=== PATIENT | female | born 1955 | race Caucasian/White ===

== ENCOUNTER 2020-02-04 15:36 | Outpatient (REF) | payer OTHER, SELFPAY | END 2020-02-04 15:37 | disposition home or self-care (01) | LOC: HO.LAB 15:36 | PROVIDERS: Visit Provider Internal Medicine | DX: Z20.828 Contact with and (suspected) exposure to other viral communicable diseases (principal) | CPT/HCPCS: 87635 ==

== ENCOUNTER 2020-04-02 10:24 | Inpatient (IN) | payer OTHER, SELFPAY ==
--- NOTE | 2020-04-02 | ECG_ITS ---
Test Reason : DIZZINESS Blood Pressure : / mmHG Vent. Rate : 076 BPM Atrial Rate : 076 BPM P-R Int : 150 ms QRS Dur : 098 ms QT Int : 396 ms P-R-T Axes : 064 024 -04 degrees QTc Int : 445 ms Normal sinus rhythm ST & T wave abnormality, consider inferior ischemia Abnormal ECG When compared with ECG of 30-MAR-2017 15:50, No significant change was found Referred By: Generic ED Physician Electronically Signed By:MOHAN MORRISON MD
[2020-04-02 10:37] VITALS: BP 210/82; PULSE 82; RESP 22; TEMP 36.2; O2SAT 88; BMI 30.6
--- NOTE | 2020-04-02 11:24 | XR_ITS ---
EXAMINATION: XR CHEST CLINICAL INFORMATION: Shortness of breath COMPARISON: 03/30/2017 TECHNIQUE: Frontal view of the chest was obtained. FINDINGS: No significant abnormality is noted involving the heart, lungs, mediastinum, bony thorax or soft tissues. XR/XR chest 1V IMPRESSION: Unremarkable examination.
--- NOTE | 2020-04-02 11:25 | CT_ITS ---
EXAMINATION: CT ABDOMEN AND PELVIS WITH CONTRAST CLINICAL INFORMATION: Lower abdominal tenderness and left lower quadrant pain. COMPARISON: CT abdomen 03/18/2017 TECHNIQUE: Multidetector volumetric images were obtained from the superior aspect of the liver through the pubic symphysis following administration 85 mL of Omnipaque 350 intravenous contrast. Sagittal and coronal reformatted images were obtained on the technologist's workstation. Oral contrast: No This CT examination was performed using dose optimization techniques as appropriate, variously including the following: *Automated exposure control *Adjustment of mA and/or kV according to patient size (this includes techniques or standardized protocols for targeted exams where dose is matched to indication/reason for exam; i.e. extremities or head) *Use of iterative reconstruction technique DLP: 889 mGy-cm FINDINGS: LUNG BASES: Patchy consolidation is present at the left lung base. LIVER, GALLBLADDER, AND BILIARY TREE: Hepatic steatosis is present. No focal mass or bile duct dilatation is seen. Surgical clips are present in the gallbladder fossa. PANCREAS: Unremarkable. SPLEEN: Unremarkable. ADRENAL GLANDS: Both adrenal glands appear slightly nodular but unchanged. KIDNEYS AND URETERS: The kidneys are normal in size, shape, and attenuation. Bilateral renal cysts are present. No solid renal masses are seen. No hydronephrosis, hydroureter, or calculi are seen. No perinephric stranding. BLADDER: Unremarkable. GASTROINTESTINAL TRACT: Again seen is thickening of the gastric mucosa at the level of the fundus. This appears slightly more marked than previously noted. At the time of the prior study, endoscopy or upper GI was recommended. The same recommendations remain. Scattered colonic diverticula are present without diverticulitis. The small and large bowel is unremarkable. The appendix is not identified with certainty but there is no evidence of appendicitis. ABDOMINAL WALL: No significant hernia is appreciated. LYMPH NODES: No retroperitoneal lymphadenopathy. VASCULAR: Ectatic but unremarkable. PELVIC VISCERA: An anteverted uterus is present. No free intraperitoneal fluid or abnormal adnexal mass is seen. OSSEOUS STRUCTURES: Degenerative change is present, most marked at L4-L5. No bony destructive lesions are seen. CT/CT abdomen pelvis w con IMPRESSION: A cause for the patient's left lower quadrant pain is not found. Incidental findings include: Hepatic steatosis, slightly nodular adrenal glands, bilateral renal cysts, thickened gastric mucosa (see recommendations above) and degenerative changes in the spine.
[2020-04-02] MEDS: diphenhydrAMINE HCL 50 MG/ML VIAL 12.5 MG IVPUSH (11:39)
[2020-04-02 11:40] LABS: Basophils Percent Auto 0.2 % (0-2); Eosinophils Percent Auto 0.1 % (0-4); Hematocrit 45.7 % (37-47); Hemoglobin 15.7 g/dl (12.0-16.0); Imm Gran Abs Auto 0.07 X10*3/uL (0.00-0.03); Imm Gran Pct Auto 0.5 % (0.0-0.4); Lymphocytes Absolute Auto 0.8 X10*3/uL (1.2-4.9); Lymphocytes Percent Auto 5.7 % (20-40); MANUAL DIFF FLAG NO; Mean Corpuscular HGB Conc 34.4 g/dl (31.0-35.0); Mean Corpuscular Hemoglobin 31.2 pg (27.0-33.0); Mean Corpuscular Volume 90.9 fL (80-98); Mean Platelet Volume 11.4 fL (9.4-12.3); Monocytes Absolute Auto 0.7 X10*3/uL (0.1-1.2); Monocytes Percent Auto 5.1 % (2-11); Neutrophils Absolute Auto 12.9 X10*3/uL (2.0-8.3); Neutrophils Percent Auto 88.4 % (45-73); Platelet Count 259 X10*3/uL (160-400); Red Blood Count 5.03 X10*6/uL (4.20-5.50); Red Cell Distribution Width 11.3 % (11.0-16.0); White Blood Count 14.6 X10*3/uL (4.8-10.8)
[2020-04-02] MEDS: ondansetron HCL 4 MG/2 ML VIAL IVPUSH (11:40)
[2020-04-02] MEDS: 0.9 % Sodium Chloride 1,000 ML 999 ML IVCONT ×3 (11:40→17:30)
[2020-04-02] MEDS: Meclizine HCl 25 MG TABLET PO (11:40)
[2020-04-02 11:41] VITALS: BP 195/83; PULSE 76; RESP 20; O2SAT 99
[2020-04-02 12:10] VITALS: BP 174/84; PULSE 80; RESP 16; O2SAT 98
[2020-04-02 12:12] LABS: Troponin-I High Sensitivity 10.2 ng/L (<3.5-17.0)
--- NOTE | 2020-04-02 12:28 | PC.NURSE ---
Pt reports improvement in nausea, no longer vomiting.
[2020-04-02 12:39] LABS: Lactic Acid 2.4 mmol/L (0.5-2.0)
[2020-04-02 12:40] LABS: Alanine Aminotransferase 26 U/L (0-31); Albumin Level 4.4 g/dL (3.5-5.0); Alkaline Phosphatase 59 U/L (39-117); Anion Gap 23 (12-20); Aspartate Amino Transferase 22 U/L (5-31); Bilirubin Direct 0.3 mg/dL (0.0-0.5); Bilirubin Total 0.8 mg/dL (0.0-1.0); Blood Urea Nitrogen 10 mg/dL (9-16); Calcium 8.4 mg/dL (8.4-10.2); Carbon Dioxide 22 mmol/L (22-29); Chloride 99 mmol/L (96-108); Creatinine Clr Calc Pharmacy 77.5; Estimated Glomerular Filt Rate > 60; Glucose Random 270 mg/dL (60-115); Lipase 37 U/L (8-78); Magnesium < 0.6 mg/dL (1.6-2.6); Potassium 2.8 mmol/l (3.3-5.1); Sodium 141 mmol/L (135-145); Total Protein 7.8 g/dL (6.5-8.0)
[2020-04-02 12:48] LABS: Glucose Urine UA 500 MG/DL (NEG); Leukocyte Esterase Urine NEG (NEG); Nitrite Urine NEG (NEG); PH 6.5 (5.0-8.0); Urine Blood TRACE (NEG); Urine Ketones >=80 MG/DL (NEG); Urine Protein 2+ MG/DL (NEG-TRACE)
[2020-04-02 12:49] LABS: Appearance Urine CLEAR; Color Urine YELLOW
[2020-04-02] MEDS: Potassium Chloride Packet 20 MEQ PACKET 40 MEQ PO (12:59)
[2020-04-02] MEDS: Potassium Chloride/H20 10 MEQ/100 ML PIGGYBACK 100 MEQ IV (13:01)
[2020-04-02] MEDS: Magnesium Sulfate/H2O 2 GM/50 ML PIGGYBACK IV ×2 (13:01→17:30)
[2020-04-02 13:10] LABS: RBC Urine 0-2 /HPF (0); Renal Epithelial Cells Urine TRACE /LPF; Squamous Epithelial Cell Urine 1+ /LPF
[2020-04-02] MEDS: Metoclopramide HCl 10 MG/2 ML VIAL IVPUSH (13:37)
[2020-04-02] MEDS: Piperacillin Sodium/Tazobactam 3.375 GM in 0.9 % Sodium Chloride 50 ML IV (13:37)
[2020-04-02 13:39] VITALS: BP 169/72; PULSE 90; RESP 16; TEMP 37.2; O2SAT 97
[2020-04-02 13:42] LABS: Reflex Lactate? Lactic Acid Added
--- NOTE | 2020-04-02 14:04 | ED_ITS ---
HPI - Nausea/Vomiting/Diarrhea General Chief complaint: Nausea/Vomiting/Diarrhea Stated complaint: n/v/d x2 days Time Seen by Provider: 04/02/20 11:16 Source: patient and EMS Mode of arrival: EMS History of Present Illness HPI Narrative: 65-year-old female with no significant past medical history presenting to the ED complaining of nausea, vomiting, and room spinning dizziness worse with position changes x2 days. Admits to similar symptoms in the past. Also reports mild abdominal pain and SOB secondary to emesis. Denies headache, CP, cough, dysuria/hematuria, weakness, exposure to COVID-19 Related Data Allergies Allergy/AdvReac Type Severity Reaction Status Date / Time acetaminophen [From PERCOCET] Allergy Intermediate UNKNOWN Verified 04/02/20 11:53 oxycodone [From PERCOCET] Allergy Intermediate UNKNOWN Verified 04/02/20 11:53 Review of Systems Review of Systems: Constitutional: No Weight loss, No Fever, No Chills Cardiovascular: No Chest Pain, + SOB, No Orthopnea, No Edema, No Palpitations Respiratory: No Cough, No Sputum Gastrointestinal: + Nausea, + Vomiting, No Diarrhea, No Constipation, + Abdominal pain Genitourinary: No irregular bleeding, No Dysuria, No Urinary Frequency, No Hematuria, No Flank Pain Skin: No Skin Lesions, No rash Neuro: No Weakness, No Numbness, No Loss of Consciousness, + Dizziness, No Headache PMFSH Past Medical History Attestation statement: The following information was validated with the patient. Social History Social History Alcohol intake: current Smoked in Last 30 Days: No Use of substances other than those prescribed or required for medical reasons: No Advance Directives: No Advance Directives Information Provided: Yes Physical Exam Vital Signs: Vital Signs: Last Vital Signs Temp 98.9 F 04/02/20 13:39 Pulse 90 04/02/20 13:39 Resp 16 04/02/20 13:39 BP 169/72 H 04/02/20 13:39 Pulse Ox 97 04/02/20 13:39 Body Mass Index 30.6 Const: Other: Actively vomiting General: cooperative Orientation/consciousness: patient oriented x3 Limitations: no limitations HENMT: Head: Yes normal to inspection Ears: hearing grossly normal bilaterally General nose exam: Normal external nose present Face and sinus: Yes normal facial exam Mouth: Normal oral and palatal mucosa present Eyes: Other: Dizziness elicited with EOMs. No nystagmus General: appearance normal, both eyes and all related structures Pupils: Equal, round and reactive pupils present EOM: EOMs intact bilaterally Neck: Neck: Yes normal visual inspection and Yes no meningeal signs Resp: Effort & Inspection: normal respiratory effort Auscultation: clear to auscultation bilaterally, no crackles, no rales, no rhonchi and no wheezes Cardio: Rate: regular rate Heart sounds: S1 normal heart sound present and S2 normal heart sound present GI: Inspection: Yes normal to inspection Palpation (GI): Soft to palpation, Tenderness to palpation present (GI) (Lower abdomen) in the LLQ, no guarding and not rigid Skin: Rashes: no rashes Wounds: no wounds Neuro: General: patient oriented x3, tone normal, moves all extremities, no meningeal signs and no focal motor deficits Cranial nerves: Yes Equal, round and reactive pupils present Extrem: General: Yes normal to inspection Course Course Course Narrative: * Mild leukocytosis of 14.6 > likely from retching/reactive * Potassium low 2.8, magnesium less than 0.6, anion gap of 23, and lactic 2.4 > all suspected from dehydration. Lower concern for severe sepsis > 40 mEq p.o. and 10 mEq IV potassium as well as 2G Mg given >> empiric IV Zosyn ordered CT/CT abdomen pelvis w con IMPRESSION: A cause for the patient's left lower quadrant pain is not found. Incidental findings include: Hepatic steatosis, slightly nodular adrenal glands, bilateral renal cysts, thickened gastric mucosa (see recommendations above) and degenerative changes in the spine. > patient is still with positional dizziness, will admit for further management MDM - Nausea/Vomiting/Diarrhea MDM Narrative Medical decision making narrative: 65-year-old female with no significant past medical history presenting to the ED complaining of nausea, vomiting, and room spinning dizziness worse with position changes x2 days. Also reports mild a bdominal pain and SOB secondary to emesis. On exam initially tachypneic and mildly hypoxic but actively vomiting on exam. Abdomen is soft with left lower and lower tenderness. No rebound or guarding. Concern for BPPV vs diverticulitis/appendicitis. Rule out other infectious/metabolic etiology Plan: EKG, labs, UA, CXR, CTAP, IVF, symptomatic therapy/reassess Lab Data Result diagrams: 04/02/20 11:29 04/02/20 11:29 Labs: Lab Results 04/02/20 04/02/20 04/02/20 Range/Units 11:29 11:29 11:29 WBC 14.6 H (4.8-10.8) X10*3/uL RBC 5.03 (4.20-5.50) X10*6/uL Hgb 15.7 (12.0-16.0) g/dl Hct 45.7 (37-47) % MCV 90.9 (80-98) fL MCH 31.2 (27.0-33.0) pg MCHC 34.4 (31.0-35.0) g/dl RDW 11.3 (11.0-16.0) % Plt Count 259 (160-400) X10*3/uL MPV 11.4 (9.4-12.3) fL Immature Gran % (Auto) 0.5 H (0.0-0.4) % Neut % (Auto) 88.4 H (45-73) % Lymph % (Auto) 5.7 L (20-40) % [place] % (Auto) 5.1 (2-11) % Eos % (Auto) 0.1 (0-4) % Baso % (Auto) 0.2 (0-2) % Lymph # (Auto) 0.8 L (1.2-4.9) X10*3/uL [place] # (Auto) 0.7 (0.1-1.2) X10*3/uL Eos # (Auto) 0.0 (0.0-0.4) X10*3/uL Baso # (Auto) 0.0 (0.0-0.2) X10*3/uL Abs Immat Gran (auto) 0.07 H (0.00-0.03) X10*3/uL Absolute Neuts (auto) 12.9 H (2.0-8.3) X10*3/uL Absolute Nucleated RBC 0.000 (0.0-0.012) X10*3/uL Nucleated RBC % (auto) 0.0 (0.0-0.2) /100WBC Hold Purple Top SEE NOTE Hold Blue Top Sodium 141 (135-145) mmol/L Potassium 2.8 L (3.3-5.1) mmol/l Chloride 99 (96-108) mmol/L Carbon Dioxide 22 (22-29) mmol/L Anion Gap 23 H (12-20) BUN 10 (9-16) mg/dL Creatinine 0.82 (0.5-1.4) mg/dL Estim Creat Clear Calc 77.5 Estimated GFR > 60 Random Glucose 270 H (60-115) mg/dL Lactic Acid (0.5-2.0) mmol/L Lactic Acid Fup @ 2Hr (0.5-2.0) mmol/L Calcium 8.4 (8.4-10.2) mg/dL Magnesium < 0.6 L* (1.6-2.6) mg/dL Total Bilirubin 0.8 (0.0-1.0) mg/dL Direct Bilirubin 0.3 (0.0-0.5) mg/dL AST 22 (5-31) U/L ALT 26 (0-31) U/L Alkaline Phosphatase 59 (39-117) U/L Troponin I High Sens (<3.5-17.0) ng/L Total Protein 7.8 (6.5-8.0) g/dL Albumin 4.4 (3.5-5.0) g/dL Lipase 37 (8-78) U/L Urine Color Urine Appearance Urine pH (5.0-8.0) Ur Specific [place] (1.005-1.025) Urine Protein (NEG-TRACE) MG/DL Urine Glucose (UA) (NEG) MG/DL Urine Ketones (NEG) MG/DL Urine Blood (NEG) Urine Nitrite (NEG) Ur Leukocyte Esterase (NEG) Urine RBC (0) /HPF Urine WBC (0-4) /HPF Ur Squamous Epith Cells /LPF Ur Renal Epithelial Cell /LPF Urine Bacteria /LPF 04/02/20 04/02/20 04/02/20 Range/Units 11:29 11:29 11:36 WBC (4.8-10.8) X10*3/uL RBC (4.20-5.50) X10*6/uL Hgb (12.0-16.0) g/dl Hct (37-47) % MCV (80-98) fL MCH (27.0-33.0) pg MCHC (31.0-35.0) g/dl RDW (11.0-16.0) % Plt Count (160-400) X10*3/uL MPV (9.4-12.3) fL Immature Gran % (Auto) (0.0-0.4) % Neut % (Auto) (45-73) % Lymph % (Auto) (20-40) % [place] % (Auto) (2-11) % Eos % (Auto) (0-4) % Baso % (Auto) (0-2) % Lymph # (Auto) (1.2-4.9) X10*3/uL [place] # (Auto) (0.1-1.2) X10*3/uL Eos # (Auto) (0.0-0.4) X10*3/uL Baso # (Auto) (0.0-0.2) X10*3/uL Abs Immat Gran (auto) (0.00-0.03) X10*3/uL Absolute Neuts (auto) (2.0-8.3) X10*3/uL Absolute Nucleated RBC (0.0-0.012) X10*3/uL Nucleated RBC % (auto) (0.0-0.2) /100WBC Hold Purple Top Hold Blue Top SEE NOTE Sodium (135-145) mmol/L Potassium (3.3-5.1) mmol/l Chloride (96-108) mmol/L Carbon Dioxide (22-29) mmol/L Anion Gap (12-20) BUN (9-16) mg/dL Creatinine (0.5-1.4) mg/dL Estim Creat Clear Calc Estimated GFR Random Glucose (60-115) mg/dL Lactic Acid 2.4 H* (0.5-2.0) mmol/L Lactic Acid Fup @ 2Hr (0.5-2.0) mmol/L Calcium (8.4-10.2) mg/dL Magnesium (1.6-2.6) mg/dL Total Bilirubin (0.0-1.0) mg/dL Direct Bilirubin (0.0-0.5) mg/dL AST (5-31) U/L ALT (0-31) U/L Alkaline Phosphatase (39-117) U/L Troponin I High Sens 10.2 (<3.5-17.0) ng/L Total Protein (6.5-8.0) g/dL Albumin (3.5-5.0) g/dL Lipase (8-78) U/L Urine Color Urine Appearance Urine pH (5.0-8.0) Ur Specific [place] (1.005-1.025) Urine Protein (NEG-TRACE) MG/DL Urine Glucose (UA) (NEG) MG/DL Urine Ketones (NEG) MG/DL Urine Blood (NEG) Urine Nitrite (NEG) Ur Leukocyte Esterase (NEG) Urine RBC (0) /HPF Urine WBC (0-4) /HPF Ur Squamous Epith Cells /LPF Ur Renal Epithelial Cell /LPF Urine Bacteria /LPF 04/02/20 04/02/20 Range/Units 12:42 14:16 WBC (4.8-10.8) X10*3/uL RBC (4.20-5.50) X10*6/uL Hgb (12.0-16.0) g/dl Hct (37-47) % MCV (80-98) fL MCH (27.0-33.0) pg MCHC (31.0-35.0) g/dl RDW (11.0-16.0) % Plt Count (160-400) X10*3/uL MPV (9.4-12.3) fL Immature Gran % (Auto) (0.0-0.4) % Neut % (Auto) (45-73) % Lymph % (Auto) (20-40) % [place] % (Auto) (2-11) % Eos % (Auto) (0-4) % Baso % (Auto) (0-2) % Lymph # (Auto) (1.2-4.9) X10*3/uL [place] # (Auto) (0.1-1.2) X10*3/uL Eos # (Auto) (0.0-0.4) X10*3/uL Baso # (Auto) (0.0-0.2) X10*3/uL Abs Immat Gran (auto) (0.00-0.03) X10*3/uL Absolute Neuts (auto) (2.0-8.3) X10*3/uL Absolute Nucleated RBC (0.0-0.012) X10*3/uL Nucleated RBC % (auto) (0.0-0.2) /100WBC Hold Purple Top Hold Blue Top Sodium (135-145) mmol/L Potassium (3.3-5.1) mmol/l Chloride (96-108) mmol/L Carbon Dioxide (22-29) mmol/L Anion Gap (12-20) BUN (9-16) mg/dL Creatinine (0.5-1.4) mg/dL Estim Creat Clear Calc Estimated GFR Random Glucose (60-115) mg/dL Lactic Acid (0.5-2.0) mmol/L Lactic Acid Fup @ 2Hr 2.2 H* (0.5-2.0) mmol/L Calcium (8.4-10.2) mg/dL Magnesium (1.6-2.6) mg/dL Total Bilirubin (0.0-1.0) mg/dL Direct Bilirubin (0.0-0.5) mg/dL AST (5-31) U/L ALT (0-31) U/L Alkaline Phosphatase (39-117) U/L Troponin I High Sens (<3.5-17.0) ng/L Total Protein (6.5-8.0) g/dL Albumin (3.5-5.0) g/dL Lipase (8-78) U/L Urine Color YELLOW Urine Appearance CLEAR Urine pH 6.5 (5.0-8.0) Ur Specific [place] 1.020 (1.005-1.025) Urine Protein 2+ H (NEG-TRACE) MG/DL Urine Glucose (UA) 500 H (NEG) MG/DL Urine Ketones >=80 (NEG) MG/DL Urine Blood TRACE (NEG) Urine Nitrite NEG (NEG) Ur Leukocyte Esterase NEG (NEG) Urine RBC 0-2 (0) /HPF Urine WBC 1-4 (0-4) /HPF Ur Squamous Epith Cells 1+ /LPF Ur Renal Epithelial Cell TRACE /LPF Urine Bacteria NONE /LPF
[2020-04-02] MEDS: iohexoL 350 MG/ML 100 ML INFUS..BTL 85 ML IV (14:18)
[2020-04-02 14:46] LABS: ~Lactic Acid-LAB USE ONLY 2.2 mmol/L (0.5-2.0)
[2020-04-02] MEDS: LORazepam 2 MG/ML VIAL 1 MG IVPUSH (15:30)
[2020-04-02 16:19] LABS: Reflex Lactate? 2 Y
--- NOTE | 2020-04-02 16:32 | PM.EVENT ---
Event Note Date of Service: 04/02/20 Event Note: Patient seen and examined independently and was present during andrew portion of E/M service. Agree with midlevel's history, physical, assessment, and plan. 65F presented with dizzyness hypomagnesemia replace hold ppi
--- NOTE | 2020-04-02 17:33 | PM.IMHP ---
History of Present Illness Date of Service: 04/02/20 Chief Complaint: Dizziness This is a 65-year-old female who presents emergency department with complaints of dizziness which began 4 days ago. Her dizziness is worse with movement. It has been getting progressively worse over the past several days and today she was feeling off balance with ambulation. She also has associated nausea and vomiting. She has had 1 episode of diarrhea. She has had decreased p.o. intake over the past several days. She denies any localized weakness, speech abnormalities or difficulty swallowing. She denies any visual disturbances. She has noticed tinnitus. Her lab work was significant for leukocytosis of 14.6 2.4. However no source of infection was identified, chest x-ray and urinalysis were both unremarkable. Her potassium and magnesium were both noted to be low at 2.8 and less than 0.6 respectively. EKG showed no acute abnormalities. She continued to have significant dizziness and the decision was made to admit her for further management. Review of Systems Review of Systems: Yes all other systems are reviewed and are negative Constitutional: Constitutional: Denies chills and Denies fever(s) Cardiovascular: Cardiovascular: Denies chest pain Respiratory: Respiratory: Denies cough [facility] Medical History (Updated 04/02/20 @ 17:39 by MARCELA Hopper) Diabetes Hyperlipidemia Hypertension Functional capacity: independent ambulation Family history: reviewed and not pertinent Social History (Updated 04/02/20 @ 17:40 by MARCELA Hopper) Household Members: Family Housing: Apartment Do you presently have visiting nurse or other home services: No Alcohol intake: current Alcohol intake frequency: holidays/special occasions only Smoking Status: Never smoker Smoked in Last 30 Days: No Patient Interested in Nicotine Replacement: No Patient Given Instructions on How to Stop Smoking: No Second Hand Smoke Exposure: No Use of substances other than those prescribed or required for medical reasons: No Currently Displaying Signs/Symptoms of Drug Intoxication Withdrawal: No Any prior treatment program specific to substance use: No Have you been hit, kicked, punched, or otherwise hurt by someone within the past year? If so, by whom?: No Do you feel safe in your current relationship?: No Is there a partner from a previous relationship who is making you feel unsafe now?: No Are you made to feel afraid or neglected: No Advance Directives: No Advance Directives Information Provided: Yes Do you have thoughts of harming others: None Do you have a plan to hurt others: No Plan Recently lost weight without trying: Yes Meds Allergies Allergy/AdvReac Type Severity Reaction Status Date / Time acetaminophen [From PERCOCET] Allergy Intermediate UNKNOWN Verified 04/02/20 11:53 oxycodone [From PERCOCET] Allergy Intermediate UNKNOWN Verified 04/02/20 11:53 Home Medications Medication Instructions Recorded Confirmed Type glimepiride 4 mg PO BID 04/02/20 04/02/20 History lisinopril 10 mg PO BID 04/02/20 04/02/20 History metformin 500 mg PO BID 04/02/20 04/02/20 History pantoprazole 40 mg PO BID 04/02/20 04/02/20 History simvastatin 20 mg PO BEDTIME 04/02/20 04/02/20 History Physical Exam Vital Signs and Narrative: Vital Signs: Last Vital Signs Temp 98.9 F 04/02/20 13:39 Pulse 90 04/02/20 13:39 Resp 16 04/02/20 13:39 BP 169/72 H 04/02/20 13:39 Pulse Ox 97 04/02/20 13:39 Body Mass Index 30.6 Const: Nutritional Appearance: well nourished Orientation/consciousness: patient oriented x3 HENMT: Head: Yes normocephalic and Yes atraumatic Eyes: Sclerae: sclerae normal Chest: Chest palpation & inspection: normal inspection of the chest Resp: Effort & Inspection: normal respiratory effort and no respiratory distress Auscultation: clear to auscultation bilaterally Cardio: Rate: regular rate Rhythm: regular rhythm GI: Palpation (GI): Soft to palpation Skin: General skin exam: no rashes or lesions noted Neuro: General: patient oriented x3 Cranial nerves: Yes CN's II-XII intact bilaterally and Yes Bilaterally intact EOM present Extrem: General: Yes normal to inspection Results Labs CBC and Chem 7: 04/02/20 11:29 04/03/20 05:39 Labs: Laboratory Results - last 24 hr 04/02/20 04/02/20 04/02/20 11:29 11:29 11:29 MCV 90.9 MCH 31.2 MCHC 34.4 RDW 11.3 Plt Count 259 MPV 11.4 Immature Gran % (Auto) 0.5 H Neut % (Auto) 88.4 H Lymph % (Auto) 5.7 L [place] % (Auto) 5.1 Eos % (Auto) 0.1 Baso % (Auto) 0.2 Lymph # (Auto) 0.8 L [place] # (Auto) 0.7 Eos # (Auto) 0.0 Baso # (Auto) 0.0 Abs Immat Gran (auto) 0.07 H Absolute Neuts (auto) 12.9 H Absolute Nucleated RBC 0.000 Nucleated RBC % (auto) 0.0 Hold Purple Top SEE NOTE Hold Blue Top Anion Gap 23 H Estim Creat Clear Calc 77.5 Estimated GFR > 60 Random Glucose 270 H Lactic Acid Lactic Acid Fup @ 2Hr Calcium 8.4 Magnesium < 0.6 L* Total Bilirubin 0.8 Direct Bilirubin 0.3 AST 22 ALT 26 Alkaline Phosphatase 59 Troponin I High Sens Total Protein 7.8 Albumin 4.4 Lipase 37 Urine Color Urine Appearance Urine pH Ur Specific [place] Urine Protein Urine Glucose (UA) Urine Ketones Urine Blood Urine Nitrite Ur Leukocyte Esterase Urine RBC Urine WBC Ur Squamous Epith Cells Ur Renal Epithelial Cell Urine Bacteria 04/02/20 04/02/20 04/02/20 11:29 11:29 11:36 MCV MCH MCHC RDW Plt Count MPV Immature Gran % (Auto) Neut % (Auto) Lymph % (Auto) [place] % (Auto) Eos % (Auto) Baso % (Auto) Lymph # (Auto) [place] # (Auto) Eos # (Auto) Baso # (Auto) Abs Immat Gran (auto) Absolute Neuts (auto) Absolute Nucleated RBC Nucleated RBC % (auto) Hold Purple Top Hold Blue Top SEE NOTE Anion Gap Estim Creat Clear Calc Estimated GFR Random Glucose Lactic Acid 2.4 H* Lactic Acid Fup @ 2Hr Calcium Magnesium Total Bilirubin Direct Bilirubin AST ALT Alkaline Phosphatase Troponin I High Sens 10.2 Total Protein Albumin Lipase Urine Color Urine Appearance Urine pH Ur Specific [place] Urine Protein Urine Glucose (UA) Urine Ketones Urine Blood Urine Nitrite Ur Leukocyte Esterase Urine RBC Urine WBC Ur Squamous Epith Cells Ur Renal Epithelial Cell Urine Bacteria 04/02/20 04/02/20 12:42 14:16 MCV MCH MCHC RDW Plt Count MPV Immature Gran % (Auto) Neut % (Auto) Lymph % (Auto) [place] % (Auto) Eos % (Auto) Baso % (Auto) Lymph # (Auto) [place] # (Auto) Eos # (Auto) Baso # (Auto) Abs Immat Gran (auto) Absolute Neuts (auto) Absolute Nucleated RBC Nucleated RBC % (auto) Hold Purple Top Hold Blue Top Anion Gap Estim Creat Clear Calc Estimated GFR Random Glucose Lactic Acid Lactic Acid Fup @ 2Hr 2.2 H* Calcium Magnesium Total Bilirubin Direct Bilirubin AST ALT Alkaline Phosphatase Troponin I High Sens Total Protein Albumin Lipase Urine Color YELLOW Urine Appearance CLEAR Urine pH 6.5 Ur Specific [place] 1.020 Urine Protein 2+ H Urine Glucose (UA) 500 H Urine Ketones >=80 Urine Blood TRACE Urine Nitrite NEG Ur Leukocyte Esterase NEG Urine RBC 0-2 Urine WBC 1-4 Ur Squamous Epith Cells 1+ Ur Renal Epithelial Cell TRACE Urine Bacteria NONE Imaging Radiologist's Impressions: Impressions Chest X-Ray 04/02/20 11:24 IMPRESSION: Unremarkable examination. Abdomen/Pelvis CT 04/02/20 11:25 IMPRESSION: A cause for the patient's left lower quadrant pain is not found. Incidental findings include: Hepatic steatosis, slightly nodular adrenal glands, bilateral renal cysts, thickened gastric mucosa (see recommendations above) and degenerative changes in the spine. Assessment and Plan (1) Dizziness: Status: Acute This is a 65-year-old female with a history of diabetes, hypertension, dyslipidemia who presents to the emergency department with 4 day history of dizziness Dizziness May be secondary to hypomagnesemia vs positional vertigo no focal neuro deficits Replace mag and follow Electrolyte abnormalities Magnesium<0.6, k 2.8 will replace and follow Tele monitoring Hold PPI Lactic acidosis Likely related to dehydration/metformin No evidence of sepsis Leukocytosis No evidence of infection Chest x-ray, urinalysis unremarkable Diabetes SSI, POCs Med reconciliation pending at this time DVT prophylaxis-Lovenox Code status-full code This case was discussed with
[2020-04-02 18:38] LABS: IDNOW Serial# 9DD0AD1C
[2020-04-02 18:39] LABS: COVID-19 Test Negative (Negative)
[2020-04-02 19:04] VITALS: BP 137/64; PULSE 84; RESP 26; TEMP 36.9; O2SAT 97
--- NOTE | 2020-04-02 19:06 | PC.NURSE ---
PT WAS MEDICATED CHARTED FOR MAG REPLACEMENT AND REHYDRATION AWAITING ADMISSION ASSIGNMENT NO VOMITING NAUSEA RESOLVING PO ICE CHIPS
[2020-04-02 20:28] LABS: ~Lactic Acid-LAB USE ONLY 1.3 mmol/L (0.5-2.0)
[2020-04-02 20:37] LABS: Magnesium 1.5 mg/dL (1.6-2.6); Potassium 2.8 mmol/l (3.3-5.1); Troponin-I High Sensitivity 16.6 ng/L (<3.5-17.0)
[2020-04-02 22:49] VITALS: BP 183/84; PULSE 87; RESP 20; TEMP 37; O2SAT 95
[2020-04-02 23:10] LABS: Glucose, Whole Blood 167 mg/dL (60-115)
[2020-04-02] MEDS: Insulin Lispro 100 UNIT/ML 3 ML VIAL SUBCUT (23:42)
[2020-04-02] MEDS: 0.9 % Sodium Chloride Flush 3 ML SYRINGE IVFLUSH (23:42)
[2020-04-02] MEDS: Enoxaparin Sodium 40 MG/0.4 ML SYRINGE SUBCUT (23:43)
[2020-04-03 04:00] VITALS: BP 174/73; PULSE 83; RESP 18; TEMP 36.9; O2SAT 96
[2020-04-03] MEDS: Acetaminophen 325 MG TABLET 650 MG PO ×2 (05:46→17:57)
[2020-04-03 07:38] LABS: Anion Gap 14 (12-20); Blood Urea Nitrogen 7 mg/dL (9-16); Calcium 7.3 mg/dL (8.4-10.2); Carbon Dioxide 25 mmol/L (22-29); Chloride 104 mmol/L (96-108); Creatinine Clr Calc Pharmacy 94.9; Estimated Glomerular Filt Rate > 60; Glucose Random 167 mg/dL (60-115); Potassium 2.8 mmol/l (3.3-5.1); Sodium 140 mmol/L (135-145)
[2020-04-03 07:51] LABS: Magnesium 1.2 mg/dL (1.6-2.6)
[2020-04-03 08:00] VITALS: BP 150/82; PULSE 108; RESP 18; TEMP 36.4; O2SAT 98
[2020-04-03 08:20] LABS: Glucose, Whole Blood 185 mg/dL (60-115)
[2020-04-03] MEDS: Magnesium Sulfate/H2O 2 GM/50 ML PIGGYBACK IV (08:47)
[2020-04-03] MEDS: lisinopriL 10 MG TABLET PO ×2 (08:48→21:13)
[2020-04-03] MEDS: Insulin Lispro 100 UNIT/ML 3 ML VIAL SUBCUT ×4 (08:48→21:13)
[2020-04-03] MEDS: 0.9 % Sodium Chloride Flush 3 ML SYRINGE IVFLUSH ×3 (08:48→21:20)
[2020-04-03] MEDS: Magnesium Oxide 400 MG TABLET PO ×2 (08:48→17:57)
--- NOTE | 2020-04-03 09:14 | P.PNIM_ITS ---
Subjective Subjective Date of Service: 04/03/20 Interval History: Was initially feeling better, now more dizzy Cardiovascular Cardiovascular: Reports no additional cardiovascular complaints Gastrointestinal Gastrointestinal: Reports no additional gastrointestinal complaints Physical Exam Vital Signs: Vital Signs: Last Vital Signs Temp 97.6 F 04/03/20 08:00 Pulse 108 H 04/03/20 08:00 Resp 18 04/03/20 08:00 BP 150/82 H 04/03/20 08:00 Pulse Ox 98 04/03/20 08:00 Body Mass Index 30.6 General: AO X 3, no acute distress Resp: CTA bilateral CVS: S1,S2,RRR GI: soft, non tender, non distended Neuro: motor grossly intact Psych: appropriate affect Objective Data Current Medications Generic Name Dose Route Start Last Admin Trade Name Freq PRN Reason Stop Dose Admin Acetaminophen 650 mg 04/02/20 22:34 04/03/20 05:46 Acetaminophen 325 Mg Tablet PO 650 mg Q6H PRN Administration Pain, Mild (Pain Scale 1-3) Atorvastatin Calcium 10 mg 04/03/20 21:00 Atorvastatin Calcium 10 Mg Tablet PO BEDTIME [facility] Docusate Sodium 100 mg 04/02/20 22:34 Docusate Sodium 100 Mg Capsule PO DAILY PRN Constipation Enoxaparin Sodium 40 mg 04/02/20 22:34 04/02/20 23:43 Enoxaparin Sodium 40 Mg/0.4 Ml Syringe SUBCUT 40 mg Q24H [facility] Administration Magnesium Sulfate 2 gm in 50 mls @ 25 mls/hr 04/03/20 07:52 04/03/20 08:47 IV 04/03/20 09:51 25 mls/hr ONCE ONE Administration Insulin Human Lispro 0 unit 04/02/20 22:34 04/03/20 08:48 Insulin Lispro 100 Unit/Ml 3 Ml Vial SUBCUT 2 unit QIDACHS [facility] Administration Protocol Lisinopril 10 mg 04/03/20 09:00 04/03/20 08:48 Lisinopril 10 Mg Tablet PO 10 mg BID [facility] Administration Protocol Magnesium Oxide 400 mg 04/03/20 08:30 04/03/20 08:48 Magnesium Oxide 400 Mg Tablet PO 400 mg BIDPC [facility] Administration Pharmacy Consult 1 each 04/02/20 15:47 Consult Rx Perform Med Rec MISCELLANE ONCE PRN Consult order Potassium Chloride 40 meq 04/03/20 09:00 Potassium Chloride Er 20 Meq Tab.Er.Prt PO 04/03/20 21:01 BID LOLITA Sodium Chloride 3 ml 04/03/20 00:00 04/03/20 08:48 0.9 % Sodium Chloride Flush 3 Ml Syringe IVFLUSH 3 ml QSHIFT [facility] Administration Labs CBC & Chem 7: 04/02/20 11:29 04/03/20 05:39 Assessment and Plan (1) Dizziness: Status: Acute Assessment and Plan: This is a 65-year-old female with a history of diabetes, hypertension, dyslipidemia who presented to the emergency department with 4 day history of dizziness Dizziness May be secondary to hypomagnesemia vs peripheral vertigo no focal neuro deficits continue magnesium supplementation and potassium supplementation, monitor elec trolytes PPI discontinued meclizine as needed follow-up B12 diabetes insulin hypertension lisinopril hyperlipidemia statin
[2020-04-03] MEDS: Meclizine HCl 12.5 MG TABLET PO ×2 (09:39→17:57)
[2020-04-03] MEDS: Potassium Chloride ER 20 MEQ TAB.ER.PRT 40 MEQ PO ×2 (09:39→21:12)
[2020-04-03 12:00] LABS: Glucose, Whole Blood 238 mg/dL (60-115)
[2020-04-03 16:00] VITALS: BP 178/82; PULSE 86; RESP 18; TEMP 36.6; O2SAT 96
[2020-04-03 18:22] LABS: Glucose, Whole Blood 236 mg/dL (60-115)
[2020-04-03 20:00] VITALS: BP 158/68; PULSE 88; RESP 20; TEMP 37; O2SAT 98
[2020-04-03 20:58] LABS: Glucose, Whole Blood 260 mg/dL (60-115)
[2020-04-03] MEDS: Atorvastatin Calcium 10 MG TABLET PO (21:12)
[2020-04-03] MEDS: Enoxaparin Sodium 40 MG/0.4 ML SYRINGE SUBCUT (21:13)
[2020-04-03 23:36] VITALS: BP 167/86; PULSE 75; RESP 18; TEMP 36.3; O2SAT 92
[2020-04-04] VITALS (7 sets, daily range): BP systolic 140–169; BP diastolic 74–88; PULSE 72–95; RESP 18–20; TEMP 36.6–36.8; O2SAT 93–96; BMI 30.6
[2020-04-04 04:06] LABS: Vitamin B12 301 pg/mL (200-900)
[2020-04-04 06:49] LABS: MANUAL DIFF FLAG NO
[2020-04-04 07:07] LABS: Basophils Absolute Auto 0.1 X10*3/uL (0.0-0.2); Basophils Percent Auto 0.7 % (0-2); Eosinophils Absolute Auto 0.2 X10*3/uL (0.0-0.4); Eosinophils Percent Auto 2.1 % (0-4); Hematocrit 41.9 % (37-47); Imm Gran Abs Auto 0.03 X10*3/uL (0.00-0.03); Imm Gran Pct Auto 0.4 % (0.0-0.4); Lymphocytes Absolute Auto 1.6 X10*3/uL (1.2-4.9); Lymphocytes Percent Auto 19.1 % (20-40); Mean Corpuscular HGB Conc 33.4 g/dl (31.0-35.0); Mean Corpuscular Hemoglobin 30.5 pg (27.0-33.0); Mean Corpuscular Volume 91.3 fL (80-98); Mean Platelet Volume 11.9 fL (9.4-12.3); Monocytes Absolute Auto 0.6 X10*3/uL (0.1-1.2); Monocytes Percent Auto 7.3 % (2-11); Neutrophils Percent Auto 70.4 % (45-73); Platelet Count 197 X10*3/uL (160-400); Red Blood Count 4.59 X10*6/uL (4.20-5.50); Red Cell Distribution Width 11.2 % (11.0-16.0); White Blood Count 8.5 X10*3/uL (4.8-10.8)
[2020-04-04 07:24] LABS: Anion Gap 14 (12-20); Blood Urea Nitrogen 8 mg/dL (9-16); Calcium 7.7 mg/dL (8.4-10.2); Carbon Dioxide 24 mmol/L (22-29); Chloride 107 mmol/L (96-108); Creatinine Clr Calc Pharmacy 100.9; Estimated Glomerular Filt Rate > 60; Glucose Fasting 212 mg/dL (60-99); Magnesium 1.7 mg/dL (1.6-2.6); Potassium 3.6 mmol/l (3.3-5.1); Sodium 141 mmol/L (135-145)
[2020-04-04 07:48] LABS: Glucose, Whole Blood 220 mg/dL (60-115)
--- NOTE | 2020-04-04 08:48 | MHC.CM.PN ---
PT COMPLETED A NEW HCP TODAY NAMING HER DAUGHTER, CHUY LANG ([phone]) HER PRIMARY AND HER SON, YOBANI LANG ([phone]), HER ALTERNATE AGENTS.
[2020-04-04] MEDS: Insulin Lispro 100 UNIT/ML 3 ML VIAL SUBCUT ×4 (08:55→21:08)
[2020-04-04] MEDS: lisinopriL 10 MG TABLET PO ×2 (08:56→21:04)
[2020-04-04] MEDS: Magnesium Oxide 400 MG TABLET PO ×2 (08:56→17:11)
[2020-04-04] MEDS: Meclizine HCl 12.5 MG TABLET PO ×2 (09:01→17:11)
[2020-04-04] MEDS: 0.9 % Sodium Chloride Flush 3 ML SYRINGE IVFLUSH ×3 (09:04→23:59)
--- NOTE | 2020-04-04 11:08 | MHC.CM.PN ---
Goal for dc is to return home, no services. Per MD in ROUNDS, MD will check in on Patient on status of her feeling dizzy. CM will continue to follow for dc planning and possible need to adjust the dc plan.
[2020-04-04 11:27] LABS: Glucose, Whole Blood 293 mg/dL (60-115)
--- NOTE | 2020-04-04 13:05 | P.PNIM_ITS ---
Subjective Subjective Date of Service: 04/04/20 Interval History: Being followed for dizziness, today she is feeling better still dizzy with ambulation but does not feel like passing out denies tremors, is afraid to go home with persistent symptoms. Review of Systems General no headache,no fever, chills. CVS no chest pain, no palpitation. Respiratory no cough, no sputum production, no respiratory distress. Gastrointestinal no nausea, no vomiting, no abdominal pain Physical Exam 2 Vital Signs: Vital Signs: Last Vital Signs Temp 98.2 F 04/04/20 11:43 Pulse 93 04/04/20 11:43 Resp 18 04/04/20 11:43 BP 160/78 H 04/04/20 11:43 Pulse Ox 96 04/04/20 11:43 Body Mass Index 30.6 General patient resting comfortably,no acute distress. Neck is supple no JVD. CVS regular rate rhythm, Respiratory lungs clear to auscultation, no respiratory distress Gastrointestinal abdomen soft, nontender, bowel sounds audible, Extremities no clubbing cyanosis or edema. Neuro nonfocal, no nystagmus, speech clear. Skin no rash Objective Data Current Medications Generic Name Dose Route Start Last Admin Trade Name Freq PRN Reason Stop Dose Admin Acetaminophen 650 mg 04/02/20 22:34 04/03/20 17:57 Acetaminophen 325 Mg Tablet PO 650 mg Q6H PRN Administration Pain, Mild (Pain Scale 1-3) Atorvastatin Calcium 10 mg 04/03/20 21:00 04/03/20 21:12 Atorvastatin Calcium 10 Mg Tablet PO 10 mg BEDTIME [facility] Administration Docusate Sodium 100 mg 04/02/20 22:34 Docusate Sodium 100 Mg Capsule PO DAILY PRN Constipation Enoxaparin Sodium 40 mg 04/02/20 22:34 04/03/20 21:13 Enoxaparin Sodium 40 Mg/0.4 Ml Syringe SUBCUT 40 mg Q24H [facility] Administration Insulin Human Lispro 0 unit 04/02/20 22:34 04/04/20 08:55 Insulin Lispro 100 Unit/Ml 3 Ml Vial SUBCUT 4 unit QIDACHS [facility] Administration Protocol Lisinopril 10 mg 04/03/20 09:00 04/04/20 08:56 Lisinopril 10 Mg Tablet PO 10 mg BID LOL[facility] Administration Protocol Magnesium Oxide 400 mg 04/03/20 08:30 04/04/20 08:56 Magnesium Oxide 400 Mg Tablet PO 400 mg BIDPC [facility] Administration Meclizine HCl 12.5 mg 04/03/20 09:13 04/04/20 09:01 Meclizine Hcl 12.5 Mg Tablet PO 12.5 mg Q8H PRN Administration dizzyness Pharmacy Consult 1 each 04/02/20 15:47 Consult Rx Perform Med Rec MISCELLANE ONCE PRN Consult order Sodium Chloride 3 ml 04/03/20 00:00 04/04/20 09:04 0.9 % Sodium Chloride Flush 3 Ml Syringe IVFLUSH 3 ml QSHIFT LOLITA Administration Labs CBC & Chem 7: 04/04/20 06:09 04/04/20 06:09 Microbiology Microbiology Results: Microbiology 04/02/20 13:31 Blood - Venous Blood Culture - Preliminary No growth after 24 hours. 04/02/20 11:36 Blood - Venous Blood Culture - Preliminary No growth after 24 hours. Assessment and Plan (1) Dizziness: Status: Acute (2) Nausea & vomiting: Status: Acute Assessment and Plan: 65-year-old female with a history of diabetes, hypertension, dyslipidemia who presented to the emergency department with 4 day history of dizziness Dizziness Improving, but persistent feeling of vertigo with ambulation and change in pos ition, likely peripheral vertigo exacerbated by electrolyte abnormality no focal neuro deficits Magnesium and potassium normalized, PPI discontinued, recommend by mouth fluids, meclizine as needed, try to normalize blood pressure B12 within normal range diabetes Blood sugar elevated will resume Glucophage and glipizide continue insulin sliding scale hypertension BP elevated on lisinopril 10 mg b.i.d. follow BP and adjust medication hyperlipidemia statin Disposition to home in next 24 hours of continue to improve
[2020-04-04 16:32] LABS: Glucose, Whole Blood 254 mg/dL (60-115)
[2020-04-04] MEDS: metFORMIN HCl 500 MG TABLET PO (17:11)
[2020-04-04 20:12] LABS: Glucose, Whole Blood 230 mg/dL (60-115)
[2020-04-04] MEDS: Atorvastatin Calcium 10 MG TABLET PO (21:07)
[2020-04-04] MEDS: Enoxaparin Sodium 40 MG/0.4 ML SYRINGE SUBCUT (21:08)
[2020-04-05] VITALS: BP 152/94; PULSE 75; RESP 20; TEMP 36.7; O2SAT 97
[2020-04-05 03:43] VITALS: BP 148/72; PULSE 68; RESP 20; TEMP 36.7; O2SAT 94
[2020-04-05 08:00] VITALS: BP 168/95; PULSE 102; RESP 16; TEMP 36.9; O2SAT 98
[2020-04-05 08:57] LABS: Glucose, Whole Blood 247 mg/dL (60-115)
[2020-04-05] MEDS: glipiZIDE 5 MG TABLET 2.5 MG PO (09:30)
[2020-04-05] MEDS: Insulin Lispro 100 UNIT/ML 3 ML VIAL SUBCUT (09:30)
[2020-04-05] MEDS: lisinopriL 10 MG TABLET PO (09:31)
[2020-04-05] MEDS: 0.9 % Sodium Chloride Flush 3 ML SYRINGE IVFLUSH (09:31)
[2020-04-05] MEDS: metFORMIN HCl 500 MG TABLET PO (09:31)
[2020-04-05] MEDS: Magnesium Oxide 400 MG TABLET PO (09:31)
--- NOTE | 2020-04-05 11:11 | MHC.CM.PN ---
Per ROUNDS discussion, Patient will be medically cleared for dc to home today, no services.
--- NOTE | 2020-04-05 11:12 | P.DS_ITS ---
DS: Providers Provider Date of admission: 04/02/20 16:36 Primary care physician: Kike Rutledge MD DS: Diagnosis Discharge Diagnosis (1) Dizziness: Status: Acute (2) Nausea & vomiting: Status: Acute DS: Medications Discharge Medications Home Medications: Home Medications Medication Instructions Recorded Confirmed glimepiride 4 mg PO BID 04/02/20 04/02/20 lisinopril 10 mg PO BID 04/02/20 04/02/20 metformin 500 mg PO BID 04/02/20 04/02/20 pantoprazole 40 mg PO BID 04/02/20 04/02/20 simvastatin 20 mg PO BEDTIME 04/02/20 04/02/20 DS: Summary Hospital Course Hospital Course: History of presenting illness 65-year-old female who presents emergency department with complaints of dizziness which began 4 days ago. Her dizziness is worse with movement. It has been getting progressively worse over the past several days and today she was feeling off balance with ambulation. She also has associated nausea and vomiting. She has had 1 episode of diarrhea. She has had decreased p.o. intake over the past several days. She denies any localized weakness, speech abnormalities or difficulty swallowing. She denies any visual disturbances. She has noticed tinnitus. Her lab work was significant for leukocytosis of 14.6 2.4. However no source of infection was identified, chest x-ray and urinalysis were both unremarkable. Her potassium and magnesium were both noted to be low at 2.8 and less than 0.6 respectively. EKG showed no acute abnormalities. She continued to have significant dizziness and the decision was made to admit her for further management. Hospital course Dizziness All symptoms of dizziness nausea vomiting resolved, it was likely peripheral vertigo exacerbated by electrolyte abnormality no focal neuro deficits noted, no underlying infection found,Magnesium and potassium normalized, patient noted to have elevated blood pressure, recommended to have close outpatient blood pressure monitoring. B12 within normal range diabetes Continue home medication hypertension BP elevated on lisinopril 10 mg b.i.d. follow BP closely hyperlipidemia Continue statin Time Spent with Patient Time attestation: Total time spent providing and/or coordinating discharge services: Physical Exam Vital Signs: Vital Signs: Last Vital Signs Temp 98.5 F 04/05/20 08:00 Pulse 102 H 04/05/20 08:00 Resp 16 04/05/20 08:00 BP 168/95 H 04/05/20 08:00 Pulse Ox 98 04/05/20 08:00 Body Mass Index 30.6 General patient resting comfortably in no acute distress. Neck is supple no JVD. CVS regular rate rhythm, Respiratory lungs clear to auscultation, no respiratory distress, Gastrointestinal abdomen soft, nontender, bowel sounds audible. Extremities no clubbing cyanosis or edema. Neuro nonfocal ,no nystagmus Skin no rash DS: Data Data Completed and Pending Labs on day of discharge: 04/02/20 ECG 12 lead EKG Stat 04/02/20 11:13 ondansetron HCL [Zofran] 4 mg IVPUSH ONCE ONE 04/02/20 11:14 EKG Documentation DIRECTED 04/02/20 11:24 XR chest 1V Stat Meclizine HCl [Antivert] 25 mg PO ONCE ONE diphenhydrAMINE HCL [Benadryl] 12.5 mg IVPUSH ONCE ONE 04/02/20 11:25 CT abdomen pelvis w con Stat 04/02/20 11:29 Add Laboratory Test Stat Basic Metabolic Panel Stat Complete Blood Count Auto Diff Stat Hold Lav - Possible Hematology Stat Hold Lt Blue - Possible Coag Stat Lipase Stat Liver Panel Stat Magnesium Stat Troponin-I High Sensitivity Stat 04/02/20 11:30 0.9 % Sodium Chloride [Ns] 1,000 ml IVCONT 999 mls/hr 04/02/20 11:36 Lactic Acid Stat 04/02/20 12:39 Magnesium Sulfate/H2O 2 gm in 50 ml IV ONCE 04/02/20 12:42 Potassium Chloride Packet [Klor-Con Packet] 40 meq PO ONCE ONE 04/02/20 12:43 Piperacillin Sodium/Tazobactam [Zosyn] 3.375 gm 0.9 % Sodium Chloride [Ns] 50 ml IV ONCE Potassium Chloride/H20 10 meq in 100 ml IV ONCE 04/02/20 12:45 0.9 % Sodium Chloride [Ns] 1,000 ml IVCONT 999 mls/hr 04/02/20 12:53 Piperacillin Sodium/Tazobactam [Zosyn] 3.375 gm IV .STK-MED ONE 04/02/20 13:17 Metoclopramide HCl [Reglan] 10 mg IVPUSH ONCE ONE 04/02/20 14:16 ~Lactic Acid-LAB USE ONLY Stat 04/02/20 14:18 iohexoL 350 MG/ML [Omnipaque 350 MG/ML] 85 ml IV ONCE ONE 04/02/20 14:35 LORazepam [Ativan] 1 mg IVPUSH ONCE ONE 04/02/20 15:30 0.9 % Sodium Chloride [Ns] 1,000 ml IVCONT 999 mls/hr 04/02/20 16:32 Transfer Order Routine 04/02/20 16:37 Magnesium Sulfate/H2O 2 gm in 50 ml IV ONCE 04/02/20 17:47 COVID-19 ID NOW (Garcia) Stat 04/02/20 Dinner Diabetic Diet 04/02/20 19:47 Magnesium Stat Potassium Stat Troponin-I High Sensitivity Stat Vitamin B12 Stat ~Lactic Acid-LAB USE ONLY Stat 04/02/20 22:34 Enoxaparin Sodium [Lovenox] 40 mg SUBCUT Q24H 04/02/20 22:34 Add Laboratory Test Stat 04/02/20 23:06 Glucose, Whole Blood Routine 04/03/20 05:39 Basic Metabolic Panel DAILY@0600 Magnesium Routine 04/03/20 07:52 Magnesium Sulfate/H2O 2 gm in 50 ml IV ONCE 04/03/20 08:14 Glucose, Whole Blood Routine 04/03/20 09:00 Potassium Chloride ER [Klor-con] 40 meq PO BID 04/03/20 11:56 Glucose, Whole Blood Routine 04/03/20 16:56 Glucose, Whole Blood Routine 04/03/20 20:55 Glucose, Whole Blood Routine 04/04/20 06:09 BMP [Basic Metabolic Panel Fasting] Routine Complete Blood Count Auto Diff Routine Magnesium Routine 04/04/20 07:44 Glucose, Whole Blood Routine 04/04/20 11:24 Glucose, Whole Blood Routine 04/04/20 16:27 Glucose, Whole Blood Routine 04/04/20 20:09 Glucose, Whole Blood Routine 04/05/20 08:47 Glucose, Whole Blood Routine Laboratory Last Values WBC 8.5 X10*3/uL (4.8-10.8) 04/04/20 06:09 RBC 4.59 X10*6/uL (4.20-5.50) 04/04/20 06:09 Hgb 14.0 g/dl (12.0-16.0) 04/04/20 06:09 Hct 41.9 % (37-47) 04/04/20 06:09 MCV 91.3 fL (80-98) 04/04/20 06:09 MCH 30.5 pg (27.0-33.0) 04/04/20 06:09 MCHC 33.4 g/dl (31.0-35.0) 04/04/20 06:09 RDW 11.2 % (11.0-16.0) 04/04/20 06:09 Plt Count 197 X10*3/uL (160-400) 04/04/20 06:09 MPV 11.9 fL (9.4-12.3) 04/04/20 06:09 Immature Gran % (Auto) 0.4 % (0.0-0.4) 04/04/20 06:09 Neut % (Auto) 70.4 % (45-73) 04/04/20 06:09 Lymph % (Auto) 19.1 % (20-40) L 04/04/20 06:09 [place] % (Auto) 7.3 % (2-11) 04/04/20 06:09 Eos % (Auto) 2.1 % (0-4) 04/04/20 06:09 Baso % (Auto) 0.7 % (0-2) 04/04/20 06:09 Lymph # (Auto) 1.6 X10*3/uL (1.2-4.9) 04/04/20 06:09 [place] # (Auto) 0.6 X10*3/uL (0.1-1.2) 04/04/20 06:09 Eos # (Auto) 0.2 X10*3/uL (0.0-0.4) 04/04/20 06:09 Baso # (Auto) 0.1 X10*3/uL (0.0-0.2) 04/04/20 06:09 Abs Immat Gran (auto) 0.03 X10*3/uL (0.00-0.03) 04/04/20 06:09 Absolute Neuts (auto) 6.0 X10*3/uL (2.0-8.3) 04/04/20 06:09 Absolute Nucleated RBC 0.000 X10*3/uL (0.0-0.012) 04/04/20 06:09 Nucleated RBC % (auto) 0.0 /100WBC (0.0-0.2) 04/04/20 06:09 Hold Purple Top SEE NOTE 04/02/20 11:29 Hold Blue Top SEE NOTE 04/02/20 11:29 Sodium 141 mmol/L (135-145) 04/04/20 06:09 Potassium 3.6 mmol/l (3.3-5.1) D 04/04/20 06:09 Chloride 107 mmol/L (96-108) 04/04/20 06:09 Carbon Dioxide 24 mmol/L (22-29) 04/04/20 06:09 Anion Gap 14 (12-20) 04/04/20 06:09 BUN 8 mg/dL (9-16) L 04/04/20 06:09 Creatinine 0.63 mg/dL (0.5-1.4) 04/04/20 06:09 Estim Creat Clear Calc 100.9 04/04/20 06:09 Estimated GFR > 60 04/04/20 06:09 POC Glucose 247 mg/dL (60-115) H 04/05/20 08:47 Random Glucose 167 mg/dL (60-115) H D 04/03/20 05:39 Fasting Glucose 212 mg/dL (60-99) H 04/04/20 06:09 Lactic Acid 2.4 mmol/L (0.5-2.0) H* 04/02/20 11:36 Lactic Acid Fup @ 2Hr 2.2 mmol/L (0.5-2.0) H* 04/02/20 14:16 Lactic Acid Fup @ 4Hr 1.3 mmol/L (0.5-2.0) 04/02/20 19:47 Calcium 7.7 mg/dL (8.4-10.2) L 04/04/20 06:09 Magnesium 1.7 mg/dL (1.6-2.6) 04/04/20 06:09 Total Bilirubin 0.8 mg/dL (0.0-1.0) 04/02/20 11:29 Direct Bilirubin 0.3 mg/dL (0.0-0.5) 04/02/20 11:29 AST 22 U/L (5-31) 04/02/20 11:29 ALT 26 U/L (0-31) 04/02/20 11:29 Alkaline Phosphatase 59 U/L (39-117) 04/02/20 11:29 Troponin I High Sens 16.6 ng/L (<3.5-17.0) D 04/02/20 19:47 Total Protein 7.8 g/dL (6.5-8.0) 04/02/20 11:29 Albumin 4.4 g/dL (3.5-5.0) 04/02/20 11:29 Lipase 37 U/L (8-78) 04/02/20 11:29 Vitamin B12 301 pg/mL (200-900) 04/02/20 19:47 Urine Color YELLOW 04/02/20 12:42 Urine Appearance CLEAR 04/02/20 12:42 Urine pH 6.5 (5.0-8.0) 04/02/20 12:42 Ur Specific [place] 1.020 (1.005-1.025) 04/02/20 12:42 Urine Protein 2+ MG/DL (NEG-TRACE) H 04/02/20 12:42 Urine Glucose (UA) 500 MG/DL (NEG) H 04/02/20 12:42 Urine Ketones >=80 MG/DL (NEG) 04/02/20 12:42 Urine Blood TRACE (NEG) 04/02/20 12:42 Urine Nitrite NEG (NEG) 04/02/20 12:42 Ur Leukocyte Esterase NEG (NEG) 04/02/20 12:42 Urine RBC 0-2 /HPF (0) 04/02/20 12:42 Urine WBC 1-4 /HPF (0-4) 04/02/20 12:42 Ur Squamous Epith Cells 1+ /LPF 04/02/20 12:42 Ur Renal Epithelial Cell TRACE /LPF 04/02/20 12:42 Urine Bacteria NONE /LPF 04/02/20 12:42 COVID-19 ([facility]) Negative (Negative) 04/02/20 17:47 COVID-19 Clin Com See Note 04/02/20 17:47 Preliminary micro results at discharge 04/02/20 13:31 Blood Culture - Preliminary Blood - Venous No growth after 48 hours. 04/02/20 11:36 Blood Culture - Preliminary Blood - Venous No growth after 48 hours. Discharge Plan Discharge Patient Disposition: Home, Self-Care Referrals: Kike Rutledge MD [Primary Care Provider] - Discharge Medications: Continued metformin 500 mg Tablet 500 mg PO BID RF: 0 lisinopril 10 mg Tablet 10 mg PO BID RF: 0 pantoprazole 40 mg PO BID RF: 0 simvastatin 20 mg PO BEDTIME RF: 0 glimepiride 4 mg tablet 4 mg PO BID RF: 0 Discharge Orders: Discharge Order (Routine); Ordered 04/05/20 Ordered By: Jose Alfredo Méndez Activity on Discharge: As tolerated Stand Alone Forms: Work/School Release Visit Report Forms: Patient Portal Discharge page Care Plan Goals: Get up slowly from sitting position return to check with any recurrence of symptoms Health Concerns: Follow-up with primary care physician to obtain a Gastroenterology consultation due to thickened gastric mucosa for further workup Plan of Treatment: Outpatient follow-up with PCP
== END 2020-04-05 13:32 | disposition home or self-care (01) | DRG 111 ==
LOC: HO.ED 16:43 → HO.IMC 19:06
PROVIDERS: Physician Assistant; Physician Assistant Medical; Admitting Provider Internal Medicine; Emergency Provider Emergency Medicine; Visit Provider Hospitalist
DX: H81.399 Other peripheral vertigo, unspecified ear (principal); E87.2 Acidosis; E78.5 Hyperlipidemia, unspecified; E11.9 Type 2 diabetes mellitus without complications; D72.829 Elevated white blood cell count, unspecified; E83.42 Hypomagnesemia; I10 Essential (primary) hypertension; Z20.828 Contact with and (suspected) exposure to other viral communicable diseases; Z79.84 Long term (current) use of oral hypoglycemic drugs; Z88.5 Allergy status to narcotic agent; Z88.6 Allergy status to analgesic agent; Z79.899 Other long term (current) drug therapy
CPT/HCPCS: 36415; 71045; 74177; 80048; 80076; 81001; 82607; 82947; 83605; 83690; 83735; 84132; 84484; 85025; 87040; 87635; 93005; 96361; 96365; 96366; 96375; 99285; J1200; J1650; J2060; J2405; J2543; J2765; J3475; Q9967

== ENCOUNTER 2020-04-07 10:11 | Emergency (ER) | payer OTHER, SELFPAY ==
[2020-04-07 10:23] VITALS: BP 157/85; PULSE 110; RESP 18; TEMP 37.1; O2SAT 95; BMI 35.9
[2020-04-07 10:36] VITALS: RESP 18
--- NOTE | 2020-04-07 10:51 | ECG_ITS ---
Test Reason : NAUSEA Blood Pressure : / mmHG Vent. Rate : 105 BPM Atrial Rate : 105 BPM P-R Int : 136 ms QRS Dur : 080 ms QT Int : 330 ms P-R-T Axes : 056 -20 031 degrees QTc Int : 436 ms Sinus tachycardia Possible Left atrial enlargement Inferior infarct , age undetermined Abnormal ECG When compared with ECG of 02-APR-2020 11:39, QRS duration has decreased Inferior infarct is now Present Nonspecific T wave abnormality has replaced inverted T waves in Inferior leads Referred By: Purvi Gordon Electronically Signed By:NIK VALERIO
--- NOTE | 2020-04-07 10:51 | XR_ITS ---
EXAMINATION: XR CHEST CLINICAL INFORMATION: Weakness. Nausea, vomiting and dizziness. COMPARISON: 04/02/2020 TECHNIQUE: 2 views of the chest were obtained. FINDINGS: No significant abnormality is noted involving the heart, lungs, mediastinum, bony thorax or soft tissues. XR/XR chest 2V IMPRESSION: Unremarkable chest examination. No change from 04/02/2020
--- NOTE | 2020-04-07 11:51 | ED_ITS ---
HPI - Nausea/Vomiting/Diarrhea General Chief complaint: Nausea/Vomiting/Diarrhea Stated complaint: weakness Time Seen by Provider: 04/07/20 10:45 Source: patient Mode of arrival: ambulatory Limitations: no limitations History of Present Illness HPI Narrative: 65yoF c PMHx of DM, HTN and HLD presenting to the ED c c/o N/V/D and generalized weakness that started today. Patient was recently admitted on 04/02/2020 and discharged on 04/05/2020 for similar symptoms and was given a diagnosis of vertigo with electrolyte abnormality and lactic acidosis likely related to dehydration/metformin and leukocytosis. Patient reports she was feeling much better and went home. Patient denies any fevers, chills, headaches, dizziness, changes in vision, back pain, chest pain, shortness of breath, cough, paresthesias, abdominal pain, dysuria, hematuria, constipation, melena or any other symptoms complaints or concerns at this time. Related Data Home Medications Medication Instructions Recorded Confirmed glimepiride 4 mg PO BID 04/02/20 04/02/20 lisinopril 10 mg PO BID 04/02/20 04/02/20 metformin 500 mg PO BID 04/02/20 04/02/20 pantoprazole 40 mg PO BID 04/02/20 04/02/20 simvastatin 20 mg PO BEDTIME 04/02/20 04/02/20 Previous Rx's Medication Instructions Recorded magnesium oxide 400 mg PO BID #60 cap 04/05/20 meclizine 12.5 mg PO Q8H PRN #20 tab 04/05/20 ondansetron HCl [Zofran] 4 mg PO Q8H PRN #14 tab 04/07/20 Allergies Allergy/AdvReac Type Severity Reaction Status Date / Time acetaminophen [From PERCOCET] Allergy Intermediate UNKNOWN Verified 04/02/20 11: 53 oxycodone [From PERCOCET] Allergy Intermediate UNKNOWN Verified 04/02/20 11:53 Review of Systems Review of Systems: Constitutional : No Fever, No Chills, No Night Sweats, No Fatigue, No Malaise Cardiovascular : No Chest Pain, No SOB Respiratory : No Cough, No Sputum, No Wheezing, No Dyspnea Gastrointestinal : + Nausea, + Vomiting, No Diarrhea, No abdominal Pain, No Hematochezia, No Melena Genitourinary : No irregular bleeding, No Dysuria, No Urinary Frequency, No Hematuria,No Urinary Incontinence, No Urgency, No Flank Pain Musculoskeletal : No joint pain, No Myalgias, No Joint Swelling Skin : No Skin Lesions, No rash Neuro : No Weakness, No Numbness, No Paresthesias, No Loss of Consciousness, No Dizziness, No Headache Heme/Lymph: No Lymphadenopathy Endocrine : No Temperature Intolerance Yes all other systems are reviewed and are negative [facility] Past Medical History Attestation statement: The following information was validated with the patient. Medical History Diabetes Hyperlipidemia Hypertension Social History Social History Household Members: Family Housing: Apartment Alcohol intake: never Smoking Status: Never smoker Second Hand Smoke Exposure: No Use of substances other than those prescribed or required for medical reasons: No Advance Directives: No Advance Directives Information Provided: No Physical Exam Vital Signs: Vital Signs: Last Vital Signs Temp 98.7 F 04/07/20 10:23 Pulse 110 H 04/07/20 10:23 Resp 18 04/07/20 10:36 BP 157/85 H 04/07/20 10:23 Pulse Ox 95 04/07/20 10:23 Body Mass Index 35.9 vital signs have been reviewed as normal and appeared to be correct. Blood pressure normal. Heart rate normal. Respiration rate normal. Temperature normal. Oxygen saturation normal. Appearance: Alert. Oriented X3. No acute distress. Head: Normal external exam. Normocephalic. Eyes: PERRLA. EOMI. Conjunctiva and sclera normal. Eyelids normal. ENT: Pharynx normal. Uvula midline. Moist mucous membranes. No trismus noted. No drooling noted. No muffled voice noted. Neck: Normal inspection. Neck supple. FROM. No adenopathy. No meningeal signs. CVS: Normal heart rate and rhythm. Heart sound normal. No murmurs noted. Pulses normal throughout. Respiratory: No respiratory distress. Painless inspiration. Breath sounds normal. No wheezes/rales/rhonchi noted. Chest nontender. No accessory muscle usage noted or decreased air movement noted. Abdomen: Soft and nontender. No guarding. No rigidity. Negative Hahn sign. Bowel sounds normal in all 4 quadrants. No distention noted. No organomegaly noted. No visible injury noted. No rebound tenderness. Negative Rovsing sign. Negative obturator's sign. Negative psoas sign. Back: No CVA tenderness. Full range of motion noted. Skin: Skin warm and dry. Normal skin color. Normal skin turgor. No rashes/lesions/lacerations noted. Extremities: Extremities exhibit normal range of motion. Extremities nontender. Neuro: Oriented X 3. No motor deficit. No sensory deficit. Reflexes normal. Course Course Course Narrative: 10:51am - 65yoF c PMHx of DM, HTN and HLD presenting to the ED c c/o N/V/D and generalized weakness that started today. - Concern for SD vs Viral syndrome vs electrolyte abnormality - Plan: Labs, EKG, CXR, UA, COVID/RSV/FLU swab. Provide IV fluids and re- evaluate. Reevaluation(s) Reevaluation #1: - Mild leukocytosis reactive from retching - mild elevation in the patient's potassium therefore will give 30gm of Kayexalate. - magnesium at 1.2 therefore will give 2 g of IV magnesium - BUN 18. - troponin 14.8. Although patient denies any active chest pain. Will re- evaluate the patient's troponin at 02:48. - glucose 407 although patient received a L of IV fluids therefore will Re- evaluate before giving insulin - lactic acid 2.4 although I do not believe this is sepsis this is all from dehydration and from the patient being on metformin. No signs of infection to indicate IV ABX's. - All other labs WNL. UA with 5 ketones otherwise no signs of UTI. - CXR WNL no acute processes noted. - EKG sinus tachycardia no acute ischemic changes noted. - at this time we will re-evaluate the patient. Time: 12:45 Reevaluation #2: - Patient was able to tolerate the p.o. Kayexalate without any nausea/vomiting. - COVID swab back at this time and it was positive negative for RSV/flu. Therefore patient with viral COVID. Time: 13:59 Reevaluation #3: - patient now tolerating p.o. fluids has not had any episodes of nausea/vomiting. Her troponin trended down to 9.8 negative delta and patient continues to be chest pain-free. I explained to the patient that she could possibly have a false positive COVID as she was positive on February 05 also instructed her to self quarantine and to return if any new or worsening symptoms. Also instructed patient that she needs to follow up her primary care provider within the next 2-3 days or less than a week for repeat magnesium/potassium levels. Patient understands agrees the plan. Time: 15:34 MDM - Nausea/Vomiting/Diarrhea Medical Records Attestation: I reviewed the patient's medical records. Lab Data Attestation: I reviewed the patient's lab results. Result diagrams: 04/07/20 11:48 04/07/20 11:48 Labs: Lab Results 04/07/20 04/07/20 04/07/20 Range/Units 11:48 11:48 11:48 WBC 13.7 H (4.8-10.8) X10*3/uL RBC 5.37 (4.20-5.50) X10*6/uL Hgb 16.4 H (12.0-16.0) g/dl Hct 49.5 H (37-47) % MCV 92.2 (80-98) fL MCH 30.5 (27.0-33.0) pg MCHC 33.1 (31.0-35.0) g/dl RDW 11.4 (11.0-16.0) % Plt Count 313 D (160-400) X10*3/uL MPV 10.8 (9.4-12.3) fL Immature Gran % (Auto) 0.4 (0.0-0.4) % Neut % (Auto) 90.0 H (45-73) % Lymph % (Auto) 5.1 L (20-40) % [place] % (Auto) 4.0 (2-11) % Eos % (Auto) 0.3 (0-4) % Baso % (Auto) 0.2 (0-2) % Lymph # (Auto) 0.7 L (1.2-4.9) X10*3/uL [place] # (Auto) 0.5 (0.1-1.2) X10*3/uL Eos # (Auto) 0.0 (0.0-0.4) X10*3/uL Baso # (Auto) 0.0 (0.0-0.2) X10*3/uL Abs Immat Gran (auto) 0.06 H (0.00-0.03) X10*3/uL Absolute Neuts (auto) 12.3 H (2.0-8.3) X10*3/uL Absolute Nucleated RBC 0.000 (0.0-0.012) X10*3/uL Nucleated RBC % (auto) 0.0 (0.0-0.2) /100WBC Smear Tech's Comments VERIFIED PT 12.7 (10.8-13.0) SEC INR 1.1 (0.9-1.1) Sodium 136 (135-145) mmol/L Potassium 5.4 H D (3.3-5.1) mmol/l Chloride 101 (96-108) mmol/L Carbon Dioxide 23 (22-29) mmol/L Anion Gap 17 (12-20) BUN 18 H D (9-16) mg/dL Creatinine 1.02 (0.5-1.4) mg/dL Estim Creat Clear Calc 63.0 Estimated GFR 55 Random Glucose 407 H* (60-115) mg/dL Lactic Acid (0.5-2.0) mmol/L Lactic Acid Fup @ 2Hr (0.5-2.0) mmol/L Calcium 10.0 D (8.4-10.2) mg/dL Magnesium 1.2 L* (1.6-2.6) mg/dL Total Bilirubin 0.4 (0.0-1.0) mg/dL Direct Bilirubin 0.3 (0.0-0.5) mg/dL AST 15 (5-31) U/L ALT 26 (0-31) U/L Alkaline Phosphatase 63 (39-117) U/L Troponin I High Sens (<3.5-17.0) ng/L Total Protein 7.5 (6.5-8.0) g/dL Albumin 4.3 (3.5-5.0) g/dL Urine Color Urine Appearance Urine pH (5.0-8.0) Ur Specific [place] (1.005-1.025) Urine Protein (NEG-TRACE) MG/DL Urine Glucose (UA) (NEG) MG/DL Urine Ketones (NEG) MG/DL Urine Blood (NEG) Urine Nitrite (NEG) Ur Leukocyte Esterase (NEG) Urine RBC (0) /HPF Urine WBC (0-4) /HPF Ur Squamous Epith Cells /LPF Urine Bacteria /LPF Urine Mucus /LPF Urine Opiates Screen (Not Detect) Ur Barbiturates Screen (Not Detect) Ur Phencyclidine Scrn (Not Detect) Ur Amphetamines Screen (Not Detect) U Benzodiazepines Scrn (Not Detect) Urine Cocaine Screen (Not Detect) U Marijuana (THC) Screen (Not Detect) Ethyl Alcohol mg/dL Coronavirus (PCR) (Negative) Influenza Type A (PCR) (Negative) Influenza Type B (PCR) (Negative) RSV RNA Qual (PCR) (Negative) 04/07/20 04/07/20 04/07/20 Range/Units 11:48 11:48 11:48 WBC (4.8-10.8) X10*3/uL RBC (4.20-5.50) X10*6/uL Hgb (12.0-16.0) g/dl Hct (37-47) % MCV (80-98) fL MCH (27.0-33.0) pg MCHC (31.0-35.0) g/dl RDW (11.0-16.0) % Plt Count (160-400) X10*3/uL MPV (9.4-12.3) fL Immature Gran % (Auto) (0.0-0.4) % Neut % (Auto) (45-73) % Lymph % (Auto) (20-40) % [place] % (Auto) (2-11) % Eos % (Auto) (0-4) % Baso % (Auto) (0-2) % Lymph # (Auto) (1.2-4.9) X10*3/uL [place] # (Auto) (0.1-1.2) X10*3/uL Eos # (Auto) (0.0-0.4) X10*3/uL Baso # (Auto) (0.0-0.2) X10*3/uL Abs Immat Gran (auto) (0.00-0.03) X10*3/uL Absolute Neuts (auto) (2.0-8.3) X10*3/uL Absolute Nucleated RBC (0.0-0.012) X10*3/uL Nucleated RBC % (auto) (0.0-0.2) /100WBC Smear Tech's Comments PT (10.8-13.0) SEC INR (0.9-1.1) Sodium (135-145) mmol/L Potassium (3.3-5.1) mmol/l Chloride (96-108) mmol/L Carbon Dioxide (22-29) mmol/L Anion Gap (12-20) BUN (9-16) mg/dL Creatinine (0.5-1.4) mg/dL Estim Creat Clear Calc Estimated GFR Random Glucose (60-115) mg/dL Lactic Acid 2.4 H* (0.5-2.0) mmol/L Lactic Acid Fup @ 2Hr (0.5-2.0) mmol/L Calcium (8.4-10.2) mg/dL Magnesium (1.6-2.6) mg/dL Total Bilirubin (0.0-1.0) mg/dL Direct Bilirubin (0.0-0.5) mg/dL AST (5-31) U/L ALT (0-31) U/L Alkaline Phosphatase (39-117) U/L Troponin I High Sens 14.8 (<3.5-17.0) ng/L Total Protein (6.5-8.0) g/dL Albumin (3.5-5.0) g/dL Urine Color Urine Appearance Urine pH (5.0-8.0) Ur Specific [place] (1.005-1.025) Urine Protein (NEG-TRACE) MG/DL Urine Glucose (UA) (NEG) MG/DL Urine Ketones (NEG) MG/DL Urine Blood (NEG) Urine Nitrite (NEG) Ur Leukocyte Esterase (NEG) Urine RBC (0) /HPF Urine WBC (0-4) /HPF Ur Squamous Epith Cells /LPF Urine Bacteria /LPF Urine Mucus /LPF Urine Opiates Screen (Not Detect) Ur Barbiturates Screen (Not Detect) Ur Phencyclidine Scrn (Not Detect) Ur Amphetamines Screen (Not Detect) U Benzodiazepines Scrn (Not Detect) Urine Cocaine Screen (Not Detect) U Marijuana (THC) Screen (Not Detect) Ethyl Alcohol mg/dL Coronavirus (PCR) POSITIVE A (Negative) Influenza Type A (PCR) NEGATIVE (Negative) Influenza Type B (PCR) NEGATIVE (Negative) RSV RNA Qual (PCR) NEGATIVE (Negative) 04/07/20 04/07/20 04/07/20 Range/Units 11:48 11:56 11:56 WBC (4.8-10.8) X10*3/uL RBC (4.20-5.50) X10*6/uL Hgb (12.0-16.0) g/dl Hct (37-47) % MCV (80-98) fL MCH (27.0-33.0) pg MCHC (31.0-35.0) g/dl RDW (11.0-16.0) % Plt Count (160-400) X10*3/uL MPV (9.4-12.3) fL Immature Gran % (Auto) (0.0-0.4) % Neut % (Auto) (45-73) % Lymph % (Auto) (20-40) % [place] % (Auto) (2-11) % Eos % (Auto) (0-4) % Baso % (Auto) (0-2) % Lymph # (Auto) (1.2-4.9) X10*3/uL [place] # (Auto) (0.1-1.2) X10*3/uL Eos # (Auto) (0.0-0.4) X10*3/uL Baso # (Auto) (0.0-0.2) X10*3/uL Abs Immat Gran (auto) (0.00-0.03) X10*3/uL Absolute Neuts (auto) (2.0-8.3) X10*3/uL Absolute Nucleated RBC (0.0-0.012) X10*3/uL Nucleated RBC % (auto) (0.0-0.2) /100WBC Smear Tech's Comments PT (10.8-13.0) SEC INR (0.9-1.1) Sodium (135-145) mmol/L Potassium (3.3-5.1) mmol/l Chloride (96-108) mmol/L Carbon Dioxide (22-29) mmol/L Anion Gap (12-20) BUN (9-16) mg/dL Creatinine (0.5-1.4) mg/dL Estim Creat Clear Calc Estimated GFR Random Glucose (60-115) mg/dL Lactic Acid (0.5-2.0) mmol/L Lactic Acid Fup @ 2Hr (0.5-2.0) mmol/L Calcium (8.4-10.2) mg/dL Magnesium (1.6-2.6) mg/dL Total Bilirubin (0.0-1.0) mg/dL Direct Bilirubin (0.0-0.5) mg/dL AST (5-31) U/L ALT (0-31) U/L Alkaline Phosphatase (39-117) U/L Troponin I High Sens (<3.5-17.0) ng/L Total Protein (6.5-8.0) g/dL Albumin (3.5-5.0) g/dL Urine Color YELLOW Urine Appearance HAZY Urine pH 6.0 (5.0-8.0) Ur Specific [place] 1.020 (1.005-1.025) Urine Protein 2+ H (NEG-TRACE) MG/DL Urine Glucose (UA) 500 H (NEG) MG/DL Urine Ketones 5 (NEG) MG/DL Urine Blood 1+ H (NEG) Urine Nitrite NEG (NEG) Ur Leukocyte Esterase NEG (NEG) Urine RBC 0-2 (0) /HPF Urine WBC 1-4 (0-4) /HPF Ur Squamous Epith Cells 1+ /LPF Urine Bacteria NONE /LPF Urine Mucus TRACE /LPF Urine Opiates Screen Not Detected (Not Detect) Ur Barbiturates Screen Not Detected (Not Detect) Ur Phencyclidine Scrn Not Detected (Not Detect) Ur Amphetamines Screen Not Detected (Not Detect) U Benzodiazepines Scrn Not Detected (Not Detect) Urine Cocaine Screen Not Detected (Not Detect) U Marijuana (THC) Screen Not Detected (Not Detect) Ethyl Alcohol < 10 mg/dL Coronavirus (PCR) (Negative) Influenza Type A (PCR) (Negative) Influenza Type B (PCR) (Negative) RSV RNA Qual (PCR) (Negative) 04/07/20 04/07/20 Range/Units 14:30 14:30 WBC (4.8-10.8) X10*3/uL RBC (4.20-5.50) X10*6/uL Hgb (12.0-16.0) g/dl Hct (37-47) % MCV (80-98) fL MCH (27.0-33.0) pg MCHC (31.0-35.0) g/dl RDW (11.0-16.0) % Plt Count (160-400) X10*3/uL MPV (9.4-12.3) fL Immature Gran % (Auto) (0.0-0.4) % Neut % (Auto) (45-73) % Lymph % (Auto) (20-40) % [place] % (Auto) (2-11) % Eos % (Auto) (0-4) % Baso % (Auto) (0-2) % Lymph # (Auto) (1.2-4.9) X10*3/uL [place] # (Auto) (0.1-1.2) X10*3/uL Eos # (Auto) (0.0-0.4) X10*3/uL Baso # (Auto) (0.0-0.2) X10*3/uL Abs Immat Gran (auto) (0.00-0.03) X10*3/uL Absolute Neuts (auto) (2.0-8.3) X10*3/uL Absolute Nucleated RBC (0.0-0.012) X10*3/uL Nucleated RBC % (auto) (0.0-0.2) /100WBC Smear Tech's Comments PT (10.8-13.0) SEC INR (0.9-1.1) Sodium (135-145) mmol/L Potassium (3.3-5.1) mmol/l Chloride (96-108) mmol/L Carbon Dioxide (22-29) mmol/L Anion Gap (12-20) BUN (9-16) mg/dL Creatinine (0.5-1.4) mg/dL Estim Creat Clear Calc Estimated GFR Random Glucose (60-115) mg/dL Lactic Acid (0.5-2.0) mmol/L Lactic Acid Fup @ 2Hr 2.5 H* (0.5-2.0) mmol/L Calcium (8.4-10.2) mg/dL Magnesium (1.6-2.6) mg/dL Total Bilirubin (0.0-1.0) mg/dL Direct Bilirubin (0.0-0.5) mg/dL AST (5-31) U/L ALT (0-31) U/L Alkaline Phosphatase (39-117) U/L Troponin I High Sens 9.8 (<3.5-17.0) ng/L Total Protein (6.5-8.0) g/dL Albumin (3.5-5.0) g/dL Urine Color Urine Appearance Urine pH (5.0-8.0) Ur Specific [place] (1.005-1.025) Urine Protein (NEG-TRACE) MG/DL Urine Glucose (UA) (NEG) MG/DL Urine Ketones (NEG) MG/DL Urine Blood (NEG) Urine Nitrite (NEG) Ur Leukocyte Esterase (NEG) Urine RBC (0) /HPF Urine WBC (0-4) /HPF Ur Squamous Epith Cells /LPF Urine Bacteria /LPF Urine Mucus /LPF Urine Opiates Screen (Not Detect) Ur Barbiturates Screen (Not Detect) Ur Phencyclidine Scrn (Not Detect) Ur Amphetamines Screen (Not Detect) U Benzodiazepines Scrn (Not Detect) Urine Cocaine Screen (Not Detect) U Marijuana (THC) Screen (Not Detect) Ethyl Alcohol mg/dL Coronavirus (PCR) (Negative) Influenza Type A (PCR) (Negative) Influenza Type B (PCR) (Negative) RSV RNA Qual (PCR) (Negative) Imaging Data Chest x-ray: Attestation: I personally reviewed and interpreted this imaging study as follows: Radiologist's impression: IMPRESSION: Unremarkable chest examination. No change from 04/02/2020 ECG Data Attestation: I personally reviewed and interpreted this ECG as follows: ECG interpretation date: 04/07/20 ECG interpretation time: 11:07 Interpretation: Sinus tachycardia with left atrial enlargement with normal QRS/normal QT/QTC interval. No acute ischemic changes and similar when compared to prior EKG on 04/02/2020. Critical Care Time Critical Care Time Critical Care Time: Yes Total Critical Care Time: 60 Attestation: I personally attest to this time spent taking care of the patient Discharge Plan Discharge Clinical Impression: Acute hyperkalemia, Nausea & vomiting, Low blood magnesium, Acute dehydration, COVID-19, Diarrhea, Elevated troponin, Acute hyperglycemia Patient Disposition: Home, Self-Care Instructions: Dehydration (ED), Hyperkalemia (ED), Acute Nausea and Vomiting (ED), Hypomagnesemia (ED), High Troponin Levels (ED) Additional Instructions: We discussed today that you had a positive COVID test although we are unsure if this was a false positive either way you should self quarantine and return if any new or worsening symptoms. Follow up with her primary care provider within the next 2-3 days for repeat potassium/magnesium levels. Prescriptions: New ondansetron HCl [Zofran] 4 mg tablet 4 mg PO Q8H PRN (Reason: nausea and vomiting) Qty: 14 RF: 0 No Action metformin 500 mg Tablet 500 mg PO BID RF: 0 lisinopril 10 mg Tablet 10 mg PO BID RF: 0 pantoprazole 40 mg PO BID RF: 0 simvastatin 20 mg PO BEDTIME RF: 0 glimepiride 4 mg tablet 4 mg PO BID RF: 0 magnesium oxide 400 mg magnesium capsule 400 mg PO BID Qty: 60 RF: 0 meclizine 12.5 mg Tablet 12.5 mg PO Q8H PRN (Reason: dizzyness) Qty: 20 RF: 0 Referrals: Kike Rutledge MD [Primary Care Provider] - 2 days Print Language: Setswana
[2020-04-07] MEDS: 0.9 % Sodium Chloride 1,000 ML 999 ML IVCONT (11:57)
[2020-04-07] MEDS: ondansetron HCL 4 MG/2 ML VIAL IVPUSH (11:57)
[2020-04-07 12:01] LABS: Basophils Percent Auto 0.2 % (0-2); Eosinophils Percent Auto 0.3 % (0-4); Hematocrit 49.5 % (37-47); Hemoglobin 16.4 g/dl (12.0-16.0); Imm Gran Abs Auto 0.06 X10*3/uL (0.00-0.03); Imm Gran Pct Auto 0.4 % (0.0-0.4); Lymphocytes Absolute Auto 0.7 X10*3/uL (1.2-4.9); Lymphocytes Percent Auto 5.1 % (20-40); MANUAL DIFF FLAG SCAN; Mean Corpuscular HGB Conc 33.1 g/dl (31.0-35.0); Mean Corpuscular Hemoglobin 30.5 pg (27.0-33.0); Mean Corpuscular Volume 92.2 fL (80-98); Mean Platelet Volume 10.8 fL (9.4-12.3); Monocytes Absolute Auto 0.5 X10*3/uL (0.1-1.2); Neutrophils Absolute Auto 12.3 X10*3/uL (2.0-8.3); Platelet Count 313 X10*3/uL (160-400); Red Blood Count 5.37 X10*6/uL (4.20-5.50); Red Cell Distribution Width 11.4 % (11.0-16.0); SCAN SMEAR FLAG 1; White Blood Count 13.7 X10*3/uL (4.8-10.8)
[2020-04-07 12:09] LABS: Glucose Urine UA 500 MG/DL (NEG); Leukocyte Esterase Urine NEG (NEG); Nitrite Urine NEG (NEG); Urine Blood 1+ (NEG); Urine Ketones 5 MG/DL (NEG); Urine Protein 2+ MG/DL (NEG-TRACE)
[2020-04-07 12:10] LABS: Appearance Urine HAZY; Color Urine YELLOW
[2020-04-07 12:12] LABS: INTERNATIONAL NORM RATIO 1.1 (0.9-1.1); Prothrombin Time 12.7 SEC (10.8-13.0)
[2020-04-07 12:20] LABS: SLIDE REVIEW VERIFIED
[2020-04-07 12:21] LABS: Mucus Urine TRACE /LPF; RBC Urine 0-2 /HPF (0); Squamous Epithelial Cell Urine 1+ /LPF
[2020-04-07 12:23] LABS: Ethanol < 10 mg/dL; Lactic Acid 2.4 mmol/L (0.5-2.0)
[2020-04-07 12:29] LABS: Alanine Aminotransferase 26 U/L (0-31); Albumin Level 4.3 g/dL (3.5-5.0); Alkaline Phosphatase 63 U/L (39-117); Anion Gap 17 (12-20); Aspartate Amino Transferase 15 U/L (5-31); Bilirubin Direct 0.3 mg/dL (0.0-0.5); Bilirubin Total 0.4 mg/dL (0.0-1.0); Blood Urea Nitrogen 18 mg/dL (9-16); Carbon Dioxide 23 mmol/L (22-29); Chloride 101 mmol/L (96-108); Estimated Glomerular Filt Rate 55; Glucose Random 407 mg/dL (60-115); Magnesium 1.2 mg/dL (1.6-2.6); Potassium 5.4 mmol/l (3.3-5.1); Sodium 136 mmol/L (135-145); Total Protein 7.5 g/dL (6.5-8.0)
[2020-04-07 12:33] LABS: Troponin-I High Sensitivity 14.8 ng/L (<3.5-17.0)
[2020-04-07 12:38] LABS: Amphetamine Screen Urine Not Detected (Not Detect); Barbiturates, Urine Not Detected (Not Detect); Benzodiazepines Screen Urine Not Detected (Not Detect); Cannabinoid Screen Urine Not Detected (Not Detect); Cocaine Screen Urine Not Detected (Not Detect); Opiate Screen Urine Not Detected (Not Detect); Phencyclidine Screen Urine Not Detected (Not Detect)
[2020-04-07 12:44] LABS: Influenza A PCR NEGATIVE (Negative); Influenza B PCR NEGATIVE (Negative); Resp Syncy Virus RNA Qual PCR NEGATIVE (Negative); SARS COV2 PCR INHOUSE POSITIVE (Negative)
[2020-04-07] MEDS: Sodium Polystyrene Sulfon/Sorb 15 GM/60 ML ORAL.SUSP 30 GM PO (13:34)
[2020-04-07 13:55] LABS: Reflex Lactate? Lactic Acid Added
[2020-04-07] MEDS: Magnesium Sulfate/H2O 2 GM/50 ML PIGGYBACK IV (14:34)
[2020-04-07 15:01] LABS: ~Lactic Acid-LAB USE ONLY 2.5 mmol/L (0.5-2.0)
[2020-04-07 15:09] LABS: Troponin-I High Sensitivity 9.8 ng/L (<3.5-17.0)
[2020-04-07 15:34] LABS: Glucose, Whole Blood 296 mg/dL (60-115)
[2020-04-07 16:37] LABS: Reflex Lactate? 2 Y
== END 2020-04-07 16:05 | disposition home or self-care (01) ==
PROVIDERS: Physician Assistant Medical; Emergency Provider Emergency Medicine Emergency Medical Services
DX: U07.1 COVID-19 (principal); E23.2 Diabetes insipidus; R11.2 Nausea with vomiting, unspecified; E86.0 Dehydration; E11.65 Type 2 diabetes mellitus with hyperglycemia; Z79.899 Other long term (current) drug therapy
CPT/HCPCS: 0241U; 36415; 71046; 80048; 80076; 80307; 80320; 81001; 82947; 83605; 83735; 84484; 85025; 85610; 87040; 93005; 96361; 96365; 96366; 96375; 99284; 99291; J2405; J3475

== ENCOUNTER 2020-04-12 12:05 | Outpatient (REF) | payer OTHER, SELFPAY | END 2020-04-12 12:06 | disposition home or self-care (01) | LOC: HO.LAB 12:05 | PROVIDERS: Visit Provider Internal Medicine | DX: Z20.828 Contact with and (suspected) exposure to other viral communicable diseases (principal) | CPT/HCPCS: 36415; C9803; U0003 ==

== ENCOUNTER 2020-08-20 09:47 | Outpatient (REF) | payer OTHER, SELFPAY ==
[2020-08-20 10:26] LABS: MANUAL DIFF FLAG NO
[2020-08-20 10:32] LABS: Basophils Absolute Auto 0.1 X10*3/uL (0.0-0.2); Basophils Percent Auto 0.8 % (0-2); Eosinophils Absolute Auto 0.2 X10*3/uL (0.0-0.4); Eosinophils Percent Auto 3.4 % (0-4); Hemoglobin 14.1 g/dl (12.0-16.0); Imm Gran Abs Auto 0.02 X10*3/uL (0.00-0.03); Imm Gran Pct Auto 0.3 % (0.0-0.4); Mean Corpuscular HGB Conc 33.6 g/dl (31.0-35.0); Mean Corpuscular Hemoglobin 30.3 pg (27.0-33.0); Mean Corpuscular Volume 90.3 fL (80-98); Mean Platelet Volume 11.4 fL (9.4-12.3); Monocytes Absolute Auto 0.5 X10*3/uL (0.1-1.2); Neutrophils Absolute Auto 3.8 X10*3/uL (2.0-8.3); Neutrophils Percent Auto 57.5 % (45-73); Platelet Count 249 X10*3/uL (160-400); Red Blood Count 4.65 X10*6/uL (4.20-5.50); Red Cell Distribution Width 11.5 % (11.0-16.0); White Blood Count 6.5 X10*3/uL (4.8-10.8)
[2020-08-20 10:40] LABS: Estimated Average Glucose 318 mg/dL; Hemoglobin A1c % 12.7 %
[2020-08-20 10:51] LABS: Creatinine Urine 65.02 mg/dL; Microalbum/Creatinine Ratio Ur 78.4 ug/mg cr
[2020-08-20 11:16] LABS: Thyroid Stimulating Hormone 0.65 uIU/mL (0.32-4.0)
[2020-08-20 11:53] LABS: Alanine Aminotransferase 26 U/L (0-31); Albumin Level 4.1 g/dL (3.5-5.0); Alkaline Phosphatase 98 U/L (39-117); Anion Gap 12 (12-20); Aspartate Amino Transferase 15 U/L (5-31); Bilirubin Total 0.4 mg/dL (0.0-1.0); Blood Urea Nitrogen 14 mg/dL (9-16); Calcium 10.3 mg/dL (8.4-10.2); Carbon Dioxide 25 mmol/L (22-29); Chloride 102 mmol/L (96-108); Cholesterol 158 mg/dL; Estimated Glomerular Filt Rate > 60; Glucose Fasting 268 mg/dL (60-99); HDL Cholesterol 42 mg/dL; LDL Cholesterol Calculated 85 mg/dl; Potassium 4.7 mmol/L (3.3-5.1); Sodium 134 mmol/L (135-145); Triglycerides 158 mg/dL
[2020-08-20 13:19] LABS: Magnesium 1.4 mg/dL (1.6-2.6)
== END 2020-08-20 09:48 | disposition home or self-care (01) ==
LOC: HO.LAB 09:47
PROVIDERS: PCP Internal Medicine; Visit Provider Internal Medicine
DX: Z00.00 Encounter for general adult medical examination without abnormal findings (principal); E11.9 Type 2 diabetes mellitus without complications; E03.9 Hypothyroidism, unspecified
CPT/HCPCS: 36415; 80053; 80061; 82043; 83036; 83735; 84443; 85025

== ENCOUNTER 2021-03-21 16:01 | Outpatient (REF) | payer OTHER, SELFPAY ==
--- NOTE | ~2021-03-21 | MM_ITS ---
EXAMINATION: MM SCREENING DIGITAL BREAST TOMOSYNTHESIS, BILATERAL CLINICAL INFORMATION: Screening. Asymptomatic. The lifetime risk of breast cancer based on the Tyrer-Cuzick Model is 18%. COMPARISON: Mammography: 10/19/2008 TECHNIQUE: Digital breast tomosynthesis is performed in both the craniocaudal and mediolateral oblique views along with computer-aided detection (CAD). Synthesized 2D images are generated from the tomosynthesis. FINDINGS: There are scattered areas of fibroglandular density (ACR BI-RADS breast composition Category b). Breast tissue composition borders on predominantly fatty. Background stromal markings are stable. There is no significant mass or architectural abnormality or abnormal calcifications. Low right axillary tail node is stable. The skin contours are smooth. MM/MM tomosynthesis screening BI IMPRESSION: No mammographic evidence of malignancy. ASSESSMENT: BI-RADS 2: Benign RECOMMENDATION: Routine annual mammography screening. This patient's information was entered into a reminder system with a target due date for their next mammogram.
== END 2021-03-21 16:02 | disposition home or self-care (01) ==
LOC: HO.MAMMO 16:01
PROVIDERS: Visit Provider Internal Medicine
DX: Z12.31 Encounter for screening mammogram for malignant neoplasm of breast (principal)
CPT/HCPCS: 77063; 77067

== ENCOUNTER 2021-04-15 09:33 | Outpatient (REF) | payer OTHER, SELFPAY ==
[2021-04-15 09:46] LABS: MANUAL DIFF FLAG NO
[2021-04-15 09:52] LABS: Basophils Absolute Auto 0.1 X10*3/uL (0.0-0.2); Basophils Percent Auto 0.7 % (0-2); Eosinophils Absolute Auto 0.2 X10*3/uL (0.0-0.4); Eosinophils Percent Auto 2.8 % (0-4); Hematocrit 46.4 % (37.0-47.0); Hemoglobin 15.4 g/dl (12.0-16.0); Imm Gran Abs Auto 0.03 X10*3/uL (0.00-0.03); Imm Gran Pct Auto 0.4 % (0.0-0.4); Lymphocytes Absolute Auto 2.2 X10*3/uL (1.2-4.9); Lymphocytes Percent Auto 26.7 % (20-40); Mean Corpuscular HGB Conc 33.2 g/dl (31.0-35.0); Mean Corpuscular Hemoglobin 29.8 pg (27.0-33.0); Mean Corpuscular Volume 89.9 fL (80.0-98.0); Mean Platelet Volume 11.1 fL (9.4-12.3); Monocytes Absolute Auto 0.5 X10*3/uL (0.1-1.2); Monocytes Percent Auto 6.5 % (2-11); Neutrophils Absolute Auto 5.2 x10*3/uL (2.0-8.3); Neutrophils Percent Auto 62.9 % (45-73); Platelet Count 243 X10*3/uL (160-400); Red Blood Count 5.16 X10*6/uL (4.20-5.50); Red Cell Distribution Width 11.6 % (11.0-16.0); White Blood Count 8.2 X10*3/uL (4.8-10.8)
[2021-04-15 10:27] LABS: Alanine Aminotransferase 24 U/L (0-31); Alkaline Phosphatase 71 U/L (39-117); Anion Gap 13 (12-20); Aspartate Amino Transferase 22 U/L (5-31); Bilirubin Total 0.3 mg/dL (0.0-1.0); Blood Urea Nitrogen 16 mg/dL (9-16); Calcium 10.3 mg/dL (8.4-10.2); Carbon Dioxide 22 mmol/L (22-29); Chloride 106 mmol/L (96-108); Cholesterol 164 mg/dL; Estimated Glomerular Filt Rate > 60; Glucose Fasting 294 mg/dL (60-99); HDL Cholesterol 39 mg/dL; LDL Cholesterol Calculated 85 mg/dl; Magnesium 1.6 mg/dL (1.6-2.6); Potassium 5.3 mmol/L (3.3-5.1); Sodium 136 mmol/L (135-145); Total Protein 7.7 g/dL (6.5-8.0); Triglycerides 201 mg/dL
[2021-04-15 10:45] LABS: Thyroid Stimulating Hormone 0.89 uIU/mL (0.32-4.0)
[2021-04-15 11:41] LABS: Creatinine Urine 130.64 mg/dL; Microalbum/Creatinine Ratio Ur 256.4 ug/mg cr
== END 2021-04-15 09:34 | disposition home or self-care (01) ==
LOC: HO.LAB 09:33
PROVIDERS: Visit Provider Internal Medicine
DX: Z00.00 Encounter for general adult medical examination without abnormal findings (principal); E03.9 Hypothyroidism, unspecified; E11.9 Type 2 diabetes mellitus without complications; E83.42 Hypomagnesemia
CPT/HCPCS: 36415; 80053; 80061; 82043; 83735; 84443; 85025

== ENCOUNTER 2022-01-06 09:11 | Outpatient (REF) | payer OTHER, SELFPAY ==
[2022-01-06 09:36] LABS: MANUAL DIFF FLAG NO
[2022-01-06 10:13] LABS: Basophils Percent Auto 0.7 % (0-2); Eosinophils Absolute Auto 0.2 X10*3/uL (0.0-0.4); Eosinophils Percent Auto 3.5 % (0-4); Hematocrit 42.8 % (37.0-47.0); Hemoglobin 14.5 g/dl (12.0-16.0); Imm Gran Abs Auto 0.02 X10*3/uL (0.00-0.03); Imm Gran Pct Auto 0.3 % (0.0-0.4); Lymphocytes Absolute Auto 1.7 X10*3/uL (1.2-4.9); Lymphocytes Percent Auto 29.6 % (20-40); Mean Corpuscular HGB Conc 33.9 g/dl (31.0-35.0); Mean Corpuscular Hemoglobin 30.3 pg (27.0-33.0); Mean Corpuscular Volume 89.5 fL (80.0-98.0); Mean Platelet Volume 11.3 fL (9.4-12.3); Monocytes Absolute Auto 0.5 X10*3/uL (0.1-1.2); Monocytes Percent Auto 7.8 % (2-11); Neutrophils Absolute Auto 3.3 x10*3/uL (2.0-8.3); Neutrophils Percent Auto 58.1 % (45-73); Platelet Count 203 X10*3/uL (160-400); Red Blood Count 4.78 X10*6/uL (4.20-5.50); Red Cell Distribution Width 11.5 % (11.0-16.0); White Blood Count 5.7 X10*3/uL (4.8-10.8)
[2022-01-06 10:23] LABS: Estimated Average Glucose 349 mg/dL; Hemoglobin A1c % 13.8 %
[2022-01-06 10:36] LABS: Alanine Aminotransferase 26 U/L (0-31); Albumin Level 3.9 g/dL (3.5-5.0); Alkaline Phosphatase 72 U/L (39-117); Anion Gap 19 (12-20); Aspartate Amino Transferase 16 U/L (5-31); Bilirubin Total 0.5 mg/dL (0.0-1.0); Blood Urea Nitrogen 18 mg/dL (9-16); Calcium 9.9 mg/dL (8.4-10.2); Carbon Dioxide 20 mmol/L (22-29); Chloride 103 mmol/L (96-108); Cholesterol 161 mg/dL; Estimated Glomerular Filt Rate > 60; Glucose Fasting 282 mg/dL (60-99); HDL Cholesterol 39 mg/dL; LDL Cholesterol Calculated 92 mg/dl; Potassium 4.5 mmol/L (3.3-5.1); Sodium 137 mmol/L (135-145); Total Protein 6.8 g/dL (6.5-8.0); Triglycerides 152 mg/dL
[2022-01-06 11:01] LABS: Thyroid Stimulating Hormone 0.65 uIU/mL (0.32-4.0)
== END 2022-01-06 09:12 | disposition home or self-care (01) ==
LOC: HO.LAB 09:11
PROVIDERS: PCP Internal Medicine; Visit Provider Internal Medicine
DX: Z00.00 Encounter for general adult medical examination without abnormal findings (principal); E11.9 Type 2 diabetes mellitus without complications; Z13.0 Encounter for screening for diseases of the blood and blood-forming organs and certain disorders involving the immune mechanism
CPT/HCPCS: 36415; 80053; 80061; 83036; 84443; 85025

== ENCOUNTER 2022-03-23 15:22 | Outpatient (REF) | payer OTHER, SELFPAY ==
--- NOTE | ~2022-03-23 | MM_ITS ---
EXAMINATION: MM SCREENING DIGITAL BREAST TOMOSYNTHESIS, BILATERAL CLINICAL INFORMATION: Screening. Asymptomatic. The lifetime risk of breast cancer based on the Tyrer-Cuzick Model is 11%. COMPARISON: Mammography: 03/21/2021, 10/19/2008 TECHNIQUE: Digital breast tomosynthesis is performed in both the craniocaudal and mediolateral oblique views along with computer-aided detection (CAD). Synthesized 2D images are generated from the tomosynthesis. FINDINGS: There are scattered areas of fibroglandular density (ACR BI-RADS breast composition Category b). There are no significant masses, abnormal calcifications, or other abnormalities. Breast tissue composition borders on predominantly fatty. There is no developing density or architectural abnormality. Mild asymmetry of the breast is again seen, right slightly larger. The axilla are unremarkable. There are no significant changes. MM/MM tomosynthesis screening BI IMPRESSION: No mammographic evidence of malignancy. ASSESSMENT: BI-RADS 2: Benign RECOMMENDATION: Routine annual mammography screening. This patient's information was entered into a reminder system with a target due date for their next mammogram.
== END 2022-03-23 15:23 | disposition home or self-care (01) ==
LOC: HO.MAMMO 15:22
PROVIDERS: PCP Internal Medicine; Visit Provider Internal Medicine
DX: Z12.31 Encounter for screening mammogram for malignant neoplasm of breast (principal)
CPT/HCPCS: 77063; 77067

== ENCOUNTER → 2022-07-25 08:36 | Outpatient (BNVA) | payer OTHER, SELFPAY | PROVIDERS: PCP Internal Medicine; Visit Provider Internal Medicine Endocrinology, Diabetes & Metabolism | DX: E11.69 Type 2 diabetes mellitus with other specified complication (principal); E66.9 Obesity, unspecified; Z79.4 Long term (current) use of insulin | CPT/HCPCS: 82947; 83036 ==

== ENCOUNTER 2022-07-28 09:43 | Outpatient (REF) | payer OTHER, SELFPAY ==
[2022-07-28 10:02] LABS: MANUAL DIFF FLAG NO
[2022-07-28 10:44] LABS: Basophils Absolute Auto 0.1 X10*3/uL (0.0-0.2); Basophils Percent Auto 0.7 % (0-2); Eosinophils Absolute Auto 0.2 X10*3/uL (0.0-0.4); Eosinophils Percent Auto 3.4 % (0-4); Hemoglobin 14.3 g/dl (12.0-16.0); Imm Gran Abs Auto 0.01 X10*3/uL (0.00-0.03); Imm Gran Pct Auto 0.1 % (0.0-0.4); Lymphocytes Absolute Auto 1.7 X10*3/uL (1.2-4.9); Lymphocytes Percent Auto 26.1 % (20-40); Mean Corpuscular Hemoglobin 30.6 pg (27.0-33.0); Mean Corpuscular Volume 89.7 fL (80.0-98.0); Mean Platelet Volume 11.5 fL (9.4-12.3); Monocytes Absolute Auto 0.6 X10*3/uL (0.1-1.2); Monocytes Percent Auto 8.2 % (2-11); Neutrophils Absolute Auto 4.1 x10*3/uL (2.0-8.3); Neutrophils Percent Auto 61.5 % (45-73); Platelet Count 232 X10*3/uL (160-400); Red Blood Count 4.68 X10*6/uL (4.20-5.50); Red Cell Distribution Width 11.9 % (11.0-16.0); White Blood Count 6.7 X10*3/uL (4.8-10.8)
[2022-07-28 10:51] LABS: Estimated Average Glucose 292 mg/dL; Hemoglobin A1c % 11.8 %
[2022-07-28 11:12] LABS: Creatinine Urine 39.55 mg/dL
[2022-07-28 11:20] LABS: Alanine Aminotransferase 20 U/L (0-31); Alkaline Phosphatase 59 U/L (39-117); Anion Gap 16 (12-20); Aspartate Amino Transferase 18 U/L (5-31); Bilirubin Total 0.6 mg/dL (0.0-1.0); Blood Urea Nitrogen 14 mg/dL (9-16); Calcium 9.6 mg/dL (8.4-10.2); Carbon Dioxide 22 mmol/L (22-29); Chloride 105 mmol/L (96-108); Estimated Glomerular Filt Rate > 60; Glucose Fasting 243 mg/dL (60-99); Potassium 4.5 mmol/L (3.3-5.1); Sodium 138 mmol/L (135-145); Total Protein 6.7 g/dL (6.5-8.0)
[2022-07-28 11:26] LABS: Microalbum/Creatinine Ratio Ur 1587.8 ug/mg cr
[2022-07-28 11:38] LABS: Thyroid Stimulating Hormone 1.17 uIU/mL (0.32-4.0)
== END 2022-07-28 09:44 | disposition home or self-care (01) ==
LOC: HO.LAB 09:43
PROVIDERS: PCP Internal Medicine; Visit Provider Internal Medicine
DX: E66.01 Morbid (severe) obesity due to excess calories (principal); E11.69 Type 2 diabetes mellitus with other specified complication; E11.65 Type 2 diabetes mellitus with hyperglycemia; D64.9 Anemia, unspecified; N28.9 Disorder of kidney and ureter, unspecified; E03.9 Hypothyroidism, unspecified
CPT/HCPCS: 36415; 80053; 82043; 83036; 84443; 85025

== ENCOUNTER → 2022-07-31 14:50 | Outpatient (BNVA) | payer OTHER, SELFPAY | PROVIDERS: PCP Internal Medicine; Visit Provider Internal Medicine Endocrinology, Diabetes & Metabolism | DX: Z71.89 Other specified counseling (principal); Z79.85 Long-term (current) use of injectable non-insulin antidiabetic drugs | CPT/HCPCS: 99202 ==

== ENCOUNTER → 2022-08-22 13:51 | Outpatient (BNVA) | payer OTHER, SELFPAY | PROVIDERS: PCP Internal Medicine; Visit Provider Internal Medicine Endocrinology, Diabetes & Metabolism | DX: E11.69 Type 2 diabetes mellitus with other specified complication (principal); E11.319 Type 2 diabetes mellitus with unspecified diabetic retinopathy without macular edema; E66.9 Obesity, unspecified; E78.5 Hyperlipidemia, unspecified; Z68.35 Body mass index [BMI] 35.0-35.9, adult; Z79.4 Long term (current) use of insulin; Z79.899 Other long term (current) drug therapy | CPT/HCPCS: 82947 ==

== ENCOUNTER 2022-08-22 14:34 | Emergency (ER) | payer OTHER, MEDICARE, SELFPAY ==
--- NOTE | ~2022-08-22 | XR_ITS ---
EXAMINATION: XR CHEST CLINICAL INFORMATION: Chest tightness COMPARISON: 04/07/2020 TECHNIQUE: Frontal view of the chest was obtained. FINDINGS: No significant abnormality is noted involving the heart, lungs, mediastinum, bony thorax or soft tissues. XR/XR chest 1V IMPRESSION: Unremarkable examination.
--- NOTE | 2022-08-22 14:48 | ECG_ITS ---
Test Reason : CHEST PAIN Blood Pressure : / mmHG Vent. Rate : 089 BPM Atrial Rate : 089 BPM P-R Int : 148 ms QRS Dur : 088 ms QT Int : 356 ms P-R-T Axes : 048 -17 019 degrees QTc Int : 433 ms Normal sinus rhythm Possible Left atrial enlargement Cannot rule out Anterior infarct , age undetermined Abnormal ECG When compared with ECG of 07-APR-2020 11:07, No significant change was found Referred By: Irene Christian Electronically Signed By:Otilio Mariano
[2022-08-22 14:59] VITALS: BP 181/96; PULSE 92; RESP 18; TEMP 36.6; O2SAT 98; BMI 35.4
--- NOTE | 2022-08-22 14:59 | ED_ITS ---
HPI - Chest Pain General Chief Complaint: Chest Pain Stated Complaint: chest pain/ nausea Time Seen by Provider: 08/22/22 16:12 Related Data Home Medications Medication Instructions Recorded Confirmed blood sugar diagnostic (FreeStyle 07/25/22 08/08/22 Lite Strips) pen needle, diabetic 32 gauge x #50 ea 08/22/22 (BD Tessie 2nd Gen Pen Needle) Previous Rx's Medication Instructions Recorded magnesium oxide 400 mg PO BID #60 caps 04/05/20 ondansetron HCl 4 mg tablet 4 mg PO Q8H PRN nausea and 04/07/20 (Zofran) vomiting #14 tabs pantoprazole 40 mg PO BID #180 caps 06/17/20 betamethasone dipropionate 0.05 % 1 appl topical BID PRN skin 04/18/21 topical cream irritation #45 grams lisinopril 10 mg tablet 10 mg PO BID #180 tabs 07/07/21 metformin 1,000 mg tablet 1,000 mg PO BID #180 tabs 01/08/22 simvastatin 20 mg tablet 20 mg PO BEDTIME #90 tabs 03/05/22 blood-glucose meter (FreeStyle #1 ea 05/11/22 Lite Meter kit) meclizine 12.5 mg tablet 12.5 mg PO Q8H PRN dizzyness #20 05/11/22 tabs dulaglutide 0.75 mg/0.5 mL 0.75 mg (0.5 mL) subcut QWEEK #2 mL 07/25/22 subcutaneous pen injector (Trulicity) insulin glargine 100 unit/mL (3 20 unit (0.2 mL) subcut DAILY #15 07/25/22 mL) subcutaneous pen (Lantus mL Solostar U-100 Insulin) pen needle, diabetic 32 gauge x #50 ea 07/25/2208/21 (Comfort EZ Pen [place]) flash glucose scanning reader #1 ea 08/01/22 (FreeStyle Emmanuel 2 Hed[place]) flash glucose sensor (FreeStyle #2 ea 08/01/22 Emmanuel 2 Sensor kit) albuterol sulfate 90 mcg/actuation 1 inh inhalation QID PRN wheezing 08/22/22 aerosol inhaler #8.5 grams cephalexin 500 mg capsule 1,000 mg PO BID #28 caps 08/22/22 glimepiride 4 mg tablet 2 mg PO BID #180 tabs 08/22/22 Allergies Allergy/AdvReac Type Severity Reaction Status Date / Time acetaminophen [From PERCOCET] Allergy Intermediate UNKNOWN Verified 08/22/22 15:03 oxycodone [From PERCOCET] Allergy Intermediate UNKNOWN Verified 08/22/22 15:03 [facility] Past Medical History Medical History (Updated 08/23/22 @ 00:45 by Gerard Allen) Diabetes Diabetes mellitus Hyperlipidemia Hypertension Hypertension Obesity Type 2 diabetes mellitus with obesity Surgical History History of cholecystectomy History of tonsillectomy Family History Family History Mother No problems noted. Father No problems noted. Social History Social History Household Members: Family Housing: Apartment Do you presently have visiting nurse or other home services: No Alcohol intake: current Alcohol intake frequency: holidays/special occasions only Patient Tobacco Use Status: Former Tobacco user Quit Date: 12/2016 Smoked in Last 30 Days: No e-Cigarette/Vaping Use: Never Used Second Hand Smoke Exposure: No Use of substances other than those prescribed or required for medical reasons: No Advance Directives: Yes Advance Directives on File: Yes Advance Directives Date on File: 04/06/20 service: No Current occupational status: employed 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 She reports feeling clammy, shakey when tightness comes on and feels better after she vomits. She was recently started Trulicity and Lantus. Plan: EKG, lab workup Reevaluation(s) Reevaluation #1: see Dr. Dockery's note for full assessment and treatment plan Medications Administered Discontinued Medications Generic Name Dose Route Start Last Admin Trade Name Freq PRN Reason Stop Dose Admin Albuterol/Ipratropium 3 ml 08/22/22 16:31 08/22/22 16:41 Albuterol/Iprat 2.5/0.5mg 3 Ml Ampul.Neb INHALE 08/22/22 16:32 3 ml ONCE ONE Administration Magnesium Sulfate 2 gm in 50 mls @ 25 mls/hr 08/22/22 16:31 08/22/22 19:51 Magnesium Sulfate/H2o IV 08/22/22 18:30 Infused ONCE ONE Infusion Ceftriaxone Sodium 1 gm/ 50 mls @ 100 mls/hr 08/22/22 16:44 08/22/22 18:04 Sodium Chloride IV 08/22/22 17:13 Infused ONCE ONE Infusion Lisinopril 10 mg 08/22/22 16:35 08/22/22 16:41 Lisinopril 10 Mg Tablet PO 08/22/22 16:36 10 mg ONCE ONE Administration Protocol Medical Decision Making Lab Data 08/22/22 15:25 08/22/22 15:25 Labs: Lab Results 08/22/22 08/22/22 08/22/22 Range/Units 15:25 15:25 15:25 WBC 8.8 (4.8-10.8) X10*3/uL RBC 4.74 (4.20-5.50) X10*6/uL Hgb 14.4 (12.0-16.0) g/dl Hct 42.1 (37.0-47.0) % MCV 88.8 (80.0-98.0) fL MCH 30.4 (27.0-33.0) pg MCHC 34.2 (31.0-35.0) g/dl RDW 11.3 (11.0-16.0) % Plt Count 263 (160-400) X10*3/uL MPV 10.8 (9.4-12.3) fL Immature Gran % (Auto) 0.2 (0.0-0.4) % Neut % (Auto) 60.7 (45-73) % Lymph % (Auto) 28.9 (20-40) % [place] % (Auto) 7.3 (2-11) % Eos % (Auto) 2.2 (0-4) % Baso % (Auto) 0.7 (0-2) % Lymph # (Auto) 2.6 (1.2-4.9) X10*3/uL [place] # (Auto) 0.6 (0.1-1.2) X10*3/uL Eos # (Auto) 0.2 (0.0-0.4) X10*3/uL Baso # (Auto) 0.1 (0.0-0.2) X10*3/uL Abs Immat Gran (auto) 0.02 (0.00-0.03) X10*3/uL Absolute Neuts (auto) 5.4 (2.0-8.3) x10*3/uL Absolute Nucleated RBC 0.000 (0.0-0.012) X10*3/uL Nucleated RBC % (auto) 0.0 (0.0-0.2) /100WBC D-Dimer High Sensitivty NG/ML Sodium 142 (135-145) mmol/L Potassium 3.5 D (3.3-5.1) mmol/L Chloride 110 H (96-108) mmol/L Carbon Dioxide 21 L (22-29) mmol/L Anion Gap 15 (12-20) BUN 9 (9-16) mg/dL Creatinine 0.70 (0.5-1.4) mg/dL Estim Creat Clear Calc 88.7 Estimated GFR > 60 Random Glucose 90 (60-115) mg/dL Calcium 8.9 D (8.4-10.2) mg/dL Magnesium 0.6 L* (1.6-2.6) mg/dL Total Bilirubin 0.3 (0.0-1.0) mg/dL Direct Bilirubin 0.1 (0.0-0.5) mg/dL AST 16 (5-31) U/L ALT 18 (0-31) U/L Alkaline Phosphatase 59 (39-117) U/L Troponin I High Sens < 2.7 (<3.5-17.0) ng/L B-Natriuretic Peptide (<100) pg/mL Total Protein 7.0 (6.5-8.0) g/dL Albumin 4.1 (3.5-5.0) g/dL Urine Color Urine Appearance Urine pH (5.0-9.0) Ur Specific [place] (1.005-1.025) Urine Protein (Neg-Trace) mg/dL Urine Glucose (UA) (Negative) mg/dL Urine Ketones (Negative) mg/dL Urine Blood (Negative) Urine Nitrite (Negative) Ur Leukocyte Esterase (Negative) Urine RBC (0-2) /HPF Urine WBC (0-5) /HPF Ur Squamous Epith Cells (0-2) /HPF Urine Bacteria (None Seen) Hyaline Casts (0-2) /LPF 08/22/22 08/22/22 08/22/22 Range/Units 15:25 16:09 17:01 WBC (4.8-10.8) X10*3/uL RBC (4.20-5.50) X10*6/uL Hgb (12.0-16.0) g/dl Hct (37.0-47.0) % MCV (80.0-98.0) fL MCH (27.0-33.0) pg MCHC (31.0-35.0) g/dl RDW (11.0-16.0) % Plt Count (160-400) X10*3/uL MPV (9.4-12.3) fL Immature Gran % (Auto) (0.0-0.4) % Neut % (Auto) (45-73) % Lymph % (Auto) (20-40) % [place] % (Auto) (2-11) % Eos % (Auto) (0-4) % Baso % (Auto) (0-2) % Lymph # (Auto) (1.2-4.9) X10*3/uL [place] # (Auto) (0.1-1.2) X10*3/uL Eos # (Auto) (0.0-0.4) X10*3/uL Baso # (Auto) (0.0-0.2) X10*3/uL Abs Immat Gran (auto) (0.00-0.03) X10*3/uL Absolute Neuts (auto) (2.0-8.3) x10*3/uL Absolute Nucleated RBC (0.0-0.012) X10*3/uL Nucleated RBC % (auto) (0.0-0.2) /100WBC D-Dimer High Sensitivty < 150 NG/ML Sodium (135-145) mmol/L Potassium (3.3-5.1) mmol/L Chloride (96-108) mmol/L Carbon Dioxide (22-29) mmol/L Anion Gap (12-20) BUN (9-16) mg/dL Creatinine (0.5-1.4) mg/dL Estim Creat Clear Calc Estimated GFR Random Glucose (60-115) mg/dL Calcium (8.4-10.2) mg/dL Magnesium (1.6-2.6) mg/dL Total Bilirubin (0.0-1.0) mg/dL Direct Bilirubin (0.0-0.5) mg/dL AST (5-31) U/L ALT (0-31) U/L Alkaline Phosphatase (39-117) U/L Troponin I High Sens (<3.5-17.0) ng/L B-Natriuretic Peptide 24 (<100) pg/mL Total Protein (6.5-8.0) g/dL Albumin (3.5-5.0) g/dL Urine Color Yellow Urine Appearance Clear Urine pH 6.5 (5.0-9.0) Ur Specific [place] 1.010 (1.005-1.025) Urine Protein 100 (2+) H (Neg-Trace) mg/dL Urine Glucose (UA) Negative (Negative) mg/dL Urine Ketones Negative (Negative) mg/dL Urine Blood Negative (Negative) Urine Nitrite Negative (Negative) Ur Leukocyte Esterase Moderate (2+) H (Negative) Urine RBC 0-2 (0-2) /HPF Urine WBC 21-50 H (0-5) /HPF Ur Squamous Epith Cells 3-5 (0-2) /HPF Urine Bacteria None Seen (None Seen) Hyaline Casts 0-2 (0-2) /LPF 08/22/22 Range/Units 17:01 WBC (4.8-10.8) X10*3/uL RBC (4.20-5.50) X10*6/uL Hgb (12.0-16.0) g/dl Hct (37.0-47.0) % MCV (80.0-98.0) fL MCH (27.0-33.0) pg MCHC (31.0-35.0) g/dl RDW (11.0-16.0) % Plt Count (160-400) X10*3/uL MPV (9.4-12.3) fL Immature Gran % (Auto) (0.0-0.4) % Neut % (Auto) (45-73) % Lymph % (Auto) (20-40) % [place] % (Auto) (2-11) % Eos % (Auto) (0-4) % Baso % (Auto) (0-2) % Lymph # (Auto) (1.2-4.9) X10*3/uL [place] # (Auto) (0.1-1.2) X10*3/uL Eos # (Auto) (0.0-0.4) X10*3/uL Baso # (Auto) (0.0-0.2) X10*3/uL Abs Immat Gran (auto) (0.00-0.03) X10*3/uL Absolute Neuts (auto) (2.0-8.3) x10*3/uL Absolute Nucleated RBC (0.0-0.012) X10*3/uL Nucleated RBC % (auto) (0.0-0.2) /100WBC D-Dimer High Sensitivty NG/ML Sodium (135-145) mmol/L Potassium (3.3-5.1) mmol/L Chloride (96-108) mmol/L Carbon Dioxide (22-29) mmol/L Anion Gap (12-20) BUN (9-16) mg/dL Creatinine (0.5-1.4) mg/dL Estim Creat Clear Calc Estimated GFR Random Glucose (60-115) mg/dL Calcium (8.4-10.2) mg/dL Magnesium (1.6-2.6) mg/dL Total Bilirubin (0.0-1.0) mg/dL Direct Bilirubin (0.0-0.5) mg/dL AST (5-31) U/L ALT (0-31) U/L Alkaline Phosphatase (39-117) U/L Troponin I High Sens < 2.7 (<3.5-17.0) ng/L B-Natriuretic Peptide (<100) pg/mL Total Protein (6.5-8.0) g/dL Albumin (3.5-5.0) g/dL Urine Color Urine Appearance Urine pH (5.0-9.0) Ur Specific [place] (1.005-1.025) Urine Protein (Neg-Trace) mg/dL Urine Glucose (UA) (Negative) mg/dL Urine Ketones (Negative) mg/dL Urine Blood (Negative) Urine Nitrite (Negative) Ur Leukocyte Esterase (Negative) Urine RBC (0-2) /HPF Urine WBC (0-5) /HPF Ur Squamous Epith Cells (0-2) /HPF Urine Bacteria (None Seen) Hyaline Casts (0-2) /LPF Discharge Plan Discharge Clinical Impression: Chest pain, Magnesium deficiency, Urinary tract infection Patient Disposition: Home, Self-Care Instructions: Urinary Tract Infection in Women (ED), Hypomagnesemia (ED), Noncardiac Chest Pain (ED) Additional Instructions: Double your daily magnesium dose Prescriptions: New cephalexin 500 mg capsule 1,000 mg PO BID Qty: 28 0RF albuterol sulfate 90 mcg/actuation HFA aerosol inhaler 1 inh inhalation QID PRN (Reason: wheezing) Qty: 8.5 0RF No Action pantoprazole 40 mg PO BID Qty: 180 8RF lisinopril 10 mg tablet 10 mg PO BID Qty: 180 8RF simvastatin 20 mg tablet 20 mg PO BEDTIME Qty: 90 1RF (DME) FreeStyle Emmanuel 2 Sensor Kit See Rx Instructions .Route Qty: 2 4RF Rx Instructions: As directed change every 14 days (DME) FreeStyle Emmanuel 2 [place] Misc See Rx Instructions .Route Qty: 1 0RF Rx Instructions: As directed ondansetron HCl [Zofran] 4 mg tablet 4 mg PO Q8H PRN (Reason: nausea and vomiting) Qty: 14 0RF magnesium oxide 400 mg magnesium capsule 400 mg PO BID Qty: 60 0RF betamethasone dipropionate 0.05 % cream 1 appl topical BID PRN (Reason: skin irritation) Qty: 45 4RF meclizine 12.5 mg tablet 12.5 mg PO Q8H PRN (Reason: dizzyness) Qty: 20 0RF (DME) blood-glucose meter [FreeStyle Lite Meter] Kit See Rx Instructions .Route Qty: 1 0RF Rx Instructions: As directed metformin 1,000 mg tablet 1,000 mg PO BID Qty: 180 8RF (DME) FreeStyle Lite Strips Strip See Rx Instructions .Route Rx Instructions: As directed insulin glargine [Lantus Solostar U-100 Insulin] 100 unit/mL (3 mL) insulin pen 20 unit subcut DAILY Qty: 15 5RF (DME) pen needle, diabetic [Comfort EZ Pen [place]] 32 gauge x 5/16 needle See Rx Instructions .Route Qty: 50 5RF Rx Instructions: As directed injects once a day Trulicity 0.75 mg/0.5 mL pen injector 0.75 mg subcut QWEEK Qty: 2 5RF (DME) pen needle, diabetic [BD Tessie 2nd Gen Pen Needle] 32 gauge x 5/32 needle See Rx Instructions .ROUTE DAILY Qty: 50 Rx Instructions: As directed glimepiride 4 mg tablet 2 mg PO BID Qty: 180 8RF Stand Alone Forms: Work/School Release Interventions: ED Discharge Assessment Last Done: 08/22/22 19:53 Discharge Date/Time: 08/22/22 19:53
[2022-08-22 15:30] LABS: MANUAL DIFF FLAG NO
[2022-08-22 15:33] LABS: Basophils Absolute Auto 0.1 X10*3/uL (0.0-0.2); Basophils Percent Auto 0.7 % (0-2); Eosinophils Absolute Auto 0.2 X10*3/uL (0.0-0.4); Eosinophils Percent Auto 2.2 % (0-4); Hematocrit 42.1 % (37.0-47.0); Hemoglobin 14.4 g/dl (12.0-16.0); Imm Gran Abs Auto 0.02 X10*3/uL (0.00-0.03); Imm Gran Pct Auto 0.2 % (0.0-0.4); Lymphocytes Absolute Auto 2.6 X10*3/uL (1.2-4.9); Lymphocytes Percent Auto 28.9 % (20-40); Mean Corpuscular HGB Conc 34.2 g/dl (31.0-35.0); Mean Corpuscular Hemoglobin 30.4 pg (27.0-33.0); Mean Corpuscular Volume 88.8 fL (80.0-98.0); Mean Platelet Volume 10.8 fL (9.4-12.3); Monocytes Absolute Auto 0.6 X10*3/uL (0.1-1.2); Monocytes Percent Auto 7.3 % (2-11); Neutrophils Absolute Auto 5.4 x10*3/uL (2.0-8.3); Neutrophils Percent Auto 60.7 % (45-73); Platelet Count 263 X10*3/uL (160-400); Red Blood Count 4.74 X10*6/uL (4.20-5.50); Red Cell Distribution Width 11.3 % (11.0-16.0); White Blood Count 8.8 X10*3/uL (4.8-10.8)
[2022-08-22 15:44] VITALS: BP 179/81; PULSE 92; RESP 20; TEMP 36.5; O2SAT 98
--- NOTE | 2022-08-22 15:45 | MHC.EDTECH ---
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
--- NOTE | 2022-08-22 15:47 | PC.NURSE ---
AOX3 reporting chest tightness that is not radiating. Per pt began lantus and trulicity recently. Reports mild SOB, lung sounds clear. Reports intermittent nausea and vomiting, pt vomited yesterday while at work. BP elevated, vitals otherwise stable, NSR on monitor. EKG and labs done in triage, awaiting urine sample. Will CTM
[2022-08-22 16:27] LABS: Alanine Aminotransferase 18 U/L (0-31); Albumin Level 4.1 g/dL (3.5-5.0); Alkaline Phosphatase 59 U/L (39-117); Anion Gap 15 (12-20); Aspartate Amino Transferase 16 U/L (5-31); Bilirubin Direct 0.1 mg/dL (0.0-0.5); Bilirubin Total 0.3 mg/dL (0.0-1.0); Blood Urea Nitrogen 9 mg/dL (9-16); Calcium 8.9 mg/dL (8.4-10.2); Carbon Dioxide 21 mmol/L (22-29); Chloride 110 mmol/L (96-108); Creatinine Clr Calc Pharmacy 88.7; Estimated Glomerular Filt Rate > 60; Glucose Random 90 mg/dL (60-115); Magnesium 0.6 mg/dL (1.6-2.6); Potassium 3.5 mmol/L (3.3-5.1); Sodium 142 mmol/L (135-145)
[2022-08-22 16:31] LABS: Troponin-I High Sensitivity < 2.7 ng/L (<3.5-17.0)
--- NOTE | 2022-08-22 16:33 | ED_ITS ---
HPI - Chest Pain General Chief Complaint: Chest Pain Stated Complaint: chest pain/ nausea Time Seen by Provider: 08/22/22 16:12 Source: patient and old records reviewed History of Present Illness HPI narrative: Patient presents with 2 days of chest discomfort and dyspnea. No cough or fevers or chills. She home tested for COVID and was negative. She states she has been constantly dyspneic with minimal exertion Yesterday for approximately 2 hours she felt like she had a brick on her chest. One episode of vomiting yesterday. One episode of diarrhea yesterday. No prior history of similar issues. She has a history of diabetes but no history of cardiac disease. No history of COPD or asthma. No sick contacts. Recent medication changes include starting on Januvia. She states saw her assistance specialist who does not believe the symptoms are secondary to that medication. Related Data Home Medications Medication Instructions Recorded Confirmed blood sugar diagnostic (FreeStyle 07/25/22 08/08/22 Lite Strips) pen needle, diabetic 32 gauge x #50 ea 08/22/22 (BD Tessie 2nd Gen Pen Needle) Previous Rx's Medication Instructions Recorded magnesium oxide 400 mg PO BID #60 caps 04/05/20 ondansetron HCl 4 mg tablet 4 mg PO Q8H PRN nausea and 04/07/20 (Zofran) vomiting #14 tabs pantoprazole 40 mg PO BID #180 caps 06/17/20 betamethasone dipropionate 0.05 % 1 appl topical BID PRN skin 04/18/21 topical cream irritation #45 grams lisinopril 10 mg tablet 10 mg PO BID #180 tabs 07/07/21 metformin 1,000 mg tablet 1,000 mg PO BID #180 tabs 01/08/22 simvastatin 20 mg tablet 20 mg PO BEDTIME #90 tabs 03/05/22 blood-glucose meter (FreeStyle #1 ea 05/11/22 Lite Meter kit) meclizine 12.5 mg tablet 12.5 mg PO Q8H PRN dizzyness #20 05/11/22 tabs dulaglutide 0.75 mg/0.5 mL 0.75 mg (0.5 mL) subcut QWEEK #2 mL 07/25/22 subcutaneous pen injector ([facility]) insulin glargine 100 unit/mL (3 20 unit (0.2 mL) subcut DAILY #15 07/25/22 mL) subcutaneous pen (Lantus mL Solostar U-100 Insulin) pen needle, diabetic 32 gauge x #50 ea 07/25/22 5/ (Comfort EZ Pen [place]) flash glucose scanning reader #1 ea 08/01/22 (FreeStyle Emmanuel 2 [place]) flash glucose sensor (FreeStyle #2 ea 08/01/22 Emmanuel 2 Sensor kit) albuterol sulfate 90 mcg/actuation 1 inh inhalation QID PRN wheezing 08/22/22 aerosol inhaler #8.5 grams cephalexin 500 mg capsule 1,000 mg PO BID #28 caps 08/22/22 glimepiride 4 mg tablet 2 mg PO BID #180 tabs 08/22/22 Allergies Allergy/AdvReac Type Severity Reaction Status Date / Time acetaminophen [From PERCOCET] Allergy Intermediate UNKNOWN Verified 08/22/22 15:03 oxycodone [From PERCOCET] Allergy Intermediate UNKNOWN Verified 08/22/22 15:03 Review of Systems Constitutional: Comments: No fevers or chills Cardiovascular: Cardiovascular: Reports as per HPI Respiratory: Respiratory: Reports as per HPI Gastrointestinal: Gastrointestinal: Reports as per HPI Musculoskeletal: Comments: No pedal edema or calf pain Integumentary/Breasts: Comments: No rash Neurologic: Comments: No focal weakness PMFSH Past Medical History Medical History (Updated 08/22/22 @ 17:46 by Evelio Dockery MD) Diabetes Diabetes mellitus Hyperlipidemia Hypertension Hypertension Obesity Type 2 diabetes mellitus with obesity Surgical History History of cholecystectomy History of tonsillectomy Family History Family History Mother No problems noted. Father No problems noted. Social History Social History Household Members: Family Housing: Apartment Do you presently have visiting nurse or other home services: No Alcohol intake: current Alcohol intake frequency: holidays/special occasions only Patient Tobacco Use Status: Former Tobacco user Quit Date: 12/2016 Smoked in Last 30 Days: No e-Cigarette/Vaping Use: Never Used Second Hand Smoke Exposure: No Use of substances other than those prescribed or required for medical reasons: No Advance Directives: Yes Advance Directives on File: Yes Advance Directives Date on File: 04/06/20 service: No Current occupational status: employed 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 No acute distress. Vital signs stable but hypertensive. Oxygen saturation 98% on room air with a heart rate of 92. Afebrile Chest: Other: Anterior chest wall with mild tenderness to palpation which reproduces her symptoms Resp: Other: Diminished bilaterally with fair air entry. No obvious wheezes rales or rhonchi Cardio: Other: Regular rate and rhythm without murmurs rubs or gallops GI: Other: Soft nontender nondistended. Skin: Other: Warm pink and dry without rash Neuro: Other: No obvious focal neuro deficits Extrem: Other: No pedal edema or calf tenderness to palpation Medications Administered Discontinued Medications Generic Name Dose Route Start Last Admin Trade Name Freq PRN Reason Stop Dose Admin Albuterol/Ipratropium 3 ml 08/22/22 16:31 08/22/22 16:41 Albuterol/Iprat 2.5/0.5mg 3 Ml Ampul.Neb INHALE 08/22/22 16:32 3 ml ONCE ONE Administration Ceftriaxone Sodium 1 gm/ 50 mls @ 100 mls/hr 08/22/22 16:44 08/22/22 17:14 Sodium Chloride IV 08/22/22 17:13 100 mls/hr ONCE ONE Administration Lisinopril 10 mg 08/22/22 16:35 08/22/22 16:41 Lisinopril 10 Mg Tablet PO 08/22/22 16:36 10 mg ONCE ONE Administration Protocol Medical Decision Making Medical Decision Making MDM Narrative: Patient with 2 days of chest pressure. Concomitant symptoms of vomiting and diarrhea yesterday. Differential diagnosis includes cardiac ischemia, pulmonary embolism, viral syndrome, asthma, pneumonia, symptomatic hypertension Given pulmonary exam, will treat with albuterol. Will treat hypertension with an extra dose of lisinopril which she takes at home. 16:41. Chest x-ray by my interpretation shows no obvious infiltrates or evidence of fluid overload. CBC is normal. Chemistry significant for a magnesium of 0.6. Review of old records shows patient has been Hypomagnesium ache in the past. Will treat with IV magnesium s ulfate. Other chemistries are unremarkable. Creatinine is normal. Troponin is less than 2.7. LFTs are normal. EKG is normal sinus rhythm without ischemia. Will add on D-dimer. Repeat troponin. 17:41. BNP is normal. Second troponin is normal. D-dimer is normal. Urinalysis shows urinary tract infection. Treated with ceftriaxone. Repeat evaluation shows patient is feeling better after nebulizer treatment. Stable for discharge home post magnesium. Lab Data 08/22/22 15:25 08/22/22 15:25 Labs: Lab Results 08/22/22 08/22/22 08/22/22 Range/Units 15:25 15:25 15:25 WBC 8.8 (4.8-10.8) X10*3/uL RBC 4.74 (4.20-5.50) X10*6/uL Hgb 14.4 (12.0-16.0) g/dl Hct 42.1 (37.0-47.0) % MCV 88.8 (80.0-98.0) fL MCH 30.4 (27.0-33.0) pg MCHC 34.2 (31.0-35.0) g/dl RDW 11.3 (11.0-16.0) % Plt Count 263 (160-400) X10*3/uL MPV 10.8 (9.4-12.3) fL Immature Gran % (Auto) 0.2 (0.0-0.4) % Neut % (Auto) 60.7 (45-73) % Lymph % (Auto) 28.9 (20-40) % [place] % (Auto) 7.3 (2-11) % Eos % (Auto) 2.2 (0-4) % Baso % (Auto) 0.7 (0-2) % Lymph # (Auto) 2.6 (1.2-4.9) X10*3/uL [place] # (Auto) 0.6 (0.1-1.2) X10*3/uL Eos # (Auto) 0.2 (0.0-0.4) X10*3/uL Baso # (Auto) 0.1 (0.0-0.2) X10*3/uL Abs Immat Gran (auto) 0.02 (0.00-0.03) X10*3/uL Absolute Neuts (auto) 5.4 (2.0-8.3) x10*3/uL Absolute Nucleated RBC 0.000 (0.0-0.012) X10*3/uL Nucleated RBC % (auto) 0.0 (0.0-0.2) /100WBC D-Dimer High Sensitivty NG/ML Sodium 142 (135-145) mmol/L Potassium 3.5 D (3.3-5.1) mmol/L Chloride 110 H (96-108) mmol/L Carbon Dioxide 21 L (22-29) mmol/L Anion Gap 15 (12-20) BUN 9 (9-16) mg/dL Creatinine 0.70 (0.5-1.4) mg/dL Estim Creat Clear Calc 88.7 Estimated GFR > 60 Random Glucose 90 (60-115) mg/dL Calcium 8.9 D (8.4-10.2) mg/dL Magnesium 0.6 L* (1.6-2.6) mg/dL Total Bilirubin 0.3 (0.0-1.0) mg/dL Direct Bilirubin 0.1 (0.0-0.5) mg/dL AST 16 (5-31) U/L ALT 18 (0-31) U/L Alkaline Phosphatase 59 (39-117) U/L Troponin I High Sens < 2.7 (<3.5-17.0) ng/L B-Natriuretic Peptide (<100) pg/mL Total Protein 7.0 (6.5-8.0) g/dL Albumin 4.1 (3.5-5.0) g/dL Urine Color Urine Appearance Urine pH (5.0-9.0) Ur Specific [place] (1.005-1.025) Urine Protein (Neg-Trace) mg/dL Urine Glucose (UA) (Negative) mg/dL Urine Ketones (Negative) mg/dL Urine Blood (Negative) Urine Nitrite (Negative) Ur Leukocyte Esterase (Negative) Urine RBC (0-2) /HPF Urine WBC (0-5) /HPF Ur Squamous Epith Cells (0-2) /HPF Urine Bacteria (None Seen) Hyaline Casts (0-2) /LPF 08/22/22 08/22/22 08/22/22 Range/Units 15:25 16:09 17:01 WBC (4.8-10.8) X10*3/uL RBC (4.20-5.50) X10*6/uL Hgb (12.0-16.0) g/dl Hct (37.0-47.0) % MCV (80.0-98.0) fL MCH (27.0-33.0) pg MCHC (31.0-35.0) g/dl RDW (11.0-16.0) % Plt Count (160-400) X10*3/uL MPV (9.4-12.3) fL Immature Gran % (Auto) (0.0-0.4) % Neut % (Auto) (45-73) % Lymph % (Auto) (20-40) % [place] % (Auto) (2-11) % Eos % (Auto) (0-4) % Baso % (Auto) (0-2) % Lymph # (Auto) (1.2-4.9) X10*3/uL [place] # (Auto) (0.1-1.2) X10*3/uL Eos # (Auto) (0.0-0.4) X10*3/uL Baso # (Auto) (0.0-0.2) X10*3/uL Abs Immat Gran (auto) (0.00-0.03) X10*3/uL Absolute Neuts (auto) (2.0-8.3) x10*3/uL Absolute Nucleated RBC (0.0-0.012) X10*3/uL Nucleated RBC % (auto) (0.0-0.2) /100WBC D-Dimer High Sensitivty < 150 NG/ML Sodium (135-145) mmol/L Potassium (3.3-5.1) mmol/L Chloride (96-108) mmol/L Carbon Dioxide (22-29) mmol/L Anion Gap (12-20) BUN (9-16) mg/dL Creatinine (0.5-1.4) mg/dL Estim Creat Clear Calc Estimated GFR Random Glucose (60-115) mg/dL Calcium (8.4-10.2) mg/dL Magnesium (1.6-2.6) mg/dL Total Bilirubin (0.0-1.0) mg/dL Direct Bilirubin (0.0-0.5) mg/dL AST (5-31) U/L ALT (0-31) U/L Alkaline Phosphatase (39-117) U/L Troponin I High Sens (<3.5-17.0) ng/L B-Natriuretic Peptide 24 (<100) pg/mL Total Protein (6.5-8.0) g/dL Albumin (3.5-5.0) g/dL Urine Color Yellow Urine Appearance Clear Urine pH 6.5 (5.0-9.0) Ur Specific [place] 1.010 (1.005-1.025) Urine Protein 100 (2+) H (Neg-Trace) mg/dL Urine Glucose (UA) Negative (Negative) mg/dL Urine Ketones Negative (Negative) mg/dL Urine Blood Negative (Negative) Urine Nitrite Negative (Negative) Ur Leukocyte Esterase Moderate (2+) H (Negative) Urine RBC 0-2 (0-2) /HPF Urine WBC 21-50 H (0-5) /HPF Ur Squamous Epith Cells 3-5 (0-2) /HPF Urine Bacteria None Seen (None Seen) Hyaline Casts 0-2 (0-2) /LPF 08/22/22 Range/Units 17:01 WBC (4.8-10.8) X10*3/uL RBC (4.20-5.50) X10*6/uL Hgb (12.0-16.0) g/dl Hct (37.0-47.0) % MCV (80.0-98.0) fL MCH (27.0-33.0) pg MCHC (31.0-35.0) g/dl RDW (11.0-16.0) % Plt Count (160-400) X10*3/uL MPV (9.4-12.3) fL Immature Gran % (Auto) (0.0-0.4) % Neut % (Auto) (45-73) % Lymph % (Auto) (20-40) % [place] % (Auto) (2-11) % Eos % (Auto) (0-4) % Baso % (Auto) (0-2) % Lymph # (Auto) (1.2-4.9) X10*3/uL [place] # (Auto) (0.1-1.2) X10*3/uL Eos # (Auto) (0.0-0.4) X10*3/uL Baso # (Auto) (0.0-0.2) X10*3/uL Abs Immat Gran (auto) (0.00-0.03) X10*3/uL Absolute Neuts (auto) (2.0-8.3) x10*3/uL Absolute Nucleated RBC (0.0-0.012) X10*3/uL Nucleated RBC % (auto) (0.0-0.2) /100WBC D-Dimer High Sensitivty NG/ML Sodium (135-145) mmol/L Potassium (3.3-5.1) mmol/L Chloride (96-108) mmol/L Carbon Dioxide (22-29) mmol/L Anion Gap (12-20) BUN (9-16) mg/dL Creatinine (0.5-1.4) mg/dL Estim Creat Clear Calc Estimated GFR Random Glucose (60-115) mg/dL Calcium (8.4-10.2) mg/dL Magnesium (1.6-2.6) mg/dL Total Bilirubin (0.0-1.0) mg/dL Direct Bilirubin (0.0-0.5) mg/dL AST (5-31) U/L ALT (0-31) U/L Alkaline Phosphatase (39-117) U/L Troponin I High Sens < 2.7 (<3.5-17.0) ng/L B-Natriuretic Peptide (<100) pg/mL Total Protein (6.5-8.0) g/dL Albumin (3.5-5.0) g/dL Urine Color Urine Appearance Urine pH (5.0-9.0) Ur Specific [place] (1.005-1.025) Urine Protein (Neg-Trace) mg/dL Urine Glucose (UA) (Negative) mg/dL Urine Ketones (Negative) mg/dL Urine Blood (Negative) Urine Nitrite (Negative) Ur Leukocyte Esterase (Negative) Urine RBC (0-2) /HPF Urine WBC (0-5) /HPF Ur Squamous Epith Cells (0-2) /HPF Urine Bacteria (None Seen) Hyaline Casts (0-2) /LPF Discharge Plan Discharge Clinical Impression: Chest pain, Magnesium deficiency, Urinary tract infection Patient Disposition: Home, Self-Care Instructions: Urinary Tract Infection in Women (ED), Hypomagnesemia (ED), Noncardiac Chest Pain (ED) Additional Instructions: Double your daily magnesium dose Prescriptions: New cephalexin 500 mg capsule 1,000 mg PO BID Qty: 28 0RF albuterol sulfate 90 mcg/actuation HFA aerosol inhaler 1 inh inhalation QID PRN (Reason: wheezing) Qty: 8.5 0RF No Action pantoprazole 40 mg PO BID Qty: 180 8RF lisinopril 10 mg tablet 10 mg PO BID Qty: 180 8RF simvastatin 20 mg tablet 20 mg PO BEDTIME Qty: 90 1RF (DME) FreeStyle Emmanuel 2 Sensor Kit See Rx Instructions .Route Qty: 2 4RF Rx Instructions: As directed change every 14 days (DME) FreeStyle Emmanuel 2 [place] Misc See Rx Instructions .Route Qty: 1 0RF Rx Instructions: As directed ondansetron HCl [Zofran] 4 mg tablet 4 mg PO Q8H PRN (Reason: nausea and vomiting) Qty: 14 0RF magnesium oxide 400 mg magnesium capsule 400 mg PO BID Qty: 60 0RF betamethasone dipropionate 0.05 % cream 1 appl topical BID PRN (Reason: skin irritation) Qty: 45 4RF meclizine 12.5 mg tablet 12.5 mg PO Q8H PRN (Reason: dizzyness) Qty: 20 0RF (DME) blood-glucose meter [FreeStyle Lite Meter] Kit See Rx Instructions .Route Qty: 1 0RF Rx Instructions: As directed metformin 1,000 mg tablet 1,000 mg PO BID Qty: 180 8RF (DME) FreeStyle Lite Strips Strip See Rx Instructions .Route Rx Instructions: As directed insulin glargine [Lantus Solostar U-100 Insulin] 100 unit/mL (3 mL) insulin pen 20 unit subcut DAILY Qty: 15 5RF (DME) pen needle, diabetic [Comfort EZ Pen [place]] 32 gauge x 5/16 needle See Rx Instructions .Route Qty: 50 5RF Rx Instructions: As directed injects once a day Trulicity 0.75 mg/0.5 mL pen injector 0.75 mg subcut QWEEK Qty: 2 5RF (DME) pen needle, diabetic [BD Tessie 2nd Gen Pen Needle] 32 gauge x 5/32 needle See Rx Instructions .ROUTE DAILY Qty: 50 Rx Instructions: As directed glimepiride 4 mg tablet 2 mg PO BID Qty: 180 8RF
[2022-08-22 16:34] LABS: Appearance Urine Clear; Color Urine Yellow; Glucose Urine UA Negative (Negative); Leukocyte Esterase Urine Moderate (2+) (Negative); Nitrite Urine Negative (Negative); PH 6.5 (5.0-9.0); UMIC TRIGGER UACC YES; Urine Blood Negative (Negative); Urine Ketones Negative (Negative); Urine Protein 100 (2+) mg/dL (Neg-Trace)
[2022-08-22 16:39] LABS: Bacteria Urine None Seen (None Seen); Hyaline Casts Urine 0-2 /LPF (0-2); RBC Urine 0-2 /HPF (0-2); UACC Culture Trigger YES; WBC Urine 21-50 /HPF (0-5)
[2022-08-22] MEDS: Albuterol/Iprat 2.5/0.5MG 3 ML AMPUL.NEB INHALE (16:41)
[2022-08-22] MEDS: lisinopriL 10 MG TABLET PO (16:41)
[2022-08-22 16:43] VITALS: PULSE 92; RESP 16; O2SAT 98
[2022-08-22] MEDS: cefTRIAXone sodium 1 GM in 0.9 % Sodium Chloride 50 ML IV (17:14)
--- NOTE | 2022-08-22 17:16 | PC.NURSE ---
per MD no blood cultures needed. ABX hung per order. will follow with Mag
[2022-08-22 17:19] LABS: D Dimer High Sensitivity < 150 NG/ML
[2022-08-22 17:35] LABS: Troponin-I High Sensitivity < 2.7 ng/L (<3.5-17.0)
[2022-08-22 17:38] LABS: B Type Natriuretic Peptide 24 pg/mL (<100)
[2022-08-22] MEDS: Magnesium Sulfate/H2O 2 GM/50 ML PIGGYBACK IV (17:42)
--- NOTE | 2022-08-22 17:43 | PC.NURSE ---
magnesium started per mar
[2022-08-22 18:00] VITALS: BP 165/88; PULSE 90; RESP 16; TEMP 36.6; O2SAT 98
--- NOTE | 2022-08-22 18:46 | PC.NURSE ---
discharge plan up by MD, waiting for Mag to finish infusing
[2022-08-22 19:17] VITALS: BP 128/68; PULSE 94; RESP 16; TEMP 36.6; O2SAT 97
--- NOTE | 2022-08-22 19:52 | PC.NURSE ---
iv magnesium completed. pt son at bedside. iv removed at time of discharge. vss. skin pwd. pt ambulatory at discharge. pt provided with discharge packet and work note. pt verbalized understanding of discharge plan. pt son to drive pt home.
== END 2022-08-22 19:53 | disposition home or self-care (01) ==
PROVIDERS: Physician Assistant; Emergency Provider Emergency Medicine; PCP Internal Medicine
DX: R07.89 Other chest pain (principal); R11.2 Nausea with vomiting, unspecified; E61.2 Magnesium deficiency; N39.0 Urinary tract infection, site not specified; R06.02 Shortness of breath; Z79.899 Other long term (current) drug therapy
CPT/HCPCS: 36415; 71045; 80048; 80076; 81001; 83735; 83880; 84484; 85025; 85379; 87086; 93005; 94640; 96365; 96367; 99284; 99285; J0696; J3475

== ENCOUNTER 2022-08-28 10:10 | Outpatient (REF) | payer OTHER, MEDICARE, SELFPAY | END 2022-08-28 10:11 | disposition home or self-care (01) | LOC: HO.LAB 10:10 | PROVIDERS: PCP Internal Medicine; Visit Provider Nurse Practitioner Family | DX: E83.42 Hypomagnesemia (principal) | CPT/HCPCS: 36415; 83735 ==

== ENCOUNTER 2022-09-07 14:23 | Outpatient (REF) | payer OTHER, MEDICARE, SELFPAY ==
[2022-09-07 16:03] LABS: Magnesium 1.4 mg/dL (1.6-2.6)
== END 2022-09-07 14:24 | disposition home or self-care (01) ==
LOC: HO.LAB 14:23
PROVIDERS: PCP Internal Medicine; Visit Provider Nurse Practitioner Family
DX: E83.42 Hypomagnesemia (principal)
CPT/HCPCS: 36415; 83735

== ENCOUNTER 2022-09-13 14:37 | Outpatient (REF) | payer OTHER, MEDICARE, SELFPAY ==
[2022-09-13 16:46] LABS: Magnesium 1.3 mg/dL (1.6-2.6)
== END 2022-09-13 14:38 | disposition home or self-care (01) ==
LOC: HO.LAB 14:37
PROVIDERS: PCP Internal Medicine; Visit Provider Nurse Practitioner Family
DX: E83.42 Hypomagnesemia (principal)
CPT/HCPCS: 36415; 83735

== ENCOUNTER → 2022-09-19 12:54 | Outpatient (BNVA) | payer OTHER, MEDICARE, SELFPAY | PROVIDERS: PCP Internal Medicine; Visit Provider Dietitian, Registered | DX: E11.69 Type 2 diabetes mellitus with other specified complication (principal); E66.9 Obesity, unspecified; Z71.3 Dietary counseling and surveillance | CPT/HCPCS: 97802 ==

== ENCOUNTER 2022-10-01 15:28 | Outpatient (REF) | payer OTHER, MEDICARE, SELFPAY ==
[2022-10-01 16:36] LABS: Magnesium 1.7 mg/dL (1.6-2.6)
== END 2022-10-01 15:29 | disposition home or self-care (01) ==
LOC: HO.LAB 15:28
PROVIDERS: PCP Internal Medicine; Visit Provider Nurse Practitioner Family
DX: E83.42 Hypomagnesemia (principal)
CPT/HCPCS: 36415; 83735

== ENCOUNTER 2022-10-26 15:27 | Outpatient (REF) | payer OTHER, MEDICARE, SELFPAY ==
[2022-10-26 17:02] LABS: Magnesium 1.4 mg/dL (1.6-2.6)
== END 2022-10-26 15:28 | disposition home or self-care (01) ==
LOC: HO.LAB 15:27
PROVIDERS: PCP Internal Medicine; Visit Provider Nurse Practitioner Family
DX: E83.42 Hypomagnesemia (principal)
CPT/HCPCS: 36415; 83735

== ENCOUNTER 2022-11-02 14:02 | Outpatient (REF) | payer OTHER, MEDICARE, SELFPAY ==
[2022-11-02 15:27] LABS: Magnesium 1.7 mg/dL (1.6-2.6)
== END 2022-11-02 14:03 | disposition home or self-care (01) ==
LOC: HO.LAB 14:02
PROVIDERS: Visit Provider Nurse Practitioner Family
DX: E83.42 Hypomagnesemia (principal)
CPT/HCPCS: 36415; 83735

== ENCOUNTER 2022-11-14 08:28 | Outpatient (AMB) | payer OTHER, SELFPAY ==
--- NOTE | 2022-11-14 09:18 | A.OFFVIS_ITS ---
Intake Intake Visit Reasons: DM Manufacturing Technician Required: No Accompanied by: Self / Same As Patient Allergies acetaminophen [From PERCOCET] Allergy (Intermediate, Verified 08/28/22 09:44) UNKNOWN oxycodone [From PERCOCET] Allergy (Intermediate, Verified 08/28/22 09:44) UNKNOWN HPI Comprehensive Diabetes Asmnt Most Recent Diabetes Results: Creatinine 0.70 mg/dL (0.5-1.4) 08/22/22 Blood Urea Nitrogen 9 mg/dL (9-16) 08/22/22 Sodium 142 mmol/L (135-145) 08/22/22 Potassium 3.5 mmol/L (3.3-5.1) 08/22/22 Chloride 110 mmol/L (96-108) H 08/22/22 Carbon Dioxide 21 mmol/L (22-29) L 08/22/22 Calcium 8.9 mg/dL (8.4-10.2) 08/22/22 AST 16 U/L (5-31) 08/22/22 ALT 18 U/L (0-31) 08/22/22 Total Protein 7.0 g/dL (6.5-8.0) 08/22/22 Albumin 4.1 g/dL (3.5-5.0) 08/22/22 [facility] Medical History Diabetes Diabetes mellitus Hyperlipidemia Hypertension Hypertension Obesity Type 2 diabetes mellitus with obesity Surgical History History of cholecystectomy History of tonsillectomy Family History Mother No problems noted. Father No problems noted. 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 2= needs review? 3= comprehend keep point? 4= demonstrates understanding/ competent? NC= Not Covered Topics Learning Objective: Initial visit Initial or post srvc Initial or post srvc Initial or post srvc Initial or post srvc Initial or post srvc Post srvc Comments Pre Edu-assessment/plan Outcome or reassess Outcome or reassess Outcome or reassess Outcome or reassess Outcome or reassess Outcome or reassess Diabetes pathophysiology 1 Healthy eating 2 Being active 2 Taking medication 1 Monitoring glucose 2 Acute complication Chronic complicated Lifestyle and healthy coping 2 Diabetes distress in support ?Diabetes pathophysiology: ?Defined diabetes med identify own type of diabetes; list 3 options for treating diabetes Healthy eating: ?Described effect of type, amount and ?timing of food on blood glucose; list 3 methods for planning meal Being active: ?State effect of exercise on blood glucose level Taking medication: ?State effect of diabetes medications on diabetes; name diabetes medications taking, action and side effects Monitoring glucose: ?Identify recommended blood glucose targets and personal target Acute complication: ?List symptoms and treatment of hyper and hypoglycemia, DKA, sick day guidelines and guidelines for severe weather or situations of crisis and diabetes supply manage Chronic complication: ?To find the relationship of blood glucose levels to long- term complications of diabetes in screening and preventative measures Lifestyle and healthy coping: ?Described lifestyle and healthy coping strategies to rule out diabetes self-management Diabetes to stress and support: ?Recognize Diabetes to stress and be able to identified support options Learning objectives: The patient was provided with verbal and written education on the following topics as outlined below. The patient met all learning objectives and was able to verbalize understanding and provide teach back of education topics discussed . The patient was provided with the opportunity to ask questions and all questions were answered. Patient Assessment Assess patient education level/literacy/barriers Patient questions/concerns, patient's last A1c 07/28/2022 11.8%. Patient reports she worked target to change carbohydrate portions and make healthy your choices at mealtimes. 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 She is planning on retiring at the end of December 2022. Patient is currently taking glimepiride 2 mg b.i.d. Trulicity 0.75 mg weekly, denies nausea Metformin 1000 mg b.i.d. Lantus 20 units daily Reviewed with patient action of diabetes medication. Will send a message to Dr. Snell regarding patient's question about stopping glimepiride. What is Diabetes? Pathophysiology How the body produces and uses insulin Identify type of DM Risk factors Signs of Diabetes Brief overview of Diabetes Management Monitoring blood sugar Following a meal plan Regular exercise Maintaining a healthy weight Taking medication as needed Members of the care team (PCP, RN, MA, RD, CDE, store operations associate) Blood glucose monitoring When/how often to test Target blood sugar ranges Patient using [place] 3 for Glucose testing Patient's average glucose for the past 2 weeks 152 mg/dL Patient above target 23% Patient at target 77% Patient below target 0% Introduction to Nutrition Importance of healthy diet in managing DM Diet is personalized to individual preference Review patient?s regular diet/food preferences Who prepares meals/does food shopping/ Dining out?/ Barriers? How diet effects glucose Eating 3 balanced meals a day with small, healthy snacks between meals Review food groups Carbohydrates: What is a carbohydrate/Which food/food groups are considered carbohydrates Effect of carbohydrates on blood glucose Portion sizes Reading food labels Basic carb counting (if applicable per nursing assessment) Plate method Meal planning Recommendations: Follow plate method, consistent carbs and read nutritional labels. Smart Goal: Patient will identify alternative physical activity to participate in after long-term in December 2022 Educational Materials: The patient was provided with the following written educational materials: Planning Healthy Meals, target goals Handout Patient Response to instructions: Comprehension of Instructions: Fair Readiness to make changes: Contemplation How confident they feel about making changes: Positive Patient Instructions: Include regular daily activity. ADA recommends 30 minutes of exercise 5 days a week. Weight loss talk to PCP or Retail Coverage Merchandiser before starting new plan. Test blood sugar as directed; Fasting and 2hpp largest meal. Watch trends in results. Utilize results and to assess how food, physical activity and medications affect blood sugar results. Bring glucometer or CGM to next visit. Be knowledgeable about diabetes medication, its action, side effects, efficacy, toxicity, prescribed dosage, appropriate timing and frequency of administration, effect of missed and delayed doses and instructions for storage, travel and safety. Follow-up with Diabetes Education nurse in 3 months Coding Level of Care Code Est Pt Level 1 (90706) Diagnoses Type 2 diabetes mellitus with obesity E11.69; E66.9
== END 2022-11-14 09:28 | disposition home or self-care (01) ==
LOC: HO.ENCR 08:28
PROVIDERS: PCP Internal Medicine; Visit Provider Registered Nurse Diabetes Educator
DX: E11.69 Type 2 diabetes mellitus with other specified complication (principal); E66.9 Obesity, unspecified
CPT/HCPCS: 99211

== ENCOUNTER → 2022-11-14 08:28 | Outpatient (BNVA) | payer OTHER, SELFPAY | PROVIDERS: PCP Internal Medicine; Visit Provider Registered Nurse Diabetes Educator ==

== ENCOUNTER 2022-11-15 14:29 | Outpatient (AMB) | payer OTHER, MEDICARE, SELFPAY ==
[2022-11-15 14:38] VITALS: BMI 35.0
--- NOTE | 2022-11-15 14:38 | MHC.AMNUTRGE ---
Intake VS Expanded 11/15/22 14:38 Height 5 ft 4 in Weight 203 lb 11.314 oz BMI 35.0 Intake Visit Reasons: T2DM Allergies acetaminophen [From PERCOCET] Allergy (Intermediate, Verified 08/28/22 09:44) UNKNOWN oxycodone [From PERCOCET] Allergy (Intermediate, Verified 08/28/22 09:44) UNKNOWN HPI Nutrition Presentation Details Pt presents for MNT for T2DM Pt reports doing well, no questions or concerns at this time Most Recent Diabetes Results: No Data to Display [facility] Medical History Diabetes Diabetes mellitus Hyperlipidemia Hypertension Hypertension Obesity Type 2 diabetes mellitus with obesity Surgical History History of cholecystectomy History of tonsillectomy Family History Mother No problems noted. Father No problems noted. 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 Cognitive needs: No Hearing needs: No Vision needs: Yes (glasses) Assessment & Plan Assessment & Plan (1) Type 2 diabetes mellitus with obesity: Code(s): E11.69 - Type 2 diabetes mellitus with other specified complication; E66.9 - Obesity, unspecified Plan: Used wt : 95 kg, (93 kg) Est kcal needs as per MSJ: 1778 (40% carb, 30% protein/fat) Est fluid needs as per 25-30 ml/d: 2375 - 2850 Est prot per day as per 1 g/kg bw: 95 Recommend fiber intake : 8-10 g per day and gradually increase as tolerated Recommend sodium intake per day : less than 2000 mg Educated patient on: ( R = reviewed V = verbalizes understanding N/R = needs review N/A = not applicable Food sources of carbohydrate, adequate serving sizes and its role in various health conditions: R Differences between complex carbohydrates a simple carbohydrates, role of fiber in diet: R Differences between types of fats and role in diet (mono on saturated fat fatty acids, saturated fatty acids, trans fats): R Food sources of sodium in salt and healthy modifications for heart health in kidney health: R,V Vitamins and minerals: R ,V Healthy plate method concept: R , V Physical activity: Benefits a precaution: R,V Hypoglycemia protocol (rule of 15): R, V Dietary prevention of Hyperglycemia: R Patient Instructions: Continue working on following healthy plate method follow rule of 15 if developing low blood sugar, inform your doctor of low blood sugar reactions for further assessment Coding Level of Care Code Nutr Indiv Subseq (06401) Diagnoses Type 2 diabetes mellitus with obesity E11.69; E66.9 Time Spent (min) 30
== END 2022-11-15 15:12 | disposition home or self-care (01) ==
PROVIDERS: PCP Internal Medicine; Visit Provider Dietitian, Registered
DX: E11.69 Type 2 diabetes mellitus with other specified complication (principal); E66.9 Obesity, unspecified

== ENCOUNTER → 2022-11-15 14:29 | Outpatient (BNVA) | payer OTHER, MEDICARE, SELFPAY | PROVIDERS: PCP Internal Medicine; Visit Provider Dietitian, Registered | DX: E11.69 Type 2 diabetes mellitus with other specified complication (principal); E66.9 Obesity, unspecified; Z68.35 Body mass index [BMI] 35.0-35.9, adult; Z71.3 Dietary counseling and surveillance | CPT/HCPCS: 97803 ==

== ENCOUNTER 2022-12-01 09:51 | Outpatient (REF) | payer OTHER, MEDICARE, SELFPAY ==
[2022-12-01 10:40] LABS: Estimated Average Glucose 160 mg/dL; Hemoglobin A1c % 7.2 % (<6.0)
[2022-12-01 10:41] LABS: Cholesterol 124 mg/dL (<200); Glucose Fasting 144 mg/dL (60-99); HDL Cholesterol 40 mg/dL (>40); LDL Cholesterol Calculated 68 mg/dL (<100); Magnesium 1.6 mg/dL (1.6-2.6); Triglycerides 84 mg/dL (<150)
== END 2022-12-01 09:52 | disposition home or self-care (01) ==
LOC: HO.LAB 09:51
PROVIDERS: Absent Provider Nurse Practitioner Family; PCP Internal Medicine; Visit Provider Internal Medicine
DX: E83.42 Hypomagnesemia (principal); R73.9 Hyperglycemia, unspecified; E78.5 Hyperlipidemia, unspecified
CPT/HCPCS: 36415; 80061; 82947; 83036; 83735

== ENCOUNTER 2022-12-11 14:02 | Outpatient (AMB) | payer OTHER, SELFPAY ==
[2022-12-11 14:03] VITALS: BP 128/64; PULSE 100; O2SAT 98; BMI 34.1
--- NOTE | 2022-12-11 14:03 | MHC.PC.OV ---
Vital Signs 12/11/22 14:03 Height 5 ft 4 in Weight 198 lb 8 oz BMI 34.1 BP 128/64 Blood Pressure Location Lt brachial Position Sitting Pulse 100 Pulse Source Pulse Oximeter Pulse Oximetry (%) 98 Oxygen Delivery Method Room Air Intake Visit Reasons: 4mth f/u Diagnostic Cardiac Sonographer: Not Required per policy Accompanied by: Self / Same As Patient Allergies acetaminophen [From PERCOCET] Allergy (Intermediate, Verified 12/11/22 14:03) UNKNOWN oxycodone [From PERCOCET] Allergy (Intermediate, Verified 12/11/22 14:03) UNKNOWN Medication List - Last Reconciled 12/11/22 by Navid Tejeda MD albuterol sulfate 90 mcg/actuation 1 inh inhalation QID PRN betamethasone dipropionate 0.05% 1 appl topical BID PRN blood sugar diagnostic (FreeStyle Lite Strips) As directed blood-glucose meter (FreeStyle Lite Meter kit) As directed cephalexin 1,000 mg (2 x 500 mg) PO BID dulaglutide (Trulicity) 1.5 mg (0.5 mL) subcut QWEEK flash glucose scanning reader (ElderscanStyle Emmanuel 2 [place]) As directed flash glucose sensor (FreeStyle Emmanuel 2 Sensor kit) As directed change every 14 days insulin glargine (Lantus Solostar U-100 Insulin) 20 units (0.2 mL) subcut DAILY lisinopril 10 mg PO BID magnesium oxide 500 mg (2 x 250 mg magnesium) PO TID 30 days meclizine 12.5 mg PO Q8H PRN metformin 1,000 mg PO BID ondansetron HCl (Zofran) 4 mg PO Q8H PRN [pantoprazole 40 mg PO BID] pen needle, diabetic (Comfort EZ Pen Leslie) As directed injects once a day pen needle, diabetic (BD Tessie 2nd Gen Pen Needle) As directed simvastatin 20 mg PO BEDTIME Tobacco use date assessed: 08/28/22 Fall risk assessment: No Falls in past year Last assessed Fall Risk: 12/11/22 Dental Screening Dental Screen Date: 12/11/22 Did you have a dental visit in the last 12 months?: No Did you have a dental problem in the last 6 months where you did not have access to dental care?: No Was dental information given to patient?: Patient has dentist HPI 4mth f/u HPI Details DM asthma and hyperlipidemia; A1C improving PFSH Medical History Diabetes Diabetes mellitus Hyperlipidemia Hypertension Hypertension Obesity Type 2 diabetes mellitus with obesity Surgical History History of cholecystectomy History of tonsillectomy Family History Mother No problems noted. Father No problems noted. 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 1. Little interest or pleasure in doing things: not at all 2. Feeling down, depressed, or hopeless: not at all 3. Trouble falling or staying asleep, or sleeping too much: not at all 4. Feeling tired or having little energy: not at all 5. Poor appetite or overeating: not at all 6. Feeling bad about yourself - or that you are a failure or have let yourself or your family down: not at all 7. Trouble concentrating on things, such as reading the newspaper or watching television: not at all 8. Moving or speaking so slowly that other people could have noticed. Or the opposite - being so fidgety or restless that you have been moving around a lot more than usual: not at all 9. Thoughts that you would be better off or of hurting yourself in some way: not at all Total score: 0 Depression Screening Interpretation: Negative 33493 - PHQ-9 Billing: Yes Source: Developed by Drs. Bry Fagan, Salina BИван Bowens and colleagues, with an educational renea from [employer]. Thrive Questionnaire Date Thrive assessed: 05/11/22 AUDIT C Alcohol Use Questionnaire (AUDIT-C) 1. How often do you have a drink containing alcohol?: Never Total Score: 0 Score Reviewed/Action Taken: No LEIGH-7 AMB Questionnaire LEIGH-7 Date LEIGH - 7 assessed: 05/11/22 Source: Developed by Drs. Bry Fagan, Иван Pineda and colleagues, with an educational renea from [employer]. Review of Systems Const Denies chills, Denies headache(s) and Denies weight loss ENT Denies headache(s) Card Denies chest pain, Denies syncope, Denies irregular heart rhythm and Denies dyspnea Resp Denies chest congestion, Denies cough and Denies dyspnea GI Denies abdominal pain, Denies change in stool character, Denies nausea and Denies vomiting Musc Denies deformity and Denies joint swelling Neuro Denies syncope and Denies headache(s) Physical exam (Primary Care) Vital Signs: Last Vital Signs Pulse 100 12/11/22 14:03 BP 128/64 12/11/22 14:03 Pulse Ox 98 12/11/22 14:03 Oxygen Delivery Method Room Air 12/11/22 14:03 BMI result Body Mass Index 34.1 Tobacco/Smoking Status: Tobacco use Status Tobacco use date assessed 08/28/22 12/11/22 14:09 Patient Tobacco Use Status Former Tobacco user 12/11/22 14:09 e-Cigarette/Vaping Use Never Used 12/11/22 14:09 PHQ-9: PHQ-9 Score PHQ-9: Total score 0 12/11/22 14:09 Depression Screening Interpretation: Negative Thrive Assessment: Date of Thrive Assessment Date Thrive assessed 05/11/22 12/11/22 14:09 Const General: cooperative and no acute distress Orientation/consciousness: patient oriented x3 HENMT Head: Yes normocephalic and Yes atraumatic Face and sinus: Yes sinuses nontender Mouth: oropharynx normal and moist mucous membranes Throat: Yes posterior oropharynx normal Eyes General: appearance normal, both eyes and all related structures Neck Neck: Yes normal visual inspection, Yes full ROM and Yes no lymphadenopathy Resp Effort & Inspection: normal respiratory effort and able to speak in complete sentences Auscultation: clear to auscultation bilaterally, no crackles, no rales, no rhonchi and no wheezes Cardio Rate: regular rate Rhythm: regular rhythm Heart sounds: S1 normal heart sound present and S2 normal heart sound present GI Palpation (GI): Soft to palpation, not firm, nontender, no guarding and not rigid Auscultation: normal bowel sounds Skin General skin exam: no rashes or lesions noted Neuro General: patient oriented x3 Gait exam (Neuro): Normal gait present Extrem General: Yes full ROM and No edema Assessment and Plan Assessment & Plan (1) Hyperlipidemia: Code(s): E78.5 - Hyperlipidemia, unspecified Plan: stable; same rx (2) Type 2 diabetes mellitus with obesity: Code(s): E11.69 - Type 2 diabetes mellitus with other specified complication; E66.9 - Obesity, unspecified Plan: stable; same rx (3) Asthma: Code(s): J45.909 - Unspecified asthma, uncomplicated Plan: stable Orders: Orders Glucose Fasting Today R73.9 - Hyperglycemia, unspecified Hemoglobin A1c Today R73.9 - Hyperglycemia, unspecified Lipid Panel Today E78.5 - Hyperlipidemia, unspecified Thyroid Stimulating Hormone Today E03.9 - Hypothyroidism, unspecified Coding Level of Care Code Est Pt Level 4 (92770) Diagnoses Hyperlipidemia E78.5 Type 2 diabetes mellitus with obesity E11.69; E66.9 Asthma J45.909
== END 2022-12-11 14:16 | disposition home or self-care (01) ==
PROVIDERS: PCP Internal Medicine; Visit Provider Internal Medicine
DX: E11.69 Type 2 diabetes mellitus with other specified complication (principal); E66.9 Obesity, unspecified; J45.909 Unspecified asthma, uncomplicated; Z68.34 Body mass index [BMI] 34.0-34.9, adult; E78.5 Hyperlipidemia, unspecified
CPT/HCPCS: 99214

== ENCOUNTER 2022-12-31 15:45 | Outpatient (REF) | payer OTHER, SELFPAY ==
[2022-12-31 17:10] LABS: Alanine Aminotransferase 14 U/L (0-31); Albumin Level 4.2 g/dL (3.5-5.0); Alkaline Phosphatase 67 U/L (39-117); Anion Gap 16 (12-20); Aspartate Amino Transferase 12 U/L (5-31); Bilirubin Total 0.2 mg/dL (0.0-1.0); Blood Urea Nitrogen 20 mg/dL (9-16); Calcium 11.1 mg/dL (8.4-10.2); Carbon Dioxide 23 mmol/L (22-29); Chloride 103 mmol/L (96-108); Estimated Glomerular Filt Rate > 60; Glucose Random 202 mg/dL (60-115); Potassium 4.4 mmol/L (3.3-5.1); Sodium 138 mmol/L (135-145); Total Protein 7.3 g/dL (6.5-8.0)
[2023-01-01 15:18] LABS: PTHI 36 pg/mL (16-77)
== END 2022-12-31 15:46 | disposition home or self-care (01) ==
LOC: HO.LAB 15:45
PROVIDERS: PCP Internal Medicine; Visit Provider Internal Medicine Hypertension Specialist
DX: E83.42 Hypomagnesemia (principal)
CPT/HCPCS: 36415; 80053; 83970

== ENCOUNTER 2023-01-03 08:15 | Outpatient (REF) | payer OTHER, SELFPAY ==
[2023-01-03 09:52] LABS: Total Volume 24 Hour Urine 2750 mL
[2023-01-03 11:12] LABS: Creatinine, mg/dL 36.59; Sodium 24 Hr Urine 236.5 mmol/Day (40-220)
[2023-01-05 17:49] LABS: Calcium, 24 Hr Urine 432 mg/24 h; Calcium/Creatinine Ratio 403 mg/g creat (30-275); Creatinine 24Hr Urine 1.07 g/24 h (0.50-2.15)
== END 2023-01-03 08:16 | disposition home or self-care (01) ==
LOC: HO.LNP 08:15
PROVIDERS: Visit Provider Internal Medicine Hypertension Specialist
DX: E83.42 Hypomagnesemia (principal)
CPT/HCPCS: 82340; 84300

== ENCOUNTER 2023-05-06 14:39 | Inpatient (IN) | payer MEDICARE, OTHER, SELFPAY ==
[2023-05-06] VITALS (8 sets, daily range): BP systolic 114–162; BP diastolic 61–76; PULSE 95–150; RESP 17–24; TEMP 37.1–38.9; O2SAT 92–98; BMI 35.9
--- NOTE | ~2023-05-06 | XR_ITS ---
EXAMINATION: XR CHEST CLINICAL INFORMATION: Fever. COMPARISON: Chest radiograph 08/22/2022. TECHNIQUE: AP view of the chest was obtained. FINDINGS: Normal heart size. Mildly increased central peribronchial thickening. No focal consolidation, pleural effusion or pneumothorax. No acute osseous findings. Visualized upper abdomen is within normal limits. XR/XR chest 1V IMPRESSION: Mildly increased central peribronchial thickening which could be seen with asthma, bronchitis, reactive airways disease or atypical viral infections.
--- NOTE | 2023-05-06 15:17 | ECG_ITS ---
Test Reason : TACHYCARDIC Blood Pressure : / mmHG Vent. Rate : 104 BPM Atrial Rate : 104 BPM P-R Int : 184 ms QRS Dur : 086 ms QT Int : 344 ms P-R-T Axes : 045 -10 028 degrees QTc Int : 452 ms Sinus tachycardia Possible Left atrial enlargement Low voltage QRS Cannot rule out Anterior infarct (cited on or before 07-APR-2020) Abnormal ECG When compared with ECG of 22-AUG-2022 14:48, No significant change was found Referred By: Michelle Laughlin Electronically Signed By:MOHAN MORRISON MD
--- NOTE | 2023-05-06 15:20 | ED.GENADULT ---
HPI - General Adult General Chief complaint: General Medical Stated complaint: unwit fall,dizzy,weak,high bs 400 per ems Time Seen by Provider: 05/06/23 14:42 Source: patient Mode of arrival: EMS Limitations: no limitations History of Present Illness HPI narrative: Patient comes to the emergency room complaining of generalized weakness, unwell for couple of days. Patient states that today she went to sit down on the toilet to urinate, patient missed the toilet and landed on the floor. Patient states it was more like a slip, did not hurt herself, denies any buttocks pain, no back pain, did not hit her head or lose consciousness, patient not on blood thinners. Patient states that she has not sure if she was feeling dizzy/lightheaded before. Patient states that overall for the last 2 days she has malaise. Patient states that she is known to be diabetic, patient only takes Related Data Home Medications Medication Instructions Recorded Confirmed blood sugar diagnostic (FreeStyle 07/25/22 12/11/22 Lite Strips) pen needle, diabetic 32 gauge x #50 ea 08/22/22 12/11/22 (BD Tessie 2nd Gen Pen Needle) Previous Rx's Medication Instructions Recorded ondansetron HCl 4 mg tablet 4 mg PO Q8H PRN nausea and 04/07/20 (Zofran) vomiting #14 tabs pantoprazole 40 mg PO BID #180 caps 06/17/20 betamethasone dipropionate 0.05 % 1 appl topical BID PRN skin 04/18/21 topical cream irritation #45 grams blood-glucose meter (FreeStyle #1 ea 05/11/22 Lite Meter kit) meclizine 12.5 mg tablet 12.5 mg PO Q8H PRN dizzyness #20 05/11/22 tabs insulin glargine 100 unit/mL (3 20 unit (0.2 mL) subcut DAILY #15 07/25/22 mL) subcutaneous pen (Lantus mL Solostar U-100 Insulin) pen needle, diabetic 32 gauge x #50 ea 07/25/2208/21 (Comfort EZ Pen [place]) flash glucose scanning reader #1 ea 08/01/22 (FreeStyle Emmanuel 2 [place]) albuterol sulfate 90 mcg/actuation 1 inh inhalation QID PRN wheezing 08/22/22 aerosol inhaler #8.5 grams cephalexin 500 mg capsule 1,000 mg (2 x 500 mg) PO BID #28 08/22/22 caps lisinopril 10 mg tablet 10 mg PO BID #180 tabs 08/28/22 dulaglutide 1.5 mg/0.5 mL 1.5 mg (0.5 mL) subcut QWEEK #2 mL 11/14/22 subcutaneous pen injector (Trulicity) simvastatin 20 mg tablet 20 mg PO BEDTIME #90 tabs 11/29/22 flash glucose sensor (FreeStyle #2 kits 12/25/22 Emmanuel 2 Sensor kit) magnesium oxide 500 mg (2 x 250 mg magnesium) PO 01/04/23 TID 30 days #180 tabs metformin 1,000 mg tablet 1,000 mg PO BID #180 tabs 01/12/23 Allergies Allergy/AdvReac Type Severity Reaction Status Date / Time acetaminophen [From PERCOCET] Allergy Intermediate UNKNOWN Verified 05/06/23 15:01 oxycodone [From PERCOCET] Allergy Intermediate UNKNOWN Verified 05/06/23 15:01 Review of Systems Review of Systems: Constitutional : No Weight loss, No Fever, No Chills, No Night Sweats, complaining of fatigue and generalized malaise ENT/Mouth : No Hearing loss, No Ear Pain, No Nasal Congestion, No Sinus Pain, No Hoarseness, No sore throat, No Rhinorrhea, No Swallowing Difficulty Eyes: No Eye Pain, No Swelling, No Redness, No Foreign Body, No Discharge, No Vision Changes Cardiovascular : No Chest Pain, No SOB, No Dyspnea on Exertion, No Orthopnea, No Edema, No Palpitations Respiratory : No Cough, No Sputum, No Wheezing, No Smoke Exposure, No Dyspnea Gastrointestinal : No Nausea, No Vomiting, No Diarrhea, No Constipation, No abdominal Pain, No Hematochezia, No Melena Genitourinary : no irregular bleeding, No Dysuria, No Urinary Frequency, No Hematuria, No Urinary Incontinence, No Urgency, No Flank Pain, No Urinary Flow Changes, No Hesitancy Musculoskeletal : No joint pain, No Myalgias, No Joint Swelling Skin : No Skin Lesions, No rash Neuro : No Weakness, No Numbness, No Paresthesias, No Loss of Consciousness, unsure if she was feeling dizzy, No Headache Psych : No Anxiety/Panic, No Depression, No SI/HI/AH/VH, No Social Issues, Heme/Lymph: No Bruising, No Bleeding,No Lymphadenopathy Endocrine : No Polyuria, No Polydipsia, No Temperature Intolerance [facility] Past Medical History Medical History Diabetes Diabetes mellitus Hyperlipidemia Hypertension Hypertension Obesity Type 2 diabetes mellitus with obesity Surgical History History of cholecystectomy History of tonsillectomy Family History Family History Mother No problems noted. Father No problems noted. 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 Cognitive needs: No Hearing needs: No Vision needs: Yes (glasses) Physical Exam ED Vital Signs: Vital Signs - 24 hr 05/06/23 14:55 05/06/23 15:38 05/06/23 17:39 Temperature 98.9 F 102.0 F H Pulse Rate 121 H 103 H Respiratory Rate 18 Blood Pressure 162/71 H 114/61 Pulse Oximetry 92 Oxygen Delivery Method Room Air Oxygen Flow Rate 05/06/23 17:40 05/06/23 17:52 05/06/23 18:08 Temperature 98.7 F 100.1 F Pulse Rate 105 H 104 H Respiratory Rate 24 H Blood Pressure 126/62 132/65 Pulse Oximetry 93 Oxygen Delivery Method Nasal Cannula Oxygen Flow Rate 2 05/06/23 19:48 Temperature 98.9 F Pulse Rate 95 Respiratory Rate 17 Blood Pressure 144/73 H Pulse Oximetry 98 Oxygen Delivery Method Nasal Cannula Oxygen Flow Rate 2 BMI result Body Mass Index 35.9 Medications Administered Discontinued Medications Generic Name Dose Route Start Last Admin Trade Name Freq PRN Reason Stop Dose Admin Sodium Chloride 2,000 mls @ 999 mls/hr 05/06/23 15:17 05/06/23 16:08 Ns IVCONT 05/06/23 17:17 999 mls/hr .Q2H1M ONE Administration Ibuprofen 600 mg 05/06/23 15:37 05/06/23 16:08 Ibuprofen 600 Mg Tablet PO 05/06/23 15:38 600 mg ONCE ONE Administration Insulin Human Regular 5 unit 05/06/23 16:43 05/06/23 17:01 Insulin Regular, Human 100 Unit/Ml 3 Ml Vial IVPUSH 05/06/23 16:44 5 unit ONCE ONE Administration Medical Decision Making Medical Decision Making MDM Narrative: My interpretation of labs: Hematology has a white blood cell count of 15.8, chemistry glucose of 358. Anion gap closed. LFTs normal. Patient's serology test negative for COVID and influenza. Troponin negative. -at this time, 16:58, patient has a fever of 102.0 F. at this time, there is no obvious source of infection. Patient denies URI or UTI symptoms. Chest x-ray and urinalysis pending. Sepsis is not suspected -patient was able to give us a urine sample until 20:00, results available at 20:45 -patient given IV ceftriaxone. Patient feeling weak, no longer tachycardic no fever, normal blood pressure, sepsis not suspected. -patient states that she feels very weak, unable to climb up stairs, patient is supposed to walk 4 flights of stairs and is barely able to stand due to weakness -although patient is not septic, patient is significantly symptomatic with weakness, -I discussed the patient with Dr. Jorge, patient being admitted Differential Diagnosis Differential Diagnoses: The differential diagnosis associated with the presentation includes (COVID, pneumonia, influenza, UTI) Admission/Observation Consideration of admission/observation: Escalation of care including admission/observation considered Lab Data 05/06/23 16:04 05/06/23 16:04 Labs: Lab Results 05/06/23 05/06/23 05/06/23 Range/Units 16:03 16:04 16:15 WBC 15.8 H (4.8-10.8) X10*3/uL RBC 4.17 L (4.20-5.50) X10*6/uL Hgb 12.8 (12.0-16.0) g/dl Hct 37.6 (37.0-47.0) % MCV 90.2 (80.0-98.0) fL MCH 30.7 (27.0-33.0) pg MCHC 34.0 (31.0-35.0) g/dl RDW 11.9 (11.0-16.0) % Plt Count 240 (160-400) X10*3/uL MPV 11.1 (9.4-12.3) fL Immature Gran % (Auto) 0.9 H (0.0-0.4) % Neut % (Auto) 87.0 H (45-73) % Lymph % (Auto) 4.9 L (20-40) % Daniels % (Auto) 6.9 (2-11) % Eos % (Auto) 0.0 (0-4) % Baso % (Auto) 0.3 (0-2) % Lymph # (Auto) 0.8 L (1.2-4.9) X10*3/uL Daniels # (Auto) 1.1 (0.1-1.2) X10*3/uL Eos # (Auto) 0.0 (0.0-0.4) X10*3/uL Baso # (Auto) 0.0 (0.0-0.2) X10*3/uL Abs Immat Gran (auto) 0.14 H (0.00-0.03) X10*3/uL Absolute Neuts (auto) 13.7 H (2.0-8.3) x10*3/uL Absolute Nucleated RBC 0.000 (0.0-0.012) X10*3/uL Nucleated RBC % (auto) 0.0 (0.0-0.2) /100WBC PT 14.4 H (11.1-13.3) SEC INR 1.2 H (0.9-1.1) Sodium 131 L (135-145) mmol/L Potassium 4.6 (3.3-5.1) mmol/L Chloride 101 (96-108) mmol/L Carbon Dioxide 18 L (22-29) mmol/L Anion Gap 17 (12-20) BUN 21 H (9-16) mg/dL Creatinine 1.01 (0.5-1.4) mg/dL Estim Creat Clear Calc 61.2 Estimated GFR 55 POC Glucose 334 H (60-115) mg/dL Random Glucose 358 H* (60-115) mg/dL Lactic Acid 1.5 (0.5-2.0) mmol/L Calcium 10.9 H (8.4-10.2) mg/dL Magnesium 1.5 L (1.6-2.6) mg/dL Total Bilirubin 0.4 (0.0-1.0) mg/dL Direct Bilirubin 0.2 (0.0-0.5) mg/dL AST 15 (5-31) U/L ALT 16 (0-31) U/L Alkaline Phosphatase 79 (39-117) U/L Troponin I High Sens 4.5 D (<3.5-17.0) ng/L Total Protein 7.1 (6.5-8.0) g/dL Albumin 3.6 (3.5-5.0) g/dL Urine Color Urine Appearance Urine pH (5.0-9.0) Ur Specific [place] (1.005-1.025) Urine Protein (Neg-Trace) mg/dL Urine Glucose (UA) (Negative) mg/dL Urine Ketones (Negative) mg/dL Urine Blood (Negative) Urine Nitrite (Negative) Ur Leukocyte Esterase (Negative) Urine RBC (0-2) /HPF Urine WBC (0-5) /HPF Ur Squamous Epith Cells (0-2) /HPF Urine Bacteria (None Seen) Hyaline Casts (0-2) /LPF Urine Opiates Screen (Not Detect) Urine Fentanyl Screen (Not Detect) Ur Barbiturates Screen (Not Detect) Ur Phencyclidine Scrn (Not Detect) Ur Amphetamines Screen (Not Detect) U Benzodiazepines Scrn (Not Detect) Urine Cocaine Screen (Not Detect) U Marijuana (THC) Screen (Not Detect) Ethyl Alcohol < 10 mg/dL COVID-19 ([facility]) Negative (Negative) COVID-19 Clin Com See Note Influenza Type A (BUCKY) Negative (Negative) Influenza Type B (BUCKY) Negative (Negative) Influenza A & B Note See Note 05/06/23 05/06/23 05/06/23 Range/Units 17:51 20:18 20:23 WBC (4.8-10.8) X10*3/uL RBC (4.20-5.50) X10*6/uL Hgb (12.0-16.0) g/dl Hct (37.0-47.0) % MCV (80.0-98.0) fL MCH (27.0-33.0) pg MCHC (31.0-35.0) g/dl RDW (11.0-16.0) % Plt Count (160-400) X10*3/uL MPV (9.4-12.3) fL Immature Gran % (Auto) (0.0-0.4) % Neut % (Auto) (45-73) % Lymph % (Auto) (20-40) % Daniels % (Auto) (2-11) % Eos % (Auto) (0-4) % Baso % (Auto) (0-2) % Lymph # (Auto) (1.2-4.9) X10*3/uL Daniels # (Auto) (0.1-1.2) X10*3/uL Eos # (Auto) (0.0-0.4) X10*3/uL Baso # (Auto) (0.0-0.2) X10*3/uL Abs Immat Gran (auto) (0.00-0.03) X10*3/uL Absolute Neuts (auto) (2.0-8.3) x10*3/uL Absolute Nucleated RBC (0.0-0.012) X10*3/uL Nucleated RBC % (auto) (0.0-0.2) /100WBC PT (11.1-13.3) SEC INR (0.9-1.1) Sodium (135-145) mmol/L Potassium (3.3-5.1) mmol/L Chloride (96-108) mmol/L Carbon Dioxide (22-29) mmol/L Anion Gap (12-20) BUN (9-16) mg/dL Creatinine (0.5-1.4) mg/dL Estim Creat Clear Calc Estimated GFR POC Glucose 296 H 309 H (60-115) mg/dL Random Glucose (60-115) mg/dL Lactic Acid (0.5-2.0) mmol/L Calcium (8.4-10.2) mg/dL Magnesium (1.6-2.6) mg/dL Total Bilirubin (0.0-1.0) mg/dL Direct Bilirubin (0.0-0.5) mg/dL AST (5-31) U/L ALT (0-31) U/L Alkaline Phosphatase (39-117) U/L Troponin I High Sens (<3.5-17.0) ng/L Total Protein (6.5-8.0) g/dL Albumin (3.5-5.0) g/dL Urine Color Yellow Urine Appearance Clear Urine pH 6.0 (5.0-9.0) Ur Specific [place] >= 1.030 H (1.005-1.025) Urine Protein 30 (1+) H (Neg-Trace) mg/dL Urine Glucose (UA) >=1000 H (Negative) mg/dL Urine Ketones 40 (Negative) mg/dL Urine Blood Trace (Negative) Urine Nitrite Positive H (Negative) Ur Leukocyte Esterase Negative (Negative) Urine RBC 0-2 (0-2) /HPF Urine WBC >50 H (0-5) /HPF Ur Squamous Epith Cells 0-2 (0-2) /HPF Urine Bacteria 2+ (None Seen) Hyaline Casts 0-2 (0-2) /LPF Urine Opiates Screen Not Detected (Not Detect) Urine Fentanyl Screen Not Detected (Not Detect) Ur Barbiturates Screen Not Detected (Not Detect) Ur Phencyclidine Scrn Not Detected (Not Detect) Ur Amphetamines Screen Not Detected (Not Detect) U Benzodiazepines Scrn Not Detected (Not Detect) Urine Cocaine Screen Not Detected (Not Detect) U Marijuana (THC) Screen Not Detected (Not Detect) Ethyl Alcohol mg/dL COVID-19 ([facility]) (Negative) COVID-19 Clin Com Influenza Type A ([facility]CKY) (Negative) Influenza Type B ([facility]Y) (Negative) Influenza A & B Note Critical Care Time Critical Care Time Critical Care Time: Yes Total Critical Care Time: 75 Attestation: I have personally provided critical care time. Time includes review of lab data, radiology results, discussion with consultants, and monitoring for potential decompensation. Intervention performed as documented. Discharge Plan Discharge Clinical Impression: Acute UTI, Weakness Patient Disposition: Admitted As Inpatient Prescriptions: No Action pantoprazole 40 mg PO BID Qty: 180 8RF (DME) FreeStyle Emmanuel 2 [place] Misc See Rx Instructions .Route Qty: 1 0RF Rx Instructions: As directed Trulicity 1.5 mg/0.5 mL pen injector 1.5 mg subcut QWEEK Qty: 2 5RF simvastatin 20 mg tablet 20 mg PO BEDTIME Qty: 90 1RF (DME) FreeStyle Emmanuel 2 Sensor Kit See Rx Instructions .ROUTE .COMPLEX Qty: 2 4RF Dose Instruction: DIRECTED CHANGE EVERY 14 DAYS Rx Instructions: DIRECTED CHANGE EVERY 14 DAYS magnesium oxide 250 mg magnesium tablet 500 mg PO TID 30 Days Qty: 180 0RF metformin 1,000 mg tablet 1,000 mg PO BID Qty: 180 4RF ondansetron HCl [Zofran] 4 mg tablet 4 mg PO Q8H PRN (Reason: nausea and vomiting) Qty: 14 0RF cephalexin 500 mg capsule 1,000 mg PO BID Qty: 28 0RF albuterol sulfate 90 mcg/actuation HFA aerosol inhaler 1 inh inhalation QID PRN (Reason: wheezing) Qty: 8.5 0RF betamethasone dipropionate 0.05 % cream 1 appl topical BID PRN (Reason: skin irritation) Qty: 45 4RF meclizine 12.5 mg tablet 12.5 mg PO Q8H PRN (Reason: dizzyness) Qty: 20 0RF (DME) blood-glucose meter [FreeStyle Lite Meter] Kit See Rx Instructions .Route Qty: 1 0RF Rx Instructions: As directed lisinopril 10 mg tablet 10 mg PO BID Qty: 180 8RF Rx Instructions: take 20 mg in AM and 10 mg in PM (DME) FreeStyle Lite Strips Strip See Rx Instructions .Route Rx Instructions: As directed insulin glargine [Lantus Solostar U-100 Insulin] 100 unit/mL (3 mL) insulin pen 20 unit subcut DAILY Qty: 15 5RF (DME) pen needle, diabetic [Comfort EZ Pen [place]] 32 gauge x 5/16 needle See Rx Instructions .Route Qty: 50 5RF Rx Instructions: As directed injects once a day (DME) pen needle, diabetic [BD Tessie 2nd Gen Pen Needle] 32 gauge x 5/32 needle See Rx Instructions .ROUTE DAILY Qty: 50 Rx Instructions: As directed
[2023-05-06 16:08] LABS: MANUAL DIFF FLAG NO
[2023-05-06] MEDS: Ibuprofen 600 MG TABLET PO (16:08)
[2023-05-06] MEDS: 0.9 % Sodium Chloride 2,000 ML 999 ML IVCONT (16:08)
[2023-05-06 16:19] LABS: INTERNATIONAL NORM RATIO 1.2 (0.9-1.1); Prothrombin Time 14.4 SEC (11.1-13.3)
[2023-05-06 16:21] LABS: Lactic Acid 1.5 mmol/L (0.5-2.0)
[2023-05-06 16:21] LABS: Glucose, Whole Blood 334 mg/dL (60-115)
[2023-05-06 16:24] LABS: Basophils Percent Auto 0.3 % (0-2); Hematocrit 37.6 % (37.0-47.0); Hemoglobin 12.8 g/dl (12.0-16.0); Imm Gran Abs Auto 0.14 X10*3/uL (0.00-0.03); Imm Gran Pct Auto 0.9 % (0.0-0.4); Lymphocytes Absolute Auto 0.8 X10*3/uL (1.2-4.9); Lymphocytes Percent Auto 4.9 % (20-40); Mean Corpuscular Hemoglobin 30.7 pg (27.0-33.0); Mean Corpuscular Volume 90.2 fL (80.0-98.0); Mean Platelet Volume 11.1 fL (9.4-12.3); Monocytes Absolute Auto 1.1 X10*3/uL (0.1-1.2); Monocytes Percent Auto 6.9 % (2-11); Neutrophils Absolute Auto 13.7 x10*3/uL (2.0-8.3); Platelet Count 240 X10*3/uL (160-400); Red Blood Count 4.17 X10*6/uL (4.20-5.50); Red Cell Distribution Width 11.9 % (11.0-16.0); White Blood Count 15.8 X10*3/uL (4.8-10.8)
[2023-05-06 16:24] LABS: Ethanol < 10 mg/dL
[2023-05-06 16:30] LABS: Alanine Aminotransferase 16 U/L (0-31); Albumin Level 3.6 g/dL (3.5-5.0); Alkaline Phosphatase 79 U/L (39-117); Anion Gap 17 (12-20); Aspartate Amino Transferase 15 U/L (5-31); Bilirubin Direct 0.2 mg/dL (0.0-0.5); Bilirubin Total 0.4 mg/dL (0.0-1.0); Blood Urea Nitrogen 21 mg/dL (9-16); Calcium 10.9 mg/dL (8.4-10.2); Carbon Dioxide 18 mmol/L (22-29); Chloride 101 mmol/L (96-108); Creatinine Clr Calc Pharmacy 61.2; Estimated Glomerular Filt Rate 55; Glucose Random 358 mg/dL (60-115); Magnesium 1.5 mg/dL (1.6-2.6); Potassium 4.6 mmol/L (3.3-5.1); Sodium 131 mmol/L (135-145); Total Protein 7.1 g/dL (6.5-8.0)
[2023-05-06 16:32] LABS: Troponin-I High Sensitivity 4.5 ng/L (<3.5-17.0)
[2023-05-06 16:38] LABS: COVID-19 Test Negative (Negative); IDNOW Serial# 08D9AD1C; IDNOW Serial# 152EDE1D; Influenza A Negative (Negative); Influenza B2 Negative (Negative)
[2023-05-06] MEDS: Insulin Regular, Human 100 UNIT/ML 3 ML VIAL IVPUSH (17:01)
--- NOTE | 2023-05-06 17:04 | PC.NURSE ---
18IV left ac established by ems, 20IV established to right forearm in ed, labs obtained and sent. repeat poc 334, provider changing insulin ivpush order to 5 units at this time. resting quietly in room, call headley within reach.
--- NOTE | 2023-05-06 17:41 | MHC.EDTECH ---
This pct attempted orthostatic vitals on patient was able to perform supine and sitting orthos was unable to perform standing due to increrasede
--- NOTE | 2023-05-06 17:43 | MHC.EDTECH ---
This pct attempted orthostatic vitals on patient was able to do supine and sitting orthos unable to perform standing ortho due to patient being very sleepy and patient states she is very weak. VICENTE Panchal
--- NOTE | 2023-05-06 17:52 | PC.NURSE ---
patient resting quietly in room at this time, no signs/symptoms of distress noted. repeat poc 296.
[2023-05-06 17:56] LABS: Glucose, Whole Blood 296 mg/dL (60-115)
--- NOTE | 2023-05-06 19:20 | PC.NURSE ---
This medical technical writer assumed care of this Pt at 1900. Pt A&Ox3, reports 6/10 lower ABD pain. Pt reports weakness, one assist to bedside commode. Pt had large BM.
--- NOTE | 2023-05-06 20:02 | MHC.EDTECH ---
This Tech assumed care of this PT. PT placed on [place] and red fall precaution socks and red wristband put on PT.
[2023-05-06 20:29] LABS: Appearance Urine Clear; Color Urine Yellow; Glucose Urine UA >=1000 mg/dL (Negative); Leukocyte Esterase Urine Negative (Negative); Nitrite Urine Positive (Negative); Specific Gravity - Urine >= 1.030 (1.005-1.025); UMIC TRIGGER UACC YES; Urine Blood Trace (Negative); Urine Ketones 40 mg/dL (Negative); Urine Protein 30 (1+) mg/dL (Neg-Trace)
[2023-05-06 20:29] LABS: Glucose, Whole Blood 309 mg/dL (60-115)
[2023-05-06 20:35] LABS: Bacteria Urine 2+ (None Seen); Hyaline Casts Urine 0-2 /LPF (0-2); RBC Urine 0-2 /HPF (0-2); Squamous Epithelial Cell Urine 0-2 /HPF (0-2); UACC Culture Trigger YES; WBC Urine >50 /HPF (0-5)
[2023-05-06 20:38] LABS: Amphetamine Screen Urine Not Detected (Not Detect); Barbiturates, Urine Not Detected (Not Detect); Benzodiazepines Screen Urine Not Detected (Not Detect); Cannabinoid Screen Urine Not Detected (Not Detect); Cocaine Screen Urine Not Detected (Not Detect); Fentanyl, urine Not Detected (Not Detect); Opiate Screen Urine Not Detected (Not Detect); Phencyclidine Screen Urine Not Detected (Not Detect)
--- NOTE | 2023-05-06 21:20 | PHA.MEDREC ---
Pharmacy Consult ? Medication Reconciliation Pharmacy has completed the medication reconciliation. Patient reported medications. Patient reported no longer taking trulicity because it is not cover by insurance. Lisy Ingram, BarbD
[2023-05-06] MEDS: cefTRIAXone sodium 1 GM in 0.9 % Sodium Chloride 50 ML IV (21:47)
--- NOTE | 2023-05-06 21:59 | P.HPHOSP_ITS ---
Albumin 3.6 Urine Color Urine Appearance Urine pH Ur Specific [place] Urine Protein Urine Glucose (UA) Urine Ketones Urine Blood Urine Nitrite Ur Leukocyte Esterase Urine RBC Urine WBC Ur Squamous Epith Cells Urine Bacteria Hyaline Casts Urine Opiates Screen Urine Fentanyl Screen Ur Barbiturates Screen Ur Phencyclidine Scrn Ur Amphetamines Screen U Benzodiazepines Scrn Urine Cocaine Screen U Marijuana (THC) Screen Ethyl Alcohol < 10 COVID-19 (SAVANNA) Negative COVID-19 Clin Com See Note Influenza Type A (BUCKY) Negative Influenza Type B (BUCKY) Negative Influenza A & B Note See Note 05/06/23 05/06/23 05/06/23 17:51 20:18 20:23 MCV MCH MCHC RDW Plt Count MPV Immature Gran % (Auto) Neut % (Auto) Lymph % (Auto) [place] % (Auto) Eos % (Auto) Baso % (Auto) Lymph # (Auto) [place] # (Auto) Eos # (Auto) Baso # (Auto) Abs Immat Gran (auto) Absolute Neuts (auto) Absolute Nucleated RBC Nucleated RBC % (auto) PT INR Anion Gap Estim Creat Clear Calc Estimated GFR POC Glucose 296 H 309 H Random Glucose Lactic Acid Calcium Magnesium Total Bilirubin Direct Bilirubin AST ALT Alkaline Phosphatase Total Protein Albumin Urine Color Yellow Urine Appearance Clear Urine pH 6.0 Ur Specific [place] >= 1.030 H Urine Protein 30 (1+) H Urine Glucose (UA) >=1000 H Urine Ketones 40 Urine Blood Trace Urine Nitrite Positive H Ur Leukocyte Esterase Negative Urine RBC 0-2 Urine WBC >50 H Ur Squamous Epith Cells 0-2 Urine Bacteria 2+ Hyaline Casts 0-2 Urine Opiates Screen Not Detected Urine Fentanyl Screen Not Detected Ur Barbiturates Screen Not Detected Ur Phencyclidine Scrn Not Detected Ur Amphetamines Screen Not Detected U Benzodiazepines Scrn Not Detected Urine Cocaine Screen Not Detected U Marijuana (THC) Screen Not Detected Ethyl Alcohol COVID-19 (SAVANNA) COVID-19 Clin Com Influenza Type A (BUCKY) Influenza Type B (BUCKY) Influenza A & B Note Imaging Radiologist's Impressions: Impressions Chest X-Ray 05/06/23 16:55 IMPRESSION: Mildly increased central peribronchial thickening which could be seen with asthma, bronchitis, reactive airways disease or atypical viral infections. Assessment and Plan (1) Weakness: Status: Acute (2) Acute UTI: Status: Acute Plan 68-year-old female with history of insulin-dependent type 2 diabetes, hypertension, hyperlipidemia, and severe obesity with BMI greater than 35 admitted for further management of UTI with sepsis #Acute UTI with sepsis -UA with +nitrites, +urinary sediment, 2+ bacteria -leukocytosis 15.8, tachycardic, febrile on arrival. No lactic acidosis or evidence of other end-organ damage. No severe sepsis/shock -IV ceftriaxone (initiated 05/06) -follow CBC, cultures # pseudo hyponatremia -due to hyperglycemia -given IV fluids and IV insulin -follow BMP #Weakness -due to UTI -PT eval # insulin-dependent type 2 diabetes with hyperglycemia -hemoglobin A1c pending -dose adjusted basal insulin -Humalog on sliding scale -POC glucose, diabetic diet -hold metformin # hypertension -continue lisinopril -monitor blood pressures # hyperlipidemia -statin # severe obesity with BMI greater than 35 -weight loss efforts encouraged # mild intermittent asthma -no acute exacerbation -albuterol p.r.n. DVT prophylaxis-Lovenox Full code Given urinary tract infection with sepsis, patient will require inpatient stay of at least 2 midnights for treatment with IV antibiotics as well as PT evaluation Quality Stroke Does the patient have a stroke diagnosis?: No VTE Prior VTE?: No VTE Risk Level:: Medical - moderate - high VTE Device Contraindication: Treatment Not Indicated VTE Drug Contraindication: N/A - Med Ordered History of Present Illness Date of Service: 05/06/23 Attending physician on admission: Stephanie Jorge Chief Complaint: abd pain, ble weakness 68-year-old female with history of insulin-dependent type 2 diabetes, hypertension, hyperlipidemia, and severe obesity with BMI greater than 35 presents to the ED earlier today for evaluation of bilateral lower abdominal pain and bilateral lower extremity weakness ongoing for several days. She states the weakness has progressed and she was attempting to use the bathroom earlier today and missed the toilet falling to the ground. Denies any head injury or loss of consciousness but was unable to lift herself off of the ground and called for assistance. She also endorses some increased urinary frequency but denies any fevers, chills, nausea, vomiting, dysuria, hematuria, urgency, shortness of breath, palpitations, lightheadedness, or chest pains. On arrival, pr febrile to 102, and tachycardia ranging 90s-121.No hypotension. There is a leukocytosis of 15.8. Renal function baseline. Sodium 131, CO2 18, magnesium 1.5, calcium 10.9. Initial glucose 358. Urinalysis significant for nitrites, positive urinary sediment, 2+ bacteria. There was also elevated specific gravity, positive glucose. Urine tox screen negative. Ethyl alcohol level undetectable. Negative for COVID-19, influenza. Chest x-ray shows mildly increased central peribronchial thickening consistent with asthma, bronchitis, reactive airway disease or atypical viral infection. In the ED, given 600 mg ibuprofen, 5 units regular insulin, 2 L IV NS, and 1 g IV ceftriaxone. Review of Systems 2 Review of Systems: General: No fevers, malaise, unintentional weight loss HEENT: No blurred vision, diplopia. No sore throat, nasal congestion, rhinorrhea, sinus pain, ear pain Cardiovascular: No chest pain, palpitations, or leg edema Respiratory: No shortness of breath, wheezing, cough GI: +b/l abd pain. No nausea, vomiting, diarrhea, constipation, melena, hematochezia : +increased frequency. No dysuria, hematuria, decreased urinary output MSK: No myalgia, back pain Neuro: No headaches, paresthesias. +BLE weakness Skin: No rashes or lesions [facility] Medical History Hypertension Obesity Type 2 diabetes mellitus with obesity Diabetes mellitus Diabetes Hyperlipidemia Hypertension Family History Mother No problems noted. Father No problems noted. 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 Enoxaparin Sodium (Enoxaparin Sodium 40 Mg/0.4 Ml Syringe) 40 mg SUBCUT Q24H [facility] Glucose (Glucose Gel 15 Gm Gel..Gram.) 15 gm PO Q15M PRN; Protocol PRN Reason: per Hypoglycemia Standing Ord. Ceftriaxone Sodium 1 gm/ (Sodium Chloride) 50 mls @ 100 mls/hr IV Q24H [facility] Insulin Human Lispro (Insulin Lispro 100 Unit/Ml 3 Ml Vial) 0 unit SUBCUT QIDACHS [facility]; Protocol Ondansetron HCl (Ondansetron Hcl 4 Mg/2 Ml Vial) 4 mg IVPUSH Q8H PRN PRN Reason: Nausea and Vomiting Senna (Sennosides 8.6 Mg Tablet) 17.2 mg PO BEDTIME PRN PRN Reason: Constipation Sodium Chloride (0.9 % Sodium Chloride Flush 3 Ml Syringe) 3 ml IVFLUSH QSHIFT [facility] Home Medications Medication Instructions Recorded Confirmed Last Taken Type blood sugar diagnostic (FreeStyle 07/25/22 12/11/22 Unknown History Lite Strips) pen needle, diabetic 32 gauge x #50 ea 08/22/22 12/11/22 Unknown History (BD Tessie 2nd Gen Pen Needle) insulin glargine 100 unit/mL (3 20 unit subcut BEDTIME 05/06/23 05/06/23 05/05/23 History mL) subcutaneous pen (Lantus Solostar U-100 Insulin) lisinopril 10 mg tablet 10 mg PO BEDTIME 05/06/23 05/06/23 05/06/23 History lisinopril 10 mg tablet 20 mg PO DAILY 05/06/23 05/06/23 05/06/23 History magnesium oxide 500 mg PO BID 05/06/23 05/06/23 05/06/23 History Physical Exam 2 Vital Signs and Narrative: Vital Signs: Last Vital Signs Temp 98.9 F 05/06/23 19:48 Pulse 95 05/06/23 19:48 Resp 17 05/06/23 19:48 BP 144/73 H 05/06/23 19:48 Pulse Ox 98 05/06/23 19:48 O2 Del Method Nasal Cannula 05/06/23 19:48 O2 Flow Rate 2 05/06/23 19:48 BMI result Body Mass Index 35.9 Constitutional - Awake and Alert, No apparent distress Eyes - PERRLA, EOMI Cardiovascular - S1S2, RRR, No edema Respiratory - Normal lung expansion, Normal respiratory effort, No respiratory distress, CTA bilaterally Gastrointestinal - mild diffuse ttp, ND; +BS; No rebound or guarding - No CVA tenderness Extremities - no calf tenderness bilaterally, no swelling Skin - Warm/Dry Neurological - Alert & oriented x3, 5/5 strength BUE and BLE Psychological - Appropriate affect Results Labs 05/06/23 16:04 05/06/23 16:04 Labs: Laboratory Results - last 24 hr 05/06/23 05/06/23 05/06/23 16:03 16:04 16:15 MCV 90.2 MCH 30.7 MCHC 34.0 RDW 11.9 Plt Count 240 MPV 11.1 Immature Gran % (Auto) 0.9 H Neut % (Auto) 87.0 H Lymph % (Auto) 4.9 L [place] % (Auto) 6.9 Eos % (Auto) 0.0 Baso % (Auto) 0.3 Lymph # (Auto) 0.8 L [place] # (Auto) 1.1 Eos # (Auto) 0.0 Baso # (Auto) 0.0 Abs Immat Gran (auto) 0.14 H Absolute Neuts (auto) 13.7 H Absolute Nucleated RBC 0.000 Nucleated RBC % (auto) 0.0 PT 14.4 H INR 1.2 H Anion Gap 17 Estim Creat Clear Calc 61.2 Estimated GFR 55 POC Glucose 334 H Random Glucose 358 H* Lactic Acid 1.5 Calcium 10.9 H Magnesium 1.5 L Total Bilirubin 0.4 Direct Bilirubin 0.2 AST 15 ALT 16 Alkaline Phosphatase 79 Total Protein 7.1
[2023-05-06] MEDS: Insulin Glargine,Hum.rec.anlog 100 UNIT/ML 10 ML VIAL 15 UNIT SUBCUT (22:36)
[2023-05-06] MEDS: Enoxaparin Sodium 40 MG/0.4 ML SYRINGE SUBCUT (22:37)
[2023-05-06 22:41] LABS: Glucose, Whole Blood 284 mg/dL (60-115)
[2023-05-07] VITALS (9 sets, daily range): BP systolic 119–162; BP diastolic 67–74; PULSE 98–108; RESP 20–28; TEMP 36.6–38.1; O2SAT 91–95
[2023-05-07] MEDS: 0.9 % Sodium Chloride Flush 3 ML SYRINGE IVFLUSH ×4 (01:01→23:45)
[2023-05-07 05:15] LABS: Estimated Average Glucose 278 mg/dL; Hemoglobin A1c % 11.3 % (<6.0)
[2023-05-07 06:30] LABS: MANUAL DIFF FLAG NO
[2023-05-07 06:31] LABS: Basophils Percent Auto 0.3 % (0-2); Eosinophils Percent Auto 0.2 % (0-4); Hematocrit 36.7 % (37.0-47.0); Hemoglobin 12.2 g/dl (12.0-16.0); Imm Gran Abs Auto 0.04 X10*3/uL (0.00-0.03); Imm Gran Pct Auto 0.4 % (0.0-0.4); Lymphocytes Absolute Auto 0.8 X10*3/uL (1.2-4.9); Lymphocytes Percent Auto 7.2 % (20-40); Mean Corpuscular HGB Conc 33.2 g/dl (31.0-35.0); Mean Corpuscular Hemoglobin 30.4 pg (27.0-33.0); Mean Corpuscular Volume 91.5 fL (80.0-98.0); Mean Platelet Volume 10.6 fL (9.4-12.3); Monocytes Absolute Auto 0.9 X10*3/uL (0.1-1.2); Monocytes Percent Auto 8.3 % (2-11); Neutrophils Absolute Auto 8.9 x10*3/uL (2.0-8.3); Neutrophils Percent Auto 83.6 % (45-73); Platelet Count 200 X10*3/uL (160-400); Red Blood Count 4.01 X10*6/uL (4.20-5.50); Red Cell Distribution Width 11.9 % (11.0-16.0); White Blood Count 10.6 X10*3/uL (4.8-10.8)
[2023-05-07 06:49] LABS: Anion Gap 14 (12-20); Blood Urea Nitrogen 22 mg/dL (9-16); Calcium 10.2 mg/dL (8.4-10.2); Carbon Dioxide 17 mmol/L (22-29); Chloride 107 mmol/L (96-108); Creatinine Clr Calc Pharmacy 74.5; Estimated Glomerular Filt Rate > 60; Glucose Random 254 mg/dL (60-115); Potassium 4.5 mmol/L (3.3-5.1); Sodium 133 mmol/L (135-145)
[2023-05-07 07:23] LABS: Glucose, Whole Blood 232 mg/dL (60-115)
[2023-05-07] MEDS: Insulin Lispro 100 UNIT/ML 3 ML VIAL SUBCUT ×3 (08:36→19:09)
[2023-05-07] MEDS: Acetaminophen 325 MG TABLET 650 MG PO (08:58)
[2023-05-07] MEDS: lisinopriL 20 MG TABLET PO (08:59)
[2023-05-07] MEDS: Magnesium Oxide 400 MG TABLET PO ×2 (08:59→21:54)
--- NOTE | 2023-05-07 09:17 | PC.NURSE ---
oral temp 98.5 pt incontinent of urine and felt warm to touch, rectal temp read 100.5. pt tachy in the one-teens, tachypnic. pt c/o 8 abdominal pain. linens changed, skin cleaned and pt repositioned in bed
--- NOTE | 2023-05-07 11:34 | HO.PM.IMPN ---
Subjective Subjective Date of Service: 05/07/23 Review of Systems Follow up encephalopathy, UTI no pain or discomfort Physical Exam Vital Signs: Vital Signs: Last Vital Signs Temp 97.9 F 05/07/23 10:19 Pulse 100 05/07/23 10:19 Resp 28 H 05/07/23 10:19 BP 119/72 05/07/23 10:19 Pulse Ox 94 05/07/23 10:19 O2 Del Method Room Air 05/07/23 10:19 O2 Flow Rate 2 05/06/23 19:48 BMI result Body Mass Index 35.9 Appearing in no acute distress lung sounds are clear to auscultation heart regular rate rhythm, clear S1, S2 positive bowel sounds, abdomen is soft, nontender neuro patient is alert x3, no focal deficits Objective Data Active Medications Acetaminophen (Acetaminophen 325 Mg Tablet) 650 mg PO Q6H PRN PRN Reason: Pain, Mild (Pain Scale 1-3) Last Admin: 05/07/23 08:58 Dose: 650 mg Documented By: DWIGHT Albuterol Sulfate (Albuterol Sulfate 90 Mcg 8 Gm Inhaler) 1 puff INHALE QID PRN PRN Reason: wheezing Atorvastatin Calcium (Atorvastatin Calcium 10 Mg Tablet) 10 mg PO BEDTIME LOLITA Dextrose (Dextrose 50 % 25 Gm/50 Ml Syringe) 25 gm IVPUSH Q15M PRN; Protocol PRN Reason: per Hypoglycemia Standing Ord. Enoxaparin Sodium (Enoxaparin Sodium 40 Mg/0.4 Ml Syringe) 40 mg SUBCUT Q24H [facility] Last Admin: 05/06/23 22:37 Dose: 40 mg Documented By: GABRIEL Glucose (Glucose Gel 15 Gm Gel..Gram.) 15 gm PO Q15M PRN; Protocol PRN Reason: per Hypoglycemia Standing Ord. Ceftriaxone Sodium 1 gm/ (Sodium Chloride) 50 mls @ 100 mls/hr IV Q24H [facility] Insulin Glargine (Insulin Glargine,Hum.Rec.Anlog 100 Unit/Ml 10 Ml Vial) 15 unit SUBCUT BEDTIME [facility] Last Admin: 05/06/23 22:36 Dose: 15 unit Documented By: GABRIEL Insulin Human Lispro (Insulin Lispro 100 Unit/Ml 3 Ml Vial) 0 unit SUBCUT QIDACHS [facility]; Protocol Last Admin: 05/07/23 08:36 Dose: 4 unit Documented By: DWIGHT Lisinopril (Lisinopril 10 Mg Tablet) 10 mg PO BEDTIME [facility]; Protocol Lisinopril (Lisinopril 20 Mg Tablet) 20 mg PO DAILY [facility]; Protocol Last Admin: 05/07/23 08:59 Dose: 20 mg Documented By: DWIGHT Magnesium Oxide (Magnesium Oxide 400 Mg Tablet) 400 mg PO BID [facility] Last Admin: 05/07/23 08:59 Dose: 400 mg Documented By: DWIGHT Meclizine HCl (Meclizine Hcl 12.5 Mg Tablet) 12.5 mg PO Q8H PRN PRN Reason: dizzyness Ondansetron HCl (Ondansetron Hcl 4 Mg/2 Ml Vial) 4 mg IVPUSH Q8H PRN PRN Reason: Nausea and Vomiting Senna (Sennosides 8.6 Mg Tablet) 17.2 mg PO BEDTIME PRN PRN Reason: Constipation Sodium Chloride (0.9 % Sodium Chloride Flush 3 Ml Syringe) 3 ml IVFLUSH QSHIFT [facility] Last Admin: 05/07/23 08:59 Dose: 3 ml Documented By: DWIGHT Labs 05/07/23 06:23 05/07/23 06:23 Labs: Laboratory Results - last 24 hr 05/06/23 05/06/23 05/06/23 16:03 16:04 16:15 MCV 90.2 MCH 30.7 MCHC 34.0 RDW 11.9 Plt Count 240 MPV 11.1 Immature Gran % (Auto) 0.9 H Neut % (Auto) 87.0 H Lymph % (Auto) 4.9 L [place] % (Auto) 6.9 Eos % (Auto) 0.0 Baso % (Auto) 0.3 Lymph # (Auto) 0.8 L [place] # (Auto) 1.1 Eos # (Auto) 0.0 Baso # (Auto) 0.0 Abs Immat Gran (auto) 0.14 H Absolute Neuts (auto) 13.7 H Absolute Nucleated RBC 0.000 Nucleated RBC % (auto) 0.0 PT 14.4 H INR 1.2 H Anion Gap 17 Estim Creat Clear Calc 61.2 Estimated GFR 55 POC Glucose 334 H Random Glucose 358 H* Estimat Average Glucose 278 Hemoglobin A1c % 11.3 H Lactic Acid 1.5 Calcium 10.9 H Magnesium 1.5 L Total Bilirubin 0.4 Direct Bilirubin 0.2 AST 15 ALT 16 Alkaline Phosphatase 79 Total Protein 7.1 Albumin 3.6 Urine Color Urine Appearance Urine pH Ur Specific [place] Urine Protein Urine Glucose (UA) Urine Ketones Urine Blood Urine Nitrite Ur Leukocyte Esterase Urine RBC Urine WBC Ur Squamous Epith Cells Urine Bacteria Hyaline Casts Urine Opiates Screen Urine Fentanyl Screen Ur Barbiturates Screen Ur Phencyclidine Scrn Ur Amphetamines Screen U Benzodiazepines Scrn Urine Cocaine Screen U Marijuana (THC) Screen Ethyl Alcohol < 10 COVID-19 ([facility]NA) Negative COVID-19 Clin Com See Note Influenza Type A (BUCKY) Negative Influenza Type B (BUCKY) Negative Influenza A & B Note See Note 05/06/23 05/06/23 05/06/23 17:51 20:18 20:23 MCV MCH MCHC RDW Plt Count MPV Immature Gran % (Auto) Neut % (Auto) Lymph % (Auto) [place] % (Auto) Eos % (Auto) Baso % (Auto) Lymph # (Auto) [place] # (Auto) Eos # (Auto) Baso # (Auto) Abs Immat Gran (auto) Absolute Neuts (auto) Absolute Nucleated RBC Nucleated RBC % (auto) PT INR Anion Gap Estim Creat Clear Calc Estimated GFR POC Glucose 296 H 309 H Random Glucose Estimat Average Glucose Hemoglobin A1c % Lactic Acid Calcium Magnesium Total Bilirubin Direct Bilirubin AST ALT Alkaline Phosphatase Total Protein Albumin Urine Color Yellow Urine Appearance Clear Urine pH 6.0 Ur Specific [place] >= 1.030 H Urine Protein 30 (1+) H Urine Glucose (UA) >=1000 H Urine Ketones 40 Urine Blood Trace Urine Nitrite Positive H Ur Leukocyte Esterase Negative Urine RBC 0-2 Urine WBC >50 H Ur Squamous Epith Cells 0-2 Urine Bacteria 2+ Hyaline Casts 0-2 Urine Opiates Screen Not Detected Urine Fentanyl Screen Not Detected Ur Barbiturates Screen Not Detected Ur Phencyclidine Scrn Not Detected Ur Amphetamines Screen Not Detected U Benzodiazepines Scrn Not Detected Urine Cocaine Screen Not Detected U Marijuana (THC) Screen Not Detected Ethyl Alcohol COVID-19 ([facility]ANNA) COVID-19 Clin Com Influenza Type A (BUCKY) Influenza Type B (BUCKY) Influenza A & B Note 05/06/23 05/07/23 05/07/23 22:35 06:23 07:15 MCV 91.5 MCH 30.4 MCHC 33.2 RDW 11.9 Plt Count 200 MPV 10.6 Immature Gran % (Auto) 0.4 Neut % (Auto) 83.6 H Lymph % (Auto) 7.2 L [place] % (Auto) 8.3 Eos % (Auto) 0.2 Baso % (Auto) 0.3 Lymph # (Auto) 0.8 L [place] # (Auto) 0.9 Eos # (Auto) 0.0 Baso # (Auto) 0.0 Abs Immat Gran (auto) 0.04 H Absolute Neuts (auto) 8.9 H Absolute Nucleated RBC 0.000 Nucleated RBC % (auto) 0.0 PT INR Anion Gap 14 Estim Creat Clear Calc 74.5 Estimated GFR > 60 POC Glucose 284 H 232 H Random Glucose 254 H Estimat Average Glucose Hemoglobin A1c % Lactic Acid Calcium 10.2 D Magnesium Total Bilirubin Direct Bilirubin AST ALT Alkaline Phosphatase Total Protein Albumin Urine Color Urine Appearance Urine pH Ur Specific [place] Urine Protein Urine Glucose (UA) Urine Ketones Urine Blood Urine Nitrite Ur Leukocyte Esterase Urine RBC Urine WBC Ur Squamous Epith Cells Urine Bacteria Hyaline Casts Urine Opiates Screen Urine Fentanyl Screen Ur Barbiturates Screen Ur Phencyclidine Scrn Ur Amphetamines Screen U Benzodiazepines Scrn Urine Cocaine Screen U Marijuana (THC) Screen Ethyl Alcohol COVID-19 ([facility]ANNA) COVID-19 Clin Com Influenza Type A (BUCKY) Influenza Type B (BUCKY) Influenza A & B Note Assessment and Plan (1) Dizziness: Status: Resolved (2) Nausea & vomiting: Status: Resolved Plan 68-year-old female with history of insulin-dependent type 2 diabetes, hypertension, hyperlipidemia, and severe obesity with BMI greater than 35 admitted for further management of UTI with sepsis Acute UTI with sepsis UA with +nitrites, +urinary sediment, 2+ bacteria leukocytosis 15.8, tachycardic, febrile on arrival. No lactic acidosis or evidence of other end-organ damage. No severe sepsis/shock IV ceftriaxone (initiated 05/06) follow blood cultures Weakness likely due to UTI PT eval Insulin-dependent type 2 diabetes with hyperglycemia hemoglobin A1c 11.2 ss, ada diet, lantus on metformin 1000mg BID at home hypertension continue lisinopril hyperlipidemia statin obesity with BMI greater than 35 Discussed importance of weight management as this may be contributing to worsening of other comorbidities mild intermittent asthma no acute exacerbation albuterol p.r.n. DVT prophylaxis-Lovenox Attending Dr. Watt Full code Given urinary tract infection with sepsis, patient will require inpatient stay of at least 2 midnights for treatment with IV antibiotics as well as PT evaluation Quality Stroke Does the patient have a stroke diagnosis?: No VTE Prior VTE?: No VTE Risk Level:: Medical - moderate - high VTE Device Contraindication: Treatment Not Indicated VTE Drug Contraindication: N/A - Med Ordered
--- NOTE | 2023-05-07 12:23 | MHC.CM.PN ---
pt l;tasia with dgter ,[facility] and has own ride home
--- NOTE | 2023-05-07 12:44 | MHC.CM.PN ---
pt lives with dgter is independent will not need servies whendcd
[2023-05-07 13:15] LABS: Glucose, Whole Blood 208 mg/dL (60-115)
[2023-05-07 18:42] LABS: Glucose, Whole Blood 226 mg/dL (60-115)
[2023-05-07 21:18] LABS: Glucose, Whole Blood 262 mg/dL (60-115)
[2023-05-07] MEDS: cefTRIAXone sodium 1 GM in 0.9 % Sodium Chloride 50 ML IV (21:53)
[2023-05-07] MEDS: Insulin Glargine,Hum.rec.anlog 100 UNIT/ML 10 ML VIAL 20 UNIT SUBCUT (21:54)
[2023-05-07] MEDS: lisinopriL 10 MG TABLET PO (21:54)
[2023-05-07] MEDS: Atorvastatin Calcium 10 MG TABLET PO (21:54)
[2023-05-07] MEDS: Enoxaparin Sodium 40 MG/0.4 ML SYRINGE SUBCUT (21:55)
[2023-05-08 00:02] VITALS: BP 133/60; PULSE 87; RESP 15; TEMP 36.8; O2SAT 94
[2023-05-08 03:22] VITALS: BP 124/62; PULSE 95; RESP 16; TEMP 36.7; O2SAT 93
[2023-05-08 07:14] LABS: Glucose, Whole Blood 231 mg/dL (60-115)
[2023-05-08 07:27] VITALS: BP 163/77; PULSE 92; RESP 20; TEMP 36.8; O2SAT 96
[2023-05-08] MEDS: Insulin Lispro 100 UNIT/ML 3 ML VIAL SUBCUT ×2 (07:51→12:03)
[2023-05-08] MEDS: 0.9 % Sodium Chloride Flush 3 ML SYRINGE IVFLUSH (07:51)
[2023-05-08] MEDS: lisinopriL 20 MG TABLET PO (07:51)
[2023-05-08] MEDS: Magnesium Oxide 400 MG TABLET PO (07:51)
[2023-05-08] MEDS: Acetaminophen 325 MG TABLET 650 MG PO (09:36)
--- NOTE | 2023-05-08 09:46 | PM.DS ---
DS: Providers Provider Date of Service: 05/08/23 Date of admission: 05/06/23 21:56 Primary care physician: Navid Tejeda MD DS: Diagnosis Discharge Diagnosis (1) Dizziness: Status: Resolved (2) Nausea & vomiting: Status: Resolved DS: Summary Hospital Course Hospital Course: Chief Complaint: abd pain, ble weakness 68-year-old female with history of insulin-dependent type 2 diabetes, hypertension, hyperlipidemia, and severe obesity with BMI greater than 35 presents to the ED earlier today for evaluation of bilateral lower abdominal pain and bilateral lower extremity weakness ongoing for several days. She states the weakness has progressed and she was attempting to use the bathroom earlier today and missed the toilet falling to the ground. Denies any head injury or loss of consciousness but was unable to lift herself off of the ground and called for assistance. She also endorses some increased urinary frequency but denies any fevers, chills, nausea, vomiting, dysuria, hematuria, urgency, shortness of breath, palpitations, lightheadedness, or chest pains. On arrival, pr febrile to 102, and tachycardia ranging 90s-121.No hypotension. There is a leukocytosis of 15.8. Renal function baseline. Sodium 131, CO2 18, magnesium 1.5, calcium 10.9. Initial glucose 358. Urinalysis significant for nitrites, positive urinary sediment, 2+ bacteria. There was also elevated specific gravity, positive glucose. Urine tox screen negative. Ethyl alcohol level undetectable. Negative for COVID-19, influenza. Chest x-ray shows mildly increased central peribronchial thickening consistent with asthma, bronchitis, reactive airway disease or atypical viral infection. In the ED, given 600 mg ibuprofen, 5 units regular insulin, 2 L IV NS, and 1 g IV ceftriaxone. Hospital course: Patient presented with weakness, and abdominal pain and work up revealed sepsis, uti and was initiated on Ceftriaxone, urine culture grew e coli that is sensitive to ceftriaxone, she is overall feeling better, no abdominal pain. She will be discharged whome with Ceftin 250 mg bid for an additional 5 days fo total of 7 days., there is no bacteremaPT evaluated her for the weakness with recommendation for home with services. Final diagnoses: Sepsis UTI Weakness Time Attestation Discharge coordination time: Greater than 30 minutes Quality: Safe Use of Opioids Does Pt have an Active Cancer Diagnosis on the Problem List?: No Quality: Stroke Does the patient have a stroke diagnosis?: No Physical Exam Vital Signs: Vital Signs: Last Vital Signs Temp 98.2 F 05/08/23 07:27 Pulse 92 05/08/23 07:27 Resp 20 05/08/23 07:27 BP 163/77 H 05/08/23 07:27 Pulse Ox 96 05/08/23 07:27 O2 Del Method Room Air 05/08/23 07:27 O2 Flow Rate 2 05/06/23 19:48 BMI result Body Mass Index 35.9 No distress lung sounds are clear to auscultation heart regular rate rhythm, clear S1, S2 positive bowel sounds, abdomen is soft, nontender neuro patient is alert x3, no focal deficits DS: Data Data Completed and Pending Labs on day of discharge: Laboratory Results - last 24 hr 05/07/23 05/07/23 05/07/23 13:09 18:34 21:15 POC Glucose 208 H 226 H 262 H 05/08/23 07:09 POC Glucose 231 H Preliminary micro results at discharge 05/06/23 16:25 Blood Culture - Preliminary Blood - Venous No growth after 24 hours. 05/06/23 16:03 Blood Culture - Preliminary Blood - Venous No growth after 24 hours. Discharge Plan Discharge Anticipated Discharge Date/Time: 05/08/23 09:51 Patient Disposition: Home Health Service Discharge Diagnosis: uti, metabolic encephalopathy Referrals: Rika Boudreaux [Outside] - 1 Week Navid Tejeda MD [Primary Care Provider] - 1 Week Discharge Medications: New cefuroxime axetil 250 mg tablet 250 mg PO BID 5 Days Qty: 10 0RF Continued (DME) FreeStyle Emmanuel 2 [place] Misc See Rx Instructions .Route Qty: 1 0RF Rx Instructions: As directed simvastatin 20 mg tablet 20 mg PO BEDTIME Qty: 90 1RF (DME) FreeStyle Emmanuel 2 Sensor Kit See Rx Instructions .ROUTE .COMPLEX Qty: 2 4RF Dose Instruction: DIRECTED CHANGE EVERY 14 DAYS Rx Instructions: DIRECTED CHANGE EVERY 14 DAYS metformin 1,000 mg tablet 1,000 mg PO BID Qty: 180 4RF albuterol sulfate 90 mcg/actuation HFA aerosol inhaler 1 inh inhalation QID PRN (Reason: wheezing) Qty: 8.5 0RF lisinopril 10 mg tablet 20 mg PO DAILY lisinopril 10 mg tablet 10 mg PO BEDTIME Rx Instructions: take 20 mg in AM and 10 mg in PM magnesium oxide 250 mg magnesium tablet 500 mg PO BID insulin glargine [Lantus Solostar U-100 Insulin] 100 unit/mL (3 mL) insulin pen 20 unit subcut BEDTIME meclizine 12.5 mg tablet 12.5 mg PO Q8H PRN (Reason: dizzyness) Qty: 20 0RF (DME) blood-glucose meter [FreeStyle Lite Meter] Kit See Rx Instructions .Route Qty: 1 0RF Rx Instructions: As directed (DME) FreeStyle Lite Strips Strip See Rx Instructions .Route Rx Instructions: As directed (DME) pen needle, diabetic [Comfort EZ Pen [place]] 32 gauge x 5/16 needle See Rx Instructions .Route Qty: 50 5RF Rx Instructions: As directed injects once a day (DME) pen needle, diabetic [BD Tessie 2nd Gen Pen Needle] 32 gauge x 5/32 needle See Rx Instructions .ROUTE DAILY Qty: 50 Rx Instructions: As directed Discharge Orders: Discharge Order (Routine); Ordered 05/08/23 Ordered By: Zane Watt Diet: Diabetic diet Activity on Discharge: As tolerated Stand Alone Forms: Patient Portal Discharge page Care Plan Goals: recovery from uti Health Concerns: uti weakness Plan of Treatment: take Cefuroxime as directed and follow up with yor Doctor in a week and you have home visiting nurses Assessment: see above Discharge Date/Time: 05/08/23 14:56
--- NOTE | 2023-05-08 09:55 | W.MHC.F2F ---
Service Date Service Date: 05/08/23 Encounter Date of encounter: 05/08/23 Reasons for Services Signs and symptoms assessed: weakness due to uti, sepsis Reason for nursing home: medication management and medication treatment Reason for physical therapy: home safety and mobility and therapeutic exercises Homebound: Leaving the home is medically contraindicated at this time without the asist of a device and/or another person due th the listed conditions above and below. Reason homebound: unsteady gait / fall risk and weakness related to hospital stay Homebound supporting statement: homebound due to chronic weakness with acute weakness from uti, sepsis and post hospitalizationo weakness Certification: Based on the above findings, I certify that this patient is confined to the home and needs intermittent nursing home care, physical therapy and/or speech therapy, or continues to need occupational therapy. The patient is under my care, and I have initiated the establishment of the plan of care. The patient will be followed by a physician who will periodically review the plan of care. Time Spent With Patient Time: Total time managing care of this patient today ____ minutes.
[2023-05-08 10:08] VITALS: BP 163/77; PULSE 92; O2SAT 96
[2023-05-08 11:33] LABS: Glucose, Whole Blood 301 mg/dL (60-115)
--- NOTE | 2023-05-08 11:56 | MHC.CM.PN ---
Patient has been medically cleared for dc to home today with services. A referral had been made to Rika GONZALEZ, who has been made aware of today's dc. Last IMM addressed yesterday.
--- NOTE | 2023-05-08 12:10 | MHC.CM.PN ---
IMM SENT TO [facility] RECORDS TODAY
== END 2023-05-08 14:56 | disposition home health service (06) | DRG 872 ==
LOC: HO.ED 20:55 → HO.EDOVER 22:02 → HO.IMC 05-07 19:19
PROVIDERS: Nurse Practitioner Acute Care; Student in an Organized Health Care Education/Training Program; Admitting Provider Physician Assistant; Emergency Provider Emergency Medicine; PCP Internal Medicine; Visit Provider Internal Medicine
DX: A41.9 Sepsis, unspecified organism (principal); E11.65 Type 2 diabetes mellitus with hyperglycemia; I10 Essential (primary) hypertension; E78.5 Hyperlipidemia, unspecified; B96.20 Unspecified Escherichia coli [E. coli] as the cause of diseases classified elsewhere; E66.01 Morbid (severe) obesity due to excess calories; Z68.35 Body mass index [BMI] 35.0-35.9, adult; J45.20 Mild intermittent asthma, uncomplicated; Z20.822 Contact with and (suspected) exposure to COVID-19; Z87.891 Personal history of nicotine dependence; Z79.4 Long term (current) use of insulin; Z79.84 Long term (current) use of oral hypoglycemic drugs; Z79.899 Other long term (current) drug therapy
CPT/HCPCS: 36415; 71045; 80048; 80076; 80307; 81001; 82947; 83036; 83605; 83735; 84484; 85025; 85610; 87040; 87086; 87088; 87186; 87502; 87635; 93005; 97116; 97162; 99285; J0696; J1650

== ENCOUNTER → 2023-05-06 15:17 | Outpatient (BNV) | payer MEDICARE, SELFPAY | PROVIDERS: Admitting Provider Physician Assistant; Emergency Provider Emergency Medicine; PCP Internal Medicine; Visit Provider Internal Medicine Cardiovascular Disease | DX: R00.0 Tachycardia, unspecified (principal); R94.31 Abnormal electrocardiogram [ECG] [EKG] | CPT/HCPCS: 93010 ==

== ENCOUNTER → 2023-05-06 21:56 | Outpatient (BNV) | payer MEDICARE, SELFPAY | PROVIDERS: Admitting Provider Physician Assistant; Emergency Provider Emergency Medicine; PCP Internal Medicine; Visit Provider Physician Assistant | DX: R42 Dizziness and giddiness (principal); R11.2 Nausea with vomiting, unspecified | CPT/HCPCS: 99223; 99232; 99239; G0180 ==

== ENCOUNTER 2023-05-15 13:02 | Outpatient (AMB) | payer MEDICARE, MEDICAID, SELFPAY ==
[2023-05-15 13:06] VITALS: BP 130/64; PULSE 85; BMI 34.8
--- NOTE | 2023-05-15 13:06 | A.OFFVIS_ITS ---
Intake Vital Signs 05/15/23 13:06 Height 5 ft 4 in Weight 203 lb 0.732 oz BMI 34.8 BP 130/64 Blood Pressure Location Lt brachial Position Sitting Pulse 85 Pulse Source Pulse Oximeter Intake Visit Reasons: DM-lvm Intake Note: Patient presents today to follow up on D2MT. Last Diabetic Eye exam:09/2021 Last Podiatry Visit: None Random Glucose: 172 mg/dl HgA1c: 11.3% 05/06/23 Internet Systems Administrator Required: No Accompanied by: Daughter Allergies acetaminophen [From PERCOCET] Allergy (Intermediate, Verified 05/15/23 13:11) UNKNOWN oxycodone [From PERCOCET] Allergy (Intermediate, Verified 05/15/23 13:11) UNKNOWN Medication List - Last Reconciled 05/15/23 by Bry Snell MD albuterol sulfate 90 mcg/actuation 1 inh inhalation QID PRN blood sugar diagnostic (FreeStyle Lite Strips) As directed blood-glucose meter (FreeStyle Lite Meter kit) As directed flash glucose scanning reader (FreeStyle Emmanuel 2 [place]) As directed flash glucose sensor (FreeStyle Emmanuel 2 Sensor kit) DIRECTED CHANGE EVERY 14 DAYS insulin glargine (Lantus Solostar U-100 Insulin) 20 units subcut BEDTIME lisinopril 20 mg PO DAILY lisinopril 10 mg PO BEDTIME magnesium oxide 500 mg PO BID meclizine 12.5 mg PO Q8H PRN metformin 1,000 mg PO BID pen needle, diabetic (Comfort EZ Pen [place]) As directed injects once a day pen needle, diabetic (BD Tessie 2nd Gen Pen Needle) As directed simvastatin 20 mg PO BEDTIME HPI HPI Comments History of Present Illness Details 67 YO F who is seen in consultation for T2DM at the request of PCP. Initially diagnosed with T2DM in 5 yrs . Not seen endo before Was initially started on treatment with metformin . Current regimen meformin 1000 mg BID . Lantus 20 units Trulicity 0.75 mg Qwkly not taking Emmanuel download shows she is using the sensor % of the time. Average glucose is with G mi of %. A % in target range with % hyperglycemia and % hypoglycemia She has not using the Emmanuel and is only checking her point of care sporadically. There are 5 blood sugars in the meter all the 200-300 range Reports low sugars in early a.m. hours . Family history of T2DM in mother and sisters . Has eyes checked yearly, last eye exam 09/2021 . Needs to make appt Has retinopathy. Denies neuropathy, Not sees podiatry. Denies nephropathy, on MATTHEW/ARB. Has HLD, on statin. . Denies CAD. Not Had diabetes education. Complained of an episode of chest pressure starting yesterday associated with nausea PFSH Medical History Hypertension Obesity Type 2 diabetes mellitus with obesity Diabetes mellitus Diabetes Hyperlipidemia Hypertension Surgical History History of cholecystectomy History of tonsillectomy Family History Mother No problems noted. Father No problems noted. 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 Absence of acromegalic features. Neck exam reveals nl size thyroid about 15 gms. No thyroid nodules palpable. No carotid bruits present. Lungs CTA. Heart S1 S2, Reg R/R. No M/R/ G. Skin exam reveals absence of vitiligo or acanthosis nigricans. Abdominal exam reveals Soft NT/ND with NA BS. No organomegaly present. Neck Other: . Extrem Other: Visual exam of foot performed. No ulcerations or open lesions. No onchomycosis, no callouses.Pulses 2 + distally Sensation intact to monofilament exam. Vibratory sensation sensed is decreased with 128 Hz tuning fork Assessment & Plan Assessment & Plan (1) Type 2 diabetes mellitus with obesity: Code(s): E11.69 - Type 2 diabetes mellitus with other specified complication; E66.9 - Obesity, unspecified Plan: This is a 68-year-old white female with a history of type 2 diabetes being treated metformin and basal insulin with poor glycemic control and no known microvascular complications namely microalbuminuria. Plan is to send the reinitiate the sensor have the patient scan frequently. Reinitiate another G LP 1/GI P namely Mounjaro 2.5 mg Qwkly as patient has tried and failed Trulicity.. Went over the correlation of poor glycemic control to development of progression of complications with the patient. Will the patient follow-up with the simulation educator. Also prescribed Humalog for correction post-prandial Medications: New tirzepatide (Mounjaro) 2.5 mg (0.5 mL) subcut QWEEK 4 weeks 2 mL 4RF insulin lispro (Humalog KwikPen (U-100) Insulin) 5 units (0.05 mL) subcut TID 15 mL 4RF pen needle, diabetic (BD Tessie 2nd Gen Pen Needle) As directed 50 ea 0RF Refilled 2 flash glucose sensor (FreeStyle Emmanuel 2 Sensor kit) DIRECTED CHANGE EVERY 14 DAYS 2 kits 4RF simvastatin 20 mg PO BEDTIME 90 tabs 1RF E78.5 - Hyperlipidemia, unspecified pen needle, diabetic (BD Tessie 2nd Gen Pen Needle) As directed 50 ea 6RF metformin 1,000 mg PO BID 180 tabs 4RF Coding Level of Care Code Est Pt Level 4 (93616) Diagnoses Type 2 diabetes mellitus with obesity E11.69; E66.9
[2023-05-15 13:18] LABS: Glucose, Whole Blood 172 mg/dL (60-115)
== END 2023-05-15 13:34 | disposition home or self-care (01) ==
PROVIDERS: PCP Internal Medicine; Visit Provider Internal Medicine Endocrinology, Diabetes & Metabolism
DX: E11.69 Type 2 diabetes mellitus with other specified complication (principal); E66.9 Obesity, unspecified
CPT/HCPCS: 99214

== ENCOUNTER → 2023-05-15 13:02 | Outpatient (BNVA) | payer MEDICARE, MEDICAID, SELFPAY | PROVIDERS: PCP Internal Medicine; Visit Provider Internal Medicine Endocrinology, Diabetes & Metabolism | DX: E11.69 Type 2 diabetes mellitus with other specified complication (principal); E66.9 Obesity, unspecified; Z79.84 Long term (current) use of oral hypoglycemic drugs; Z79.4 Long term (current) use of insulin; Z68.34 Body mass index [BMI] 34.0-34.9, adult | CPT/HCPCS: 82947; 99212 ==

== ENCOUNTER 2023-05-22 10:52 | Outpatient (AMB) | payer MEDICARE, MEDICAID, SELFPAY ==
[2023-05-22 10:53] VITALS: BP 122/70; PULSE 88; O2SAT 98; BMI 35.4
--- NOTE | 2023-05-22 10:53 | MHC.PC.OV ---
Vital Signs 05/22/23 10:53 Height 5 ft 4 in Weight 206 lb BMI 35.4 BP 122/70 Blood Pressure Location Lt brachial Position Sitting Pulse 88 Pulse Source Pulse Oximeter Pulse Oximetry (%) 98 Oxygen Delivery Method Room Air Intake Visit Reasons: [facility] UTI & high blood sugars- 05/06-05/08 High Lift Mule Operator Required: No Willow Machine Operator: Not Required per policy Accompanied by: Self / Same As Patient Allergies acetaminophen [From PERCOCET] Allergy (Intermediate, Verified 05/22/23 10:53) UNKNOWN oxycodone [From PERCOCET] Allergy (Intermediate, Verified 05/22/23 10:53) UNKNOWN Medication List - Last Reconciled 05/22/23 by Navid Tejeda MD albuterol sulfate 90 mcg/actuation 1 inh inhalation QID PRN blood sugar diagnostic (FreeStyle Lite Strips) As directed blood-glucose meter (FreeStyle Lite Meter kit) As directed flash glucose scanning reader (FreeStyle Emmanuel 2 [place]) As directed flash glucose sensor (FreeStyle Emmanuel 2 Sensor kit) DIRECTED CHANGE EVERY 14 DAYS insulin glargine (Lantus Solostar U-100 Insulin) 20 units (0.2 mL) subcut BEDTIME insulin lispro (Humalog KwikPen (U-100) Insulin) 5 units (0.05 mL) subcut TID lisinopril 20 mg PO DAILY lisinopril 10 mg PO BEDTIME magnesium oxide 500 mg PO BID meclizine 12.5 mg PO Q8H PRN metformin 1,000 mg PO BID pen needle, diabetic (Comfort EZ Pen [place]) As directed injects once a day pen needle, diabetic (BD Tessie 2nd Gen Pen Needle) use once a day As directed simvastatin 20 mg PO BEDTIME tirzepatide (Mounjaro) 2.5 mg (0.5 mL) subcut QWEEK 4 weeks Tobacco use date assessed: 05/22/23 Fall risk assessment: 1 Fall in past year Last assessed Fall Risk: 05/22/23 Dental Screening Dental Screen Date: 05/22/23 Did you have a dental visit in the last 12 months?: Yes Did you have a dental problem in the last 6 months where you did not have access to dental care?: No Was dental information given to patient?: Patient has dentist HPI [facility] UTI & high blood sugars- 05/06-05/08 HPI Details admitted with a uti and noted BS 300; has seen endo and meds adjusted; doing better PFSH Medical History Hypertension Obesity Type 2 diabetes mellitus with obesity Diabetes mellitus Diabetes Hyperlipidemia Hypertension Surgical History History of cholecystectomy History of tonsillectomy Family History Mother No problems noted. Father No problems noted. 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 1. Little interest or pleasure in doing things: not at all 2. Feeling down, depressed, or hopeless: not at all 3. Trouble falling or staying asleep, or sleeping too much: not at all 4. Feeling tired or having little energy: not at all 5. Poor appetite or overeating: not at all 6. Feeling bad about yourself - or that you are a failure or have let yourself or your family down: not at all 7. Trouble concentrating on things, such as reading the newspaper or watching television: not at all 8. Moving or speaking so slowly that other people could have noticed. Or the opposite - being so fidgety or restless that you have been moving around a lot more than usual: not at all 9. Thoughts that you would be better off or of hurting yourself in some way: not at all Total score: 0 [id number] - PHQ-9 Billing: Yes Source: Developed by Roberto Austinet B.W. Yahir, Иван Diaz and colleagues, with an educational renea from [employer]. Thrive Questionnaire Date Thrive assessed: 05/07/23 AUDIT C Alcohol Use Questionnaire (AUDIT-C) 1. How often do you have a drink containing alcohol?: Never Total Score: 0 Score Reviewed/Action Taken: No LEIGH-7 AMB Questionnaire LEIGH-7 Date LEIGH - 7 assessed: 05/22/23 Feeling nervous, anxious, or on edge: 0 = Not at all Not being able to stop or control worryin = Not at all Worrying too much about different things: 0 = Not at all Trouble relaxin = Not at all Being so restless that it is hard to sit still: 0 = Not at all Becoming easily annoyed or irritable: 0 = Not at all Feeling afraid as if something awful might happen: 0 = Not at all Total LEIGH-7 score (0-4 normal; 5-9 mild; 10-14 moderate; 15-21 severe): 0 Source: Developed by Drs. Bry Fagan, Salina Sinclair, Иван Diaz and colleagues, with an educational renea from [employer]. Review of Systems Const Denies chills, Denies headache(s) and Denies weight loss ENT Denies headache(s) Card Denies chest pain, Denies syncope, Denies irregular heart rhythm and Denies dyspnea Resp Denies chest congestion, Denies cough and Denies dyspnea GI Denies abdominal pain, Denies change in stool character, Denies nausea and Denies vomiting Musc Denies deformity and Denies joint swelling Neuro Denies syncope and Denies headache(s) Physical exam (Primary Care) Vital Signs: Last Vital Signs Pulse 88 05/22/23 10:53 BP 122/70 05/22/23 10:53 Pulse Ox 98 05/22/23 10:53 Oxygen Delivery Method Room Air 05/22/23 10:53 BMI result Body Mass Index 35.4 Tobacco/Smoking Status: Tobacco use Status Tobacco use date assessed 05/22/23 05/22/23 10:55 Patient Tobacco Use Status Former Tobacco user 05/22/23 10:55 e-Cigarette/Vaping Use Never Used 05/22/23 10:55 PHQ-9: PHQ-9 Score PHQ-9: Total score 0 05/22/23 11:01 Thrive Assessment: Date of Thrive Assessment Date Thrive assessed 05/07/23 05/22/23 10:55 Const General: cooperative, comfortable, no acute distress and alert Neck Neck: Yes no lymphadenopathy Thyroid: Thyroid normal Resp Effort & Inspection: normal respiratory effort Auscultation: clear to auscultation bilaterally Percussion: percussion normal Cardio Jugular venous distension: no JVD Palpation: normal PMI Rate: regular rate Rhythm: regular rhythm Heart sounds: S1 normal heart sound present and S2 normal heart sound present GI Inspection: Yes normal to inspection Palpation (GI): No hepatosplenomegaly present Skin General skin exam: no rashes or lesions noted Extrem General: Yes no clubbing, cyanosis or edema Assessment and Plan Assessment & Plan (1) Acute UTI: Code(s): N39.0 - Urinary tract infection, site not specified Plan: resolved (2) Type 2 diabetes mellitus with obesity: Code(s): E11.69 - Type 2 diabetes mellitus with other specified complication; E66.9 - Obesity, unspecified Plan: as per endo Coding Level of Care Code Est Pt Level 3 (70838) Diagnoses Acute UTI N39.0 Type 2 diabetes mellitus with obesity E11.69; E66.9
== END 2023-05-22 11:16 | disposition home or self-care (01) ==
PROVIDERS: PCP Internal Medicine; Visit Provider Internal Medicine
DX: N39.0 Urinary tract infection, site not specified (principal); E11.69 Type 2 diabetes mellitus with other specified complication; E66.9 Obesity, unspecified; Z68.35 Body mass index [BMI] 35.0-35.9, adult
CPT/HCPCS: 99213

== ENCOUNTER 2023-05-27 10:41 | Outpatient (AMB) | payer MEDICARE, MEDICAID, SELFPAY ==
[2023-05-27 10:44] VITALS: BP 130/82; PULSE 85; O2SAT 98; BMI 34.5
--- NOTE | 2023-05-27 10:44 | A.OFFPC_ITS ---
Vital Signs 05/27/23 10:44 Height 5 ft 4 in Weight 201 lb BMI 34.5 BP 130/82 Blood Pressure Location Lt brachial Position Sitting Pulse 85 Pulse Source Pulse Oximeter Pulse Oximetry (%) 98 Oxygen Delivery Method Room Air Intake Visit Reasons: Urinary tract infection Intake Note: pt is here due to having burning sensation since yesterday Publication Distributor Required: No Note Keeper: Not Required per policy Accompanied by: Self / Same As Patient Allergies acetaminophen [From PERCOCET] Allergy (Intermediate, Verified 05/27/23 10:44) UNKNOWN oxycodone [From PERCOCET] Allergy (Intermediate, Verified 05/27/23 10:44) UNKNOWN Medication List - Last Reconciled 05/27/23 by Navid Tejeda MD albuterol sulfate 90 mcg/actuation 1 inh inhalation QID PRN blood sugar diagnostic (FreeStyle Lite Strips) As directed blood-glucose meter (FreeStyle Lite Meter kit) As directed flash glucose scanning reader (FreeStyle Emmanuel 2 [place]) As directed flash glucose sensor (FreeStyle Emmanuel 2 Sensor kit) DIRECTED CHANGE EVERY 14 DAYS insulin glargine (Lantus Solostar U-100 Insulin) 20 units (0.2 mL) subcut BEDTIME insulin lispro (Humalog KwikPen (U-100) Insulin) 5 units (0.05 mL) subcut TID lisinopril 20 mg PO DAILY lisinopril 10 mg PO BEDTIME magnesium oxide 500 mg PO BID meclizine 12.5 mg PO Q8H PRN metformin 1,000 mg PO BID pen needle, diabetic (Comfort EZ Pen [place]) As directed injects once a day pen needle, diabetic (BD Tessie 2nd Gen Pen Needle) use once a day As directed simvastatin 20 mg PO BEDTIME sulfamethoxazole-trimethoprim 800-160 mg (Bactrim DS) 1 tab PO BID tirzepatide (Mounjaro) 2.5 mg (0.5 mL) subcut QWEEK 4 weeks Tobacco use date assessed: 05/22/23 Fall risk assessment: 1 Fall in past year Last assessed Fall Risk: 05/27/23 HPI Urinary tract infection HPI Details UTI symptoms for a day PFSH Medical History Hypertension Obesity Type 2 diabetes mellitus with obesity Diabetes mellitus Diabetes Hyperlipidemia Hypertension Surgical History History of cholecystectomy History of tonsillectomy Family History Mother No problems noted. Father No problems noted. 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 Bry Fagan, Salina Sinclair, Иван Diaz and colleagues, with an educational renea from [employer]. Review of Systems Const Denies chills, Denies headache(s) and Denies weight loss ENT Denies headache(s) Card Denies chest pain, Denies syncope, Denies irregular heart rhythm and Denies dyspnea Resp Denies chest congestion, Denies cough and Denies dyspnea GI Denies abdominal pain, Denies change in stool character, Denies nausea and Denies vomiting Musc Denies deformity and Denies joint swelling Neuro Denies syncope and Denies headache(s) Physical exam (Primary Care) Vital Signs: Last Vital Signs Pulse 85 05/27/23 10:44 BP 130/82 05/27/23 10:44 Pulse Ox 98 05/27/23 10:44 Oxygen Delivery Method Room Air 05/27/23 10:44 BMI result Body Mass Index 34.5 Tobacco/Smoking Status: Tobacco use Status Tobacco use date assessed 05/22/23 05/27/23 10:45 Patient Tobacco Use Status Former Tobacco user 05/27/23 10:45 e-Cigarette/Vaping Use Never Used 05/27/23 10:45 Thrive Assessment: Date of Thrive Assessment Date Thrive assessed 05/07/23 05/27/23 10:45 Const General: cooperative, comfortable, no acute distress and alert Neck Neck: Yes no lymphadenopathy Thyroid: Thyroid normal Resp Effort & Inspection: normal respiratory effort Auscultation: clear to auscultation bilaterally Percussion: percussion normal Cardio Jugular venous distension: no JVD Palpation: normal PMI Rate: regular rate Rhythm: regular rhythm Heart sounds: S1 normal heart sound present and S2 normal heart sound present GI Inspection: Yes normal to inspection Palpation (GI): No hepatosplenomegaly present Skin General skin exam: no rashes or lesions noted Extrem General: Yes no clubbing, cyanosis or edema Assessment and Plan Assessment & Plan (1) Acute UTI: Code(s): N39.0 - Urinary tract infection, site not specified Plan: rx sent Medications: New sulfamethoxazole-trimethoprim 800-160 mg (Bactrim DS) 1 tab PO BID 10 tabs 0RF Coding Level of Care Code Est Pt Level 3 (99807) Diagnoses Acute UTI N39.0
== END 2023-05-27 10:56 | disposition home or self-care (01) ==
PROVIDERS: PCP Internal Medicine; Visit Provider Internal Medicine
DX: N39.0 Urinary tract infection, site not specified (principal)
CPT/HCPCS: 99213

== ENCOUNTER 2023-06-12 11:27 | Outpatient (AMB) | payer MEDICARE, MEDICAID, SELFPAY ==
--- NOTE | 2023-06-12 11:57 | A.OFFVIS_ITS ---
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 Accompanied by: Daughter Allergies acetaminophen [From PERCOCET] Allergy (Intermediate, Verified 05/27/23 10:44) UNKNOWN oxycodone [From PERCOCET] Allergy (Intermediate, Verified 05/27/23 10:44) UNKNOWN HPI Comprehensive Diabetes Asmnt Most Recent Diabetes Results: Hemoglobin A1c 10.2 % 06/06/19 Microalb/Creat Ratio 1587.8 ug/mg cr 07/28/22 Cholesterol 124 mg/dL (<200) 12/01/22 HDL Cholesterol 40 mg/dL (>40) L 12/01/22 Triglycerides 84 mg/dL (<150) 12/01/22 Creatinine 0.83 mg/dL (0.5-1.4) 05/07/23 Blood Urea Nitrogen 22 mg/dL (9-16) H 05/07/23 Sodium 133 mmol/L (135-145) L 05/07/23 Potassium 4.5 mmol/L (3.3-5.1) 05/07/23 Chloride 107 mmol/L (96-108) 05/07/23 Carbon Dioxide 17 mmol/L (22-29) L 05/07/23 Calcium 10.2 mg/dL (8.4-10.2) 05/07/23 AST 15 U/L (5-31) 05/06/23 ALT 16 U/L (0-31) 05/06/23 Total Protein 7.1 g/dL (6.5-8.0) 05/06/23 Albumin 3.6 g/dL (3.5-5.0) 05/06/23 [facility] Medical History Hypertension Obesity Type 2 diabetes mellitus with obesity Diabetes mellitus Diabetes Hyperlipidemia Hypertension Surgical History History of cholecystectomy History of tonsillectomy Family History Mother No problems noted. Father No problems noted. 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 2= needs review? 3= comprehend keep point? 4= demonstrates understanding/ competent? NC= Not Covered Topics Learning Objective: Initial visit Initial or post srvc Initial or post srvc Initial or post srvc Initial or post srvc Initial or post srvc Post srvc Comments Pre Edu-assessment/plan Outcome or reassess Outcome or reassess Outcome or reassess Outcome or reassess Outcome or reassess Outcome or reassess Diabetes pathophysiology 1 Healthy eating 2 3 Being active 2 3 Taking medication 1 3 Monitoring glucose 2 3 Acute complication 2 Chronic complicated Lifestyle and healthy coping 2 3 Diabetes distress in support 1 ?Diabetes pathophysiology: ?Defined diabetes med identify own type of diabetes; list 3 options for treating diabetes Healthy eating: ?Described effect of type, amount and ?timing of food on blood glucose; list 3 methods for planning meal Being active: ?State effect of exercise on blood glucose level Taking medication: ?State effect of diabetes medications on diabetes; name diabetes medications taking, action and side effects Monitoring glucose: ?Identify recommended blood glucose targets and personal target Acute complication: ?List symptoms and treatment of hyper and hypoglycemia, DKA, sick day guidelines and guidelines for severe weather or situations of crisis and diabetes supply manage Chronic complication: ?To find the relationship of blood glucose levels to long- term complications of diabetes in screening and preventative measures Lifestyle and healthy coping: ?Described lifestyle and healthy coping strategies to rule out diabetes self-management Diabetes to stress and support: ?Recognize Diabetes to stress and be able to identified support options Learning objectives: The patient was provided with verbal and written education on the following topics as outlined below. The patient met all learning objectives and was able to verbalize understanding and provide teach back of education topics discussed . The patient was provided with the opportunity to ask questions and all questions were answered. Patient Assessment Assess patient education level/literacy/barriers Patient questions/concerns, patient's last A1c 05/30/2023 11.3%. Patient was recently hospitalized for UTI, re-initiated freestyle Emmanuel 2 approximately 2 weeks ago Average glucose for the past 2 weeks 221 mg/dL Patient is above target 87% Patient is at target 13% Patient is below target 0% Patient recently started on Mounjaro 2.5 mg weekly, message sent to Dr. Snell to increase dose to Mounjaro 5 mg weekly if appropriate Patient is also taking Lantus 20 units daily Patient is prescribed Humalog 5 units prior to meals but has not been taking Recommended patient to reinitiate Humalog 5 units prior to meals Topics covered in today?s session included: Medications (If applicable) * Name of medication? * Dosing/administration instructions? * Mechanism of action? * Potential side effects? * Potential adverse reaction and appropriate treatment? * Review onset, peak, duration Assess for concerns re: insurance coverage, cost, barriers to compliance Insulin/Injectables (If applicable) * Storage/care of insulin?? * Injection sites? * Site rotation? * Onset, peak, duration * Drawing up insulin? * Injecting insulin/other injectables? * Sharps disposal Continuous blood glucose monitoring (if applicable) Hypoglycemia and Hyperglycemia * Signs and symptoms? * Causes?? * Treatment? * Preventing hypoglycemia? * When to seek medical attention * Blood glucose targets and how you feel when your blood glucose is in and out of your target ranges. * Monitoring and knowing your A1C. * What can make blood glucose go up and down and preventing high and low blood glucose. * Review of blood sugar targets in expected goal range and outside of expected goal range. * Problem solving and preventing hyper/hypoglycemia. * Sick day management of diabetes. * Using blood sugar results in decision making process in managing diabetes. ?Patient was receptive to information provided and participated in the discussion. Asked?appropriate questions and demonstrated good understanding of the topics discussed.? ? Educational Materials: The patient was provided with the following written educational materials: Target Goal, how to treat hypoglycemia with of 15s rule handout Smart Goal Assessment:? Patient will identify alternative physical activity to participate in after penitentiary in December 2022 Pt met goal less than 25% New Smart Goal: Patient will keep carbohydrate meals I am portions 30-45 g Patient Response to instructions: Comprehension of Instructions: fair Readiness to make changes:? Pre contemplation How confident they feel about making changes: Fair Medications: Discontinued tirzepatide (Mounjaro) Discontinued Reason: Doctor's Order 2.5 mg (0.5 mL) subcut QWEEK 4 weeks 2 mL 4RF Patient Instructions: Patient will follow-up with Diabetes Education nurse in 5 weeks Coding Level of Care Code Est Pt Level 1 (15345) Diagnoses Type 2 diabetes mellitus with obesity E11.69; E66.9
== END 2023-06-12 12:00 | disposition home or self-care (01) ==
PROVIDERS: PCP Internal Medicine; Visit Provider Registered Nurse Diabetes Educator
DX: E11.69 Type 2 diabetes mellitus with other specified complication (principal); E66.9 Obesity, unspecified

== ENCOUNTER → 2023-06-12 11:27 | Outpatient (BNVA) | payer MEDICARE, MEDICAID, SELFPAY | PROVIDERS: PCP Internal Medicine; Visit Provider Registered Nurse Diabetes Educator | DX: E11.69 Type 2 diabetes mellitus with other specified complication (principal); E66.9 Obesity, unspecified; Z79.4 Long term (current) use of insulin | CPT/HCPCS: 99211 ==

== ENCOUNTER → 2023-06-13 23:59 | Outpatient (BNV) | payer MEDICARE, MEDICAID, SELFPAY | PROVIDERS: PCP Internal Medicine; Visit Provider Internal Medicine | DX: A41.9 Sepsis, unspecified organism (principal); N39.0 Urinary tract infection, site not specified; E11.65 Type 2 diabetes mellitus with hyperglycemia; I10 Essential (primary) hypertension | CPT/HCPCS: G0180 ==

== ENCOUNTER 2023-07-17 12:28 | Outpatient (AMB) | payer MEDICARE, MEDICAID, SELFPAY ==
--- NOTE | 2023-07-17 13:08 | A.OFFVIS_ITS ---
Intake Intake Visit Reasons: DM [employer] Required: No Accompanied by: Self / Same As Patient Allergies acetaminophen [From PERCOCET] Allergy (Intermediate, Verified 05/27/23 10:44) UNKNOWN oxycodone [From PERCOCET] Allergy (Intermediate, Verified 05/27/23 10:44) UNKNOWN HPI Comprehensive Diabetes Asmnt Most Recent Diabetes Results: Creatinine 0.83 mg/dL (0.5-1.4) 05/07/23 Blood Urea Nitrogen 22 mg/dL (9-16) H 05/07/23 Sodium 133 mmol/L (135-145) L 05/07/23 Potassium 4.5 mmol/L (3.3-5.1) 05/07/23 Chloride 107 mmol/L (96-108) 05/07/23 Carbon Dioxide 17 mmol/L (22-29) L 05/07/23 Calcium 10.2 mg/dL (8.4-10.2) 05/07/23 AST 15 U/L (5-31) 05/06/23 ALT 16 U/L (0-31) 05/06/23 Total Protein 7.1 g/dL (6.5-8.0) 05/06/23 Albumin 3.6 g/dL (3.5-5.0) 05/06/23 [facility] Medical History Hypertension Obesity Type 2 diabetes mellitus with obesity Diabetes mellitus Diabetes Hyperlipidemia Hypertension Surgical History History of cholecystectomy History of tonsillectomy Family History Mother No problems noted. Father No problems noted. 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 2= needs review? 3= comprehend keep point? 4= demonstrates understanding/ competent? NC= Not Covered Topics Learning Objective: Initial visit Initial or post srvc Initial or post srvc Initial or post srvc Initial or post srvc Initial or post srvc Post srvc Comments Pre Edu-assessment/plan Outcome or reassess Outcome or reassess Outcome or reassess Outcome or reassess Outcome or reassess Outcome or reassess Diabetes pathophysiology 1 3 Healthy eating 2 3 Being active 2 3 Taking medication 1 3 Monitoring glucose 2 3 Acute complication 2 3 Chronic complicated 2 Lifestyle and healthy coping 2 3 Diabetes distress in support 1 3 ?Diabetes pathophysiology: ?Defined diabetes med identify own type of diabetes; list 3 options for treating diabetes Healthy eating: ?Described effect of type, amount and ?timing of food on blood glucose; list 3 methods for planning meal Being active: ?State effect of exercise on blood glucose level Taking medication: ?State effect of diabetes medications on diabetes; name diabetes medications taking, action and side effects Monitoring glucose: ?Identify recommended blood glucose targets and personal target Acute complication: ?List symptoms and treatment of hyper and hypoglycemia, DKA, sick day guidelines and guidelines for severe weather or situations of crisis and diabetes supply manage Chronic complication: ?To find the relationship of blood glucose levels to long- term complications of diabetes in screening and preventative measures Lifestyle and healthy coping: ?Described lifestyle and healthy coping strategies to rule out diabetes self-management Diabetes to stress and support: ?Recognize Diabetes to stress and be able to identified support options Learning objectives: The patient was provided with verbal and written education on the following topics as outlined below. The patient met all learning objectives and was able to verbalize understanding and provide teach back of education topics discussed . The patient was provided with the opportunity to ask questions and all questions were answered. Patient Assessment Assess patient education level/literacy/barriers Emmanuel 2 Data Average glucose for the past 2 weeks 171 mg/dL Patient is above target 33% Patient is at target 67% Patient is below target 0% Exercise Medical clearance Effect of exercise on blood sugar Start slowly and gradually increase pace/duration over time Goal amount of exercise Checking blood glucose/have a source of carbs with you Medications (If applicable) * Name of medication * Dosing/administration instructions * Mechanism of action * Potential side effects * Potential adverse reaction and appropriate treatment * Review onset, peak, duration Assess for concerns re: insurance coverage, cost, barriers to compliance Insulin/Injectables (If applicable) * Storage/care of insulin * Injection sites * Site rotation * Onset, peak, duration * Drawing up insulin * Injecting insulin/other injectables * Sharps disposal Continuous blood glucose monitoring (if applicable) Hypoglycemia and Hyperglycemia * Signs and symptoms * Causes * Treatment * Preventing hypoglycemia * When to seek medical attention Medical alert bracelet Lifestyle * Work * Travel * Stress management * Problem solving Know your goals * A1C * Blood sugar targets * Blood pressure * Cholesterol/LDL Urine microalbumin Smart Goal Assessment: Pt met goal:Pt patient will keep carbohydrate portion at meals to 30-45 g 50% of the time: New Goal:? Patient will continue to work on size of carbohydrate portion of meals Educational Materials: The patient was provided with the following written educational materials: AADE 7 Healthy behaviors handout Patient Response to instructions: Comprehension of Instructions: Good Readiness to make changes: contemplation How confident they feel about making changes: good Medications: Discontinued tirzepatide (Mounjaro) Discontinued Reason: Doctor's Order 5 mg (0.5 mL) subcut QWEEK 2 mL 4RF Patient Instructions: Include regular daily activity. ADA recommends 30 minutes of exercise 5 days a week. Weight loss talk to PCP or Supervisor Felling Bucking before starting new plan. Test blood sugar as directed; Fasting and 2hpp largest meal. Watch trends in results. Utilize results and to assess how food, physical activity and medications affect blood sugar results. Bring glucometer or CGM to next visit. Be knowledgeable about diabetes medication, its action, side effects, efficacy, toxicity, prescribed dosage, appropriate timing and frequency of administration, effect of missed and delayed doses and instructions for storage, travel and safety. Problem solving techniques to monitor hypo/hyperglycemia episodes and treatments. Reduce risk reduction behaviors, smoking cessation, regular eye, foot and dental examinations. Coding Level of Care Code Est Pt Level 1 (70826) Diagnoses Type 2 diabetes mellitus with obesity E11.69; E66.9
== END 2023-07-17 13:12 | disposition home or self-care (01) ==
PROVIDERS: PCP Internal Medicine; Visit Provider Registered Nurse Diabetes Educator
DX: E11.69 Type 2 diabetes mellitus with other specified complication (principal); E66.9 Obesity, unspecified

== ENCOUNTER → 2023-07-17 12:28 | Outpatient (BNVA) | payer MEDICARE, MEDICAID, SELFPAY | PROVIDERS: PCP Internal Medicine; Visit Provider Registered Nurse Diabetes Educator | DX: E11.69 Type 2 diabetes mellitus with other specified complication (principal); E66.9 Obesity, unspecified | CPT/HCPCS: 99211 ==

== ENCOUNTER 2023-08-30 14:15 | Outpatient (AMB) | payer MEDICARE, MEDICAID, SELFPAY ==
[2023-08-30 14:16] VITALS: BP 126/70; PULSE 103; O2SAT 98; BMI 35.7
--- NOTE | 2023-08-30 14:16 | MHC.PC.OV ---
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 Security Professional: Not Required per policy Accompanied by: Self / Same As Patient Allergies acetaminophen [From PERCOCET] Allergy (Intermediate, Verified 08/30/23 14:16) UNKNOWN oxycodone [From PERCOCET] Allergy (Intermediate, Verified 08/30/23 14:16) UNKNOWN Tobacco use date assessed: 05/22/23 Fall risk assessment: No Falls in past year Last assessed Fall Risk: 08/30/23 Dental Screening Dental Screen Date: 05/22/23 HPI 3 month f/u HPI Details has HTN on rx; doing well and compliant [facility] Medical History Hypertension Obesity Type 2 diabetes mellitus with obesity Diabetes mellitus Diabetes Hyperlipidemia Hypertension Surgical History History of cholecystectomy History of tonsillectomy Family History Mother No problems noted. Father No problems noted. 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 Bry Fagan, Salina Sinclair, Иван Diaz and colleagues, with an educational renea from [employer]. Review of Systems Const Denies chills, Denies headache(s) and Denies weight loss ENT Denies headache(s) Card Denies chest pain, Denies syncope, Denies irregular heart rhythm and Denies dyspnea Resp Denies chest congestion, Denies cough and Denies dyspnea GI Denies abdominal pain, Denies change in stool character, Denies nausea and Denies vomiting Musc Denies deformity and Denies joint swelling Neuro Denies syncope and Denies headache(s) Physical exam (Primary Care) Vital Signs: Last Vital Signs Pulse 103 H 08/30/23 14:16 BP 126/70 08/30/23 14:16 Pulse Ox 98 08/30/23 14:16 Oxygen Delivery Method Room Air 08/30/23 14:16 BMI result Body Mass Index 35.7 Tobacco/Smoking Status: Tobacco use Status Tobacco use date assessed 05/22/23 08/30/23 14:16 Patient Tobacco Use Status Former Tobacco user 08/30/23 14:16 e-Cigarette/Vaping Use Never Used 08/30/23 14:16 Thrive Assessment: Date of Thrive Assessment Date Thrive assessed 05/07/23 08/30/23 14:16 Const General: cooperative, comfortable, no acute distress and alert Neck Neck: Yes no lymphadenopathy Thyroid: Thyroid normal Resp Effort & Inspection: normal respiratory effort Auscultation: clear to auscultation bilaterally Percussion: percussion normal Cardio Jugular venous distension: no JVD Palpation: normal PMI Rate: regular rate Rhythm: regular rhythm Heart sounds: S1 normal heart sound present and S2 normal heart sound present GI Inspection: Yes normal to inspection Palpation (GI): No hepatosplenomegaly present Skin General skin exam: no rashes or lesions noted Extrem General: Yes no clubbing, cyanosis or edema Results AMB Hemoglobin A1c AMB Hemoglobin A1c 9.2 % Last Edit by WILMA Tobias on 08/30/23 14:28 Results Reviewed Results Reviewed: Laboratory Last Values Hgb A1c (Clinic) 9.2 % (4.0-6.0) H 08/30/23 14:16 Assessment and Plan Assessment & Plan (1) Type 2 diabetes mellitus with obesity: Code(s): E11.69 - Type 2 diabetes mellitus with other specified complication; E66.9 - Obesity, unspecified (2) Hypertension: Code(s): I10 - Essential (primary) hypertension Plan: stable; same rx Orders: Orders AMB Hemoglobin A1c Today E11.69 - Type 2 diabetes mellitus with other specified complication, E66.9 - Obesity, unspecified Lipid Panel Today Z13.220 - Encounter for screening for lipoid disorders Comprehensive [place]. Panel Fast Today Z13.9 - Encounter for screening, unspecified Hemoglobin A1c Today R73.9 - Hyperglycemia, unspecified Thyroid Stimulating Hormone Today Z13.29 - Encounter for screening for other suspected endocrine disorder Coding Level of Care Code Est Pt Level 3 (98693) Diagnoses Type 2 diabetes mellitus with obesity E11.69; E66.9 Hypertension I10
== END 2023-08-30 14:31 | disposition home or self-care (01) ==
PROVIDERS: PCP Internal Medicine; Visit Provider Internal Medicine
DX: E11.69 Type 2 diabetes mellitus with other specified complication (principal); I10 Essential (primary) hypertension; E66.9 Obesity, unspecified; Z68.35 Body mass index [BMI] 35.0-35.9, adult
CPT/HCPCS: 83036; 99214

== ENCOUNTER 2023-09-16 11:33 | Outpatient (AMB) | payer MEDICARE, MEDICAID, SELFPAY ==
[2023-09-16 11:35] VITALS: BP 140/80; PULSE 97; BMI 36.6
--- NOTE | 2023-09-16 11:35 | MHC.OFFVIS ---
Vital Signs 09/16/23 11:35 Height 5 ft 4 in Weight 212 lb 15.465 oz BMI 36.6 BP 140/80 H Blood Pressure Location Rt brachial Position Sitting Pulse 97 Pulse Source Pulse Oximeter Intake Visit Reasons: f/u Type 2 DM-lvm Intake Note: Patient present today to follow up on Type 2 Diabetes Mellitus. Patient receives DME supplies through: [employer] Last Diabetic Eye exam: 08/29 [facility] Last Podiatry Visit: Random Glucose: 189 mg/dl HgA1C: 9.2% 08/30/2023 Check Examiner Required: No Accompanied by: Daughter Allergies acetaminophen [From PERCOCET] Allergy (Intermediate, Verified 09/16/23 11:41) UNKNOWN oxycodone [From PERCOCET] Allergy (Intermediate, Verified 09/16/23 11:41) UNKNOWN Medication List - Last Reconciled 09/16/23 by Bry Snell MD albuterol sulfate 90 mcg/actuation 1 inh inhalation QID PRN blood sugar diagnostic (FreeStyle Lite Strips) As directed blood-glucose meter (FreeStyle Lite Meter kit) As directed exenatide microspheres ER (Bydureon BCise) 2 mg (0.85 mL) subcut QWEEK flash glucose scanning reader (FreeStyle Emmanuel 2 [place]) As directed flash glucose sensor (FreeStyle Emmanuel 2 Sensor kit) DIRECTED CHANGE EVERY 14 DAYS insulin glargine (Lantus Solostar U-100 Insulin) 20 units (0.2 mL) subcut BEDTIME insulin lispro (Humalog KwikPen (U-100) Insulin) 5 units (0.05 mL) subcut TID lisinopril 20 mg PO DAILY lisinopril 10 mg PO BEDTIME magnesium oxide 500 mg PO BID meclizine 12.5 mg PO Q8H PRN metformin 1,000 mg PO BID pen needle, diabetic (Comfort EZ Pen [place]) As directed injects once a day pen needle, diabetic (BD Tessie 2nd Gen Pen Needle) use once a day As directed simvastatin 20 mg PO BEDTIME sulfamethoxazole-trimethoprim 800-160 mg (Bactrim DS) 1 tab PO BID HPI Comments Details: 68 YO F who is seen in consultation for T2DM at the request of PCP. Initially diagnosed with T2DM in 5 yrs . Not seen endo before Was initially started on treatment with metformin . Current regimen meformin 1000 mg BID . Lantus 20 units Humalog 5 units TID Mounjaro 5 mg Qwkly started last wk Emmanuel download shows the sensor is active 87% of the time. Average glucose is 212 with G mi of 8.4% variability 18.5%. 19% in target range with 66% hyperglycemia and 50% very hyperglycemic and no hypoglycemia Reports low sugars Family history of T2DM in mother and sisters . Has eyes checked yearly, last eye exam . Needs to make appt Has retinopathy. Denies neuropathy, Not sees podiatry. 1 mo ago Denies nephropathy, on MATTHEW/ARB. Has HLD, on statin. . Denies CAD. Not Had diabetes education. Complained of an episode of chest pressure starting yesterday associated with nausea [facility] Medical History Hypertension Obesity Type 2 diabetes mellitus with obesity Diabetes mellitus Diabetes Hyperlipidemia Hypertension Surgical History History of cholecystectomy History of tonsillectomy Family History Mother No problems noted. Father No problems noted. 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 Absence of acromegalic features. Neck exam reveals nl size thyroid about 15 gms. No thyroid nodules palpable. No carotid bruits present. Lungs CTA. Heart S1 S2, Reg R/R. No M/R/ G. Skin exam reveals absence of vitiligo or acanthosis nigricans. Abdominal exam reveals Soft NT/ND with NA BS. No organomegaly present. Neck Other: . Extrem Other: Visual exam of foot performed. No ulcerations or open lesions. No onchomycosis, no callouses.Pulses 2 + distally Sensation intact to monofilament exam. Vibratory sensation sensed is decreased with 128 Hz tuning fork Assessment & Plan Assessment & Plan (1) Type 2 diabetes mellitus with obesity: Code(s): E11.69 - Type 2 diabetes mellitus with other specified complication; E66.9 - Obesity, unspecified Category: Medical Plan: This is a 68-year-old white female with a history of type 2 diabetes being treated metformin, Mounjaro and basal-bolus insulin with poor glycemic control and no known microvascular complications namely microalbuminuria. Plan is to continue to monitor the fasting blood sugar on the Mounjaro 5 mg as patient just restarted this. I did tell her that fasting blood sugar remains elevated after week or so, with increase Lantus 28 units.. Went over the correlation of poor glycemic control to development of progression of complications with the patient. Will the patient follow-up with the dye and chemical coordinator. Coding Level of Care Code Est Pt Level 4 (91816) Diagnoses Type 2 diabetes mellitus with obesity E11.69; E66.9
[2023-09-16 11:48] LABS: Glucose, Whole Blood 189 mg/dL (60-115)
== END 2023-09-16 12:04 | disposition home or self-care (01) ==
PROVIDERS: PCP Internal Medicine; Visit Provider Internal Medicine Endocrinology, Diabetes & Metabolism
DX: E11.69 Type 2 diabetes mellitus with other specified complication (principal); E66.9 Obesity, unspecified
CPT/HCPCS: 99214

== ENCOUNTER → 2023-09-16 11:33 | Outpatient (BNVA) | payer MEDICARE, MEDICAID, SELFPAY | PROVIDERS: PCP Internal Medicine; Visit Provider Internal Medicine Endocrinology, Diabetes & Metabolism | DX: E11.69 Type 2 diabetes mellitus with other specified complication (principal); E66.9 Obesity, unspecified; Z79.4 Long term (current) use of insulin; Z79.84 Long term (current) use of oral hypoglycemic drugs; Z68.36 Body mass index [BMI] 36.0-36.9, adult | CPT/HCPCS: 82947; 99212 ==

== ENCOUNTER 2023-10-12 08:38 | Outpatient (REF) | payer MEDICARE, MEDICAID, SELFPAY ==
[2023-10-12 09:27] LABS: Estimated Average Glucose 192 mg/dL; Hemoglobin A1c % 8.3 % (<6.0)
[2023-10-12 09:44] LABS: Alanine Aminotransferase 20 U/L (0-31); Albumin Level 4.2 g/dL (3.5-5.0); Alkaline Phosphatase 63 U/L (39-117); Anion Gap 15 (12-20); Aspartate Amino Transferase 15 U/L (5-31); Bilirubin Total 0.3 mg/dL (0.0-1.0); Blood Urea Nitrogen 27 mg/dL (9-16); Calcium 10.7 mg/dL (8.4-10.2); Carbon Dioxide 20 mmol/L (22-29); Chloride 109 mmol/L (96-108); Cholesterol 142 mg/dL (<200); Estimated Glomerular Filt Rate 51; Glucose Fasting 197 mg/dL (60-99); HDL Cholesterol 38 mg/dL (>40); LDL Cholesterol Calculated 73 mg/dL (<100); Potassium 4.8 mmol/L (3.3-5.1); Sodium 139 mmol/L (135-145); Total Protein 7.4 g/dL (6.5-8.0); Triglycerides 159 mg/dL (<150)
[2023-10-12 09:58] LABS: Thyroid Stimulating Hormone 0.61 uIU/mL (0.32-4.0)
== END 2023-10-12 08:39 | disposition home or self-care (01) ==
LOC: HO.LAB 08:38
PROVIDERS: PCP Internal Medicine; Visit Provider Internal Medicine
DX: R73.9 Hyperglycemia, unspecified (principal); E78.5 Hyperlipidemia, unspecified; Z13.9 Encounter for screening, unspecified; E03.9 Hypothyroidism, unspecified
CPT/HCPCS: 36415; 80053; 80061; 83036; 84443

== ENCOUNTER 2023-10-16 09:25 | Outpatient (AMB) | payer MEDICARE, MEDICAID, SELFPAY ==
--- NOTE | 2023-10-16 09:59 | A.OFFVIS_ITS ---
Intake Intake Visit Reasons: 30 min/CONFIRMED [place] Required: No Accompanied by: Self / Same As Patient Allergies acetaminophen [From PERCOCET] Allergy (Intermediate, Verified 09/16/23 11:41) UNKNOWN oxycodone [From PERCOCET] Allergy (Intermediate, Verified 09/16/23 11:41) UNKNOWN HPI Comprehensive Diabetes Asmnt Most Recent Diabetes Results: Hemoglobin A1c 10.2 % 06/06/19 Microalb/Creat Ratio 1587.8 ug/mg cr 07/28/22 Cholesterol 142 mg/dL (<200) 10/12/23 HDL Cholesterol 38 mg/dL (>40) L 10/12/23 Triglycerides 159 mg/dL (<150) H 10/12/23 Creatinine 1.08 mg/dL (0.5-1.4) 10/12/23 Blood Urea Nitrogen 27 mg/dL (9-16) H 10/12/23 Sodium 139 mmol/L (135-145) 10/12/23 Potassium 4.8 mmol/L (3.3-5.1) 10/12/23 Chloride 109 mmol/L (96-108) H 10/12/23 Carbon Dioxide 20 mmol/L (22-29) L 10/12/23 Calcium 10.7 mg/dL (8.4-10.2) H 10/12/23 AST 15 U/L (5-31) 10/12/23 ALT 20 U/L (0-31) 10/12/23 Total Protein 7.4 g/dL (6.5-8.0) 10/12/23 Albumin 4.2 g/dL (3.5-5.0) 10/12/23 [facility] Medical History Hypertension Obesity Type 2 diabetes mellitus with obesity Diabetes mellitus Diabetes Hyperlipidemia Hypertension Surgical History History of cholecystectomy History of tonsillectomy Family History Mother No problems noted. Father No problems noted. 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 Cognitive needs: No Hearing needs: No Vision needs: Yes (glasses) Assessment & Plan Assessment & Plan (1) Type 2 diabetes mellitus with obesity: Code(s): E11.69 - Type 2 diabetes mellitus with other specified complication; E66.9 - Obesity, unspecified Plan: Insulin/Incretin?Mimetic Education visit Patient Education: Bydureon 2 mg pen Patient's insurance will not cover Mounjaro 5 mg Patient was instructed and provided with demonstration of the following: Insulin action and Incretin Mimetics medication storage how to set up medication pen/or syringe and vial Handwashing insulin injection site rotation Site rotation recognizing hypertrophy Testing blood glucose Removing and disposing needle from insulin pen Safe disposal of sharps Target blood sugar Signs/ symptoms/treatment of hypoglycemia/hyperglycemia expiration of open insulin pen Patient verbalized understanding of education provided and was able to demonstrate proper use of inject into injection pillow Reviewed rule of 15s to treat glucose under 70 mg/dL Patient's most recent A1c 8.3% on 10/12/2023, down from 9.2% in 08/26/2023 Patient did not increase Lantus to 28 units as discussed with Dr. Snell at last visit Reviewed patient's Emmanuel 2 data Patient's average glucose for the past 14 days 175 mg/dL Patient above target 39% Patient at target 61% Patient below target 0% Patient reported that she has been taking Lantus 10 units on evenings that her glucose is under 150 mg/dL And 20 units on evening set her glucose is greater than 150 mg/dL Discussed with patient action of Lantus, recommended patient try Lantus 25 units with the goal that fasting glucose will be under 150 mg/dL All questions were answered and patient was advised to contact the office with any questions or concerns. Portions of this note were created using voice recognition software, please excuse any words or phrases that may have been misinterpreted. Patient Instructions: Follow-up with Diabetes Education nurse in 6 weeks' Coding Level of Care Code Est Pt Level 1 (48655) Diagnoses Type 2 diabetes mellitus with obesity E11.69; E66.9
== END 2023-10-16 10:03 | disposition home or self-care (01) ==
PROVIDERS: PCP Internal Medicine; Visit Provider Registered Nurse Diabetes Educator
DX: E11.69 Type 2 diabetes mellitus with other specified complication (principal); E66.9 Obesity, unspecified

== ENCOUNTER → 2023-10-16 09:25 | Outpatient (BNVA) | payer MEDICARE, MEDICAID, SELFPAY | PROVIDERS: PCP Internal Medicine; Visit Provider Registered Nurse Diabetes Educator | DX: E11.69 Type 2 diabetes mellitus with other specified complication (principal); E66.9 Obesity, unspecified | CPT/HCPCS: 99211 ==

== ENCOUNTER 2023-10-31 15:46 | Outpatient (REF) | payer MEDICARE, MEDICAID, SELFPAY ==
[2023-10-31 16:15] LABS: MANUAL DIFF FLAG NO
[2023-10-31 16:53] LABS: Basophils Absolute Auto 0.1 X10*3/uL (0.0-0.2); Basophils Percent Auto 0.7 % (0-2); Eosinophils Absolute Auto 0.3 X10*3/uL (0.0-0.4); Eosinophils Percent Auto 3.1 % (0-4); Hematocrit 37.5 % (37.0-47.0); Hemoglobin 12.3 g/dl (12.0-16.0); Imm Gran Abs Auto 0.03 X10*3/uL (0.00-0.03); Imm Gran Pct Auto 0.3 % (0.0-0.4); Lymphocytes Absolute Auto 2.4 X10*3/uL (1.2-4.9); Lymphocytes Percent Auto 26.6 % (20-40); Mean Corpuscular HGB Conc 32.8 g/dl (31.0-35.0); Mean Corpuscular Hemoglobin 30.1 pg (27.0-33.0); Mean Corpuscular Volume 91.9 fL (80.0-98.0); Mean Platelet Volume 11.4 fL (9.4-12.3); Monocytes Absolute Auto 0.7 X10*3/uL (0.1-1.2); Monocytes Percent Auto 7.2 % (2-11); Neutrophils Absolute Auto 5.6 x10*3/uL (2.0-8.3); Neutrophils Percent Auto 62.1 % (45-73); Platelet Count 227 X10*3/uL (160-400); Red Blood Count 4.08 X10*6/uL (4.20-5.50); Red Cell Distribution Width 12.1 % (11.0-16.0)
[2023-10-31 16:54] LABS: Appearance Urine Clear; Color Urine Yellow; Glucose Urine UA 100 mg/dL (Negative); Leukocyte Esterase Urine Small (1+) (Negative); Nitrite Urine Negative (Negative); PH 5.5 (5.0-9.0); Specific Gravity - Urine 1.025 (1.005-1.025); UMIC TRIGGER UA YES; Urine Blood Negative (Negative); Urine Ketones Trace mg/dL (Negative); Urine Protein Trace mg/dL (Neg-Trace)
[2023-10-31 16:57] LABS: Bacteria Urine None Seen (None Seen); Hyaline Casts Urine 0-2 /LPF (0-2); RBC Urine 0-2 /HPF (0-2); Squamous Epithelial Cell Urine 0-2 /HPF (0-2)
[2023-10-31 17:22] LABS: Anion Gap 16 (12-20); Blood Urea Nitrogen 20 mg/dL (9-16); Calcium 10.7 mg/dL (8.4-10.2); Carbon Dioxide 20 mmol/L (22-29); Chloride 107 mmol/L (96-108); Estimated Glomerular Filt Rate > 60; Glucose Random 187 mg/dL (60-115); Magnesium 1.5 mg/dL (1.6-2.6); Phosphorus 2.8 mg/dL (2.7-4.5); Potassium 4.2 mmol/L (3.3-5.1); Sodium 139 mmol/L (135-145); Uric Acid 5.1 mg/dL (2.4-5.7)
[2023-10-31 17:26] LABS: Creatinine Urine 104.08 mg/dL; Microalbum/Creatinine Ratio Ur 90.3 ug/mg cr (<30); Protein/Creatinine Ratio, Ur 0.16 (<0.2); Total Protein Urine Random 17 mg/dL (<12)
[2023-10-31 17:32] LABS: PTH Intact Intraoperative 76.3 pg/mL (8.7-77.1)
[2023-11-03 14:08] LABS: Calcium, Ionized 5.5 mg/dL (4.7-5.5)
[2023-11-22 15:23] LABS: Vit D (1,25-Dihydroxy) Total 26
[2023-11-22 15:24] LABS: Cystatin C 1.05; VITAMIN D (1,25 OH) D3 26; Vitamin D (1,25 OH) D2 <8; eGFR (Cystatin C) 66
== END 2023-10-31 15:47 | disposition home or self-care (01) ==
LOC: HO.LAB 15:46
PROVIDERS: PCP Internal Medicine; Visit Provider Internal Medicine
DX: E11.9 Type 2 diabetes mellitus without complications (principal)
CPT/HCPCS: 36415; 80048; 81001; 82043; 82330; 82570; 82610; 82652; 83735; 83970; 84100; 84156; 84550; 85025

== ENCOUNTER 2023-11-27 12:51 | Outpatient (AMB) | payer MEDICARE, MEDICAID, SELFPAY ==
--- NOTE | 2023-11-27 13:21 | A.OFFVIS_ITS ---
Intake Intake Visit Reasons: 60 min Allergies acetaminophen [From PERCOCET] Allergy (Intermediate, Verified 09/16/23 11:41) UNKNOWN oxycodone [From PERCOCET] Allergy (Intermediate, Verified 09/16/23 11:41) UNKNOWN HPI Comprehensive Diabetes Asmnt Most Recent Diabetes Results: Microalb/Creat Ratio 90.3 ug/mg cr (<30) H 10/31/23 Cholesterol 142 mg/dL (<200) 10/12/23 HDL Cholesterol 38 mg/dL (>40) L 10/12/23 Triglycerides 159 mg/dL (<150) H 10/12/23 Creatinine 0.88 mg/dL (0.5-1.4) 10/31/23 Blood Urea Nitrogen 20 mg/dL (9-16) H 10/31/23 Sodium 139 mmol/L (135-145) 10/31/23 Potassium 4.2 mmol/L (3.3-5.1) 10/31/23 Chloride 107 mmol/L (96-108) 10/31/23 Carbon Dioxide 20 mmol/L (22-29) L 10/31/23 Calcium 10.7 mg/dL (8.4-10.2) H 10/31/23 AST 15 U/L (5-31) 10/12/23 ALT 20 U/L (0-31) 10/12/23 Total Protein 7.4 g/dL (6.5-8.0) 10/12/23 Albumin 4.2 g/dL (3.5-5.0) 10/12/23 [facility] Medical History Hypertension Obesity Type 2 diabetes mellitus with obesity Diabetes mellitus Diabetes Hyperlipidemia Hypertension Surgical History History of cholecystectomy History of tonsillectomy Family History Mother No problems noted. Father No problems noted. 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 0% Hyperglycemia:? 81% Time in Range:? 19% Average glucose for the last 2 weeks? 218 mg/dL Patient reports she has been having similar symptoms that she had a UTI several months ago Encourage patient to contact PCP for urinalysis, patient's glucose levels have been running above target, patient reports she does not think the Bydureon Is working, explained to patient we could try to get James approved again because she is failed on Bydureon Reviewed how to interpret trend arrows Reminded patient that to check finger sticks if symptoms do not match sensor reading. Discussed lag time between finger stick and sensor data.? Patient able to insert sensor independently at home without issue.? Portions of this note were created using voice recognition software, please excuse any words or phrases that may have been misinterpreted. Coding Level of Care Code Est Pt Level 1 (39369) Diagnoses Type 2 diabetes mellitus with obesity E11.69; E66.9
== END 2023-11-27 13:24 | disposition home or self-care (01) ==
PROVIDERS: PCP Internal Medicine; Visit Provider Registered Nurse Diabetes Educator
DX: E11.69 Type 2 diabetes mellitus with other specified complication (principal); E66.9 Obesity, unspecified

== ENCOUNTER → 2023-11-27 12:51 | Outpatient (BNVA) | payer MEDICARE, MEDICAID, SELFPAY | PROVIDERS: PCP Internal Medicine; Visit Provider Registered Nurse Diabetes Educator | DX: E11.69 Type 2 diabetes mellitus with other specified complication (principal); E66.9 Obesity, unspecified | CPT/HCPCS: 99211 ==

== ENCOUNTER 2023-11-28 08:25 | Outpatient (REF) | payer MEDICARE, MEDICAID, SELFPAY ==
[2023-11-28 08:51] LABS: Estimated Average Glucose 197 mg/dL; Hemoglobin A1c % 8.5 % (<6.0)
[2023-11-28 09:24] LABS: Cholesterol 149 mg/dL (<200); Glucose Fasting 201 mg/dL (60-99); HDL Cholesterol 39 mg/dL (>40); LDL Cholesterol Calculated 80 mg/dL (<100); Triglycerides 151 mg/dL (<150)
[2023-11-28 09:38] LABS: Thyroid Stimulating Hormone 0.96 uIU/mL (0.32-4.0)
== END 2023-11-28 08:26 | disposition home or self-care (01) ==
LOC: HO.LAB 08:25
PROVIDERS: PCP Internal Medicine; Visit Provider Internal Medicine
DX: R73.9 Hyperglycemia, unspecified (principal); Z13.29 Encounter for screening for other suspected endocrine disorder; Z13.220 Encounter for screening for lipoid disorders
CPT/HCPCS: 36415; 80061; 82947; 83036; 84443

== ENCOUNTER 2023-12-03 11:37 | Outpatient (AMB) | payer MEDICARE, MEDICAID, SELFPAY ==
[2023-12-03 11:41] VITALS: BP 144/84; PULSE 95; O2SAT 95; BMI 36.2
--- NOTE | 2023-12-03 11:41 | A.OFFPC_ITS ---
Vital Signs 12/03/23 11:41 Height 5 ft 4 in Weight 211 lb BMI 36.2 BP 144/84 H Blood Pressure Location Lt brachial Position Sitting Pulse 95 Pulse Source Pulse Oximeter Pulse Oximetry (%) 95 Oxygen Delivery Method Room Air Intake Visit Reasons: 3mth f/u Drain Layer Required: No Accompanied by: Self / Same As Patient Allergies acetaminophen [From PERCOCET] Allergy (Intermediate, Verified 12/03/23 11:43) UNKNOWN oxycodone [From PERCOCET] Allergy (Intermediate, Verified 12/03/23 11:43) UNKNOWN Medication List - Last Reconciled 12/04/23 by Navid Tejeda MD albuterol sulfate 90 mcg/actuation 1 inh inhalation QID PRN blood sugar diagnostic (FreeStyle Lite Strips) As directed blood-glucose meter (FreeStyle Lite Meter kit) As directed exenatide microspheres ER (Bydureon BCise) 2 mg (0.85 mL) subcut QWEEK flash glucose scanning reader ([email or web address] Emmanuel 2 [place]) As directed flash glucose sensor (FreeStyle Emmanuel 2 Sensor kit) DIRECTED CHANGE EVERY 14 DAYS insulin lispro (Humalog KwikPen (U-100) Insulin) 5 units (0.05 mL) subcut TID Lantus Solostar U-100 Insulin (insulin glargine) 20 units (0.2 mL) subcut BEDTIME NS lisinopril 20 mg PO DAILY lisinopril 10 mg PO BEDTIME magnesium oxide 500 mg PO BID meclizine 12.5 mg PO Q8H PRN metformin 1,000 mg PO BID pen needle, diabetic (Comfort EZ Pen [place]) As directed injects once a day pen needle, diabetic (BD Tessie 2nd Gen Pen Needle) use once a day As directed simvastatin 20 mg PO BEDTIME sulfamethoxazole-trimethoprim 800-160 mg (Bactrim DS) 1 tab PO BID sulfamethoxazole-trimethoprim 800-160 mg (Bactrim DS) 1 tab PO BID Tobacco use date assessed: 05/22/23 Fall risk assessment: No Falls in past year Last assessed Fall Risk: 12/03/23 Dental Screening Dental Screen Date: 05/22/23 HPI 3mth f/u HPI Details Diabetes, hypertension and hyperlipidemia on rx; doing well; sees endo; A1C high; dietary non compliance [facility] Medical History Hypertension Obesity Type 2 diabetes mellitus with obesity Diabetes mellitus Diabetes Hyperlipidemia Hypertension Surgical History History of cholecystectomy History of tonsillectomy Family History Mother No problems noted. Father No problems noted. 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 1. Little interest or pleasure in doing things: not at all 2. Feeling down, depressed, or hopeless: not at all 3. Trouble falling or staying asleep, or sleeping too much: not at all 4. Feeling tired or having little energy: not at all 5. Poor appetite or overeating: not at all 6. Feeling bad about yourself - or that you are a failure or have let yourself or your family down: not at all 7. Trouble concentrating on things, such as reading the newspaper or watching television: not at all 8. Moving or speaking so slowly that other people could have noticed. Or the opposite - being so fidgety or restless that you have been moving around a lot more than usual: not at all 9. Thoughts that you would be better off or of hurting yourself in some way: not at all Total score: 0 56995 - PHQ-9 Billing: Yes Source: Developed by Drs. Bry Fagan, Salina Sinclair, Иван Diaz and colleagues, with an educational renea from [employer]. Thrive Questionnaire Date Thrive assessed: 05/07/23 AUDIT C Alcohol Use Questionnaire (AUDIT-C) 1. How often do you have a drink containing alcohol?: Never Total Score: 0 Score Reviewed/Action Taken: No LEIGH-7 AMB Questionnaire LEIGH-7 Date LEIGH - 7 assessed: 05/22/23 Source: Developed by Drs. Bry Fagan, Salina Sinclair, Иван Diaz and colleagues, with an educational renea from [employer]. Review of Systems Const Denies chills, Denies headache(s) and Denies weight loss ENT Denies headache(s) Card Denies chest pain, Denies syncope, Denies irregular heart rhythm and Denies dyspnea Resp Denies chest congestion, Denies cough and Denies dyspnea GI Denies abdominal pain, Denies change in stool character, Denies nausea and Denies vomiting Musc Denies deformity and Denies joint swelling Neuro Denies syncope and Denies headache(s) Physical exam (Primary Care) Vital Signs: Last Vital Signs Pulse 95 12/03/23 11:41 BP 144/84 H 12/03/23 11:41 Pulse Ox 95 12/03/23 11:41 Oxygen Delivery Method Room Air 12/03/23 11:41 BMI result Body Mass Index 36.2 Tobacco/Smoking Status: Tobacco use Status Tobacco use date assessed 05/22/23 12/03/23 11:41 Patient Tobacco Use Status Former Tobacco user 12/03/23 11:41 Tobacco use type Cigarette 12/03/23 11:45 e-Cigarette/Vaping Use Never Used 12/03/23 11:41 PHQ-9: PHQ-9 Score PHQ-9: Total score 0 12/03/23 11:45 Thrive Assessment: Date of Thrive Assessment Date Thrive assessed 05/07/23 12/03/23 11:41 Const General: cooperative, comfortable, no acute distress and alert Neck Neck: Yes no lymphadenopathy Thyroid: Thyroid normal Resp Effort & Inspection: normal respiratory effort Auscultation: clear to auscultation bilaterally Percussion: percussion normal Cardio Jugular venous distension: no JVD Palpation: normal PMI Rate: regular rate Rhythm: regular rhythm Heart sounds: S1 normal heart sound present and S2 normal heart sound present GI Inspection: Yes normal to inspection Palpation (GI): No hepatosplenomegaly present Skin General skin exam: no rashes or lesions noted Extrem General: Yes no clubbing, cyanosis or edema Assessment and Plan Assessment & Plan (1) Hyperlipidemia: Code(s): E78.5 - Hyperlipidemia, unspecified Plan: stable; same rx (2) Hypertension: Code(s): I10 - Essential (primary) hypertension Plan: stable; same rx (3) Type 2 diabetes mellitus with obesity: Code(s): E11.69 - Type 2 diabetes mellitus with other specified complication; E66.9 - Obesity, unspecified Plan: as per endo Medications: Refilled simvastatin 20 mg PO BEDTIME 90 tabs 1RF E78.5 - Hyperlipidemia, unspecified Coding Level of Care Code Est Pt Level 4 (05581) Diagnoses Hyperlipidemia E78.5 Hypertension I10 Type 2 diabetes mellitus with obesity E11.69; E66.9
== END 2023-12-03 11:54 | disposition home or self-care (01) ==
PROVIDERS: PCP Internal Medicine; Visit Provider Internal Medicine
DX: E11.69 Type 2 diabetes mellitus with other specified complication (principal); E78.5 Hyperlipidemia, unspecified; E66.9 Obesity, unspecified; Z68.36 Body mass index [BMI] 36.0-36.9, adult; I10 Essential (primary) hypertension
CPT/HCPCS: 99214

== ENCOUNTER 2024-01-16 12:52 | Outpatient (AMB) | payer MEDICARE, MEDICAID, SELFPAY ==
--- NOTE | 2024-01-16 12:03 | A.OFFVIS_ITS ---
Vital Signs 01/16/24 13:01 Height 5 ft 4 in Weight 216 lb 0.848 oz BMI 37.1 BP 150/80 H Blood Pressure Location Rt brachial Position Sitting Pulse 80 Pulse Source Pulse Oximeter Intake Visit Reasons: DM/LVM Intake Note: Patient presents today to re-establish treatment for Type 2 Diabetes Mellitus: Last Diabetic eye exam was on: 09/20/2023 Last Podiatry exam was on: Does not see a Curtain Cutter Hand Most recent HbA1c: 8.5%, 11/28/2023 Random Glucose- 191 mg/dL, Today Radiation Control Specialist Required: No Accompanied by: Self / Same As Patient Allergies acetaminophen [From PERCOCET] Allergy (Intermediate, Verified 01/16/24 12:58) UNKNOWN oxycodone [From PERCOCET] Allergy (Intermediate, Verified 01/16/24 12:58) UNKNOWN Medication List - Last Reconciled 01/16/24 by Rachel Condon NP albuterol sulfate 90 mcg/actuation 1 inh inhalation QID PRN blood sugar diagnostic (FreeStyle Lite Strips) As directed blood-glucose meter (FreeStyle Lite Meter kit) As directed exenatide microspheres ER (Bydureon BCise) 2 mg subcut Q7D flash glucose scanning reader (FreeStyle Emmanuel 2 [place]) As directed flash glucose sensor (FreeStyle Emmanuel 2 Sensor kit) DIRECTED CHANGE EVERY 14 DAYS insulin lispro (Humalog KwikPen (U-100) Insulin) 8 units (0.08 mL) subcut TID Lantus Solostar U-100 Insulin (insulin glargine) 28 units (0.28 mL) subcut BEDTIME 90 days NS lisinopril 10 mg PO BEDTIME magnesium oxide 500 mg PO BID meclizine 12.5 mg PO Q8H PRN metformin 1,000 mg PO BID pen needle, diabetic (Comfort EZ Pen [place]) As directed injects once a day pen needle, diabetic (BD Tessie 2nd Gen Pen Needle) use once a day As directed simvastatin 20 mg PO BEDTIME tirzepatide (Mounjaro) 2.5 mg (0.5 mL) subcut QWEEK HPI Comments Details: 69 YO F who is seen in f/u for T2DM. She was last seen by Dr. Snell 09/26/2023 Initially diagnosed with T2DM approx 2018 Was initially started on treatment with metformin. She failed Bydureon Current regimen meformin 1000 mg BID Lantus 20 units Humalog 5 units TID BYdureon Freestyle emmanuel 2 average glucose: [218 ] 14 day Glucose Management indicator 8.5 % TIme in ranges: Eighty-five% high (181-250) [15 ] % in range (70-180] [0 ] % low (69-55) 0 % very low (below 54) Baseline glucose overall high with increases after the meals 3 soft mints for a low carries at all times also has glucose tablets Family history of T2DM in mother and sisters. +retinopathy: last eye exam 2023 Opthamologist Has seen retinal specialist: minimal retinopathy, f/u in one year No neuropathy: denies numbness, tingling or cramping in the lower extremities saw podiatry earlier this year + nephropathy, on MATTHEW 10/29/24 eGFR >60 microalbumin 95 Has HLD, on statin. Last LDL 11/28/23 80 She has 2 children, 4 granchildren, 4 sisters one Denies CAD. [facility] Medical History Hypertension Obesity Type 2 diabetes mellitus with obesity Diabetes mellitus Diabetes Hyperlipidemia Hypertension Surgical History History of cholecystectomy History of tonsillectomy Family History Mother No problems noted. Father No problems noted. 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 Absence of acromegalic features. Neck exam reveals nl size thyroid about 15 gms. No thyroid nodules palpable. No carotid bruits present. Lungs CTA. Heart S1 S2, Reg R/R. No M/R G. Skin exam reveals a bsence of vitiligo or acanthosis nigricans. No edema Visual exam of foot performed. No ulcerations or open lesions. No inter digit maceration or fissuring. No onychomycosis, no callouses. Sensation intact to monofilament exam. Vibratory sensation is normal with 128 Hz tuning fork. Assessment & Plan Assessment & Plan (1) Type 2 diabetes mellitus with obesity: Code(s): E11.69 - Type 2 diabetes mellitus with other specified complication; E66.9 - Obesity, unspecified Category: Medical Plan: 69-year-old type 2 diabetic with most recent A1c of 8.5% in November currently on low-dose basal bolus insulin metformin and Bydureon. We will change medications as follows: Lantus 28 units Humalog 8 units t.i.d. Change Bydureon which has been ineffective to Mounjaro 2.5 mg weekly with titration upward as tolerated. She has not been able to achieve target glucose. She was counseled she can increase Lantus dosing by 2 units every 3 days until her fasting sugars are 130. She will consider CE QUR patch pump. Medications: New tirzepatide (Mounjaro) 2.5 mg (0.5 mL) subcut QWEEK 4 weeks 2 mL 3RF Changed From Lantus Solostar U-100 Insulin (insulin glargine) 20 units (0.2 mL) subcut BEDTIME 15 mL 4RF NS To Lantus Solostar U-100 Insulin (insulin glargine) 28 units (0.28 mL) subcut BEDTIME 90 days 27 mL 4RF NS From insulin lispro (Humalog KwikPen (U-100) Insulin) 5 units (0.05 mL) subcut TID 15 mL 4RF E11.69 - Type 2 diabetes mellitus with other specified complication, E66.9 - Obesity, unspecified To insulin lispro (Humalog KwikPen (U-100) Insulin) 8 units (0.08 mL) subcut TID 24 mL 4RF E11.69 - Type 2 diabetes mellitus with other specified complication, E66.9 - Obesity, unspecified Refilled insulin lispro (Humalog KwikPen (U-100) Insulin) 8 units (0.08 mL) subcut TID 24 mL 4RF E11.69 - Type 2 diabetes mellitus with other specified complication, E66.9 - Obesity, unspecified Lantus Solostar U-100 Insulin (insulin glargine) 28 units (0.28 mL) subcut BEDTIME 90 days 27 mL 4RF NS Patient Instructions: The patient was counseled to achieve a target A1C of 7% (154 avg). Fasting blood sugars should be 90-130 in the morning and less than 180 two hours after meals. Reviewed the relationship between poor diabetic control and the development of complications. The patient was counseled to always carry a source of sugar and on the rule of 15's: Take 3 glucose tablets and repeat again in 15 minutes if blood sugar is not in normal range. Continue to repeat every 15 minutes until blood sugar is normal. The patient was counseled to wear closed toe shoes, never walk barefooted and to inspect the feet daily. For any signs of infection or open wound patient should notify PCP or go to urgent care. Coding Level of Care Code Est Pt Level 5 (22215) Complex EM visit Add On G2211 Diagnoses Type 2 diabetes mellitus with obesity E11.69; E66.9 Time Spent (min) 50 Comment Time spent reviewing labs/provider notes, face to face, chart doc
[2024-01-16 13:01] VITALS: BP 150/80; PULSE 80; BMI 37.1
[2024-01-16 13:10] LABS: Glucose, Whole Blood 191 mg/dL (60-115)
== END 2024-01-16 13:35 | disposition home or self-care (01) ==
PROVIDERS: PCP Internal Medicine; Visit Provider Nurse Practitioner Adult Health
DX: E11.69 Type 2 diabetes mellitus with other specified complication (principal); E66.9 Obesity, unspecified; Z68.37 Body mass index [BMI] 37.0-37.9, adult
CPT/HCPCS: 99215; G2211; G2212

== ENCOUNTER → 2024-01-16 12:52 | Outpatient (BNVA) | payer MEDICARE, MEDICAID, SELFPAY | PROVIDERS: PCP Internal Medicine; Visit Provider Nurse Practitioner Adult Health | DX: E11.21 Type 2 diabetes mellitus with diabetic nephropathy (principal); E11.319 Type 2 diabetes mellitus with unspecified diabetic retinopathy without macular edema; E11.69 Type 2 diabetes mellitus with other specified complication; E78.5 Hyperlipidemia, unspecified; E66.9 Obesity, unspecified; Z68.37 Body mass index [BMI] 37.0-37.9, adult; Z83.3 Family history of diabetes mellitus | CPT/HCPCS: 82947; 99212 ==

== ENCOUNTER 2024-02-13 13:14 | Outpatient (REF) | payer MEDICARE, MEDICAID, SELFPAY ==
[2024-02-13 13:41] LABS: MANUAL DIFF FLAG NO
[2024-02-13 14:27] LABS: Appearance Urine Clear; Color Urine Yellow; Glucose Urine UA Negative (Negative); Leukocyte Esterase Urine Trace (Negative); Nitrite Urine Negative (Negative); Specific Gravity - Urine <= 1.005 (1.005-1.025); UMIC TRIGGER UA YES; Urine Blood Negative (Negative); Urine Ketones Negative (Negative); Urine Protein Negative (Neg-Trace)
[2024-02-13 14:28] LABS: Basophils Absolute Auto 0.1 X10*3/uL (0.0-0.2); Basophils Percent Auto 0.8 % (0-2); Eosinophils Absolute Auto 0.3 X10*3/uL (0.0-0.4); Eosinophils Percent Auto 3.4 % (0-4); Hematocrit 36.5 % (37.0-47.0); Hemoglobin 12.4 g/dl (12.0-16.0); Imm Gran Abs Auto 0.04 X10*3/uL (0.00-0.03); Imm Gran Pct Auto 0.5 % (0.0-0.4); Lymphocytes Absolute Auto 2.1 X10*3/uL (1.2-4.9); Lymphocytes Percent Auto 27.9 % (20-40); Mean Corpuscular Hemoglobin 30.2 pg (27.0-33.0); Mean Corpuscular Volume 88.8 fL (80.0-98.0); Mean Platelet Volume 11.5 fL (9.4-12.3); Monocytes Absolute Auto 0.8 X10*3/uL (0.1-1.2); Monocytes Percent Auto 9.8 % (2-11); Neutrophils Absolute Auto 4.4 x10*3/uL (2.0-8.3); Neutrophils Percent Auto 57.6 % (45-73); Platelet Count 223 X10*3/uL (160-400); Red Blood Count 4.11 X10*6/uL (4.20-5.50); Red Cell Distribution Width 12.1 % (11.0-16.0); White Blood Count 7.7 X10*3/uL (4.8-10.8)
[2024-02-13 14:29] LABS: Bacteria Urine None Seen (None Seen); Hyaline Casts Urine 0-2 /LPF (0-2); RBC Urine 0-2 /HPF (0-2); Squamous Epithelial Cell Urine 0-2 /HPF (0-2); WBC Urine 0-5 /HPF (0-5)
[2024-02-13 15:04] LABS: Parathyroid Hormone Intact 108.6 pg/mL (8.7-77.1)
[2024-02-13 15:05] LABS: Creatinine Urine 15.63 mg/dL; Microalbum/Creatinine Ratio Ur 243.1 ug/mg cr (<30); Total Protein Urine Random < 7 mg/dL (<12)
[2024-02-13 15:06] LABS: Anion Gap 13 (12-20); Blood Urea Nitrogen 19 mg/dL (9-16); Calcium 10.6 mg/dL (8.4-10.2); Carbon Dioxide 20 mmol/L (22-29); Chloride 110 mmol/L (96-108); Estimated Glomerular Filt Rate > 60; Glucose Random 114 mg/dL (60-115); Magnesium 1.6 mg/dL (1.6-2.6); Phosphorus 2.5 mg/dL (2.7-4.5); Potassium 4.1 mmol/L (3.3-5.1); Sodium 139 mmol/L (135-145); Uric Acid 5.4 mg/dL (2.4-5.7)
[2024-02-13 15:22] LABS: Vitamin D 25-OH Total 31.8 ng/mL (>30)
[2024-02-14 15:48] LABS: Calcium, Ionized 5.8 mg/dL (4.7-5.5)
[2024-02-19 09:28] LABS: eGFR (Cystatin C) 56 (L)
[2024-02-19 09:29] LABS: Cystatin C 1.19 (H)
== END 2024-02-13 13:15 | disposition home or self-care (01) ==
LOC: HO.LABR 13:14
PROVIDERS: PCP Internal Medicine; Visit Provider Internal Medicine
DX: E11.9 Type 2 diabetes mellitus without complications (principal)
CPT/HCPCS: 36415; 80048; 81001; 82043; 82306; 82330; 82570; 82610; 83735; 83970; 84100; 84156; 84550; 85025

== ENCOUNTER 2024-02-20 10:26 | Outpatient (AMB) | payer MEDICARE, MEDICAID, SELFPAY ==
[2024-02-20 10:32] VITALS: BP 132/70; PULSE 79; O2SAT 98; BMI 37.2
--- NOTE | 2024-02-20 10:32 | A.OFFPC_ITS ---
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 Technician Required: No Accompanied by: Self / Same As Patient Allergies acetaminophen [From PERCOCET] Allergy (Intermediate, Verified 02/20/24 10:33) UNKNOWN oxycodone [From PERCOCET] Allergy (Intermediate, Verified 02/20/24 10:33) UNKNOWN Medication List - Last Reconciled 02/21/24 by Navid Tejeda MD albuterol sulfate 90 mcg/actuation 1 inh inhalation QID PRN blood sugar diagnostic (FreeStyle Lite Strips) As directed blood-glucose meter (FreeStyle Lite Meter kit) As directed exenatide microspheres ER (Bydureon BCise) 2 mg (0.85 mL) subcut QWEEK flash glucose scanning reader ([place] DiscountersStyle Emmanuel 2 [place]) As directed flash glucose sensor (FreeStyle Emmanuel 2 Sensor kit) DIRECTED CHANGE EVERY 14 DAYS insulin glargine (Lantus Solostar U-100 Insulin) 32 units subcut BEDTIME insulin lispro (Humalog KwikPen (U-100) Insulin) 10 units subcut TID lisinopril 10 mg PO BEDTIME magnesium oxide 500 mg PO BID meclizine 12.5 mg PO Q8H PRN metformin 1,000 mg PO BID pen needle, diabetic (Comfort EZ Pen [place]) As directed injects once a day pen needle, diabetic (BD Tessie 2nd Gen Pen Needle) use once a day As directed simvastatin 20 mg PO BEDTIME Tobacco use date assessed: 05/22/23 Fall risk assessment: No Falls in past year Last assessed Fall Risk: 02/20/24 Dental Screening Dental Screen Date: 05/22/23 HPI 3 month f/u HPI Details DM; sees endo and meds recently adjusted; feels well PFSH Medical History Hypertension Obesity Type 2 diabetes mellitus with obesity Diabetes mellitus Diabetes Hyperlipidemia Hypertension Surgical History History of cholecystectomy History of tonsillectomy Family History Mother No problems noted. Father No problems noted. 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 Bry Fagan, Salina Sinclair, Иван Diaz and colleagues, with an educational renea from [employer]. Review of Systems Const Denies chills, Denies headache(s) and Denies weight loss ENT Denies headache(s) Card Denies chest pain, Denies syncope, Denies irregular heart rhythm and Denies dyspnea Resp Denies chest congestion, Denies cough and Denies dyspnea GI Denies abdominal pain, Denies change in stool character, Denies nausea and Denies vomiting Musc Denies deformity and Denies joint swelling Neuro Denies syncope and Denies headache(s) Physical exam (Primary Care) Vital Signs: Last Vital Signs Pulse 79 02/20/24 10:32 BP 132/70 02/20/24 10:32 Pulse Ox 98 02/20/24 10:32 Oxygen Delivery Method Room Air 02/20/24 10:32 BMI result Body Mass Index 37.2 Tobacco/Smoking Status: Tobacco use Status Tobacco use date assessed 05/22/23 02/20/24 10:37 Patient Tobacco Use Status Former Tobacco user 02/20/24 10:37 Tobacco use type Cigarette 02/20/24 10:37 e-Cigarette/Vaping Use Never Used 02/20/24 10:37 Thrive Assessment: Date of Thrive Assessment Date Thrive assessed 01/30/24 11/14/24 10:37 Const General: cooperative, comfortable, no acute distress and alert Neck Neck: Yes no lymphadenopathy Thyroid: Thyroid normal Resp Effort & Inspection: normal respiratory effort Auscultation: clear to auscultation bilaterally Percussion: percussion normal Cardio Jugular venous distension: no JVD Palpation: normal PMI Rate: regular rate Rhythm: regular rhythm Heart sounds: S1 normal heart sound present and S2 normal heart sound present GI Inspection: Yes normal to inspection Palpation (GI): No hepatosplenomegaly present Skin General skin exam: no rashes or lesions noted Extrem General: Yes no clubbing, cyanosis or edema Results AMB Hemoglobin A1c AMB Hemoglobin A1c 8.5 % Last Edit by Eduarda Bryant CMA on 02/20/24 11:08 Results Reviewed Results Reviewed: Laboratory Last Values Hgb A1c (Clinic) 8.5 % (4.0-6.0) H 02/20/24 10:45 Coding Level of Care Code Est Pt Level 3 (69621) Diagnoses Type 2 diabetes mellitus with obesity E11.69; E66.9 Assessment & Plan Assessment & Plan (1) Type 2 diabetes mellitus with obesity: Code(s): E11.69 - Type 2 diabetes mellitus with other specified complication; E66.9 - Obesity, unspecified Category: Medical Plan: stable; as per endo Orders: Orders AMB Hemoglobin A1c 02/20/24 Navid Tejeda MD E11.69 - Type 2 diabetes mellitus with other specified complication, E66.9 - Obesity, unspecified Medications: Changed From Lantus Solostar U-100 Insulin (insulin glargine) 28 units (0.28 mL) subcut BEDTIME 27 mL 4RF 90 days NS To insulin glargine (Lantus Solostar U-100 Insulin) 32 units subcut BEDTIME Rachel Condon NP From insulin lispro (Humalog KwikPen (U-100) Insulin) 8 units (0.08 mL) subcut TID 24 mL 4RF E11.69 - Type 2 diabetes mellitus with other specified complication, E66.9 - Obesity, unspecified To insulin lispro (Humalog KwikPen (U-100) Insulin) 10 units subcut TID E11.69 - Type 2 diabetes mellitus with other specified complication, E66.9 - Obesity, unspecified Rachel Condon NP
== END 2024-02-20 10:55 | disposition home or self-care (01) ==
PROVIDERS: PCP Internal Medicine; Visit Provider Internal Medicine
DX: E11.69 Type 2 diabetes mellitus with other specified complication (principal); E66.9 Obesity, unspecified; Z68.37 Body mass index [BMI] 37.0-37.9, adult

== ENCOUNTER → 2024-02-20 10:26 | Outpatient (BNVA) | payer MEDICARE, MEDICAID, SELFPAY | PROVIDERS: PCP Internal Medicine; Visit Provider Internal Medicine | DX: E11.69 Type 2 diabetes mellitus with other specified complication (principal); E66.9 Obesity, unspecified; Z68.37 Body mass index [BMI] 37.0-37.9, adult; Z71.3 Dietary counseling and surveillance | CPT/HCPCS: 83036; 99212 ==

== ENCOUNTER 2024-02-27 09:44 | Outpatient (AMB) | payer MEDICARE, MEDICAID, SELFPAY ==
--- NOTE | 2024-02-27 11:18 | A.OFFVIS_ITS ---
Intake Intake Visit Reasons: 30 min Psychiatric Nursing Aide Required: No Accompanied by: Self / Same As Patient Allergies acetaminophen [From PERCOCET] Allergy (Intermediate, Verified 02/27/24 09:52) UNKNOWN oxycodone [From PERCOCET] Allergy (Intermediate, Verified 02/27/24 09:52) UNKNOWN HPI Comprehensive Diabetes Asmnt Most Recent Diabetes Results: Hemoglobin A1c 10.2 % 06/06/19 Microalb/Creat Ratio 243.1 ug/mg cr (<30) H 02/13/24 Cholesterol 149 mg/dL (<200) 11/28/23 HDL Cholesterol 39 mg/dL (>40) L 11/28/23 Triglycerides 151 mg/dL (<150) H 11/28/23 Creatinine 0.79 mg/dL (0.5-1.4) 02/13/24 Blood Urea Nitrogen 19 mg/dL (9-16) H 02/13/24 Sodium 139 mmol/L (135-145) 02/13/24 Potassium 4.1 mmol/L (3.3-5.1) 02/13/24 Chloride 110 mmol/L (96-108) H 02/13/24 Carbon Dioxide 20 mmol/L (22-29) L 02/13/24 Calcium 10.6 mg/dL (8.4-10.2) H 02/13/24 AST 15 U/L (5-31) 10/12/23 ALT 20 U/L (0-31) 10/12/23 Total Protein 7.4 g/dL (6.5-8.0) 10/12/23 Albumin 4.2 g/dL (3.5-5.0) 10/12/23 [facility] Medical History (Updated 02/27/24 @ 10:46 by Ngoc Conklin MD) Hyperparathyroidism Hypercalcemia Hypertension Obesity Type 2 diabetes mellitus with obesity Diabetes mellitus Diabetes Hyperlipidemia Hypertension Surgical History History of cholecystectomy History of tonsillectomy Family History Mother No problems noted. Father No problems noted. 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 0% Hyperglycemia:? 18% Time in Range:? 82% Average glucose for the last 2 weeks 151 mg/dL Patient's last A1c on 02/20/2024 8.5%, remains same as previous A1c Patient is interesting from transitioning from Bydureon to Mounjaro. Message sent to provider for appeal letter to be sent to patient's insurance stating that A1c has not improved while patient has been taking Bydureon. Learning objectives: The patient was provided with verbal and written education on the following topics as outlined below. Medications (If applicable) * Name of medication * Dosing/administration instructions * Mechanism of action * Potential side effects * Potential adverse reaction and appropriate treatment * Review onset, peak, duration Assess for concerns re: insurance coverage, cost, barriers to compliance Insulin/Injectables (If applicable) * Storage/care of insulin * Injection sites * Site rotation * Onset, peak, duration * Drawing up insulin * Injecting insulin/other injectables * Sharps disposal Continuous blood glucose monitoring (if applicable) Hypoglycemia and Hyperglycemia * Signs and symptoms * Causes * Treatment * Preventing hypoglycemia * When to seek medical attention Medical alert bracelet Lifestyle * Work * Travel * Stress management * Problem solving Know your goals * A1C * Blood sugar targets * Blood pressure * Cholesterol/LDL Urine microalbumin Patient will follow-up with certified diabetes educator as needed Portions of this note were created using voice recognition software, please excuse any words or phrases that may have been misinterpreted. Patient Instructions: Include regular daily activity. ADA recommends 30 minutes of exercise 5 days a week. Weight loss talk to PCP or [employer] Core Feeder before starting new plan. Test blood sugar as directed; Fasting and 2hpp largest meal. Watch trends in results. Utilize results and to assess how food, physical activity and medications affect blood sugar results. Bring glucometer or CGM to next visit. Be knowledgeable about diabetes medication, its action, side effects, efficacy, toxicity, prescribed dosage, appropriate timing and frequency of administration, effect of missed and delayed doses and instructions for storage, travel and safety. Problem solving techniques to monitor hypo/hyperglycemia episodes and treatments. Reduce risk reduction behaviors, smoking cessation, regular eye, foot and dental examinations. Coding Level of Care Code Est Pt Level 1 (31934) Diagnoses Type 2 diabetes mellitus with obesity E11.69; E66.9
== END 2024-02-27 11:46 | disposition home or self-care (01) ==
PROVIDERS: PCP Internal Medicine; Visit Provider Registered Nurse Diabetes Educator
DX: E11.69 Type 2 diabetes mellitus with other specified complication (principal); E66.9 Obesity, unspecified

== ENCOUNTER 2024-02-27 09:44 | Outpatient (AMB) | payer MEDICARE, MEDICAID, SELFPAY ==
--- NOTE | 2024-02-27 09:46 | MHC.OFFVIS ---
Vital Signs 02/27/24 09:47 Height 5 ft 4 in Weight 217 lb 2.485 oz BMI 37.3 BP 134/74 Blood Pressure Location Lt brachial Position Sitting Pulse 97 Pulse Source Pulse Oximeter Intake Visit Reasons: DM-confirmed Intake Note: Patient presents today for D2PA follow up visit. 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: No Accompanied by: Self / Same As Patient Allergies acetaminophen [From PERCOCET] Allergy (Intermediate, Verified 02/27/24 09:52) UNKNOWN oxycodone [From PERCOCET] Allergy (Intermediate, Verified 02/27/24 09:52) UNKNOWN Medication List - Last Reconciled 02/27/24 by Ngoc Conklin MD albuterol sulfate 90 mcg/actuation 1 inh inhalation QID PRN blood sugar diagnostic (FreeStyle Lite Strips) As directed blood-glucose meter (FreeStyle Lite Meter kit) As directed exenatide microspheres ER (Bydureon BCise) 2 mg (0.85 mL) subcut QWEEK flash glucose scanning reader (FreeStyle Emmanuel 2 [place]) As directed flash glucose sensor (FreeStyle Emmanuel 2 Sensor kit) DIRECTED CHANGE EVERY 14 DAYS insulin glargine (Lantus Solostar U-100 Insulin) 30 units subcut BEDTIME insulin lispro (Humalog KwikPen (U-100) Insulin) 10 units subcut TID lisinopril 10 mg PO BEDTIME magnesium oxide 500 mg PO BID meclizine 12.5 mg PO Q8H PRN metformin 1,000 mg PO BID pen needle, diabetic (Comfort EZ Pen [place]) As directed injects once a day pen needle, diabetic (BD Tessie 2nd Gen Pen Needle) use once a day As directed simvastatin 20 mg PO BEDTIME HPI Comments Details: 69 YO F who is seen in f/u for T2DM. She was last seen by Rachel Yi APRN 01/16/24 Prior HPI Initially diagnosed with T2DM approx 2018 Was initially started on treatment with metformin. She failed Bydureon Current regimen meformin 1000 mg BID Lantus 30 units at bedtime Humalog 10 units TID BYdureon 2 mg weekly Freestyle emmanuel 2 average glucose: 14 day Glucose Management indicator 6.9 % TIme in ranges: 18 % % high (181-250) [82 ] % in range (70-180] [0 ] % low (69-55) 0 % very low (below 54) Mostly notice postprandial hyperglycemia Last Diabetic Eye exam: 09/2023, Last Podiatry Visit: 09/2023 Random Glucose: 140 mg/dl HgA1c: 8.5% 02/20/24 3 soft mints for a low carries at all times also has glucose tablets Family history of T2DM in mother and sisters. +retinopathy: last eye exam 2023 Opthamologist Has seen retinal specialist: minimal retinopathy, f/u in one year No neuropathy: denies numbness, tingling or cramping in the lower extremities saw podiatry earlier this year + nephropathy, on MATTHEW 10/29 eGFR >60 microalbumin 95 worsened to 243 in Mar 01, she is seeing nephrology has appointment today , will consider SGLT 2 Has HLD, on statin. Last LDL 11/28/23 80 She has 2 children, 4 granchildren, 4 sisters one Denies CAD. No stroke Hypercalcemia Noted in the chart to have high Ca and PTH levels since 2021 Wrist fracture at least 20-30 years ago No recent fractures No kidney stones No vitamin D supplemts Milk 1-2 a week, Cheese 3-4 times a week , no yogurt No DEXA CT abd 2019 no kidney stones Physical exam General: sitting comfortably in no acute distress HEENT: normocephalic/atraumatic, Neck: supple, symmetrical Cardiac: normal heart sounds Pulm: normal breath sounds B/L, no added breath sounds Abd: not distended, no tenderness Extremities: no edema, no signs of myxedema Neuro: AAO x3, Speech: normal, no facial droop, moving all 4 extremities Skin: no rash Foot exam: check last visit 01/16/24 : intact sensation to monofilament, intact pulses, intact vibration Laboratory Tests 10/31/23 02/13/24 16:13 13:40 Calcium 10.6 H Ionized Calcium 5.8 H Phosphorus 2.5 L Magnesium 1.6 25-OH Vitamin D Total 31.8 PTH Intact 108.6 H PTH Intact Intraop 76.3 Laboratory Tests 09/05/21 07/25/22 08/30/23 14:50 09:00 14:16 Est GFR (Cystatin C) Hgb A1c (Clinic) > 14.0 H 11.5 H 9.2 H 02/13/24 02/20/24 Unknown 10:45 Est GFR (Cystatin C) 56 (L) Hgb A1c (Clinic) 8.5 H Laboratory Tests 02/13/24 13:40 Creatinine 0.79 Estimated GFR > 60 PFSH Medical History Hypertension Obesity Type 2 diabetes mellitus with obesity Diabetes mellitus Diabetes Hyperlipidemia Hypertension Surgical History History of cholecystectomy History of tonsillectomy Family History Mother No problems noted. Father No problems noted. 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 Cognitive needs: No Hearing needs: No Vision needs: Yes (glasses) Physical Exam Vital Signs: Last Vital Signs Pulse 97 02/27/24 09:47 BP 134/74 02/27/24 09:47 BMI result Body Mass Index 37.3 Office Procedures Glucose Monitoring Details Details: see [facility] [address]852 - Glucose monitoring, continuous-physician I&R Procedure code (CPT) selection complete Results Reviewed Results Reviewed: Laboratory Last Values Glucose (Clinic) 140 mg/dL (60-115) H 02/27/24 09:57 Assessment & Plan Assessment & Plan (1) Type 2 diabetes mellitus with obesity: Code(s): E11.69 - Type 2 diabetes mellitus with other specified complication; E66.9 - Obesity, unspecified Category: Medical Plan: 69-year-old type 2 diabetic with most recent A1c of 8.5% in Mar 01 currently on basal bolus insulin metformin and Bydureon. CGM data reviewed still shows she continues to have postprandial hyperglycemia though significantly improve with blood sugars in target range 82% of the time now, her G OH based on her most recent changes is 6.9%. We will plan to further titrate up her Humalog especially with lunch and dinner. Bydureon has been ineffective, last visit 1 Tirosint but patient has been unable to obtain it. We will recent prescription. We will change medications as follows: Continue Lantus 30 units daily Continue Humalog 10 units with breakfast, increase Humalog to 12 units with lunch and dinner Change Bydureon which has been ineffective to Mounjaro 2.5 mg weekly with titration upward as tolerated. She has not been able to achieve target glucose or weight loss.. Also noted to have worsening microalbuminuria of 243. She is seeing Nephrology, GFR has been greater than 60. I will obtain nephrology notes. She could be a candidate for an SGLT2 inhibitor, however 1st we are making the GLP 1 change. (2) Hyperlipidemia: Code(s): E78.5 - Hyperlipidemia, unspecified Category: Medical Qualifiers: Hyperlipidemia type: mixed hyperlipidemia Qualified Code(s): E78.2 - Mixed hyperlipidemia Plan: Has HLD, on statin. Last LDL 11/28/23 80 Continue simvastatin 20 mg (3) Hypertension: Code(s): I10 - Essential (primary) hypertension Category: Medical Qualifiers: Hypertension type: primary hypertension Qualified Code(s): I10 - Essential (primary) hypertension Plan: Blood pressure within goal, continue lisinopril 10 mg daily (4) Hypercalcemia: Code(s): E83.52 - Hypercalcemia Category: Medical Plan: During chart review also noted that she has had elevated calcium levels at least since 2021. Intermittently elevated and then resolved. Most recently blood work from October and February 2024 showed calcium elevated range. Back in December 2022 your calcium was has a high as 11.1 mg/dL phosphorus level also noted to be low in February 2024 at 2.5. Her kidney function with EGFR has been greater than 60. Vitamin-D level at 31.8 from February 2024, she is not on any vitamin-D supplements. No history of kidney stones, remote history of wrist fracture , no recent bone density scan done. Her PTH was elevated at 108.6 from February 2024 back in December 2022 when when her calcium was elevated PTH was 36. Labs are not consistent with a picture of PTH mediated hypercalcemia the PTH is elevated now. I will repeat her labs, we will also order a bone density scan. Plan: -ordered bone density scan including wrist -repeat labs with PTH, calcium, ionized calcium, albumin, phosphorus, magnesium, vitamin-D levels Plan I spent 40 minutes in reviewing the record, seeing the patient and documenting in the medical record. Orders: Orders Calcium, Ionized 7 Weeks E11.69 - Type 2 diabetes mellitus with other specified complication, E11.9 - Type 2 diabetes mellitus without complications, E21.3 - Hyperparathyroidism, unspecified, E66.9 - Obesity, unspecified, E83.52 - Hypercalcemia Phosphorus 7 Weeks E11.69 - Type 2 diabetes mellitus with other specified complication, E11.9 - Type 2 diabetes mellitus without complications, E21.3 - Hyperparathyroidism, unspecified, E66.9 - Obesity, unspecified, E83.52 - Hypercalcemia Vitamin D 25-OH Total 7 Weeks E11.69 - Type 2 diabetes mellitus with other specified complication, E11.9 - Type 2 diabetes mellitus without complications, E21.3 - Hyperparathyroidism, unspecified, E66.9 - Obesity, unspecified, E83.52 - Hypercalcemia Magnesium 7 Weeks E11.69 - Type 2 diabetes mellitus with other specified complication, E11.9 - Type 2 diabetes mellitus without complications, E21.3 - Hyperparathyroidism, unspecified, E66.9 - Obesity, unspecified, E83.52 - Hypercalcemia XR DEXA appendicular skeleton 7 Weeks E11.69 - Type 2 diabetes mellitus with other specified complication, E11.9 - Type 2 diabetes mellitus without complications, E21.3 - Hyperparathyroidism, unspecified, E66.9 - Obesity, unspecified, E83.52 - Hypercalcemia XR DEXA axial skeleton 7 Weeks E11.69 - Type 2 diabetes mellitus with other specified complication, E11.9 - Type 2 diabetes mellitus without complications, E21.3 - Hyperparathyroidism, unspecified, E66.9 - Obesity, unspecified, E83.52 - Hypercalcemia AMB Glucose Monitoring Today E11.69 - Type 2 diabetes mellitus with other specified complication, E66.9 - Obesity, unspecified Albumin Level 7 Weeks E11.69 - Type 2 diabetes mellitus with other specified complication, E11.9 - Type 2 diabetes mellitus without complications, E21.3 - Hyperparathyroidism, unspecified, E66.9 - Obesity, unspecified, E83.52 - Hypercalcemia Calcium 7 Weeks E11.69 - Type 2 diabetes mellitus with other specified complication, E11.9 - Type 2 diabetes mellitus without complications, E21.3 - Hyperparathyroidism, unspecified, E66.9 - Obesity, unspecified, E83.52 - Hypercalcemia Parathyroid Hormone Intact 7 Weeks E11.69 - Type 2 diabetes mellitus with other specified complication, E11.9 - Type 2 diabetes mellitus without complications, E21.3 - Hyperparathyroidism, unspecified, E66.9 - Obesity, unspecified, E83.52 - Hypercalcemia Medications: New tirzepatide (Mounjaro) 2.5 mg (0.5 mL) subcut QWEEK 6 mL 2RF Patient Instructions: Start Mounjaro 2.5 mg weekly, once you have taken it for 4 weeks you can call our office during office hours to go up on the dose Stop Exenatide once you start Mounjaro Increase humalog to 12 units with lunhc and dinner , continue 10 units with breakfast Continue Lantus 30 units at bedtime Do labs before your next appointment with me in 2 months Do bone density Rule of 15 Treatment for Hypoglycemia (Low blood sugar) If your blood glucose is low (70 and below)*, follow the steps below to treat: Eat or drink something from the list below equal to 15 grams of carbohydrate (carb). Rest for 15 minutes Re-check your blood glucose. If it is still low, (below 70), repeat step 1 above. ? If your next meal is more than an hour away, you will need to eat one carbohydrate choice as a snack to keep your blood glucose from going low again. ?If you can't figure out why you have low blood glucose, call your healthcare provider, as your medicine may need to be adjusted. ?Always carry something with you to treat an insulin reaction. Use food from the list below. ? Foods equal to One Carbohydrate Choice (15 grams of carbohydrate): 3 Glucose ?tablets or 4 Dextrose tablets 4 ounces of fruit juice 5-6 ounces (about 1/2 can) of regular soda such as Coke or Pepsi ? 7-8 gummy or regular Life Savers ? 1 Tbsp. of sugar or jelly NOTE: If your blood sugar is less than 50, double the portion above for a total of 30 gm. ?Carbohydrate. ? Follow meal plan of 45-60 g of consistent carbohydrates at 3 meals each day and 15 g of carbohydrate at 1-2 snacks each day. Coding Level of Care Code Est Pt Level 5 (17805) Diagnoses Type 2 diabetes mellitus with obesity E11.69; E66.9 Mixed hyperlipidemia E78.2 Hyperlipidemia type: mixed hyperlipidemia Primary hypertension I10 Hypertension type: primary hypertension Hypercalcemia E83.52 CPT Codes Details - CPT: 60303 - Glucose monitoring, continuous-physician I&R ([id number]) Time Spent (min) 40
[2024-02-27 09:47] VITALS: BP 134/74; PULSE 97; BMI 37.3
[2024-02-27 10:01] LABS: Glucose, Whole Blood 140 mg/dL (60-115)
== END 2024-02-27 10:38 | disposition home or self-care (01) ==
PROVIDERS: PCP Internal Medicine; Visit Provider Student in an Organized Health Care Education/Training Program
DX: E11.69 Type 2 diabetes mellitus with other specified complication (principal); E66.9 Obesity, unspecified; E78.2 Mixed hyperlipidemia; I10 Essential (primary) hypertension; E83.52 Hypercalcemia
CPT/HCPCS: 95251; 99215

== ENCOUNTER → 2024-02-27 09:44 | Outpatient (BNVA) | payer MEDICARE, MEDICAID, SELFPAY | PROVIDERS: PCP Internal Medicine; Visit Provider Student in an Organized Health Care Education/Training Program | DX: E11.69 Type 2 diabetes mellitus with other specified complication (principal); E66.9 Obesity, unspecified; E78.2 Mixed hyperlipidemia; E83.52 Hypercalcemia; I10 Essential (primary) hypertension; Z68.37 Body mass index [BMI] 37.0-37.9, adult | CPT/HCPCS: 82947; 99211; 99212 ==

== ENCOUNTER 2024-03-13 11:15 | Outpatient (REF) | payer MEDICARE, MEDICAID, SELFPAY ==
[2024-03-13 11:44] LABS: MANUAL DIFF FLAG NO
[2024-03-13 12:22] LABS: Basophils Absolute Auto 0.1 X10*3/uL (0.0-0.2); Basophils Percent Auto 0.7 % (0-2); Eosinophils Absolute Auto 0.5 X10*3/uL (0.0-0.4); Eosinophils Percent Auto 5.5 % (0-4); Hematocrit 38.5 % (37.0-47.0); Imm Gran Abs Auto 0.01 X10*3/uL (0.00-0.03); Imm Gran Pct Auto 0.1 % (0.0-0.4); Lymphocytes Absolute Auto 2.7 X10*3/uL (1.2-4.9); Lymphocytes Percent Auto 31.7 % (20-40); Mean Corpuscular HGB Conc 33.8 g/dl (31.0-35.0); Mean Corpuscular Volume 88.9 fL (80.0-98.0); Mean Platelet Volume 10.9 fL (9.4-12.3); Monocytes Absolute Auto 0.7 X10*3/uL (0.1-1.2); Monocytes Percent Auto 8.2 % (2-11); Neutrophils Absolute Auto 4.5 x10*3/uL (2.0-8.3); Neutrophils Percent Auto 53.8 % (45-73); Platelet Count 260 X10*3/uL (160-400); Red Blood Count 4.33 X10*6/uL (4.20-5.50); White Blood Count 8.4 X10*3/uL (4.8-10.8)
[2024-03-13 12:24] LABS: Appearance Urine Clear; Color Urine Yellow; Glucose Urine UA Negative (Negative); Leukocyte Esterase Urine Trace (Negative); Nitrite Urine Negative (Negative); Specific Gravity - Urine <= 1.005 (1.005-1.025); UMIC TRIGGER UA YES; Urine Blood Negative (Negative); Urine Ketones Negative (Negative); Urine Protein Negative (Neg-Trace)
[2024-03-13 12:39] LABS: Anion Gap 13 (12-20); Blood Urea Nitrogen 16 mg/dL (9-16); Calcium 10.3 mg/dL (8.4-10.2); Carbon Dioxide 22 mmol/L (22-29); Chloride 107 mmol/L (96-108); Estimated Glomerular Filt Rate > 60; Glucose Random 181 mg/dL (60-115); Magnesium 1.6 mg/dL (1.6-2.6); Phosphorus 2.5 mg/dL (2.7-4.5); Potassium 4.2 mmol/L (3.3-5.1); Sodium 138 mmol/L (135-145); Uric Acid 6.4 mg/dL (2.4-5.7)
[2024-03-13 12:44] LABS: Creatinine Urine 18.87 mg/dL; Microalbum/Creatinine Ratio Ur 153.6 ug/mg cr (<30); Total Protein Urine Random < 7 mg/dL (<12)
[2024-03-13 12:51] LABS: Parathyroid Hormone Intact 81.1 pg/mL (8.7-77.1)
[2024-03-13 12:54] LABS: Vitamin D 25-OH Total 24.8 ng/mL (>30)
[2024-03-13 13:12] LABS: Bacteria Urine None Seen (None Seen); Hyaline Casts Urine 0-2 /LPF (0-2); RBC Urine 0-2 /HPF (0-2); Squamous Epithelial Cell Urine 0-2 /HPF (0-2); WBC Urine 0-5 /HPF (0-5)
[2024-03-16 15:02] LABS: Calcium, Ionized 5.8 mg/dL (4.7-5.5)
--- OUTSIDE RECORDS SUMMARY | 2024-03-18 07:52 | XMS_ITS ---
Author Organization [facility] Address [address] [place] [address] Care Team Providers Care Shaker Screen Operator Name Role Phone Navid Tejeda MD Primary Care Provider Seema Thomas Unavailable [phone] Allergies Allergen (clinical drug ingredient) Drug/Non Drug Allergy documented on EMR Reaction Allergy Type Onset Date Status codeine Codeine dizziness Drug Allergy Active REASON FOR VISIT Pcp-08/30/23, Toe Irritation Medications Medication SIG (Take, Route, Frequency, Duration) Notes Start Date End Date Status Albuterol Sulfate No t-Taking Tirzepatide Mounjaro Active Insulin Glargine Lantus Act cecily Glucose Monitoring Sensor Active Simvastatin 20 MG 1 tablet in the evening Orally Once a day Active Meclizine HCl 12.5 MG 1 tablet as needed Orally every 12 hrs Active Magnesium Active Lisinopril 10 MG 1 tablet Orally twice a day Active Sulfamethoxazole Not -Taking Blood Glucose Meter Active Freestyle Test Strips Active Insulin Lispro Humalog Activ e metFORMIN HCl 1000 MG 1 tablet with a meal Orally twice a day Active Immunizations Vaccine Route Administration Date Status Comme nts Influenza Unknown 09/04/2023 Refused Social History Tobacco Use: Social History Observation Description Date Details (start date - stop date) Former Smoker NA - NA Tobacco Use/Smoking Question Answer Notes Are you a: former smoker Additional Findings: Tobacco Non-User Current no n-smoker Alcohol Screen Question Answer Notes Did you have a drink contain ing alcohol in the past year? Yes How often did you have a dri nk containing alcohol in the past year? Monthly or less (1 point) Points 1 Interpretation Negative Tobacco use other than smoking: Question Answer Notes Are you an other tobacco user? No Problems Problem Type SNOMED Code ICD Code Onset Dates Problem Status W/U Status Risk Notes Problem Acquired hammer toe of right foot (49179301376637 05) Other hammer toe(s) (acquired), right foot (M20.41) Active confirmed Problem Acquired hammer toe of left foot (90626878902770 03) Other hammer toe(s) (acquired), left foot (M20.42) Active confirmed Problem [id number] Type 2 diabetes mellitus without complication, without long-term current use of insulin (E11.9) Active confirmed Vital Signs Height 5ft3in in 09/04/2023 Weight 206 lbs 09/04/2023 BMI 36.49 kg/m2 09/04/2023 Blood pressure systolic 128 mm Hg 09/04/19 24 Blood pressure diastolic 75 mm Hg 024 Encounters Encounter Location Date Provider Diagnosis [facility] [address] 09/04/2023 Seema Escobedo Other hammer toe(s) (acquired), right foot M20.41 ; Other hammer toe(s) (acquired), left foot M20.42 and Type 2 diabetes mellitus without complication, without long-term current use of insulin E11.9 Assessments Encounter Date Diagnosis (ICD Code) Assessment Notes Treatment Notes Treatment Clinical Notes Section Notes 09/04/2023 Other hammer toe(s) (acquired), right foot (ICD-10 - M20.41) Patient Educated with: DIABETIC FOOT CARE INSTRUCTIONS.p df (DIABETIC FOOT CARE INSTRUCTIONS.p df) 09/04/2023 Other hammer toe(s) (acquired), left foot (ICD-10 - M20.42) 09/04/2023 Type 2 diabetes mellitus without complication, without long-term current use of insulin (ICD-10 - E11.9) Plan Of Treatment Treatment Notes Assessment Notes Other hammer toe(s) (acquired), right fo ot Patient Educated with: DIABETIC FOOT CARE INSTRUCTIONS.pdf (DIABETIC FOOT CARE INSTRUCTIONS.pdf) Next Appt Details Follow Up: 1 Year, Reason: Provider Name:Seema love, 09/02/2024 01:00:00 PM, [address] [place] [address], [id number], Progress Notes * Tatiana UMANZOR TDOB:[birth year] (68 yo F)Acc No.[id number]:09/04/2023 Progress Notes Patient:?Tatiana Umanzor Provider:?Seema Escobedo DPM :1955???Age:68 Y???Sex:Female D ate:09/04/2023 Address:[address] [place] [address], [facility], [facility] Pcp:Navid Tejeda MD Subjective: * Chief Complaints: * ???Pcp-08/30/23Toe Irritatio n * HPI: ???Toe pain:?Location:?B/L feet.?Duration:?several years.?Course:?worse.?Aggrevated by:?shoes, any pressure.?Treatments:?change in shoes.? * ROS:?General/Constitutional:?Nausea?denies.?Vomiting?denies.?Hunger Thirst?denies.?Loss appetite?denies.?Chills?denies.?Fatigue?denies.?Fever?denies.?Night Sweats?denies.?Unexplained weight loss?denies.?Unexplained weight gain?denies.?HEENTM:?Dentures?denies.?Dizziness?denies.?Glasses/contacts?admits.?Retinopathy?de nies.?Blurred/double vision?denies.?TMJ?denies.?Discharge/drainage?denies.?Implants?denies.?Sore throat?denies.?Dental implants?denies.?Hard of hearing ?denies.?Difficulty chewing/swallowing/speaking?denies.?Nose bleeds?denies.?Sore mouth?denies.?Respiratory:?On Oxygen?denies.?Pneumonia/pleurisy?denies.?Bronchitis?denies.?Emphysema?denies.?C oughing?denies.?Cough blood?denies.?Shortness of breath?denies.?Wheezing?denies.?Cardiovascular:?Pacemaker?denies.?MVP?denies.?WPW?denies.?CHF?denies.?Heart attack?denies.?Septal defect?denies.?Rapid beat?denies.?Chest pain ?denies.?Atrial Fib.?denies.?Murmur/Palpitations?denies.?Gastrointestinal:?Hemorrhoids?denies.?Stomach/Abdominal pain?denies.?Dark blood stool?denies.?Irritable bowel ?denies.?Constipation?denies.?Diarrhea?denies.?Hematology:?Swelling?denies.?Clots?denies.?Varicose Veins?denies.?Bruising?denies.?Bleeding problem?denies.?Genitourinary:?Blood urine?denies.?Frequent/Painfu/urination/bladder control?denies.?Kidney stones?denies.?Infection (UTI)?admits.?Nephropathy?denies.?sex trans dis (STD)?denies.?Prostate?denies.?Musculoskeletal:?Hammertoes?denies.?Bunions?denies.?Back Pain?denies.?Muscle Cramps/ Resting?denies.?Muscle cramps / walking?admits.?Generalized aches and pains?admits.?Weakness?denies.?Integ.:?García?denies.?Scars?denies.?Corns/calluses?denies.?Ingrown nails?denies.?Painful nails?denies.?Open Sores?denies.?Rashes?denies.?Neurologic:?Difficulty sleeping?denies.?Brain disorder?denies.?Numbness?denies.?Balance trouble?denies.?Confusion?denies.?Fainting/blackouts?denies.?Tingling?denies.?Tr emors?denies.? * Medical History:? * Surgical History:?tonsillect chloé 1975Gall bladder removal 1997 * Hospitalization/Major Diagno stic Procedure:?C- UTI 05/06/23 * Family History:?Mother: unkn own, diagnosed with Unspecified essential hypertension, Diabetic - NIDDM.?Father: unknown, heart attack, diagnosed with Unspecified heart disease, Unspecified essential hypertension.?Siblings: Sisters, sister foot problem, diagnosed with Diabetic - NIDDM, Other specified conditions influencing health status.? * Social History:?Tobacco Use:?Tobacco Use/Smoking?Are you a:?former smoker ?Additional Findings: Tobacco Non-User?Current non-smoker ?Tobacco use other than smoking?Are you an other tobacco user??No ???Drugs/Alcohol:?Drugs?Have you used drugs other than those for medical reasons in the past 12 months??No ?Alcohol Screen?Did you have a drink containing alcohol in the past year??Yes ?How often did you have a drink containing alcohol in the past year??Monthly or less (1 point) ?Points?1 ?Interpretation?Negative ???Miscellaneous:?Caffeine: yes, frequency:, 1-2 cups per day. ?Children: yes, 2. ?no Exercise. ?Marital status: . ?Occupation: Retired. * Medications:?TakingFreestyle Test Strips Blood Glucose Meter Meclizine HCl 12.5 MG Tablet 1 tablet as needed Orally every 12 hrsMagnesium Lisinopril 10 MG Tablet 1 tablet Orally twice a daySimvastatin 20 MG Tablet 1 tablet in the evening Orally Once a dayTirzepatide , Notes: MounjaroInsulin Glargine , Notes: LantusGlucose Monitoring Sensor Insulin Lispro , Notes: HumalogmetFORMIN HCl 1000 MG Tablet 1 tablet with a meal Orally twice a dayTaking Freestyle Test Strips Taking Blood Glucose Meter Taking Meclizine HCl 12.5 MG Tablet 1 tablet as needed Orally every 12 hrsTaking Magnesium Taking Lisinopril 10 MG Tablet 1 tablet Orally twice a dayTaking Simvastatin 20 MG Tablet 1 tablet in the evening Orally Once a dayTaking Tirzepatide , Notes: MounjaroTaking Insulin Glargine , Notes: LantusTaking Glucose Monitoring Sensor Taking Insulin Lispro , Notes: HumalogTaking metFORMIN HCl 1000 MG Tablet 1 tablet with a meal Orally twice a dayNot-Taking/PRNSulfamethoxazole Albuterol Sulfate Medication List reviewed and reconciled with the patientNot-Taking/PRN Sulfamethoxazole Not-Taking/PRN Albuterol Sulfate Medication List reviewed and reconciled with the patient * Allergies:?Codeine: dizzines s - Allergyyes[Allergies Verified] Objective: * Vitals:?Ht: 5ft3in, Wt:206, BMI:36.49, Shoe size: 8.5W, BP:128/75 mm Hg, BS: 229, Ht-cm: 160.02 cm, Wt-k.44 kg. * ???Past Orders: ???Lab:HEMOGLOBIN A1C (GLYCO HEMOGLOBIN) (Order Date - 05/09/2023) (Collection Date - 05/09/2023) ? Value Reference Range ?HEMOGLOBIN A1C (HH) 7.5 * Examination: ???Ophthalmology Referral: ?DIABETES EYE EXAM?General Examination: ?GENERAL APPEARANCE:?Reveals a pleasant, alert, well-nourished, well- developed, well hydrated individual, who demonstrates proper attention to hygiene/body habitus, and is in no acute distress, Pt serves as own?historian for office visit today.?ORIENTED:?person, place, and time.?FOOT EXAM:?Footwear Evaluation?Neurological: ?SENSORY:?Neurological exam reveals intact sensorium, pain sensation normal, vibration sensation intact, pinprick sensation is normal in the lower extremities, Pt denies, anesthesia, burning, paresthesia, tingling, B/L.?DEEP TENDON REFLEXES:?Achilles, 2/4, B/L.?Vascular: ?DP PULSES:?3/4, B/L.?PT PULSES:?3/4, B/L.?CAPILLARY FILL TIME:?immediate, all digits, B/L.?SKIN TEMPERTURE GRADIENT OF THE LOWER EXTERMITIES:?warm to cool, proximal to distal, B/L.?HAIR GROWTH/TEXTURE/ELASTICITY/TURGOR:?normal, B/L.?PIGMENTATION:?normal, B/L.?EDEMA:?absent, B/L.?Dermatologic: ?SKIN FINDINGS:?Skin exam reveals normal texture, elasticity, and turgor. There are no masses. The interspaces are clear.?Orthopedic: ?MUSCLE STRENGTH:?5/5 all groups in a symmetrical fashion , B/L.?DIGITAL DEFORMITIES:?Digital contracture, PIPJ, 2-5 B/L, incompl-reducible to push-up test, no over, nor underlapping, with evidence of shoe producing skin irritation.?FOOTWEAR:?worn, non-supportive, shoe gear properties exacerbate patient's foot/toe deformity.? Assessment: * Assessment: 1.?Other hammer toe(s) (acqu ired), right foot - M20.41 (Primary), Chronic problem, Worse (4),Rx Management (4)?2.?Other hammer toe(s) (acquired), left foot - M20.42, Chronic problem, Worse (4),Rx Management (4)?3.?Type 2 diabetes mellitus without complication, without long-term current use of insulin - E11.9? Plan: * Treatment: * Immunizations:? Influenza (Not administered - Refused: Patient decision) * Procedure Codes:? * Preventive Medicine:? ??Counseling:?Discussion:?-04: Office or other outpatient visit for the evaluation and management of a new patient, which required a medically appropriate history and/or examination and MODERATE level of DECISION MAKING for: 1 OR MORE CHRONIC PROBLEM(S) THATS WORSENING, 2 STABLE CHRONIC PROBLEMS, A NEWLY DIAGNOSED PROBLEM WITH UNCERTAIN PROGNOSIS, AN ACUTE COMPLICATED INJURY WITH MULTIPLE TREATMENT OPTIONS, OR AN ACUTE PROBLEM WITH ACCOMPANYING SYSTEMIC SYMPTOMS, THAT POSE(S) A MODERATE RISK OF MORBIDITY. THIS CONDITION MAY ALSO INCLUDE RX DRUG MANAGEMENT, OR A DECISON FOR MINOR SURGERY. The visit on the day of the encounter encompassed interpreting the data and educating the patient as to the nature of their condition, treatment options available according to their individual PMH, meds, allergies, and overall health/living conditions, as well as any potential risks or complications that may occur from a failure to adhere to, and participate in, the recommended course of therapy. The discussion included a complete verbal, and/or written explanation of the examination results, any x-rays taken, the proposed diagnosis, and outline of the treatment plan. A schedule for future care needs was also explained. The patient verbalized an understanding of the instructions at this time and agreed to be an active participant in their treatment. If the patient should think of any questions or concerns after the visit, I have encouraged the patient to call the office.?Digital Surgery:?Digital surgery was discussed with the patient, We elected to try conservative treatment at the present time, due to the patients medical history and increased asssociated post-operative risks.?Digital Treatment:?HT- I explained to the patient the possible etiologies of Hammertoes, including genetics/foot type/shoegear/activity level/exercise routine and the risks/benefits of all the different treatment options for their pain including: No treatment at all, Rest, Ice, New/supportive/wider/deeper Shoegear, Digital Padding/Strapping/Taping/Bracing/Gel protective sleeves, Foot/Ankle AFO Bracing, Stretching exercises, Deep Tissue Massage, Arch support/shoe inserts with splay metatarsal padding, and Custom orthoses. I insisted that any digital devices be removed daily and not worn overnight for safety. The patient is to carefully examine the toes daily for any skin irritation while using any splinting or padding device. The advantages and disadvantages of each option were discussed and the patients questions re: shoegear, padding, custom vs prefabricated inserts, activity level, and consistency in home treatment regimens for optimal success were answered to their verbally confirmed satisfaction.?Shoe Gear Counseling:?SHOE Rx - The patient was counseled in great detail on their muscoloskeletal foot and toe deformities which coincided with the dermatological presentations visualized on exam. We discussed how their deformities put the integrity of their feet at risk for potential pedal complications which makes the accomidative diabetic shoes and cutomizable inserts medically necessary. We discussed the different shoe and insert treatment types and options, as well as the important advantages for adhering to regularly wearing these accomidative devices daily. The patient was made aware of the fact that a failure to abide by these recommedations may be deleterious to their foot health as they are able to prevent many pedal complications such as skin irritation, skin ulceration, infection, and even loss of toe/foot/leg/or life. Time was also spent with the patient dispensing and discussing proper diabetic footcare techniques including daily skin moisturization, daily foot inspection for any interruption in skin integrity including open lesions, or sign of infection such as redness/malodor/drainage/swelling. Also discussed and recommended were procedures regarding daily shoe inspection for the presence of internal foreign bodies as well as any visualized irregular shoe or insert wear. Patient questions re: shoes, inserts, and self foot inspections were answered to their satisfaction as the patient verbally confirmed a full understanding of the above information. Pt defers A Rx for Extra Depth Orthopedic Shoes with 3 pair of custom heat-molded inserts.? * Follow Up:?1 Year * Images: * Sign off status: Completed true * Provider:?Seema Escobedo DPM Date:? Generated for El ramon/Hellen/Tawanda on:?03/18/2024 07:51 AM EST History and Physical Notes * HPI (History of Present Illness) Category Sub-Category Detail Notes Category Not es Toe pain Location: B/L feet Duration: several years Course: worse Aggravated by: shoes, any pressure Treatments: change in shoes Examination Category Sub-Category Detail Notes Category Not es Neurological SENSORY: Neurological exa m reveals intact sensorium, pain sensation normal, vibration sensation intact, pinprick sensation is normal in the lower extremities, Pt denies, anesthesia, burning, paresthesia, tingling, B/L DEEP TENDON REFLEXES: Achilles, 2/4, B/L Dermatologic SKIN FINDINGS: Skin exam reveal s normal texture, elasticity, and turgor. There are no masses. The interspaces are clear Orthopedic FOOTWEAR: worn, non-suppor tive, shoe gear properties exacerbate patient's foot/toe deformity DIGITAL DEFORMITIES: Digital contracture , PIPJ, 2-5 B/L, incompl-reducible to push-up test, no over, nor underlapping, with evidence of shoe producing skin irritation MUSCLE STRENGTH: 5/5 all groups in a symmetrical fashion , B/L General Examination GENERAL APPEARANCE: Reveals a pleasant, alert, well- nourished, well-developed, well hydrated individual, who demonstrates proper attention to hygiene/body habitus, and is in no acute distress, Pt serves as own historian for office visit today FOOT EXAM: Lower Extremity Neurological Exa m performed:: Yes ORIENTED: person, place, and t jessica Footwear Evaluation Footwear Evaluation performe d:: Yes Ophthalmology Referral DIABETES EYE EXAM Diabetic Retinopa thy Screening:: Yes Findings of Diabetic Eye Exam:: no retin opathy bleeding behind eye Vascular DP PULSES(B): 3/4, B/L PT PULSES(B): 3/4, B/L CAPILLARY FILL TIME: immediate, all digi ts, B/L TEMPERTURE GRADIENT(C): warm to cool, pr oximal to distal, B/L TROPHIC CONDITION-TEXTURE/ELASTICITY/TURGOR/HAIR GROWTH(B): normal, B/L EDEMA(C): absent, B/L PIGMENTATION: normal, B/L
--- OUTSIDE RECORDS SUMMARY | 2024-03-18 07:52 | XMS_ITS ---
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 Generated for Salvatorei yenny/Hellen/eTransmitting on:?03/18/2024 07:52 AM EST
--- OUTSIDE RECORDS SUMMARY | 2024-03-18 07:52 | XMS_ITS | Patient Health Record ---
Author Organization [facility] Address [address] [place] [address] Care Team Providers Care Channel Process Supervisor Name Role Phone Ileana PERSAUD, Navid Primary Care Provider Seema Thomas Unavailable [phone] Allergies Allergen (clinical drug ingredient) Drug/Non Drug Allergy documented on EMR Reaction Allergy Type Onset Date Status codeine Codeine dizziness Drug Allergy Active Results Component Value Reference Range Notes HEMOGLOBIN A1C (GLYCOHEMOGLO BIN) Reviewed date:09/04/2023 10:57:37 AM Interpretation: Performing Lab: Notes/Report: HEMOGLOBIN A1C (HH) 7.5 Reason For Referral No Information Medications Medication SIG (Take, Route, Frequency, Duration) Notes Start Date End Date Status Albuterol Sulfate No t-Taking Tirzepatide Mounjaro Active Insulin Glargine Lantus Act cecily Glucose Monitoring Sensor Active Meclizine HCl 12.5 MG 1 tablet as needed Orally every 12 hrs Active Magnesium Active Lisinopril 10 MG 1 tablet Orally twice a day Active Simvastatin 20 MG 1 tablet in the evening Orally Once a day Active Freestyle Test Strips Active Insulin Lispro Humalog Activ e Sulfamethoxazole Not -Taking metFORMIN HCl 1000 MG 1 tablet with a meal Orally twice a day Active Blood Glucose Meter Active Immunizations Vaccine Route Administration Date Status [...] Problem Acquired hammer toe of right foot (42525060980740 05) Other hammer toe(s) (acquired), right foot (M20.41) Active confirmed Problem Acquired hammer toe of left foot (16582297163780 03) Other hammer toe(s) (acquired), left foot (M20.42) Active confirmed Problem [id number] Type 2 diabetes mellitus without complication, without long-term current use of insulin (E11.9) Active confirmed Vital Signs Blood pressure diastolic 75 mm Hg 09/04/2023 Height 5ft3in in 09/04/2023 Blood pressure systolic 128 mm Hg 09/04/2023 Weight 206 lbs 09/04/2023 BMI 36.49 kg/m2 09/04/2023 Encounters Encounter Location Date Provider Diagnosis [facility] [address] [address] 09/04/2023 Seema Escobedo Other hammer toe(s) (acquired), right foot M20.41 ; Other hammer toe(s) (acquired), left foot M20.42 and Type 2 diabetes mellitus without complication, without long-term current use of insulin E11.9 [facility] [address] 06/19/2023 Seema Escobedo Assessments Encounter Date Diagnosis (ICD Code) Assessment [...] insulin (ICD-10 - E11.9) Plan Of Treatment Next Appt Details Provider Name:Seema love, 09/02/2024 01:00:00 PM, [address] [place], [address], Insurance Providers Payer Name Payer Address Payer Phone Subscriber Number Group Number Insured Name Patient Relationship to Insured Coverage Start Date Coverage End Date Medicare [employer] [address] [place] [address] [id number] Tatiana Umanzor Self - patient is the insured Medical (General) History Medical History History ICD Code Broken bones Cholesterol covid-19 Diabetic Gall bladder problems High blood pressure Psoriasis/eczema Reflux ( GERD) sinusitis Measles Mumps Chicken pox Surgical History Surgery Date(Month/Year) tonsillectomy 1975 Gall bladder removal 1997 Hospitalization History Reason Date(Month/Year) [facility]- UTI 05/06/23
--- OUTSIDE RECORDS SUMMARY | 2024-03-18 07:52 | XMS_ITS | Patient Health Record ---
Author Organization [facility] Address [address] [place] [address] Care Team Providers Care Keyboard Action Assembler Name Role Phone Maty PERSAUD, Kike Primary Care Provider Unavailab Bry Fletcher Unavailable [phone] REASON FOR REFERRAL No Information MEDICATIONS Medication SIG (Take, Route, Frequency, Duration) Notes Start Date End Date Status Meclizine HCl 12.5 MG TAKE 1 TABLET BY M OUTH EVERY 8 HOURS NEEDED FOR DIZZYNESS Oral for 6 Active Magnesium Oxide -Mg Supplement 400 MG TAKE 1 TABLET BY MOUTH TWICE A DAY Oral for 30 Active metFORMIN HCl 500 MG TAKE 1 TABLET BY MO UTH TWICE A DAY Oral for 90 Active Pantoprazole Sodium 40 MG TAKE 1 TABLET BY MOUTH TWICE A DAY Oral for 90 Active Glimepiride 4 MG TAKE 1 TABLET BY SKYLER TH TWICE A DAY Oral for 90 Active Simvastatin 20 MG TAKE 1 TABLET BY SKYLER TH EVERY DAY Oral for 90 Active Fexofenadine HCl 180 MG TAKE 1 TABLET BY MOUTH EVERY DAY Oral for 15 Active Lisinopril 20 MG TAKE 1 TABLET EVERY DAY Oral for 90 Active Ondansetron HCl 4 MG TAKE 1 TABLET BY MO UTH EVERY 8 HOURS NEEDED FOR NAUSEA AND VOMITING Oral for 4 Active IMMUNIZATIONS Vaccine Route Administration Date Status Comme nts Influenza Unknown 04/26/2020 Refused SOCIAL HISTORY Tobacco Use: Social History Observation Description Date Details (start date - stop date) Former Smoker NA - NA Sex Assigned At : Social History Observation Description Sex Assigned At Unknown Tobacco Use/Smoking Question Answer Notes Patient is a former smoker When did you stop smoking? 3 years ago How long has it been since you last smoked? 1-5 years Alcohol Screen Question Answer Notes Did you have a drink contain ing alcohol in the past year? Yes How often did you have a dri nk containing alcohol in the past year? Never (0 point) How many drinks did you have on a typical day when you were drinking in the past year? 1 or 2 drinks (0 point) How often did you have 6 or more drinks on one occasion in the past year? Never (0 point) Points 0 Interpretation Negative PROBLEMS Problem Type ICD Code Onset Dates Problem Status W/U Status Risk SNOMED Code Notes Problem Nausea (R11.0) Active confirmed Nausea (379122443) Problem Vomiting (R11.10) Active confirmed Vomiting (668455650) Problem Diarrhea of presumed infectious origin (R19.7) Active confirmed Diarrhea of presumed infectious origin (98909463) Problem History of adenomatous polyp of colon (Z86.010) Active confirmed History of adenomatous polyp of colon (295447184) PLAN OF TREATMENT No Information Insurance Providers Payer Name Payer Address Payer Phone Subscriber Number Group Number Insured Name Patient Relationship to Insured Coverage Start Date Coverage End Date [facility] [address] [place] [phone] [id number] LUIS LANG Self - patient is the insured MEDICAL (GENERAL) HISTORY Medical History History ICD Code NIDDM Hypertension Denies [place],CVA,Lung disease,renal disease Hyperlipidemia COVID in 01/2019--not hospitalized and n o sequelae EGD in 03/2017-small hiatal hernia, duodenal last sees were normal and negative for celiac disease, benign gastric polyps Colonoscopy 03/2017- 1 1.5cm tubular adenoma removed; no inflammatory bowel disease; random colon biopsies were negative for microscopic colitis Hospitalizations in 03/2017 and 03/2020 for gastroenteritis and dehydration Surgical History Surgery Date(Month/Year) cholecystectomy 1998 tonsillectomy 1974
--- OUTSIDE RECORDS SUMMARY | 2024-03-18 07:52 | XMS_ITS | Clinical Summary ---
Author Organization Unknown Care Team Providers Care Movement Therapist Name Role Phone ANDRE PERSAUD, JAVI Unavailable Unavailable [place] PT, TATIANA Unavailable Unavailable KRYSTIAN ZHANG, CLINICAL ESTATE CONSERVATOR, ALY Castro available Unavailable CHATO MELO, ELLEN Unavailable Unavailable Payers Payer Name Policy Type Policy Number Effective Date Expira tion Date MEDICARE - NGS [place] - PD [id number] MEDICAID [facility] [id number] Problems Condition Name Condition Details Condition Category Status Onset Date Resolution Date Last Treatment Date Treating Clinician Comments SEPSIS, UNSPECIFIED ORGANISM Active 05-10 00:00: 00 URINARY TRACT INFECTION, SITE NOT SPECIFIED Active 05-10 00:00: 00 TYPE 2 DIABETES MELLITUS WITH HYPERGLYCEMI A Active 05-10 00:00: 00 ESSENTIAL (PRIMARY) HYPERTENSION Active 05-10 00:00: 00 UNSPECIFIED ASTHMA, UNCOMPLICATE D Active 05-10 00:00: 00 HYPERLIPIDEM IA, UNSPECIFIED Active 05-10 00:00: 00 MORBID (SEVERE) OBESITY DUE TO EXCESS CALORIES Active 05-10 00:00: 00 BODY MASS INDEX [BMI] 35.0-35.9, ADULT Active 05-10 00:00: 00 MILD PERSISTENT ASTHMA, UNCOMPLICATE D Active 05-10 00:00: 00 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 Ordering Clinician Indication Dosage Frequency Signature (SIG) Comments Components albuterol sulfate HFA 90 mcg/actuati on aerosol inhaler 05-10 00:00: 00 Yes [id number] 1 puff 4 TIMES DAILY 1 puff 4 TIMES DAILY (route: inhalation ) Med Classific ation: Respirato ry Therapy Agents cefuroxime axetil 250 mg tablet 05-10 00:00: 00 05-12 23:59 :00 No [id number] 1 tablet 2 TIMES DAILY 1 tablet 2 TIMES DAILY (route: oral) Med Classific ation: Anti-Infe ctive Agents Lantus Solostar U-100 Insulin 100 unit/mL (3 mL) subcutaneou s pen 05-10 00:00: 00 Yes [id number] 20 unit BEDTIME 20 unit BEDTIME (route: subcutaneo us) Med Classific ation: Endocrine lisinopril 10 mg tablet 05-10 00:00: 00 Yes [id number] 1-2 tablet 2 TIMES DAILY 1-2 tablet 2 TIMES DAILY (route: oral) Med Classific ation: Cardiovas cular Therapy Agents magnesium 250 mg tablet 05-10 00:00: 00 Yes [id number] 2 tablet DAILY 2 tablet DAILY (route: oral) Med Classific ation: Electroly te Balance-N utritiona l Products metformin 1,000 mg tablet 05-10 00:00: 00 Yes [id number] 1 tablet 2 TIMES DAILY 1 tablet 2 TIMES DAILY (route: oral) Med Classific ation: Endocrine omeprazole 20 mg capsule,del ayed release 05-10 00:00: 00 Yes [id number] 1 capsule DAILY 1 capsule DAILY (route: oral) Med Classific ation: Gastroint estinal Therapy Agents simvastatin 20 mg tablet - 00:00: 00 Yes [id number] 1 tablet BEDTIME 1 tablet BEDTIME (route: oral) Med Classific ation: Cardiovas cular Therapy Agents insulin lispro (U-100) 100 unit/mL subcutaneou s pen 2-15 00:00: 00 06-16 23:59 :00 No [id number] 5 unit 3 TIMES DAILY 5 unit 3 TIMES DAILY (route: subcutaneo us) Med Classific ation: Endocrine Mounjaro 2.5 mg/0.5 mL subcutaneou s pen injector 2-16 00:00: 00 Yes [id number] 2.5 mg DAILY 2.5 mg DAILY (route: subcutaneo us) Med Classific ation: Endocrine Bactrim DS 800 mg-160 mg tablet 05-30 00:00: 00 06-04 23:59 :00 No [id number] 1 tablet 2 TIMES DAILY 1 tablet 2 TIMES DAILY (route: oral) Med Classific ation: Anti-Infe ctive Agents Admelog SoloStar U-100 Insulin lispro 100 unit/mL subcutaneou s pen 06-17 00:00: 00 Yes [id number] 5 unit 3 TIMES DAILY 5 unit 3 TIMES DAILY (route: subcutaneo us) Med Classific ation: Endocrine Pepcid 40 mg tablet 14 00:00: 00 Yes [id number] 40 mg DAILY 40 mg DAILY (route: oral) Med Classific ation: Gastroint estinal Therapy Agents Immunizations Ordered Immunization Name Filled Immunization Name Date Status Comments Refusal Reason COVID-19, COVID-19 2023-05-10 00:00:00 Vital Signs Vital Name Observation Time Observation Value Commen ts Temperature 2023-07-05 09:17:00.000 98.1 [degF] Temperature 2023-06-25 17:35:00.000 98.3 [degF] Temperature 2023-06-18 14:16:00.000 98 [degF] Temperature 2023-06-11 15:19:00.000 98.3 [degF] Temperature 2023-06-07 10:14:00.000 97.7 [degF] Temperature 2023-05-30 18:49:00.000 98.3 [degF] Temperature 2023-05-23 19:54:00.000 97.1 [degF] Temperature 2023-05-21 12:41:00.000 96.8 [degF] Temperature 2023-05-16 14:10:00.000 98.2 [degF] Temperature 2023-05-14 08:01:00.000 98.3 [degF] Temperature 2023-05-10 11:26:00.000 98.4 [degF] BMI (%) 2023-05-10 11:26:00.000 36 kg/m2 Height 2023-05-10 11:26:00.000 64 [in_us] Pulse 2023-07-05 09:17:00.000 91 /min Pulse 2023-06-25 17:35:00.000 78 /min Pulse 2023-06-18 14:16:00.000 92 /min Pulse 2023-06-11 15:19:00.000 72 /min Pulse 2023-06-07 10:14:00.000 71 /min Pulse 2023-05-30 18:49:00.000 88 /min Pulse 2023-05-23 19:54:00.000 90 /min Pulse 2023-05-21 12:41:00.000 96 /min Pulse 2023-05-16 14:10:00.000 95 /min Pulse 2023-05-14 08:01:00.000 88 /min Pulse 2023-05-10 11:26:00.000 89 /min O2 Saturation (%) 2023-07-05 09:17:00.000 97 % O2 Saturation (%) 2023-06-25 17:35:00.000 98 % O2 Saturation (%) 2023-06-18 14:16:00.000 98 % O2 Saturation (%) 2023-06-11 15:19:00.000 99 % O2 Saturation (%) 2023-06-07 10:14:00.000 97 % O2 Saturation (%) 2023-05-23 19:54:00.000 98 % O2 Saturation (%) 2023-05-21 12:41:00.000 96 % O2 Saturation (%) 2023-05-16 14:14:00.000 97 % O2 Saturation (%) 2023-05-10 11:26:00.000 96 % Respirations 2023-07-05 09:17:00.000 20 /min Respirations 2023-06-25 17:35:00.000 20 /min Respirations 2023-06-18 14:16:00.000 18 /min Respirations 2023-06-11 15:19:00.000 18 /min Respirations 2023-06-07 10:14:00.000 20 /min Respirations 2023-05-30 18:49:00.000 18 /min Respirations 2023-05-23 19:54:00.000 20 /min Respirations 2023-05-21 12:41:00.000 18 /min Respirations 2023-05-16 14:10:00.000 18 /min Respirations 2023-05-14 08:01:00.000 18 /min Respirations 2023-05-10 11:26:00.000 16 /min Weight (lbs) 2023-05-10 11:26:00.000 210 [lb_av] Systolic Blood Pressure 2023-07-05 09:17:00.000 110 mm [Hg] Systolic Blood Pressure 2023-06-25 17:35:00.000 112 mm [Hg] Systolic Blood Pressure 2023-06-18 14:16:00.000 100 mm [Hg] Systolic Blood Pressure 2023-06-11 15:19:00.000 122 mm [Hg] Systolic Blood Pressure 2023-06-07 10:14:00.000 112 mm [Hg] Systolic Blood Pressure 2023-05-30 18:49:00.000 122 mm [Hg] Systolic Blood Pressure 2023-05-23 19:54:00.000 148 mm [Hg] Systolic Blood Pressure 2023-05-21 12:41:00.000 124 mm [Hg] Systolic Blood Pressure 2023-05-16 14:10:00.000 118 mm [Hg] Systolic Blood Pressure 2023-05-14 08:01:00.000 150 mm [Hg] Systolic Blood Pressure 2023-05-10 11:26:00.000 118 mm [Hg] Diastolic Blood Pressure 2023-07-05 09:17:00.000 64 mm [Hg] Diastolic Blood Pressure 2023-06-25 17:35:00.000 62 mm [Hg] Diastolic Blood Pressure 2023-06-18 14:16:00.000 52 mm [Hg] Diastolic Blood Pressure 2023-06-11 15:19:00.000 80 mm [Hg] Diastolic Blood Pressure 2023-06-07 10:14:00.000 64 mm [Hg] Diastolic Blood Pressure 2023-05-30 18:49:00.000 74 mm [Hg] Diastolic Blood Pressure 2023-05-23 19:54:00.000 80 mm [Hg] Diastolic Blood Pressure 2023-05-21 12:41:00.000 84 mm [Hg] Diastolic Blood Pressure 2023-05-16 14:10:00.000 80 mm [Hg] Diastolic Blood Pressure 2023-05-14 08:01:00.000 80 mm [Hg] Diastolic Blood Pressure 2023-05-10 11:26:00.000 68 mm [Hg] Plan of Treatment Planned Activity Planned Date Details Comments Future Scheduled Test SKILLED NU RSE TO EVALUATE PATIENT, IDENTIFY PRIMARY AND CO-MORBID CONDITIONS CODED PER CODING GUIDELINES, AND DEVELOP PATIENT SPECIFIC PLAN OF CARE THAT INCLUDES PATIENT GOAL FOR HOME HEALTH. [code = SKILLED NURSE TO EVALUATE PATIENT, IDENTIFY PRIMARY AND CO-MORBID CONDITIONS CODED PER CODING GUIDELINES, AND DEVELOP PATIENT SPECIFIC PLAN OF CARE THAT INCLUDES PATIENT GOAL FOR HOME HEALTH.] Future Scheduled Test SKILLED NU RSE TO PROVIDE TEACHING/REINFORCEMENT RELATED TO URINARY INCONTINENCE. [code = SKILLED NURSE TO PROVIDE TEACHING/REINFORCEMENT RELATED TO URINARY INCONTINENCE.] Future Scheduled Test SKILLED NU RSE TO REVIEW PATIENT MEDICATIONS. INSTRUCT PATIENT/CAREGIVER ON MONITORING OF EFFECTIVENESS, ADVERSE DRUG REACTIONS, SIDE EFFECTS OF ALL MEDICATIONS (PRESCRIPTION/-OTC), AND HOW AND WHEN TO REPORT PROBLEMS. [code = SKILLED NURSE TO REVIEW PATIENT MEDICATIONS. INSTRUCT PATIENT/CAREGIVER ON MONITORING OF EFFECTIVENESS, ADVERSE DRUG REACTIONS, SIDE EFFECTS OF ALL MEDICATIONS (PRESCRIPTION/-OTC), AND HOW AND WHEN TO REPORT PROBLEMS.] Future Scheduled Test SKILLED NU RSE MAY COLLECT URINE SAMPLE FOR URINE REAGENT STRIP TESTING AND/OR URINALYSIS WITH CS 1-3 PRN IF INDICATED FOR SIGNS AND SYMPTOMS OF UTI. IF REAGENT STRIP TEST IS POSITIVE FOR UTI, SKILLED NURSE TO TAKE URINE SAMPLE TO LAB FOR URINE CS AND REPORT RESULTS TO PHYSICIAN. [code = SKILLED NURSE MAY COLLECT URINE SAMPLE FOR URINE REAGENT STRIP TESTING AND/OR URINALYSIS WITH CS 1-3 PRN IF INDICATED FOR SIGNS AND SYMPTOMS OF UTI. IF REAGENT STRIP TEST IS POSITIVE FOR UTI, SKILLED NURSE TO TAKE URINE SAMPLE TO LAB FOR URINE CS AND REPORT RESULTS TO PHYSICIAN.] Future Scheduled Test SKILLED NU RSE FOR O/A, TEACHING AND MANAGEMENT OF UTI FOR EARLY IDENTIFICATION OF EXACERBATION OF DISEASE PROCESS [code = SKILLED NURSE FOR O/A, TEACHING AND MANAGEMENT OF UTI FOR EARLY IDENTIFICATION OF EXACERBATION OF DISEASE PROCESS] Future Scheduled Test MEDICAL SO CIAL WORKER TO EVALUATE PATIENT FOR COMMUNITY RESOURCES, PT IS APPLYING FOR [facility] AND REQUIRES APPT ON LOWER LEVEL. [code = DAY CAMP COUNSELOR TO EVALUATE PATIENT FOR COMMUNITY RESOURCES, PT IS APPLYING FOR [facility] AND REQUIRES APPT ON LOWER LEVEL. ] Future Scheduled Test SKILLED NU RSE FOR O/A OF RESPIRATORY SYSTEM TO IDENTIFY CHANGES ASSOCIATED WITH EXACERBATION AND TO PROVIDE SKILLED TEACHING ON MANAGEMENT OF ASTHMA RESPIRATORY DISEASE PROCESS. [code = SKILLED NURSE FOR O/A OF RESPIRATORY SYSTEM TO IDENTIFY CHANGES ASSOCIATED WITH EXACERBATION AND TO PROVIDE SKILLED TEACHING ON MANAGEMENT OF ASTHMA RESPIRATORY DISEASE PROCESS.] Future Scheduled Test SKILLED NU RSE FOR ADMINISTRATION AND TEACHING OF PRESCRIBED INJECTION THERAPY FOR LANTUS [code = SKILLED NURSE FOR ADMINISTRATION AND TEACHING OF PRESCRIBED INJECTION THERAPY FOR LANTUS] Future Scheduled Test SKILLED NU RSE TO PERFORM AND RECORD BLOOD SUGAR READING DM2 , AND PRN FOR SIGNS AND SYMPTOMS OF HYPO/HYPERGLYCEMIA. [code = SKILLED NURSE TO PERFORM AND RECORD BLOOD SUGAR READING DM2 , AND PRN FOR SIGNS AND SYMPTOMS OF HYPO/HYPERGLYCEMIA.] Future Scheduled Test PHYSICAL T HERAPIST TO EVALUATE PATIENT FOR SAFETY, AMBULATION, APPROPRIATE USE OF DME. [code = PHYSICAL THERAPIST TO EVALUATE PATIENT FOR SAFETY, AMBULATION, APPROPRIATE USE OF DME.] Future Scheduled Test SKILLED NU RSE TO PROVIDE TEACHING ON SIGNS AND SYMPTOMS AND MANAGEMENT OF HYPERTENSION. [code = SKILLED NURSE TO PROVIDE TEACHING ON SIGNS AND SYMPTOMS AND MANAGEMENT OF HYPERTENSION.] Future Scheduled Test SKILLED NU RSE FOR O/A AND TEACHING OF DIABETIC MANAGEMENT INCLUDING BLOOD SUGAR MONITORING/USE OF GLUCOMETER, DIABETIC DIET, LOWER EXTREMITY SKIN INSPECTION, PROPER SKIN/FOOT CARE, AND SIGNS AND SYMPTOMS HYPO/HYPERGLYCEMIA TO REPORT. [code = SKILLED NURSE FOR O/A AND TEACHING OF DIABETIC MANAGEMENT INCLUDING BLOOD SUGAR MONITORING/USE OF GLUCOMETER, DIABETIC DIET, LOWER EXTREMITY SKIN INSPECTION, PROPER SKIN/FOOT CARE, AND SIGNS AND SYMPTOMS HYPO/HYPERGLYCEMIA TO REPORT.] Future Scheduled Test START WEEK OF 05/12/23 VIRTUAL VISIT FREQUENCY: 1-6 PER WEEK X 3 WEEKS AND 6 PRN VIRTUAL VISITS MAY BE PERFORMED UTILIZING TE[employer] SYSTEM TO OPTIMIZE SKILLED SERVICES FURNISHED ON THE PLAN OF CARE. SKILLED NURSE TO ESTABLISH SUPPORT MEASURES TO MINIMIZE RISK OF REHOSPITALIZATION, AND INSTRUCT PATIENT/CAREGIVER ON METHODS TO REDUCE AVOIDABLE HOSPITALIZATION. [code = START WEEK OF 05/12/23 VIRTUAL VISIT FREQUENCY: 1-6 PER WEEK X 3 WEEKS AND 6 PRN VIRTUAL VISITS MAY BE PERFORMED UTILIZING [employer] SYSTEM TO OPTIMIZE SKILLED SERVICES FURNISHED ON THE PLAN OF CARE. SKILLED NURSE TO ESTABLISH SUPPORT MEASURES TO MINIMIZE RISK OF REHOSPITALIZATION, AND INSTRUCT PATIENT/CAREGIVER ON METHODS TO REDUCE AVOIDABLE HOSPITALIZATION.] Future Scheduled Test PATIENT RICKETTS S A RISK OF HOSPITALIZATION AND ED USE. SKILLED NURSE TO ESTABLISH SUPPORT MEASURES TO MINIMIZE RISK OF HOSPITALIZATION AND ED USE, AND INSTRUCT PATIENT/CAREGIVER ON METHODS TO REDUCE AVOIDABLE HOSPITALIZATION AND ED USE. [code = PATIENT HAS A RISK OF HOSPITALIZATION AND ED USE. SKILLED NURSE TO ESTABLISH SUPPORT MEASURES TO MINIMIZE RISK OF HOSPITALIZATION AND ED USE, AND INSTRUCT PATIENT/CAREGIVER ON METHODS TO REDUCE AVOIDABLE HOSPITALIZATION AND ED USE.] Future Scheduled Test SKILLED NU RSE TO PROVIDE INSTRUCTION TO PATIENT/CAREGIVER RELATED TO DISCHARGE PLANNING. [code = SKILLED NURSE TO PROVIDE INSTRUCTION TO PATIENT/CAREGIVER RELATED TO DISCHARGE PLANNING.] Future Scheduled Test SKILLED NU RSE TO PERFORM HOME SAFETY AND FALL ASSESSMENT AND PROVIDE INSTRUCTION TO IMPLEMENT HOME SAFETY AND FALL PREVENTION STRATEGIES. [code = SKILLED NURSE TO PERFORM HOME SAFETY AND FALL ASSESSMENT AND PROVIDE INSTRUCTION TO IMPLEMENT HOME SAFETY AND FALL PREVENTION STRATEGIES.] Future Scheduled Test SKILLED NU RSE FOR OBSERVATION AND ASSESSMENT OF PATIENTS PAIN LEVEL AND EFFECTIVENESS OF PAIN MANAGEMENT REGIMEN. SKILLED NURSE TO INSTRUCT PATIENT/CAREGIVER REGARDING PHARMACOLOGIC AND NON-PHARMACOLOGIC PAIN CONTROL MEASURES. SKILLED NURSE TO REPORT TO PHYSICIAN IF PAIN IS UNCONTROLLED WITH CURRENT PAIN MANAGEMENT REGIMEN. [code = SKILLED NURSE FOR OBSERVATION AND ASSESSMENT OF PATIENTS PAIN LEVEL AND EFFECTIVENESS OF PAIN MANAGEMENT REGIMEN. SKILLED NURSE TO INSTRUCT PATIENT/CAREGIVER REGARDING PHARMACOLOGIC AND NON-PHARMACOLOGIC PAIN CONTROL MEASURES. SKILLED NURSE TO REPORT TO PHYSICIAN IF PAIN IS UNCONTROLLED WITH CURRENT PAIN MANAGEMENT REGIMEN.] Future Scheduled Test SKILLED NU RSE TO ASSESS PATIENT'S SKIN INTEGRITY AND INSTRUCT PATIENT/CAREGIVER ON MEASURES TO PREVENT PRESSURE ULCERS. [code = SKILLED NURSE TO ASSESS PATIENT'S SKIN INTEGRITY AND INSTRUCT PATIENT/CAREGIVER ON MEASURES TO PREVENT PRESSURE ULCERS.] Future Scheduled Test MEDICAL SO CIAL WORKER EVALUATION PERFORMED. NO ADDITIONAL VISITS REQUIRED. [code = DAY CAMP COUNSELOR EVALUATION PERFORMED. NO ADDITIONAL VISITS REQUIRED.] Future Scheduled Test PHYSICAL T HERAPIST TO EVALUATE PATIENT SECONDARY TO FUNCTIONAL DEFICITS/SAFETY CONCERNS. PHYSICAL THERAPIST TO ASSESS BEST PRACTICE INTERVENTIONS TO ASSIST PATIENTS TO IMPROVE OR STABILIZE MEDICAL STATUS AND PREVENT RE-HOSPITALIZATION. MEASURES INCLUDING REVIEW AND IDENTIFICATION OF CONCERNS FOR THE FOLLOWING AREAS: DRUG REGIMEN, DIABETIC FOOT CARE, ENVIRONMENTAL SAFETY ISSUES AND FALLS, PRESSURE ULCERS, PAIN, AND DISEASE MANAGEMENT. PHYSICAL THERAPY TO ESTABLISH /UPGRADE/DOWNGRADE THERAPEUTIC EXERCISE PROGRAM AND INSTRUCT PATIENT/CAREGIVER ON EXERCISE PRECAUTIONS WITH WRITTEN HOME PROGRAM. MAY INCLUDE PROM, AAROM, AROM, RROM APPROPRIATE TO IMPROVE FUNCTIONAL STRENGTH AND RANGE OF MOTION. PHYSICAL THERAPY TO INSTRUCT PATIENT/CAREGIVER ON GAIT TRAINING TECHNIQUES USING APPROPRIATE ASSISTIVE DEVICE, PROPER BODY MECHANICS TO IMPROVE MOBILITY, AND PREVENT INJURY OF PATIENT AND/OR CAREGIVER. PHYSICAL THERAPY TO ASSESS AND RECOMMEND HOME SAFETY ADAPTATIONS AND EDUCATE PATIENT /CAREGIVER ON FALL PREVENTION STRATEGIES. PHYSICAL THERAPY TO INSTRUCT PATIENT/CAREGIVER ON BALANCE AND BALANCE STRATEGIES TO IMPROVE SAFE MOBILITY AND REDUCE RISK FOR FALL AND INJURY INCLUDING PARTICIPATION IN [facility] BALANCE SPECIALTY PROGRAM SUMMARY OF THERAPY EVAL/ASSESSMENT FINDINGS AND REASON(S) SKILLS OF A THERAPIST ARE INDICATED: PHYSICAL THERAPY EVALUATION (05/16/23) PATIENT IS A 68 YO FEMALE WITH PHYSICAL THERAPY REFERRAL AFTER HOSPITALIZATION. PATIENT [place] [facility] [place] FALL IN BATHROOM, WHEN PATIENT MISSED THE TOILET AND COULD NOT GET UP. DX: UTI, SEPSIS, ENCEPHALOPATHY AND HYPERGLYCEMIA. PMH: HTN, HLD, DM 2. FALL HISTORY: FALL RESULTING IN RECENT HOSPITALIZATION PATIENT LIVES WITH DAUGHTER, DAUGHTER'S BF AND CHILDREN, IN 4TH FLOOR APARTMENT. 9 STAIRS OUTDOORS WITH RAIL, 48 STAIRS INDOORS WITH BILAT RAIL TO NEGOTIATE. PLOF: AMB WITHOUT AD, DROVE CLOF: DME: ROLLATOR, TUB SEAT, HANDHELD SHOWERHEAD RECOMMEND PATIENT ACQUIRE HANDICAPPED PLACARD AND DIABETIC FOOTWEAR (PATIENT HAS Thirsty). PATIENT DEMO R GENUVALGUM. BILAT LE ROM WFL, BILAT LE STRENGTH 4-/5. PATIENT TRANSFERES MOD INDEP WITH ROLLATOR. PATIENT ABLE TO AMB 40' MOD I IN APARTMENT WITH ROLLATOR. PATIENT DEMO BILAT LE STEP LENGTHS AND ADQUATE FEET CLEARANCE. TINETTI = 18/28. PATIENT PRESENTS WITH THE FOLLOWING DEFICITS: BILAT LE WEAKNESS, DECREASED ENDURANCE, RESULTING IN DIFFICULTY WITH AMB AND STAIR NEGOTIATION. [facility] FREQ 1X3WKS TO ADDRESS DEFICITS AND MAX FUNCTIONAL LEVEL WITH THER EXER, ESTABLISH HEP, GAIT TRAINING, STAIR NEGOTIATION, BALANCE ACTIVITY. PATIENT AND CG DAUGHTER INFORMED ABOUT PLAN OF CARE INCLUDING FREQ, VERBALIZED ACCEPTANCE. MD NOTIFIED ABOUT PATIENT STATUS AND POC. [code = PHYSICAL THERAPIST TO EVALUATE PATIENT SECONDARY TO FUNCTIONAL DEFICITS/SAFETY CONCERNS. PHYSICAL THERAPIST TO ASSESS BEST PRACTICE INTERVENTIONS TO ASSIST PATIENTS TO IMPROVE OR STABILIZE MEDICAL STATUS AND PREVENT RE-HOSPITALIZATION. MEASURES INCLUDING REVIEW AND IDENTIFICATION OF CONCERNS FOR THE FOLLOWING AREAS: DRUG REGIMEN, DIABETIC FOOT CARE, ENVIRONMENTAL SAFETY ISSUES AND FALLS, PRESSURE ULCERS, PAIN, AND DISEASE MANAGEMENT. PHYSICAL THERAPY TO ESTABLISH /UPGRADE/DOWNGRADE THERAPEUTIC EXERCISE PROGRAM AND INSTRUCT PATIENT/CAREGIVER ON EXERCISE PRECAUTIONS WITH WRITTEN HOME PROGRAM. MAY INCLUDE PROM, AAROM, AROM, RROM APPROPRIATE TO IMPROVE FUNCTIONAL STRENGTH AND RANGE OF MOTION. PHYSICAL THERAPY TO INSTRUCT PATIENT/CAREGIVER ON GAIT TRAINING TECHNIQUES USING APPROPRIATE ASSISTIVE DEVICE, PROPER BODY MECHANICS TO IMPROVE MOBILITY, AND PREVENT INJURY OF PATIENT AND/OR CAREGIVER. PHYSICAL THERAPY TO ASSESS AND RECOMMEND HOME SAFETY ADAPTATIONS AND EDUCATE PATIENT /CAREGIVER ON FALL PREVENTION STRATEGIES. PHYSICAL THERAPY TO INSTRUCT PATIENT/CAREGIVER ON BALANCE AND BALANCE STRATEGIES TO IMPROVE SAFE MOBILITY AND REDUCE RISK FOR FALL AND INJURY INCLUDING PARTICIPATION IN [facility] BALANCE SPECIALTY PROGRAM SUMMARY OF THERAPY EVAL/ASSESSMENT FINDINGS AND REASON(S) SKILLS OF A THERAPIST ARE INDICATED: PHYSICAL THERAPY EVALUATION (05/16/23) PATIENT IS A 68 YO FEMALE WITH PHYSICAL THERAPY REFERRAL AFTER HOSPITALIZATION. PATIENT SENT TO [facility] [place] AFTER FALL IN BATHROOM, WHEN PATIENT MISSED THE TOILET AND COULD NOT GET UP. DX: UTI, SEPSIS, ENCEPHALOPATHY AND HYPERGLYCEMIA. PMH: HTN, HLD, DM 2. FALL HISTORY: FALL RESULTING IN RECENT HOSPITALIZATION PATIENT LIVES WITH DAUGHTER, DAUGHTER'S BF AND CHILDREN, IN 4TH FLOOR APARTMENT. 9 STAIRS OUTDOORS WITH RAIL, 48 STAIRS INDOORS WITH BILAT RAIL TO NEGOTIATE. PLOF: AMB WITHOUT AD, DROVE CLOF: DME: ROLLATOR, TUB SEAT, HANDHELD SHOWERHEAD RECOMMEND PATIENT ACQUIRE HANDICAPPED PLACARD AND DIABETIC FOOTWEAR (PATIENT HAS Thirsty). PATIENT DEMO R GENUVALGUM. BILAT LE ROM WFL, BILAT LE STRENGTH 4-/5. PATIENT TRANSFERES MOD INDEP WITH ROLLATOR. PATIENT ABLE TO AMB 40' MOD I IN APARTMENT WITH ROLLATOR. PATIENT DEMO BILAT LE STEP LENGTHS AND ADQUATE FEET CLEARANCE. TINETTI = 18/28. PATIENT PRESENTS WITH THE FOLLOWING DEFICITS: BILAT LE WEAKNESS, DECREASED ENDURANCE, RESULTING IN DIFFICULTY WITH AMB AND STAIR NEGOTIATION. SKILLED [facility] FREQ 1X3WKS TO ADDRESS DEFICITS AND MAX FUNCTIONAL LEVEL WITH THER EXER, ESTABLISH HEP, GAIT TRAINING, STAIR NEGOTIATION, BALANCE ACTIVITY. PATIENT AND CG DAUGHTER INFORMED ABOUT PLAN OF CARE INCLUDING FREQ, VERBALIZED ACCEPTANCE. MD NOTIFIED ABOUT PATIENT STATUS AND POC.] Goal 2023-07-05 Patient Goal - TO BE INDEPEN DENT Goal Provider Goal - A PLAN OF CARE WILL BE ESTABLISHED THAT MEETS PATIENT'S [facility] NEEDS AND INCLUDES PATIENT GOAL FOR HOME HEALTH. Goal Provider Goal - PATIENT / CAREGIVER WILL VERBALIZE UNDERSTANDING OF EFFECTS OF URINARY INCONTINENCE BY THE END OF THE CERTIFICATION PERIOD. Goal Provider Goal - PATIENT/CAREGIVER WILL VERBALIZE UNDERSTANDING OF EDUCATION PROVIDED ON MEDICATIONS BY THE END OF THE CERTIFICATION PERIOD. Goal Provider Goal - URINE SPECIMEN WILL BE OBTAINED PRN FOR SIGNS AND SYMPTOMS OF UTI AND RESULTS WILL BE REPORTED TO PHYSICIAN THROUGHOUT THE CERTIFICATION PERIOD. Goal Provider Goal - PATIENT/CAREGIVER WILL VERBALIZE UNDERSTANDING OF GENITOURINARY DISEASE PROCESS, AND EXACERBATIONS OF GENITOURINARY DISEASE WILL BE PROMPTLY IDENTIFIED FOR EARLY INTERVENTION THROUGHOUT THE CERTIFICATION PERIOD. Goal Provider Goal - DAY CAMP COUNSELOR TO COMPLETE EVALUATION TO ADDRESS THE PATIENTS SOCIAL AND EMOTIONAL FACTORS AND/OR WRITTEN PLAN OF TREATMENT ESTABLISHED FOR THE PHYSICIAN'S SIGNATURE. Goal Provider Goal - PATIENT/CAREGIVER WILL VERBALIZE/DEMONSTRATE MANAGEMENT OF ASTHMA, RESPIRATORY DISEASE PROCESS. CHANGES IN RESPIRATORY STATUS WILL BE IDENTIFIED AND REPORTED TO PHYSICIAN FOR PROMPT INTERVENTION THROUGHOUT THE CERTIFICATION PERIOD. Goal Provider Goal - PATIENT WILL RECEIVE LANTUS ORDERED. PATIENT/CAREGIVER WILL VERBALIZE/DEMONSTRATE KNOWLEDGE OF INJECTION THERAPY BY THE END OF THE CERTIFICATION PERIOD. Goal Provider Goal - BLOOD SUGAR READING WILL BE OBTAINED ORDERED THROUGHOUT CERTIFICATION PERIOD. Goal Provider Goal - A PHYSICAL THERAPY EVALUATION TO BE COMPLETED WITH RECOMMENDATIONS AND/OR WRITTEN PLAN OF TREATMENT ESTABLISHED FOR PHYSICIANS SIGNATURE. Goal Provider Goal - PATIENT/CAREGIVER WILL VERBALIZE SIGNS AND SYMPTOMS OF HYPERTENSION AND WILL BE ABLE TO DEMONSTRATE ABILITY TO MANAGE EXACERBATION BY END OF THE EPISODE. Goal Provider Goal - PATIENT/CAREGIVER WILL VERBALIZE/DEMONSTRATE KNOWLEDGE OF DIABETIC MANAGEMENT. CHANGES IN DIABETIC STATUS WILL BE IDENTIFIED AND REPORTED TO PHYSICIAN FOR PROMPT INTERVENTION THROUGHOUT THE CERTIFICATION PERIOD. Goal Provider Goal - PATIENT/CAREGIVER WILL UTILIZE VIRTUAL VISITS TO ACHIEVE GOALS OUTLINED ON THE PLAN OF CARE. PATIENT WILL HAVE SUPPORT MEASURES ESTABLISHED TO PREVENT HOSPITALIZATION AND PATIENT/CAREGIVER WILL VERBALIZE/DEMONSTRATE METHODS TO REDUCE AVOIDABLE HOSPITALIZATION THROUGHOUT THE CERTIFICATION PERIOD. Goal Provider Goal - PATIENT WILL HAVE SUPPORT MEASURES ESTABLISHED TO PREVENT HOSPITALIZATION AND ED USE AND PATIENT/CAREGIVER WILL VERBALIZE/DEMONSTRATE METHODS TO REDUCE AVOIDABLE HOSPITALIZATION AND ED USE BY END OF EPISODE. Goal Provider Goal - PATIENT/CAREGIVER WILL VERBALIZE UNDERSTANDING OF DISCHARGE PLANNING INSTRUCTIONS BY DATE OF DISCHARGE. Goal Provider Goal - PATIENT/CAREGIVER WILL VERBALIZE/DEMONSTRATE EFFECTIVE HOME SAFETY AND FALL PREVENTION STRATEGIES THROUGHOUT CERTIFICATION PERIOD. Goal Provider Goal - PATIENT/CAREGIVER WILL DEMONSTRATE AN UNDERSTANDING OF PHARMACOLOGIC AND NONPHARMACOLOGIC PAIN CONTROL MEASURES, AND THE PATIENT WILL HAVE IMPROVEMENT IN PAIN INTERFERING WITH ACTIVITY EVIDENCED BY PAIN CONTROLLED AT A LEVEL OF 7 OR LESS BY THE END OF THE CERTIFICATION PERIOD. Goal Provider Goal - PATIENT/CAREGIVER WILL VERBALIZE UNDERSTANDING OF PRESSURE ULCER PREVENTION BY END OF THE EPISODE. Goal Provider Goal - NONE Goal Provider Goal - PHYSICAL THERAPY EVALUATION TO BE COMPLETED WITH RECOMMENDATIONS AND/OR WRITTEN TREATMENT PLAN OF CARE ESTABLISHED FOR THE PHYSICIANS SIGNATURE PATIENT/CAREGIVER VERBALIZES UNDERSTANDING OF THE INITIAL BEST PRACTICE RECOMMENDATIONS. PHYSICIAN TO BE NOTIFIED APPROPRIATE FOR ANY CHANGES OR COMPLICATIONS THROUGHOUT THE CERTIFICATION PERIOD. PATIENT/CAREGIVER WILL PERFORM THERAPEUTIC EXERCISE/S AND DEMONSTRATE PARTICIPATION IN A HOME PROGRAM AND DEMO INDEP WITH COMPLETION TO IMPROVE FUNCTION OF AMBULATION. PATIENT/CAREGIVER WILL DEMONSTRATE IMPROVED GAIT TECHNIQUES TO MINIMIZE RISK OF INJURY AND ABLE TO AMB 150' MOD I WITH ROLLATOR TO INCREASE FUNCTION OF ACCESSING COMMUNITY. PATIENT/CAREGIVER WILL DEMONSTRATE/VERBALIZE UNDERSTANDING OF RECOMMENDATIONS TO INCREASE SAFETY IN THE HOME AND FALL PREVENTION TO IMPROVE FUNCTION OF STAIR NEGOTIATION WITH SUPERVISION OF CG. PATIENT/CAREGIVER WILL DEMONSTRATE IMPROVED BALANCE AND REDUCE THE RISK OF FALLS AND INJURY WITH TINETTI >=20/28 TO IMPROVE FUNCTION OF AMBULATION. Reason for Visit INDEPENDENT IN THE HOME Encounters Start Date/Time End Date/Time Encounter Type Admission Type Attending Clinicians Care Facility Care Department Encounter ID Discharge Date Discharge Status Discharge Condition Discharge Reason Percent Goals Met 2023-05-10 00:00:00 2023-07-05 00:00:00 Outpatient NEW ADMISSION JOANA BOLANDLINE [facility] [id number] 2023-07-05 00:00:00 DISCHARGE TO HOME OR SELF CARE INDEPENDEN T IN THE HOME GOALS MET ( ONLY) 73.91
[2024-03-19 11:24] LABS: eGFR (Cystatin C) 59 (L)
[2024-03-19 11:25] LABS: Cystatin C 1.15 (H)
== END 2024-03-13 11:16 | disposition home or self-care (01) ==
LOC: HO.LABR 11:15
PROVIDERS: PCP Internal Medicine; Visit Provider Internal Medicine
DX: E11.9 Type 2 diabetes mellitus without complications (principal)
CPT/HCPCS: 36415; 80048; 81001; 82043; 82306; 82330; 82570; 82610; 83735; 83970; 84100; 84156; 84550; 85025

== ENCOUNTER 2024-04-21 09:28 | Outpatient (REF) | payer MEDICARE, MEDICAID, SELFPAY ==
--- NOTE | ~2024-04-21 | MM_ITS ---
EXAMINATION: MM SCREENING DIGITAL BREAST TOMOSYNTHESIS, BILATERAL CLINICAL INFORMATION: Screening. Asymptomatic. COMPARISON: Mammography: Comparison is made with available priors TECHNIQUE: Digital breast mammography with tomosynthesis is performed in both the craniocaudal and mediolateral oblique views along with computer-aided detection (CAD). FINDINGS: There are scattered areas of fibroglandular density (ACR BI-RADS breast composition Category b). There are no significant masses, abnormal calcifications, or other abnormalities. MM/MM tomosynthesis screening BI IMPRESSION: No mammographic evidence of malignancy. ASSESSMENT: BI-RADS BI-RADS 1 - Negative RECOMMENDATION: Routine annual mammography screening. 1 year F/U This examination should not preclude the clinical evaluation of a suspicious palpable abnormality. This patient's information was entered into a reminder system with a target due date for their next mammogram. Electronically signed by: Loly Car DO 05/01/2024 01:24 PM [facility]
--- NOTE | ~2024-04-21 | MM_ITS ---
EXAMINATION: Dual-Energy X-ray Absorptiometry - Bone Density Study HISTORY: Estrogen deficiency TECHNIQUE: [employer] Dual energy absorptiometry (DEXA) of the lumbar spine, total left hip, and femoral neck was performed. COMPARISON: Comparison is made with the prior examination dated 10/19/2008. FINDINGS: The bone mineral density of the lumbar spine is 1.214 with a T-score of 0.3, and a Z-score of 0.9. This represents a BMD change of 8.9% compared to the prior exam. This is statistically significant. The bone mineral density of the left total hip is 1.022 with a T-score of 0.1, and a Z-score of 0.7. This represents BMD change of -12.8% compared to the prior exam. This is statistically significant. The bone mineral density of the left femoral neck is 0.899 with a T-score of -1.0, and a Z-score of -0.1. This represents BMD change of -9.4% compared to the prior exam. The bone mineral density of the distal radius is 0.816 with a T score of -0.7 and a Z score of 0.9. FRACTURE RISK: The FRAX index suggests a ten year probability of major osteoporotic fracture of 7.7%, and of hip fracture 0.6%. MM/XR DEXA appendicular skeleton IMPRESSION: Based on bone mineral density, and according to World Health Organization (WHO) criteria, the diagnosis is consistent with normal bone mineral density. All bone density values are in grams per centimeter squared. At this facility, the least significant change in BMD with 95% confidence is 0.022 at the lumbar spine, 0.027 at the hip, and 0.023 at the distal 1/3 radius. Electronically signed by: Bry Brady MD 04/22/2024 08:08 AM [facility]
--- OUTSIDE RECORDS SUMMARY | 2024-04-21 10:21 | XMS_ITS ---
Author Organization [facility] Address [address] [place] [address] Care Team Providers Care Fire Pilot Name Role Phone Navid Tejeda MD Primary Care Provider Seema Thomas Unavailable [phone] Allergies Allergen (clinical drug ingredient) Drug/Non Drug [...] Problem Acquired hammer toe of right foot (96091201040822 05) Other hammer toe(s) (acquired), right foot (M20.41) Active confirmed Problem Acquired hammer toe of left foot (95915965795365 03) Other hammer toe(s) (acquired), left foot (M20.42) Active confirmed Problem 052833912 Type 2 diabetes mellitus without complication, without long-term current use of insulin (E11.9) Active confirmed Vital Signs Height 5ft3in in 09/04/2023 Weight 206 lbs 09/04/2023 BMI 36.49 kg/m2 09/04/2023 Blood pressure systolic 128 mm Hg 09/04/19 24 Blood pressure diastolic 75 mm Hg 024 Encounters Encounter Location Date Provider Diagnosis [facility] [address] 09/04/2023 Seema Escobedo Other hammer toe(s) (acquired), [...] Reason: Provider Name:Seema love, 09/02/2024 01:00:00 PM, [address] [place] [address], [id number], Progress Notes * Tatiana UMANZOR TDOB:[birth year] (68 yo F)Acc No.[id number]:09/04/2023 Progress Notes Patient:?Tatiana Umanzor Provider:?Seema Escobedo DPM :1955???Age:68 Y???Sex:Female D ate:09/04/2023 Address:[address] [place] [address], [facility], [facility] Pcp:Navid Tejeda MD Subjective: * Chief Complaints: [...] Escobedo DPM Date:? Generated for El ramon/Hellen/Tawanda on:?04/21/2024 10:20 AM EST History and Physical Notes * [...] retin opathy bleeding behind eye Vascular DP PULSES (B): 3/4, B/L PT PULSES (B): 3/4, B/L CAPILLARY FILL TIME: immediate, all digi ts, B/L TEMPERTURE GRADIENT (C): warm to cool, p roximal to distal, B/L TROPHIC CONDITION-TEXTURE/ELASTICITY/TURGOR/HAIR GROWTH (B): normal, B/L EDEMA (C): absent, B/L PIGMENTATION: normal, B/L
--- OUTSIDE RECORDS SUMMARY | 2024-04-21 10:21 | XMS_ITS | Patient Health Record ---
Author Organization [facility] Address [address] [place] [address] Care Team Providers Care Ios Architect Name Role Phone Ileana PERSAUD, Navid Primary Care Provider Seema Thomas Unavailable [phone] Allergies Allergen (clinical drug ingredient) Drug/Non Drug [...] Problem Acquired hammer toe of right foot (03510424946184 05) Other hammer toe(s) (acquired), right foot (M20.41) Active confirmed Problem Acquired hammer toe of left foot (66464715117527 03) Other hammer toe(s) (acquired), left foot (M20.42) Active confirmed Problem 617349558 Type 2 diabetes mellitus without complication, without long-term current use of insulin (E11.9) Active confirmed Vital Signs Blood pressure diastolic 75 mm Hg 09/04/2023 Height 5ft3in in 09/04/2023 Blood pressure systolic 128 mm Hg 09/04/2023 Weight 206 lbs 09/04/2023 BMI 36.49 kg/m2 09/04/2023 Encounters Encounter Location Date Provider Diagnosis [facility] [address] [address] 09/04/2023 Seema Escobedo Other hammer toe(s) (acquired), right foot M20.41 ; Other hammer toe(s) (acquired), left foot M20.42 and Type 2 diabetes mellitus without complication, without long-term current use of insulin E11.9 [facility] [address] 06/19/2023 Seema Escobedo Assessments Encounter Date Diagnosis [...] Provider Name:Seema love, 09/02/2024 01:00:00 PM, [address] [place], [address], Insurance Providers Payer Name Payer Address Payer Phone Subscriber Number Group Number Insured Name Patient Relationship to Insured Coverage Start Date Coverage End Date Medicare National [employer] [address] [place] [address] [id number] Tatiana Umanzor Self - patient is the insured Medical (General) History Medical History History ICD Code Broken bones Cholesterol covid-19 Diabetic Gall bladder problems High blood pressure Psoriasis/eczema Reflux ( GERD) sinusitis Measles Mumps Chicken pox Surgical History Surgery Date(Month/Year) tonsillectomy 1975 Gall bladder removal 1997 Hospitalization History Reason Date(Month/Year) [facility]- UTI 05/06/23
--- OUTSIDE RECORDS SUMMARY | 2024-04-21 10:21 | XMS_ITS | Clinical Summary ---
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 Active 05-10 00:00: 00 FPC (CURRENT) USE OF ORAL HYPOGLYCEMIC DRUGS Active [...] on aerosol inhaler 05-10 00:00: 00 Yes [id number] 1 puff 4 TIMES DAILY 1 puff 4 TIMES DAILY (route: inhalation ) Med Classific ation: Respirato ry Therapy Agents cefuroxime axetil 250 mg tablet 05-10 00:00: 00 05-12 23:59 :00 No [id number] 1 tablet 2 TIMES DAILY 1 tablet 2 TIMES DAILY (route: oral) Med Classific ation: Anti-Infe ctive Agents Lantus Solostar U-100 Insulin 100 unit/mL (3 mL) subcutaneou s pen 05-10 00:00: 00 Yes [id number] 20 unit BEDTIME 20 unit BEDTIME (route: subcutaneo us) Med Classific ation: Endocrine lisinopril 10 mg tablet 05-10 00:00: 00 Yes [id number] 1-2 tablet 2 TIMES DAILY 1-2 tablet 2 TIMES DAILY (route: oral) Med Classific ation: Cardiovas cular Therapy Agents magnesium 250 mg tablet 05-10 00:00: 00 Yes [id number] 2 tablet DAILY 2 tablet DAILY (route: oral) Med Classific ation: Electroly te Balance-N utritiona l Products metformin 1,000 mg tablet 05-10 00:00: 00 Yes [id number] 1 tablet 2 TIMES DAILY 1 tablet 2 TIMES DAILY (route: oral) Med Classific ation: Endocrine omeprazole 20 mg capsule,del ayed release 05-10 00:00: 00 Yes [id number] 1 capsule DAILY 1 capsule DAILY (route: oral) Med Classific ation: Gastroint estinal Therapy Agents simvastatin 20 mg tablet - 00:00: 00 Yes [id number] 1 tablet BEDTIME 1 tablet BEDTIME (route: oral) Med Classific ation: Cardiovas cular Therapy Agents insulin lispro (U-100) 100 unit/mL subcutaneou s pen 2-15 00:00: 00 06-16 23:59 :00 No [id number] 5 unit 3 TIMES DAILY 5 unit 3 TIMES DAILY (route: subcutaneo us) Med Classific ation: Endocrine Mounjaro 2.5 mg/0.5 mL subcutaneou s pen injector 2-16 00:00: 00 Yes [id number] 2.5 mg DAILY 2.5 mg DAILY (route: subcutaneo us) Med Classific ation: Endocrine Bactrim DS 800 mg-160 mg tablet 05-30 00:00: 00 06-04 23:59 :00 No [id number] 1 tablet 2 TIMES DAILY 1 tablet 2 TIMES DAILY (route: oral) Med Classific ation: Anti-Infe ctive Agents Admelog SoloStar U-100 Insulin lispro 100 unit/mL subcutaneou s pen 06-17 00:00: 00 Yes [id number] 5 unit 3 TIMES DAILY 5 unit 3 TIMES DAILY (route: subcutaneo us) Med Classific ation: Endocrine Pepcid 40 mg tablet 14 00:00: 00 Yes [id number] 40 mg DAILY 40 mg DAILY (route: [...] REQUIRES APPT ON LOWER LEVEL. [code = STATION COOK TO EVALUATE PATIENT FOR COMMUNITY RESOURCES, PT [...] PRN VIRTUAL VISITS MAY BE PERFORMED UTILIZING TELEWatch Over Me SYSTEM TO OPTIMIZE SKILLED SERVICES FURNISHED ON [...] PERFORMED. NO ADDITIONAL VISITS REQUIRED. [code = STATION COOK EVALUATION PERFORMED. NO ADDITIONAL VISITS REQUIRED.] Future [...] FOR FALL AND INJURY INCLUDING PARTICIPATION IN [facility] BALANCE SPECIALTY PROGRAM SUMMARY OF THERAPY EVAL/ASSESSMENT FINDINGS AND REASON(S) SKILLS OF A THERAPIST ARE INDICATED: PHYSICAL THERAPY EVALUATION (05/16/23) PATIENT IS A 68 YO FEMALE WITH PHYSICAL THERAPY REFERRAL AFTER HOSPITALIZATION. [place] [facility], WHEN [...] HANDICAPPED PLACARD AND DIABETIC FOOTWEAR (PATIENT HAS [employer] PATIENT DEMO R GENUVALGUM. BILAT LE ROM [...] FOR FALL AND INJURY INCLUDING PARTICIPATION IN [facility] BALANCE SPECIALTY PROGRAM SUMMARY OF THERAPY EVAL/ASSESSMENT FINDINGS AND REASON(S) SKILLS OF A THERAPIST ARE INDICATED: PHYSICAL THERAPY EVALUATION (05/16/23) PATIENT IS A 68 YO FEMALE WITH PHYSICAL THERAPY REFERRAL AFTER HOSPITALIZATION. [place]IENT [place] [facility] [place], WHEN [...] HANDICAPPED PLACARD AND DIABETIC FOOTWEAR (PATIENT HAS [employer] PATIENT DEMO R GENUVALGUM. BILAT LE ROM [...] CARE WILL BE ESTABLISHED THAT MEETS PATIENT'S CORRECTION NEEDS AND INCLUDES PATIENT GOAL FOR HOME [...] THE CERTIFICATION PERIOD. Goal Provider Goal - STATION COOK TO COMPLETE EVALUATION TO ADDRESS THE PATIENTS [...] 2023-07-05 00:00:00 Outpatient NEW ADMISSION JOANA BOLANDLINE [facility] [id number] 2023-07-05 00:00:00 DISCHARGE TO HOME OR SELF CARE INDEPENDEN T IN THE HOME GOALS MET ( ONLY) 73.91
--- OUTSIDE RECORDS SUMMARY | 2024-04-21 10:21 | XMS_ITS | Clinical Summary ---
Author Organization Unknown Care Team Providers Care Dye Box Operator Name Role Phone ANDRE PERSAUD, JAVI Unavailable Unavailable HI PT, TATIANA Unavailable Unavailable KRYSTIAN ZHANG, CLINICAL OUTPATIENT CODING SPECIALIST, ALY Castro available Unavailable CHATO MELO, ELLEN Unavailable Unavailable Payers Payer Name Policy Type Policy Number Effective Date Expira tion Date MEDIC[place] - [place] [id number] MEDICAID [facility] [id number] Problems Condition Name Condition Details Condition Category [...] ASTHMA, UNCOMPLICATE D Active 05-10 00:00: 00 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 Active 05-10 00:00: 00 JAIL (CURRENT) USE OF ORAL HYPOGLYCEMIC DRUGS Active [...] on aerosol inhaler 05-10 00:00: 00 Yes [id number] 1 puff 4 TIMES DAILY 1 puff 4 TIMES DAILY (route: inhalation ) Med Classific ation: Respirato ry Therapy Agents cefuroxime axetil 250 mg tablet 05-10 00:00: 00 05-12 23:59 :00 No [id number] 1 tablet 2 TIMES DAILY 1 tablet 2 TIMES DAILY (route: oral) Med Classific ation: Anti-Infe ctive Agents Lantus Solostar U-100 Insulin 100 unit/mL (3 mL) subcutaneou s pen 05-10 00:00: 00 Yes [id number] 20 unit BEDTIME 20 unit BEDTIME (route: subcutaneo us) Med Classific ation: Endocrine lisinopril 10 mg tablet 05-10 00:00: 00 Yes [id number] 1-2 tablet 2 TIMES DAILY 1-2 tablet 2 TIMES DAILY (route: oral) Med Classific ation: Cardiovas cular Therapy Agents magnesium 250 mg tablet 05-10 00:00: 00 Yes [id number] 2 tablet DAILY 2 tablet DAILY (route: oral) Med Classific ation: Electroly te Balance-N utritiona l Products metformin 1,000 mg tablet 05-10 00:00: 00 Yes [id number] 1 tablet 2 TIMES DAILY 1 tablet 2 TIMES DAILY (route: oral) Med Classific ation: Endocrine omeprazole 20 mg capsule,del ayed release 05-10 00:00: 00 Yes [id number] 1 capsule DAILY 1 capsule DAILY (route: oral) Med Classific ation: Gastroint estinal Therapy Agents simvastatin 20 mg tablet - 00:00: 00 Yes [id number] 1 tablet BEDTIME 1 tablet BEDTIME (route: oral) Med Classific ation: Cardiovas cular Therapy Agents insulin lispro (U-100) 100 unit/mL subcutaneou s pen 2-15 00:00: 00 06-16 23:59 :00 No [id number] 5 unit 3 TIMES DAILY 5 unit 3 TIMES DAILY (route: subcutaneo us) Med Classific ation: Endocrine Mounjaro 2.5 mg/0.5 mL subcutaneou s pen injector 2-16 00:00: 00 Yes [id number] 2.5 mg DAILY 2.5 mg DAILY (route: subcutaneo us) Med Classific ation: Endocrine Bactrim DS 800 mg-160 mg tablet 05-30 00:00: 00 06-04 23:59 :00 No [id number] 1 tablet 2 TIMES DAILY 1 tablet 2 TIMES DAILY (route: oral) Med Classific ation: Anti-Infe ctive Agents Admelog SoloStar U-100 Insulin lispro 100 unit/mL subcutaneou s pen 06-17 00:00: 00 Yes [id number] 5 unit 3 TIMES DAILY 5 unit 3 TIMES DAILY (route: subcutaneo us) Med Classific ation: Endocrine Pepcid 40 mg tablet 14 00:00: 00 Yes [id number] 40 mg DAILY 40 mg DAILY (route: [...] REQUIRES APPT ON LOWER LEVEL. [code = PIPE STEM REPAIRER TO EVALUATE PATIENT FOR COMMUNITY RESOURCES, PT [...] PRN VIRTUAL VISITS MAY BE PERFORMED UTILIZING TELESnapUp SYSTEM TO OPTIMIZE SKILLED SERVICES FURNISHED ON [...] PERFORMED. NO ADDITIONAL VISITS REQUIRED. [code = PIPE STEM REPAIRER EVALUATION PERFORMED. NO ADDITIONAL VISITS REQUIRED.] Future [...] FALL AND INJURY INCLUDING PARTICIPATION IN [facility] BALANCE SPECIALTY PROGRAM SUMMARY OF THERAPY EVAL/ASSESSMENT FINDINGS AND REASON(S) SKILLS OF A THERAPIST ARE INDICATED: PHYSICAL THERAPY EVALUATION (05/16/23) PATIENT IS A 68 YO FEMALE WITH PHYSICAL THERAPY REFERRAL AFTER HOSPITALIZATION. [place] [facility] [place], WHEN [...] HANDICAPPED PLACARD AND DIABETIC FOOTWEAR (PATIENT HAS [email or web address]). PATIENT DEMO R GENUVALGUM. BILAT LE ROM [...] FALL AND INJURY INCLUDING PARTICIPATION IN [facility] BALANCE SPECIALTY PROGRAM SUMMARY OF THERAPY EVAL/ASSESSMENT FINDINGS AND REASON(S) SKILLS OF A THERAPIST ARE INDICATED: PHYSICAL THERAPY EVALUATION (05/16/23) PATIENT IS A 68 YO FEMALE WITH PHYSICAL THERAPY REFERRAL AFTER HOSPITALIZATION. [place] [facility] [place], WHEN [...] HANDICAPPED PLACARD AND DIABETIC FOOTWEAR (PATIENT HAS [email or web address]). PATIENT DEMO R GENUVALGUM. BILAT LE ROM [...] CARE WILL BE ESTABLISHED THAT MEETS PATIENT'S PRISON NEEDS AND INCLUDES PATIENT GOAL FOR HOME [...] THE CERTIFICATION PERIOD. Goal Provider Goal - PIPE STEM REPAIRER TO COMPLETE EVALUATION TO ADDRESS THE PATIENTS [...] 2023-07-05 00:00:00 Outpatient NEW ADMISSION JOANA BOLANDLINE [facility] [id number] 2023-07-05 00:00:00 DISCHARGE TO HOME OR SELF CARE INDEPENDEN T IN THE HOME GOALS MET ( ONLY) 73.91
--- OUTSIDE RECORDS SUMMARY | 2024-04-21 10:21 | XMS_ITS | Patient Health Record ---
Author Organization [facility] Address [address] [place] [address] Care Team Providers Care Fruit Or Nut Farm Worker Name Role Phone Maty PERSAUD, Kike Primary Care Provider Unavailab Bry Fletcher Unavailable [phone] REASON FOR REFERRAL No Information MEDICATIONS Medication [...] Notes Problem Nausea (R11.0) Active confirmed Nausea (273223043) Problem Vomiting (R11.10) Active confirmed Vomiting (811040283) Problem Diarrhea of presumed infectious origin (R19.7) Active confirmed Diarrhea of presumed infectious origin (07800688) Problem History of adenomatous polyp of colon (Z86.010) Active confirmed History of adenomatous polyp of colon (057895029) PLAN OF TREATMENT No Information Insurance Providers Payer Name Payer Address Payer Phone Subscriber Number Group Number Insured Name Patient Relationship to Insured Coverage Start Date Coverage End Date [facility] [address] [place] [phone] [id number] LUIS LANG Self - patient is the insured MEDICAL (GENERAL) HISTORY Medical History History ICD Code NIDDM Hypertension Denies VA,CVA,Lung disease,renal disease Hyperlipidemia COVID in 01/2019--not hospitalized [...]
--- OUTSIDE RECORDS SUMMARY | 2024-04-21 10:21 | XMS_ITS ---
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 Generated for Salvatorei yenny/Hellen/eTransmitting on:?04/21/2024 10:21 AM EST
== END 2024-04-21 09:29 | disposition home or self-care (01) ==
LOC: HO.MAMMO 09:28
PROVIDERS: PCP Internal Medicine; Visit Provider Student in an Organized Health Care Education/Training Program
DX: Z13.89 Encounter for screening for other disorder (principal)
CPT/HCPCS: 77063; 77067; 77081

== ENCOUNTER → 2024-04-21 10:00 | Outpatient (BNV) | payer MEDICARE, MEDICAID, SELFPAY | PROVIDERS: PCP Internal Medicine; Visit Provider Radiology Diagnostic Radiology | DX: Z12.31 Encounter for screening mammogram for malignant neoplasm of breast (principal) | CPT/HCPCS: 77063; 77067 ==

== ENCOUNTER 2024-04-21 10:31 | Outpatient (REF) | payer MEDICARE, MEDICAID, SELFPAY ==
[2024-04-21 11:29] LABS: Parathyroid Hormone Intact 126.7 pg/mL (8.7-77.1)
[2024-04-21 11:30] LABS: Albumin Level 4.3 g/dL (3.5-5.0); Magnesium 1.8 mg/dL (1.6-2.6); Phosphorus 3.1 mg/dL (2.7-4.5)
[2024-04-21 11:46] LABS: Vitamin D 25-OH Total 26.9 ng/mL (>30)
--- OUTSIDE RECORDS SUMMARY | 2024-04-21 12:14 | XMS_ITS | Clinical Summary ---
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 Active 05-10 00:00: 00 LONGTERM (CURRENT) USE OF ORAL HYPOGLYCEMIC DRUGS Active [...] on aerosol inhaler 05-10 00:00: 00 Yes [id number] 1 puff 4 TIMES DAILY 1 puff 4 TIMES DAILY (route: inhalation ) Med Classific ation: Respirato ry Therapy Agents cefuroxime axetil 250 mg tablet 05-10 00:00: 00 05-12 23:59 :00 No [id number] 1 tablet 2 TIMES DAILY 1 tablet 2 TIMES DAILY (route: oral) Med Classific ation: Anti-Infe ctive Agents Lantus Solostar U-100 Insulin 100 unit/mL (3 mL) subcutaneou s pen 05-10 00:00: 00 Yes [id number] 20 unit BEDTIME 20 unit BEDTIME (route: subcutaneo us) Med Classific ation: Endocrine lisinopril 10 mg tablet 05-10 00:00: 00 Yes [id number] 1-2 tablet 2 TIMES DAILY 1-2 tablet 2 TIMES DAILY (route: oral) Med Classific ation: Cardiovas cular Therapy Agents magnesium 250 mg tablet 05-10 00:00: 00 Yes [id number] 2 tablet DAILY 2 tablet DAILY (route: oral) Med Classific ation: Electroly te Balance-N utritiona l Products metformin 1,000 mg tablet 05-10 00:00: 00 Yes [id number] 1 tablet 2 TIMES DAILY 1 tablet 2 TIMES DAILY (route: oral) Med Classific ation: Endocrine omeprazole 20 mg capsule,del ayed release 05-10 00:00: 00 Yes [id number] 1 capsule DAILY 1 capsule DAILY (route: oral) Med Classific ation: Gastroint estinal Therapy Agents simvastatin 20 mg tablet - 00:00: 00 Yes [id number] 1 tablet BEDTIME 1 tablet BEDTIME (route: oral) Med Classific ation: Cardiovas cular Therapy Agents insulin lispro (U-100) 100 unit/mL subcutaneou s pen 2-15 00:00: 00 06-16 23:59 :00 No [id number] 5 unit 3 TIMES DAILY 5 unit 3 TIMES DAILY (route: subcutaneo us) Med Classific ation: Endocrine Mounjaro 2.5 mg/0.5 mL subcutaneou s pen injector 2-16 00:00: 00 Yes [id number] 2.5 mg DAILY 2.5 mg DAILY (route: subcutaneo us) Med Classific ation: Endocrine Bactrim DS 800 mg-160 mg tablet 05-30 00:00: 00 06-04 23:59 :00 No [id number] 1 tablet 2 TIMES DAILY 1 tablet 2 TIMES DAILY (route: oral) Med Classific ation: Anti-Infe ctive Agents Admelog SoloStar U-100 Insulin lispro 100 unit/mL subcutaneou s pen 06-17 00:00: 00 Yes [id number] 5 unit 3 TIMES DAILY 5 unit 3 TIMES DAILY (route: subcutaneo us) Med Classific ation: Endocrine Pepcid 40 mg tablet 14 00:00: 00 Yes [id number] 40 mg DAILY 40 mg DAILY (route: [...] REQUIRES APPT ON LOWER LEVEL. [code = OVERLOCKER TO EVALUATE PATIENT FOR COMMUNITY RESOURCES, PT [...] PRN VIRTUAL VISITS MAY BE PERFORMED UTILIZING TELE[employer] 24 SYSTEM TO OPTIMIZE SKILLED SERVICES FURNISHED ON [...] PERFORMED. NO ADDITIONAL VISITS REQUIRED. [code = OVERLOCKER EVALUATION PERFORMED. NO ADDITIONAL VISITS REQUIRED.] Future [...] FOR FALL AND INJURY INCLUDING PARTICIPATION IN [facility] BALANCE SPECIALTY PROGRAM SUMMARY OF THERAPY EVAL/ASSESSMENT FINDINGS AND REASON(S) SKILLS OF A THERAPIST ARE INDICATED: PHYSICAL THERAPY EVALUATION (05/16/23) PATIENT IS A 68 YO FEMALE WITH PHYSICAL THERAPY REFERRAL AFTER HOSPITALIZATION. [place] [facility] [place] [...] HANDICAPPED PLACARD AND DIABETIC FOOTWEAR (PATIENT HAS [employer]). PATIENT DEMO R GENUVALGUM. BILAT LE ROM [...] FOR FALL AND INJURY INCLUDING PARTICIPATION IN [facility] BALANCE SPECIALTY PROGRAM SUMMARY OF THERAPY EVAL/ASSESSMENT FINDINGS AND REASON(S) SKILLS OF A THERAPIST ARE INDICATED: PHYSICAL THERAPY EVALUATION (05/16/23) PATIENT IS A 68 YO FEMALE WITH PHYSICAL THERAPY REFERRAL AFTER HOSPITALIZATION. PATIENT [place] [facility] [place] [...] HANDICAPPED PLACARD AND DIABETIC FOOTWEAR (PATIENT HAS [employer]). PATIENT DEMO R GENUVALGUM. BILAT LE ROM [...] CARE WILL BE ESTABLISHED THAT MEETS PATIENT'S ASSISTED NEEDS AND INCLUDES PATIENT GOAL FOR HOME [...] THE CERTIFICATION PERIOD. Goal Provider Goal - OVERLOCKER TO COMPLETE EVALUATION TO ADDRESS THE PATIENTS [...] 2023-07-05 00:00:00 Outpatient NEW ADMISSION JOANA BOLANDLINE [facility] [id number] 2023-07-05 00:00:00 DISCHARGE TO HOME OR SELF CARE INDEPENDEN T IN THE HOME GOALS MET ( ONLY) 73.91
--- OUTSIDE RECORDS SUMMARY | 2024-04-21 12:14 | XMS_ITS | Clinical Summary ---
Author Organization Unknown Care Team Providers Care Land Surveying Survey Worker Name Role Phone ANDRE PERSAUD, JAVI Unavailable Unavailable HI PT, TATIANA Unavailable Unavailable KRYSTIAN ZHANG, CLINICAL BLUEPRINT CUTTER, ALY Castro available Unavailable CHATO MELO, ELLEN Unavailable Unavailable Payers Payer Name Policy Type Policy Number Effective Date Expira tion Date MEDICARE - NGS [place] - [place] [id number] MEDICAID [facility] [id number] Problems Condition Name Condition Details Condition Category [...] ASTHMA, UNCOMPLICATE D Active 05-10 00:00: 00 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 Active 05-10 00:00: 00 NURSING HOME (CURRENT) USE OF ORAL HYPOGLYCEMIC DRUGS Active [...] on aerosol inhaler 05-10 00:00: 00 Yes [id number] 1 puff 4 TIMES DAILY 1 puff 4 TIMES DAILY (route: inhalation ) Med Classific ation: Respirato ry Therapy Agents cefuroxime axetil 250 mg tablet 05-10 00:00: 00 05-12 23:59 :00 No [id number] 1 tablet 2 TIMES DAILY 1 tablet 2 TIMES DAILY (route: oral) Med Classific ation: Anti-Infe ctive Agents Lantus Solostar U-100 Insulin 100 unit/mL (3 mL) subcutaneou s pen 05-10 00:00: 00 Yes [id number] 20 unit BEDTIME 20 unit BEDTIME (route: subcutaneo us) Med Classific ation: Endocrine lisinopril 10 mg tablet 05-10 00:00: 00 Yes [id number] 1-2 tablet 2 TIMES DAILY 1-2 tablet 2 TIMES DAILY (route: oral) Med Classific ation: Cardiovas cular Therapy Agents magnesium 250 mg tablet 05-10 00:00: 00 Yes [id number] 2 tablet DAILY 2 tablet DAILY (route: oral) Med Classific ation: Electroly te Balance-N utritiona l Products metformin 1,000 mg tablet 05-10 00:00: 00 Yes [id number] 1 tablet 2 TIMES DAILY 1 tablet 2 TIMES DAILY (route: oral) Med Classific ation: Endocrine omeprazole 20 mg capsule,del ayed release 05-10 00:00: 00 Yes [id number] 1 capsule DAILY 1 capsule DAILY (route: oral) Med Classific ation: Gastroint estinal Therapy Agents simvastatin 20 mg tablet - 00:00: 00 Yes [id number] 1 tablet BEDTIME 1 tablet BEDTIME (route: oral) Med Classific ation: Cardiovas cular Therapy Agents insulin lispro (U-100) 100 unit/mL subcutaneou s pen 2-15 00:00: 00 06-16 23:59 :00 No [id number] 5 unit 3 TIMES DAILY 5 unit 3 TIMES DAILY (route: subcutaneo us) Med Classific ation: Endocrine Mounjaro 2.5 mg/0.5 mL subcutaneou s pen injector 2-16 00:00: 00 Yes [id number] 2.5 mg DAILY 2.5 mg DAILY (route: subcutaneo us) Med Classific ation: Endocrine Bactrim DS 800 mg-160 mg tablet 05-30 00:00: 00 06-04 23:59 :00 No [id number] 1 tablet 2 TIMES DAILY 1 tablet 2 TIMES DAILY (route: oral) Med Classific ation: Anti-Infe ctive Agents Admelog SoloStar U-100 Insulin lispro 100 unit/mL subcutaneou s pen 06-17 00:00: 00 Yes [id number] 5 unit 3 TIMES DAILY 5 unit 3 TIMES DAILY (route: subcutaneo us) Med Classific ation: Endocrine Pepcid 40 mg tablet 14 00:00: 00 Yes [id number] 40 mg DAILY 40 mg DAILY (route: [...] REQUIRES APPT ON LOWER LEVEL. [code = CIVIL RIGHTS INVESTIGATOR TO EVALUATE PATIENT FOR COMMUNITY RESOURCES, PT [...] PRN VIRTUAL VISITS MAY BE PERFORMED UTILIZING [employer] SYSTEM TO OPTIMIZE SKILLED SERVICES FURNISHED ON [...] PERFORMED. NO ADDITIONAL VISITS REQUIRED. [code = CIVIL RIGHTS INVESTIGATOR EVALUATION PERFORMED. NO ADDITIONAL VISITS REQUIRED.] Future [...] FOR FALL AND INJURY INCLUDING PARTICIPATION IN [facility] [facility] BALANCE SPECIALTY PROGRAM SUMMARY OF THERAPY EVAL/ASSESSMENT FINDINGS AND REASON(S) SKILLS OF A THERAPIST ARE INDICATED: PHYSICAL THERAPY EVALUATION (05/16/23) PATIENT IS A 68 YO FEMALE WITH PHYSICAL THERAPY REFERRAL AFTER HOSPITALIZATION. PATIENT S[place] [facility] [place] [facility] [place] FALL IN BATHROOM, WHEN [...] HANDICAPPED PLACARD AND DIABETIC FOOTWEAR (PATIENT HAS iNeed). PATIENT DEMO R GENUVALGUM. BILAT LE ROM [...] FOR FALL AND INJURY INCLUDING PARTICIPATION IN [facility] BAL[facility] SPECIALTY PROGRAM SUMMARY OF THERAPY EVAL/ASSESSMENT FINDINGS AND REASON(S) SKILLS OF A THERAPIST ARE INDICATED: PHYSICAL THERAPY EVALUATION (05/16/23) PATIENT IS A 68 YO FEMALE WITH PHYSICAL THERAPY REFERRAL AFTER HOSPITALIZATION. PATIENT SENT [place] [facility] [place] [facility] [place] FALL IN BATHROOM, WHEN [...] HANDICAPPED PLACARD AND DIABETIC FOOTWEAR (PATIENT HAS iNeed). PATIENT DEMO R GENUVALGUM. BILAT LE ROM [...] CARE WILL BE ESTABLISHED THAT MEETS PATIENT'S SNF NEEDS AND INCLUDES PATIENT GOAL FOR HOME [...] THE CERTIFICATION PERIOD. Goal Provider Goal - CIVIL RIGHTS INVESTIGATOR TO COMPLETE EVALUATION TO ADDRESS THE PATIENTS [...] 2023-07-05 00:00:00 Outpatient NEW ADMISSION JOANA BOLANDLINE [facility] [id number] 2023-07-05 00:00:00 DISCHARGE TO HOME OR SELF CARE INDEPENDEN T IN THE HOME GOALS MET ( ONLY) 73.91
== END 2024-04-21 10:32 | disposition home or self-care (01) ==
LOC: HO.LAB 10:31
PROVIDERS: PCP Internal Medicine; Visit Provider Student in an Organized Health Care Education/Training Program
DX: E11.69 Type 2 diabetes mellitus with other specified complication (principal); E66.9 Obesity, unspecified; E83.52 Hypercalcemia; E21.3 Hyperparathyroidism, unspecified; Z12.31 Encounter for screening mammogram for malignant neoplasm of breast
CPT/HCPCS: 36415; 77063; 77067; 77081; 82040; 82306; 82310; 82330; 83735; 83970; 84100

== ENCOUNTER 2024-04-28 09:44 | Outpatient (AMB) | payer MEDICARE, MEDICAID, SELFPAY ==
--- NOTE | 2024-04-28 09:51 | A.OFFVIS_ITS ---
Vital Signs 3 04/28/24 09:55 Height 5 ft 4 in Weight 214 lb 11.684 oz BMI 36.9 BP 134/72 Blood Pressure Location Lt brachial Position Sitting Pulse 48 L Pulse Source Pulse Oximeter Intake Visit Reasons: DM Intake Note: Patient present today for Type 2 Diabetes Mellitus. 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: No Accompanied by: Self / Same As Patient Allergies acetaminophen [From PERCOCET] Allergy (Intermediate, Verified 04/28/24 10:00) UNKNOWN oxycodone [From PERCOCET] Allergy (Intermediate, Verified 04/28/24 10:00) UNKNOWN Medication List - Last Reconciled 04/28/24 by Ngoc Conklin MD albuterol sulfate 90 mcg/actuation 1 inh inhalation QID PRN blood sugar diagnostic (FreeStyle Lite Strips) As directed blood-glucose meter (FreeStyle Lite Meter kit) As directed dapagliflozin propanediol (Farxiga) 5 mg PO DAILY flash glucose scanning reader (FreeStyle Emmanuel 2 [place]) As directed flash glucose sensor (FreeStyle Emmanuel 2 Sensor kit) DIRECTED CHANGE EVERY 14 DAYS insulin glargine (Lantus Solostar U-100 Insulin) 30 units subcut BEDTIME insulin lispro (Humalog KwikPen (U-100) Insulin) 10 units subcut TID lisinopril 10 mg PO BEDTIME magnesium oxide 500 mg PO BID meclizine 12.5 mg PO Q8H PRN metformin 1,000 mg PO BID pen needle, diabetic (Comfort EZ Pen [place]) As directed injects once a day pen needle, diabetic (BD Tessie 2nd Gen Pen Needle) use once a day As directed simvastatin 20 mg PO BEDTIME tirzepatide (Mounjaro) 2.5 mg (0.5 mL) subcut QWEEK HPI Comments Details: 69 YO F who is seen in f/u for T2DM. Prior HPI Initially diagnosed with T2DM approx 2017 Was initially started on treatment with metformin. She failed Bydureon Prior meds Bydureon discontinued when Mounjaro started Mar 2024 Current regimen meformin 1000 mg BID Lantus 30 units at bedtime Humalog 10 units TID Mounjaro 2.5 mg weekly started Mar 2024 Farxiga 5 mg daily started Apr 2024 Freestyle emmanuel 2 average glucose: 14 day CGM data t from April 08 to 04/21/2024 CGM active 92% Average glucose 137 mg/dL G VA 6.6%, variability 20.6% Within target range 93% of the time, low 0%, high 7%, Interpretation: Excellent control, does have a blood sugars spike mostly around lunchtime but otherwise in target range. Last Diabetic Eye exam: 09/2023, Last Podiatry Visit: 09/2023 Random Glucose: 106 mg/dl HgA1C: 8.5% 02/20/24 3 soft mints for a low carries at all times also has glucose tablets Family history of T2DM in mother and sisters. +retinopathy: last eye exam 2023 Opthamologist Has seen retinal specialist: minimal retinopathy, f/u in one year No neuropathy: denies numbness, tingling or cramping in the lower extremities saw podiatry earlier this year + nephropathy, on MATTHEW 10/29 eGFR >60 microalbumin 95 worsened to 243 in Mar 01, she is seeing nephrology has appointment today , will consider SGLT 2 Has HLD, on statin. Last LDL 11/28/23 80 She has 2 children, 4 granchildren, 4 sisters one Denies CAD. No stroke Hypercalcemia Noted in the chart to have high Ca and PTH levels since 2021 Wrist fracture at least 20-30 years ago No recent fractures No kidney stones No vitamin D supplemts Milk 1-2 a week, Cheese 3-4 times a week , no yogurt No DEXA CT abd 2019 no kidney stones Interval history DEXA scan 04/21/2024 showed normal bone density of the lumbar spine, with T-score of 0.3, normal bone density of the left total hip a T-score of 0.1, borderline osteopenic left femoral neck with T-score of -1, normal bone density of the distal radius with T-score of-0.7. Overall this is consistent with normal bone density. Labs from 03/13/2024 showed normal kidney function, total calcium 10.3, albumin of 4.3, ionized calcium 5.8, phosphorus low at 2.5, PTH of 81.1, vitamin-D of 24.8 Repeat labs 04/21/2024 showed calcium elevated to 11, with albumin of 4.3, corrected calcium would be 10.7, ionized calcium of 6, phosphorus of 3.1, PTH of 126.7, She has started taking more calcium in her diet with more yogurt during the week. Physical exam General: sitting comfortably in no acute distress HEENT: normocephalic/atraumatic, Neck: supple, symmetrical Cardiac: normal heart sounds Pulm: normal breath sounds B/L, no added breath sounds Abd: not distended, no tenderness Extremities: no edema, no signs of myxedema Neuro: AAO x3, Speech: normal, no facial droop, moving all 4 extremities Skin: no rash Foot exam: check last visit 01/16/24 : intact sensation to monofilament, intact pulses, intact vibration Laboratory Tests 10/31/23 02/13/24 16:13 13:40 Calcium 10.6 H Ionized Calcium 5.8 H Phosphorus 2.5 L Magnesium 1.6 25-OH Vitamin D Total 31.8 PTH Intact 108.6 H PTH Intact Intraop 76.3 Laboratory Tests 09/05/21 07/25/22 08/30/23 14:50 09:00 14:16 Est GFR (Cystatin C) Hgb A1c (Clinic) > 14.0 H 11.5 H 9.2 H 02/13/24 02/20/24 Unknown 10:45 Est GFR (Cystatin C) 56 (L) Hgb A1c (Clinic) 8.5 H Laboratory Tests 02/13/24 13:40 Creatinine 0.79 Estimated GFR > 60 Laboratory Tests 01/03/23 10/12/23 10/31/23 05:25 09:01 16:11 Creatinine Estimated GFR Glucose (Clinic) Calcium Ionized Calcium Phosphorus Magnesium Albumin Triglycerides 159 H Cholesterol 142 LDL Cholesterol, Calc 73 HDL Cholesterol 38 L 25-OH Vitamin D Total PTH Intact Ur 24 Hour Volume 2750 Urine Creatinine Ur Creatinine mg/dL 36.59 Ur Creatinine 24 Hour 1.07 Urine Microalbumin 94.0 Microalb/Creat Ratio 90.3 H Ur Sodium 24 Hour 236.5 H Ur Calcium 24 Hr 432 H Calcium/Creat 24 Hr 403 H 11/28/23 02/13/24 03/13/24 08:33 13:31 11:32 Creatinine Estimated GFR Glucose (Clinic) Calcium Ionized Calcium Phosphorus Magnesium Albumin Triglycerides 151 H Cholesterol 149 LDL Cholesterol, Calc 80 HDL Cholesterol 39 L 25-OH Vitamin D Total PTH Intact Ur 24 Hour Volume Urine Creatinine 18.87 Ur Creatinine mg/dL Ur Creatinine 24 Hour Urine Microalbumin 38.0 29.0 Microalb/Creat Ratio 243.1 H 153.6 H Ur Sodium 24 Hour Ur Calcium 24 Hr Calcium/Creat 24 Hr 03/13/24 04/21/24 04/28/24 11:37 10:47 10:02 Creatinine 0.84 Estimated GFR > 60 Glucose (Clinic) 106 Calcium 10.3 H 11.0 H D Ionized Calcium 5.8 H 6.0 H Phosphorus 2.5 L 3.1 Magnesium 1.6 1.8 Albumin 4.3 Triglycerides Cholesterol LDL Cholesterol, Calc HDL Cholesterol 25-OH Vitamin D Total 24.8 L PTH Intact 81.1 H 126.7 H Ur 24 Hour Volume Urine Creatinine Ur Creatinine mg/dL Ur Creatinine 24 Hour Urine Microalbumin Microalb/Creat Ratio Ur Sodium 24 Hour Ur Calcium 24 Hr Calcium/Creat 24 Hr EXAMINATION: Dual-Energy X-ray Absorptiometry - Bone Density Study 04/21/24 HISTORY: Estrogen deficiency TECHNIQUE: imedo Dual energy absorptiometry (DEXA) of the lumbar spine, total left hip, and femoral neck was performed. COMPARISON: Comparison is made with the prior examination dated 10/19/2008. FINDINGS: The bone mineral density of the lumbar spine is 1.214 with a T-score of 0.3, and a Z-score of 0.9. This represents a BMD change of 8.9% compared to the prior exam. This is statistically significant. The bone mineral density of the left total hip is 1.022 with a T-score of 0.1, and a Z-score of 0.7. This represents BMD change of -12.8% compared to the prior exam. This is statistically significant. The bone mineral density of the left femoral neck is 0.899 with a T-score of -1.0, and a Z-score of -0.1. This represents BMD change of -9.4% compared to the prior exam. The bone mineral density of the distal radius is 0.816 with a T score of -0.7 and a Z score of 0.9. FRACTURE RISK: The FRAX index suggests a ten year probability of major osteoporotic fracture of 7.7%, and of hip fracture 0.6%. MM/XR DEXA appendicular skeleton IMPRESSION: Based on bone mineral density, and according to World Health Organization (WHO) criteria, the diagnosis is consistent with normal bone mineral density. [facility] Medical History (Updated 04/28/24 @ 11:16 by Ngoc Conklin MD) Hyperparathyroidism Hypercalcemia Hypertension Obesity Type 2 diabetes mellitus with obesity Diabetes mellitus Diabetes Hyperlipidemia Hypertension Surgical History History of cholecystectomy History of tonsillectomy Family History Mother No problems noted. Father No problems noted. 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 Cognitive needs: No Hearing needs: No Vision needs: Yes (glasses) Physical Exam Vital Signs: Last Vital Signs Pulse 48 L 04/28/24 09:55 BP 134/72 04/28/24 09:55 BMI result Body Mass Index 36.9 Results Reviewed Results Reviewed: Laboratory Last Values Glucose (Clinic) 106 mg/dL (60-115) 04/28/24 10:02 Assessment & Plan Assessment & Plan (1) Type 2 diabetes mellitus with obesity: Code(s): E11.69 - Type 2 diabetes mellitus with other specified complication; E66.9 - Obesity, unspecified Category: Medical Plan: 69-year-old with type 2 diabetes mellitus with long-term insulin use with complication of microalbuminuria, retinopathy with most recent A1c of 8.5% in Mar 01 currently on basal bolus insulin metformin and started on Mounjaro 2.5 mg weekly in March 2024 and 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 CGM data reviewed shows much improved control and she is in target range 93% of the time. She does have a hyperglycemic spike after lunch, however she is within target most of the time. At this point goal would be to down titrate her Humalog by increasing other medications. Plan: Continue Farxiga 5 mg daily Continue Metformin 1000 mg twice daily Increase Mounjaro to 5 mg weekly after you have completed 8 doses of the 2.5 mg weekly Continue Lantus 30 units daily , if you start noticing any concrete panel installer low blood sugars meaning in the 70s or 80s you can reduce this to 28 units daily Decrease Humalog to 8 units daily, to target 2 hours post meal sugar to <140 mg/dl , if you start having any hypoglycemic episodes let us know but you can also scale back by 2 units more on the Humalog Do fasting blood and urine test a week prior to your next appointment in 3 months (2) Hyperlipidemia: Code(s): E78.5 - Hyperlipidemia, unspecified Category: Medical Qualifiers: Hyperlipidemia type: mixed hyperlipidemia Qualified Code(s): E78.2 - Mixed hyperlipidemia Plan: Has HLD, on statin. Last LDL 11/28/23 80 Continue simvastatin 20 mg Repeat lipid panel ordered prior to next appointment in 3 months (3) Hypertension: Code(s): I10 - Essential (primary) hypertension Category: Medical Qualifiers: Hypertension type: primary hypertension Qualified Code(s): I10 - Essential (primary) hypertension Plan: Blood pressure within goal, continue lisinopril 10 mg daily (4) Hypercalcemia: Code(s): E83.52 - Hypercalcemia Category: Medical Plan: During chart review also noted that she has had elevated calcium levels at least since 2021. Intermittently elevated and then resolved. blood work from October and February 2024 showed calcium elevated range. Back in December 2022 your calcium was has a high as 11.1 mg/dL phosphorus level also noted to be low in February 2024 at 2.5. Her kidney function with EGFR has been greater than 60. Vitamin-D level at 31.8 from February 2024, she is not on any vitamin-D supplements. No history of kidney stones, remote history of wrist fracture , DEXA scan 04/21/2024 showed normal bone density of the lumbar spine, with T-score of 0.3, normal bone density of the left total hip a T-score of 0.1, borderline osteopenic left femoral neck with T-score of -1, normal bone density of the distal radius with T-score of-0.7. Overall this is consistent with normal bone density. Labs from 03/13/2024 showed normal kidney function, total calcium 10.3, albumin of 4.3, ionized calcium 5.8, phosphorus low at 2.5, PTH of 81.1, vitamin-D of 24.8 Repeat labs 04/21/2024 showed calcium elevated to 11, with albumin of 4.3, corrected calcium would be 10.7, ionized calcium of 6, phosphorus of 3.1, PTH of 126.7, Labs are consistent with most likely differential primary hyperparathyroidism though vitamin-D is also slightly on the lower side so we will replace vitamin-D and repeat labs to see if PTH levels improve. Unlikely to be [facility] given labs have been showing hypercalcemia since 2021 and not prior to that. Also somebody did testing in 2022 for 24 hour urine calcium which was noted to be elevated in the 400s, unclear what was done about this at that time. I will repeat her 24 hour urine testing. Given she does not have osteoporosis, kidney function is normal, she is greater than age 50, no history of kidney stones, she does not meet surgical criteria if she were to have primary hyperparathyroidism unless she has shows elevated levels of 24 hour urine calcium. We will obtain this. Plan: -start vitamin-D 1000 units daily -incorporate 1000 mg of calcium in diet by taking 2-3 servings of calcium rich foods daily -after 2.5 months of doing this prior to your next appointment in 3 months repeat blood work and 24 hour urine test with 24 hour urine calcium levels (5) Obesity: Code(s): E66.9 - Obesity, unspecified Category: Medical Qualifiers: Obesity type: due to excess calories Obesity classification: adult class 2 (BMI 35 - 39.9) Serious obesity comorbidity presence: with serious comorbidity Body mass index: BMI 36.0-36.9 Qualified Code(s): E66.812 - Obesity, class 2; E66.01 - Morbid (severe) obesity due to excess calories; Z68.36 - Body mass index [BMI] 36.0-36.9, adult Plan: Current BMI 36.9 kg per m2 Weight 214 lb Increase Mounjaro to 5 mg weekly (6) Hyperparathyroidism: Code(s): E21.3 - Hyperparathyroidism, unspecified Category: Medical Plan: see above Plan I spent 45 minutes in reviewing the record, seeing the patient and documenting in the medical record. Orders: Orders 2 Albumin Level Today E11.69 - Type 2 diabetes mellitus with other specified complication, E21.3 - Hyperparathyroidism, unspecified, E66.9 - Obesity, unspecified, E78.2 - Mixed hyperlipidemia, E83.52 - Hypercalcemia, I10 - Essential (primary) hypertension Calcium, Ionized Today E11.69 - Type 2 diabetes mellitus with other specified complication, E21.3 - Hyperparathyroidism, unspecified, E66.9 - Obesity, unspecified, E78.2 - Mixed hyperlipidemia, E83.52 - Hypercalcemia, I10 - Essential (primary) hypertension Phosphorus Today E11.69 - Type 2 diabetes mellitus with other specified complication, E21.3 - Hyperparathyroidism, unspecified, E66.9 - Obesity, unspecified, E78.2 - Mixed hyperlipidemia, E83.52 - Hypercalcemia, I10 - Essential (primary) hypertension Vitamin B12 Today E11.69 - Type 2 diabetes mellitus with other specified complication, E21.3 - Hyperparathyroidism, unspecified, E66.9 - Obesity, unspecified, E78.2 - Mixed hyperlipidemia, E83.52 - Hypercalcemia, I10 - Essential (primary) hypertension Calcium, 24 Hr Ur Today E11.69 - Type 2 diabetes mellitus with other specified complication, E21.3 - Hyperparathyroidism, unspecified, E66.9 - Obesity, unspecified, E78.2 - Mixed hyperlipidemia, E83.52 - Hypercalcemia, I10 - Essential (primary) hypertension Creatinine, 24 Hr Group Today E11.69 - Type 2 diabetes mellitus with other specified complication, E21.3 - Hyperparathyroidism, unspecified, E66.9 - Obesity, unspecified, E78.2 - Mixed hyperlipidemia, E83.52 - Hypercalcemia, I10 - Essential (primary) hypertension Calcium Today E11.69 - Type 2 diabetes mellitus with other specified complication, E21.3 - Hyperparathyroidism, unspecified, E66.9 - Obesity, unspecified, E78.2 - Mixed hyperlipidemia, E83.52 - Hypercalcemia, I10 - Essential (primary) hypertension Parathyroid Hormone Intact Today E11.69 - Type 2 diabetes mellitus with other specified complication, E21.3 - Hyperparathyroidism, unspecified, E66.9 - Obesity, unspecified, E78.2 - Mixed hyperlipidemia, E83.52 - Hypercalcemia, I10 - Essential (primary) hypertension Vitamin D 25-OH Total Today E11.69 - Type 2 diabetes mellitus with other specified complication, E21.3 - Hyperparathyroidism, unspecified, E66.9 - Obesity, unspecified, E78.2 - Mixed hyperlipidemia, E83.52 - Hypercalcemia, I10 - Essential (primary) hypertension Hemoglobin A1c Today E11. - Type 2 diabetes mellitus with other specified complication, E21.3 - Hyperparathyroidism, unspecified, E66.9 - Obesity, unspecified, E78.2 - Mixed hyperlipidemia, E83.52 - Hypercalcemia, I10 - Essential (primary) hypertension Lipid Panel Today E11. - Type 2 diabetes mellitus with other specified complication, E21.3 - Hyperparathyroidism, unspecified, E66.9 - Obesity, unspecified, E78.2 - Mixed hyperlipidemia, E83.52 - Hypercalcemia, I10 - Essential (primary) hypertension Microalbumin, Random (w Creat) Today E11. - Type 2 diabetes mellitus with other specified complication, E21.3 - Hyperparathyroidism, unspecified, E66.9 - Obesity, unspecified, E78.2 - Mixed hyperlipidemia, E83.52 - Hypercalcemia, I10 - Essential (primary) hypertension Basic Metabolic Panel Today E11. - Type 2 diabetes mellitus with other specified complication, E21.3 - Hyperparathyroidism, unspecified, E66.9 - Obesity, unspecified, E78.2 - Mixed hyperlipidemia, E83.52 - Hypercalcemia, I10 - Essential (primary) hypertension Medications: New 2 cholecalciferol (vitamin D3) 25 mcg PO DAILY 3 months 90 caps 4RF tirzepatide (Mounjaro) 5 mg (0.5 mL) subcut QWEEK 6 mL 6RF Discontinued 2 tirzepatide (Mounjaro) Discontinued Reason: Duplicate 2.5 mg (0.5 mL) subcut QWEEK 6 mL 2RF Patient Instructions: Continue Farxiga 5 mg daily Continue Metformin 1000 mg twice daily Increase Mounjaro to 5 mg weekly after you have completed 8 doses of the 2.5 mg weekly Continue Lantus 30 units daily , if you start noticing any concrete panel installer low blood sugars meaning in the 70s or 80s you can reduce this to 28 units daily Decrease Humalog to 8 units daily, to target 2 hours post meal sugar to <140 mg/dl , if you start having any hypoglycemic episodes let us know but you can also scale back by 2 units more on the Humalog Do fasting blood and urine test a week prior to your next appointment in 3 months For your bones Start taking 1000 units of vitamin D daily Maintain 1000 mg of calcium in your diet , such as in milk, yogurt cheese, usually 3 servings per day makes the cut After doing about 3 months of this you will need repeat blood work and urine test You also need a 24 hour urine test at that time, please do blood work and spot urine on that day as well when you hand in the urine 24 hr urine collection instructions You have been asked to collect your urine for 24 hours to assess for calcium excretion. You must choose a 24 hour period of time when you will be home. The morning of the first day, DISCARD the FIRST morning void and then note the time. You will collect every single void from then on for 24 hours. For example, if you wake up at 6am and urinate, flush down that void. You will then collect every drop of urine all day and all night through 6am the following day. You will urinate one last time at 6am for the collection. The jug of urine must be kept in the refrigerator until you bring it to the lab. Follow up in 3 months to discuss results Coding Level of Care Code Est Pt Level 5 (96292) Diagnoses Type 2 diabetes mellitus with obesity E11.69; E66.9 Mixed hyperlipidemia E78.2 Hyperlipidemia type: mixed hyperlipidemia Primary hypertension I10 Hypertension type: primary hypertension Hypercalcemia E83.52 Class 2 severe obesity due to excess calories with serious comorbidity and body mass index (BMI) of 36.0 to 36.9 in adult E66.812; E66.01; Z68.36 Obesity type: due to excess calories Obesity classification: adult class 2 (BMI 35 - 39.9) Serious obesity comorbidity presence: with serious comorbidity Body mass index: BMI 36.0-36.9 Hyperparathyroidism E21.3 Time Spent (min) 45
[2024-04-28 09:55] VITALS: BP 134/72; PULSE 48; BMI 36.9
[2024-04-28 10:06] LABS: Glucose, Whole Blood 106 mg/dL (60-115)
== END 2024-04-28 11:00 | disposition home or self-care (01) ==
PROVIDERS: PCP Internal Medicine; Visit Provider Student in an Organized Health Care Education/Training Program
DX: E11.69 Type 2 diabetes mellitus with other specified complication (principal); E78.2 Mixed hyperlipidemia; I10 Essential (primary) hypertension; E66.812 Obesity, class 2; Z68.36 Body mass index [BMI] 36.0-36.9, adult; E83.52 Hypercalcemia; E21.3 Hyperparathyroidism, unspecified
CPT/HCPCS: 99215

== ENCOUNTER → 2024-04-28 09:44 | Outpatient (BNVA) | payer MEDICARE, MEDICAID, SELFPAY | PROVIDERS: PCP Internal Medicine; Visit Provider Student in an Organized Health Care Education/Training Program | DX: E83.52 Hypercalcemia (principal); E11.69 Type 2 diabetes mellitus with other specified complication; E78.2 Mixed hyperlipidemia; E21.3 Hyperparathyroidism, unspecified; E66.812 Obesity, class 2; Z68.36 Body mass index [BMI] 36.0-36.9, adult; Z79.4 Long term (current) use of insulin; Z79.84 Long term (current) use of oral hypoglycemic drugs; Z79.899 Other long term (current) drug therapy | CPT/HCPCS: 82947; 99212 ==

== ENCOUNTER 2024-05-25 09:19 | Outpatient (AMB) | payer MEDICARE, MEDICAID, SELFPAY ==
--- OUTSIDE RECORDS SUMMARY | 2024-05-25 09:22 | XMS_ITS | Patient Health Record ---
Author Organization [facility] Address [address] [place] [address] Care Team Providers Care Addressograph Operator Name Role Phone Maty PERSAUD, Kike Primary Care Provider Unavailab Bry Fletcher Unavailable [phone] REASON FOR REFERRAL No Information MEDICATIONS Medication [...] Notes Problem Nausea (R11.0) Active confirmed Nausea (776664019) Problem Vomiting (R11.10) Active confirmed Vomiting (909522808) Problem Diarrhea of presumed infectious origin (R19.7) Active confirmed Diarrhea of presumed infectious origin (54106721) Problem History of adenomatous polyp of colon (Z86.010) Active confirmed History of adenomatous polyp of colon (122267431) PLAN OF TREATMENT No Information Insurance Providers Payer Name Payer Address Payer Phone Subscriber Number Group Number Insured Name Patient Relationship to Insured Coverage Start Date Coverage End Date [facility] [address] [place] [phone] [id number] LUIS LANG Self - patient is the insured MEDICAL (GENERAL) HISTORY Medical History History ICD Code NIDDM Hypertension Denies DE,CVA,Lung disease,renal disease Hyperlipidemia COVID in 01/2019--not hospitalized [...]
--- OUTSIDE RECORDS SUMMARY | 2024-05-25 09:22 | XMS_ITS | Encounter Summary ---
Author Organization [facility] Address [address] [facility] [address] [place] [address] Phone Care Team Providers Care Gauge Operator Name Role Phone Navid Tejeda MD Primary Care Provider [phone] Encounter Details Date Type Department Care Team (Late Contact Info) Description 05/08/2024 Orders Only [facility] [address] [place] [address] Kip Kwok MD [address] [address] Type 2 diabetes mellitus without complication (HCC) Social History Tobacco Use Types Packs/Day Years Used Date Smoking Tobacco: Former Cigarettes Q uit: 12/2016 Alcohol Use Standard Drinks/Week Comments Yes 0 (1 standard drink = 0.6 oz pur e alcohol) Comments Unknown Sex and Gender Information Value Date Recorded Sex Assigned at Not on file Legal Sex Female 9:09 AM EDT Gender Identity Not on file Sexual Orientation Not on file documented as of this encounter Plan of Treatment Upcoming Encounters Date Type Department Care Team (Late Contact Info) Description 09/24/2024 1:30 PM EDT Office Visit [facility] [address] [place] [address] Kip Kwok MD [address] [address] documented as of this encounter Visit Diagnoses Diagnosis Type 2 diabetes mellitus without complication (HCC) documented in this encounter Care Teams Gauge Operator Relationship Specialty Start Date End Date Navid Tejeda MD [address] [place], [place] PCP - General Internal Medicine 09/18/22 documented as of this encounter
--- OUTSIDE RECORDS SUMMARY | 2024-05-25 09:22 | XMS_ITS | Clinical Summary ---
Author Organization [facility] Address [address] [address] Phone Care Team Providers Care Mother Baby Rn Name Role Phone Navid Tejeda MD Primary Care Provider [phone] Allergies Active Allergy Reactions Criticality Noted Date Comments Oxycodone-Acetaminophen Anxiety High 03/26/2024 Medications simvastatin (ZOCOR) 20 MG tablet Take 20 mg by mouth 1 (one) time each day in the evening 11/30/19 23 Active metFORMIN (GLUCOPHAGE) 1000 MG tablet Take 1,000 mg by mouth 10/16/19 23 Active Magnesium 250 MG tablet Take 2 tablets by mouth in the morning and 2 tablets at noon and 2 tablets in the evening. 12/08/19 23 Active lisinopril 10 MG tablet TAKE 2 TABLETS BY MOUTH EVERY MORNING AND TAKE 1 TABLET EVERY EVENING 11/26/19 23 Active Lantus SoloStar 100 UNIT/ML injection INJECT 20 UNIT (0.2 ML) SUBCUTANEOUSLY DAILY 11/01/19 23 Active meclizine (ANTIVERT) 12.5 MG tablet TAKE 1 TABLET BY MOUTH EVERY 8 HOURS NEEDED FOR DIZZYNESS Oral for 6 Active Insulin Lispro, 1 Unit Dial, 100 UNIT/ML solution pen-injector 05/20/19 24 Active famotidine (PEPCID) 40 MG tablet TAKE 1 TABLET BY MOUTH 1 TIME EACH DAY. 90 tablet 3 01/23/20 24 Active Dapagliflozin Propanediol (Farxiga) 5 MG tablet Take 5 mg by mouth 1 (one) time each day in the morning 30 tablet 11 03/26/20 24 025 Active Tirzepatide (Mounjaro) 2.5 MG/0.5ML solution auto-injector Inject 2.5 mg under the skin every 7 (seven) days Active Active Problems Problem Noted Date Diagnosed Date Diabetes mellitus 03/28/2023 Hyperlipidemia 03/28/2023 Essential (primary) hypertension 03/28/2023 Obesity 03/28/2023 Vomiting 12/31/2022 12/31/2022 Nausea 12/31/2022 12/31/2022 History of adenomatous polyp of colon 12/31/2022 12/31/2022 Diarrhea of presumed infectious origin 12/31/2022 Encounters Date Type Department Care Team Description 05/08/2024 [facility] [address] [place] [address] Kip Kwok MD Type 2 diabetes mellitus without complication (HCC) 04/10/2024 Orders Only [facility] [address] [place] [address] Kip Kwok MD Type 2 diabetes mellitus without complication (HCC) 03/26/2024 3:00 PM EST Office Visit [facility] [address] [place] [address] Kip Kwok MD Hypomagnesemia (Primary Dx) 03/13/2024 Orders Only [facility] [address] [place] [address] Kip Kwok MD Type 2 diabetes mellitus without complication (HCC) from Last 3 Months Family History Relation Status Comments Father Mother Social History Tobacco Use Types Packs/Day Years Used Date Smoking Tobacco: Former Cigarettes Q uit: 12/2016 Tobacco Cessation:Counseling Given: Not Answered Alcohol Use Standard Drinks/Week Comments Yes 0 (1 standard drink = 0.6 oz pur e alcohol) Comments Unknown Sex and Gender Information Value Date Recorded Sex Assigned at Not on file Legal Sex Female 9:09 AM EDT Gender Identity Not on file Sexual Orientation Not on file Last Filed Vital Signs Vital Sign Reading Time Taken Comments Blood Pressure 140/90 03/26/2024 2:54 PM EST Pulse 104 03/26/2024 2:54 PM EST Temperature - - Respiratory Rate - - Oxygen Saturation 98% 03/26/2024 2:54 PM EST Inhaled Oxygen Concentration - - Weight 98.3 kg (216 lb 12.8 oz) 03/26/2024 2:54 PM EST Height - - Body Mass Index - - Plan of Treatment Upcoming Encounters Date Type Department Care Team (Late st Contact Info) Description 09/24/2024 1:30 PM EDT Office [facility] [address] [place] [address] Kip Kwok MD [address] [facility] [address] [place] [id number] Health Maintenance Due Date Last Done Comments Breast Cancer Screening 1955 Pneumococcal Vaccine: 65+ Years (1 of 2 - PCV) 1963 Colorectal Cancer Screening: Annual FOBT 2006 Colorectal Cancer Screening: Colonoscopy 2006 Colorectal Cancer Screening: Sigmoidoscopy 2006 Diabetes: Ophthalmology Exam 03/28/2023 Diabetes: Pedal Pulse Checked 03/28/2023 Diabetes: Sensory Foot Exam 03/28/2023 Diabetes: Visual Foot Exam 03/28/2023 Influenza Vaccine (#1) 2023 Diabetes: Hemoglobin A1C 02/28/2024 024, 12/01/2022 Hepatitis B Vaccine Aged Out No longe r eligible based on patient's age to complete this topic Procedures Procedure Name Priority Date/Time Associated Diagnosis Comments EXT RESULT ENTRY Routine 11/28/2023 from Last 3 Months or Most Recently Relevant to Health Maintenance Results * (ABNORMAL) EXT RESULT ENTRY (11/28/2023) (TSH) Thyroid Stimulating Hormone 0.96 Hemoglobin A1C 8.5(A) 4.0 - 6.0 Triglycerides 151 Cholesterol, Total 149 HDL 39 mg/dL LDL-Calculated 80 11/28/2023 us Historical Provider LAB BLOOD ORDERABLES Smitha l Result from Last 3 Months or Most Recently Relevant to Health Maintenance Insurance [place] Care Teams Mother Baby Rn Relationship Specialty Start Date End Date Navid Tejeda MD [address] [place] PCP - General Internal Medicine 09/18/22
--- OUTSIDE RECORDS SUMMARY | 2024-05-25 09:22 | XMS_ITS ---
Author Organization [facility] Address [address] [place] [address] Care Team Providers Care Van Driver Name Role Phone Navid Tejeda MD Primary Care Provider Seema Thomas [phone] REASON FOR VISIT AD COMPOSITOR Encounters Encounter Location Date Provider Diagnosis [address] [address] 06/19/2023 Seema Escobedo Plan Of Treatment Next Appt Details Provider Name:Seema love, 09/02/2024 01:00:00 PM, [address] [place], [address], Progress Notes * Esha TOLEDOeDOB: [birth year] (68 yo F)Acc No.[id number]:06/19/2023 Patient:?Samina Toledo :1955???Age:68 Y???Sex:Female Address:[address] [place] [address], Apr , [place] [address] * true * Date:? Generated for Salvatorei yenny/Hellen/eTransmitting on:?05/25/2024 09:22 AM EST
--- OUTSIDE RECORDS SUMMARY | 2024-05-25 09:22 | XMS_ITS | Patient Health Record ---
[facility] Address [address] [place] [address] Care Team Providers Care Head Loader Name Role Phone Ileana PERSAUD, Navid Primary Care Provider Seema Thomas Unavailable [phone] Allergies Allergen (clinical drug ingredient) Drug/Non Drug Allergy documented on EMR Reaction Allergy Type Onset Date Status codeine Codeine dizziness Drug Allergy Active Reason For Referral No Information Medications Medication [...] Problem Acquired hammer toe of right foot (39974607238435 05) Other hammer toe(s) (acquired), right foot (M20.41) Active confirmed Problem Acquired hammer toe of left foot (77409221288123 03) Other hammer toe(s) (acquired), left foot (M20.42) Active confirmed Problem [id number] Type 2 diabetes mellitus without complication, without long-term current use of insulin (E11.9) Active confirmed Vital Signs Blood pressure diastolic 75 mm Hg 09/04/2023 Height 5ft3in in 09/04/2023 Blood pressure systolic 128 mm Hg 09/04/2023 Weight 206 lbs 09/04/2023 BMI 36.49 kg/m2 09/04/2023 Encounters Encounter Location Date Provider Diagnosis [facility] [address] 09/04/2023 Seema Escobedo Other hammer toe(s) (acquired), right foot M20.41 ; Other hammer toe(s) (acquired), left foot M20.42 and Type 2 diabetes mellitus without complication, without long-term current use of insulin E11.[address] [facility] [address] 06/19/2023 Seema Escobedo Assessments Encounter Date Diagnosis [...] Details Provider Name:Seema love, 09/02/2024 01:00:00 PM, [address] [place] [address], [phone], Insurance Providers Payer Name Payer Address Payer Phone Subscriber Number Group Number Insured Name Patient Relationship to Insured Coverage Start Date Coverage End Date Medicare National [employer] [address] [place] [address] [id number] Tatiana Umanzor Self - patient is the insured Medical (General) History Medical History History ICD Code Broken bones Cholesterol covid-19 Diabetic Gall bladder problems High blood pressure Psoriasis/eczema Reflux ( GERD) sinusitis Measles Mumps Chicken pox Surgical History Surgery Date(Month/Year) tonsillectomy 1974 Gall bladder removal 1997 Hospitalization History Reason Date(Month/Year) [facility]- UTI 05/06/23
--- NOTE | 2024-05-25 09:25 | A.OFFPC_ITS ---
Vital Signs 05/25/24 09:27 Height 5 ft 4 in Weight 214 lb 6 oz BMI 36.8 BP 110/72 Blood Pressure Location Lt brachial Position Sitting Pulse 101 H Pulse Source Pulse Oximeter Temp 97.3 F Temp Source Temporal Artery Scan Pulse Oximetry (%) 98 Oxygen Delivery Method Room Air Intake Visit Reasons: 3 month f/u Intake Note: Patient is here to follow up on DM, HTN. Licensing Registration Examiner Required: No Communications Media Professor: Not Required per policy Accompanied by: Self / Same As Patient Allergies acetaminophen [From PERCOCET] Allergy (Intermediate, Verified 05/25/24 09:26) UNKNOWN oxycodone [From PERCOCET] Allergy (Intermediate, Verified 05/25/24 09:26) UNKNOWN Medication List - Last Reconciled 05/26/24 by Navid Tejeda MD albuterol sulfate 90 mcg/actuation 1 inh inhalation QID PRN blood sugar diagnostic (FreeStyle Lite Strips) As directed blood-glucose meter (FreeStyle Lite Meter kit) As directed cholecalciferol (vitamin D3) 25 mcg PO DAILY 3 months dapagliflozin propanediol (Farxiga) 5 mg PO DAILY flash glucose scanning reader (FreeStyle Emmanuel 2 [place]) As directed flash glucose sensor (FreeStyle Emmanuel 2 Sensor kit) DIRECTED CHANGE EVERY 14 DAYS insulin glargine U-300 conc (Toujeo Max U-300 SoloStar) 30 units (0.1 mL) subcut BEDTIME 90 days insulin lispro (Humalog KwikPen (U-100) Insulin) 10 units subcut TID lisinopril 10 mg PO BEDTIME magnesium oxide 500 mg PO BID meclizine 12.5 mg PO Q8H PRN metformin 1,000 mg PO BID pen needle, diabetic (Comfort EZ Pen [place]) As directed injects once a day pen needle, diabetic (BD Tessie 2nd Gen Pen Needle) use once a day As directed simvastatin 20 mg PO BEDTIME tirzepatide (Mounjaro) 5 mg (0.5 mL) subcut QWEEK Tobacco use date assessed: 05/25/24 Fall risk assessment: 1 Fall in past year Last assessed Fall Risk: 05/25/24 Dental Screening Dental Screen Date: 05/25/24 Did you have a dental visit in the last 12 months?: No Did you have a dental problem in the last 6 months where you did not have access to dental care?: No Was dental information given to patient?: No HPI 3 month f/u HPI Details DM; sees sndo; compliant with regimen [facility] Medical History (Updated 04/28/24 @ 11:16 by Ngoc Conklin MD) Hyperparathyroidism Hypercalcemia Hypertension Obesity Type 2 diabetes mellitus with obesity Diabetes mellitus Diabetes Hyperlipidemia Hypertension Surgical History History of cholecystectomy History of tonsillectomy Family History Mother No problems noted. Father No problems noted. 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 1. Little interest or pleasure in doing things: not at all 2. Feeling down, depressed, or hopeless: not at all 3. Trouble falling or staying asleep, or sleeping too much: not at all 4. Feeling tired or having little energy: not at all 5. Poor appetite or overeating: not at all 6. Feeling bad about yourself - or that you are a failure or have let yourself or your family down: not at all 7. Trouble concentrating on things, such as reading the newspaper or watching television: not at all 8. Moving or speaking so slowly that other people could have noticed. Or the opposite - being so fidgety or restless that you have been moving around a lot more than usual: not at all 9. Thoughts that you would be better off or of hurting yourself in some way: not at all Total score: 0 Depression Screening Interpretation: Negative Depression Screening Done: Yes Source: Developed by Drs. Bry Fagan, Salina Sinclair, Иван Diaz and colleagues, with an educational renea from [employer]. Thrive Questionnaire Date Thrive assessed: 05/25/24 I am a: Patient What is your living situation today?: I have a steady place to live Within the past 12 months, did the food you bought not last and you didn't have the money to get more?: Never true Within the past 12 months, did you worry whether your food would run out before you got money to buy more?: Never true Do you have trouble paying for medicines?: No Do you have trouble getting transportation to medical appointments?: No Do you have trouble paying your heating and electricity bill?: No Do you have trouble taking care of your child, family member or friend?: No Do you have trouble with day-to-day activities such as bathing, preparing meals, shopping, managing finances, etc.?: No Are you currently unemployed and looking for a job?: No Are you interested in more education?: No Please select the resources that you would like help with: None Currently or been in a relationship where the following occur: No concerns reported THRIVE Score: 0 AUDIT C Alcohol Use Questionnaire (AUDIT-C) 2. How many drinks containing alcohol do you have on a typical day when you are drinking?: 1 or 2 3. How often do you have six or more drinks on one occasion?: Never Total Score: 0 LEIGH-7 AMB Questionnaire LEIGH-7 Date LEIGH - 7 assessed: 05/25/24 Feeling nervous, anxious, or on edge: 0 = Not at all Not being able to stop or control worryin = Not at all Worrying too much about different things: 0 = Not at all Trouble relaxin = Not at all Being so restless that it is hard to sit still: 0 = Not at all Becoming easily annoyed or irritable: 0 = Not at all Feeling afraid as if something awful might happen: 0 = Not at all Total LEIGH-7 score (0-4 normal; 5-9 mild; 10-14 moderate; 15-21 severe): 0 Source: Developed by Salina Austin Kurt Kroenke and colleagues, with an educational renea from [employer]. Review of Systems Const Denies chills, Denies headache(s) and Denies weight loss ENT Denies headache(s) Card Denies chest pain, Denies syncope, Denies irregular heart rhythm and Denies dyspnea Resp Denies chest congestion, Denies cough and Denies dyspnea GI Denies abdominal pain, Denies change in stool character, Denies nausea and Denies vomiting Musc Denies deformity and Denies joint swelling Neuro Denies syncope and Denies headache(s) Physical exam (Primary Care) Vital Signs: Last Vital Signs Temp 97.3 F 05/25/24 09:27 Pulse 101 H 05/25/24 09:27 BP 110/72 05/25/24 09:27 Pulse Ox 98 05/25/24 09:27 Oxygen Delivery Method Room Air 05/25/24 09:27 BMI result Body Mass Index 36.8 Tobacco/Smoking Status: Tobacco use Status Tobacco use date assessed 05/25/24 05/25/24 09:31 Patient Tobacco Use Status Former Tobacco user 05/25/24 09:31 Tobacco use type Cigarette 05/25/24 09:31 e-Cigarette/Vaping Use Never Used 05/25/24 09:31 PHQ-9: PHQ-9 Score PHQ-9: Total score 0 05/25/24 09:35 Depression Screening Interpretation: Negative Thrive Assessment: Date of Thrive Assessment Date Thrive assessed 05/25/24 05/25/24 09:31 Currently or been in a relationship where the following occur: No concerns reported Const General: cooperative, comfortable, no acute distress and alert Neck Neck: Yes no lymphadenopathy Thyroid: Thyroid normal Resp Effort & Inspection: normal respiratory effort Auscultation: clear to auscultation bilaterally Percussion: percussion normal Cardio Jugular venous distension: no JVD Palpation: normal PMI Rate: regular rate Rhythm: regular rhythm Heart sounds: S1 normal heart sound present and S2 normal heart sound present GI Inspection: Yes normal to inspection Palpation (GI): No hepatosplenomegaly present Skin General skin exam: no rashes or lesions noted Extrem General: Yes no clubbing, cyanosis or edema Results AMB Hemoglobin A1c AMB Hemoglobin A1c 7.6 % Last Edit by WILMA Petit on 05/25/24 09:42 Results Reviewed Results Reviewed: Laboratory Last Values Hgb A1c (Clinic) 7.6 % (4.0-6.0) H 05/25/24 09:24 Coding Level of Care Code Est Pt Level 3 (82633) Diagnoses Type 2 diabetes mellitus with obesity E11.69; E66.9 Assessment & Plan Assessment & Plan (1) Type 2 diabetes mellitus with obesity: Code(s): E11.69 - Type 2 diabetes mellitus with other specified complication; E66.9 - Obesity, unspecified Category: Medical Plan: stable; as per endo Orders: Orders AMB Hemoglobin A1c 05/25/24 E11.9 - Type 2 diabetes mellitus without complications
[2024-05-25 09:27] VITALS: BP 110/72; PULSE 101; TEMP 36.3; O2SAT 98; BMI 36.8
== END 2024-05-25 09:46 | disposition home or self-care (01) ==
PROVIDERS: PCP Internal Medicine; Visit Provider Internal Medicine
DX: E11.9 Type 2 diabetes mellitus without complications (principal)

== ENCOUNTER → 2024-05-25 09:19 | Outpatient (BNVA) | payer MEDICARE, MEDICAID, SELFPAY | PROVIDERS: PCP Internal Medicine; Visit Provider Internal Medicine | DX: E11.69 Type 2 diabetes mellitus with other specified complication (principal); E66.9 Obesity, unspecified | CPT/HCPCS: 83036; 99212 ==

== ENCOUNTER 2024-07-28 09:04 | Outpatient (REF) | payer MEDICARE, MEDICAID, SELFPAY ==
--- OUTSIDE RECORDS SUMMARY | 2024-07-28 09:40 | XMS_ITS | Clinical Summary ---
Author Organization [facility] Address [address] [address] Phone Care Team Providers Care Police Communications Dispatcher Name Role Phone Navid Tejeda MD Primary Care Provider [phone] Allergies Active Allergy Reactions Criticality Noted Date [...] 12/31/2022 12/31/2022 Diarrhea of presumed infectious origin 3 12/31/2022 Encounters Date Type Department Care Team Description 07/03/2024 Orders Only [facility] [address] [place] [address] Kip Kwok MD Type 2 diabetes mellitus without complication (HCC) 06/05/2024 Orders Only [facility] [address] [place] [address] Kip Kwok MD Type 2 diabetes mellitus without complication (HCC) 05/08/2024 Orders Only [facility] [address] [place] [address] Kip Kowk MD Type 2 diabetes mellitus without complication [...] Visit [facility] [address] [facility] [place] [address] Kip Kwok MD [address] [address] Health Maintenance Due Date Last Done Comments Breast Cancer Screening 1955 Pneumococcal Vaccine: 50+ Years (1 of 2 - PCV) 01/05/1976 Colorectal Cancer Screening: Annual FOBT 2006 Colorectal Cancer Screening: Colonoscopy 2006 Colorectal Cancer Screening: Sigmoidoscopy 2006 Diabetes: Ophthalmology Exam 03/28/2023 Diabetes: Pedal Pulse Checked 03/28/2023 Diabetes: Sensory Foot Exam 03/28/2023 Diabetes: Visual Foot Exam 03/28/2023 Diabetes: Hemoglobin A1C 02/28/2024 024, 12/01/2022 Influenza Vaccine (Season Ended) 2024 Hepatitis B Vaccine Aged Out No longe [...] Most Recently Relevant to Health Maintenance Insurance [place] Care Teams Police Communications Dispatcher Relationship Specialty Start Date End Date Navid Tejeda MD [address] [place] [address] PCP - General Internal Medicine 09/18/22
[2024-07-28 10:14] LABS: Estimated Average Glucose 154 mg/dL; Hemoglobin A1C 185.6113 umol/L; Total Hemoglobin (HGBA1C) 3503.7066 umol/L
[2024-07-28 10:24] LABS: Albumin Level 4.2 g/dL (3.5-5.0); Anion Gap 15 (12-20); Blood Urea Nitrogen 18 mg/dL (9-16); Calcium 10.7 mg/dL (8.4-10.2); Carbon Dioxide 22 mmol/L (22-29); Chloride 104 mmol/L (96-108); Cholesterol 129 mg/dL (<200); Estimated Glomerular Filt Rate > 60; Glucose Random 134 mg/dL (60-115); HDL Cholesterol 40 mg/dL (>40); LDL Cholesterol Calculated 64 mg/dL (<100); Phosphorus 3.1 mg/dL (2.7-4.5); Potassium 4.5 mmol/L (3.3-5.1); Sodium 136 mmol/L (135-145); Triglycerides 128 mg/dL (<150)
[2024-07-28 10:25] LABS: Parathyroid Hormone Intact 99.6 pg/mL (8.7-77.1)
[2024-07-28 10:27] LABS: Total Volume 24 Hour Urine 2700 mL
[2024-07-28 10:39] LABS: Vitamin D 25-OH Total 41.3 ng/mL (>30)
[2024-07-28 10:46] LABS: Vitamin B12 291 pg/mL (200-900)
[2024-07-28 10:49] LABS: Creatinine, 24Hr Urine 1.2 G/Day (1.0-2.0)
[2024-07-28 10:51] LABS: Creatinine Urine 31.34 mg/dL; Microalbum/Creatinine Ratio Ur 127.6 ug/mg cr (<30)
[2024-07-29 15:59] LABS: Calcium, Ionized 5.9 mg/dL (4.7-5.5)
[2024-07-31 19:40] LABS: Calcium, 24 Hr Urine 373 mg/24 h; Calcium/Creatinine Ratio 300 mg/g creat (30-275); Creatinine 24Hr Urine 1.24 g/24 h (0.50-2.15)
== END 2024-07-28 09:05 | disposition home or self-care (01) ==
LOC: HO.LAB 09:04
PROVIDERS: PCP Internal Medicine; Visit Provider Student in an Organized Health Care Education/Training Program
DX: E83.52 Hypercalcemia (principal); E78.2 Mixed hyperlipidemia; I10 Essential (primary) hypertension; E11.69 Type 2 diabetes mellitus with other specified complication; E66.9 Obesity, unspecified
CPT/HCPCS: 36415; 80048; 80061; 82040; 82043; 82306; 82330; 82340; 82570; 82607; 83036; 83970; 84100

== ENCOUNTER 2024-08-06 11:01 | Outpatient (AMB) | payer MEDICARE, MEDICAID, SELFPAY ==
[2024-08-06 11:06] VITALS: BP 126/70; PULSE 89; O2SAT 96; BMI 36.1
--- NOTE | 2024-08-06 11:06 | A.OFFVIS_ITS ---
Vital Signs 3 08/06/24 11:06 Height 5 ft 4 in Weight 210 lb 5.136 oz BMI 36.1 BP 126/70 Blood Pressure Location Rt brachial Position Sitting Pulse 89 Pulse Source Pulse Oximeter Pulse Oximetry (%) 96 Oxygen Delivery Method Room Air Intake Visit Reasons: T2DM Intake Note: Patient present today for Type 2 Diabetes Mellitus Last Diabetic eye exam: 09/2023 Last Podiatry Visit: 09/2023 Random Glucose: 112 mg/dl HgA1C: 7.6% 05/25/24 Analytical Lead Required: No Accompanied by: Self / Same As Patient Allergies acetaminophen [From PERCOCET] Allergy (Intermediate, Verified 08/06/24 11:14) UNKNOWN oxycodone [From PERCOCET] Allergy (Intermediate, Verified 08/06/24 11:14) UNKNOWN Medication List - Last Reconciled 08/06/24 by Ngoc Conklin MD albuterol sulfate 90 mcg/actuation 1 inh inhalation QID PRN blood sugar diagnostic (FreeStyle Lite Strips) As directed blood-glucose meter (FreeStyle Lite Meter kit) As directed cholecalciferol (vitamin D3) 25 mcg PO DAILY 3 months dapagliflozin propanediol (Farxiga) 5 mg PO DAILY flash glucose scanning reader (FreeStyle Emmanuel 2 [place]) As directed flash glucose sensor (FreeStyle Emmanuel 2 Sensor kit) DIRECTED CHANGE EVERY 14 DAYS insulin glargine (Lantus Solostar U-100 Insulin) 30 units (0.3 mL) subcut QPM insulin lispro (Humalog KwikPen (U-100) Insulin) 10 units subcut TID lisinopril 10 mg PO BEDTIME magnesium oxide 500 mg PO BID meclizine 12.5 mg PO Q8H PRN metformin 1,000 mg PO BID pen needle, diabetic (Comfort EZ Pen [place]) As directed injects once a day pen needle, diabetic (BD Tessie 2nd Gen Pen Needle) use once a day As directed simvastatin 20 mg PO BEDTIME tirzepatide (Mounjaro) 5 mg (0.5 mL) subcut QWEEK HPI Comments Details: 69 YO F who is seen in f/u for T2DM and hypercalcemia. Type 2 diabetes mellitus Prior HPI Initially diagnosed with T2DM approx 2017 Was initially started on treatment with metformin. She failed Bydureon Prior meds Bydureon discontinued when Mounjaro started Mar 2024 Current regimen meformin 1000 mg BID Lantus 30 units at bedtime Humalog 6 units TID Mounjaro 5 mg weekly (started Mar 2024, increased to 5mg weekly end of Apr 2023) Farxiga 5 mg daily started Apr 2024 Freestyle Emmanuel 2 report downloaded from July 24 to August 06, 2024 Time CGM active 90% Average glucose 138 mg/dL G PA 6.6% Glucose variability 21.4% Within target range 91% High 9% Very high 0% Low 0% Very low 0% Interpretation overall excellent control with some postprandial highs noted mostly after dinner. On July 29 she had hypoglycemia around 16:00 with blood sugar of 66. Last Diabetic Eye exam: 09/2023, Last Podiatry Visit: 09/2023 Random Glucose: 112 mg/dl HgA1C: 7.6% 05/25/24 HgA1C: 8.5% 02/20/24 3 soft mints for a low carries at all times also has glucose tablets Family history of T2DM in mother and sisters. +retinopathy: last eye exam 2023 Opthamologist Has seen retinal specialist: minimal retinopathy, f/u in one year No neuropathy: denies numbness, tingling or cramping in the lower extremities saw podiatry earlier this year + nephropathy, on MATTHEW eGFR >60 microalbumin 127 on 07/28/24 improved a bit , follows with nephrology Has HLD, on statin. Last LDL 07/31 64 She has 2 children, 4 granchildren, 4 sisters one Denies CAD. No stroke Hypercalcemia Noted in the chart to have high Ca and PTH levels since 2021 Wrist fracture at least 20-30 years ago No recent fractures No kidney stones No vitamin D supplemts Milk 1-2 a week, Cheese 3-4 times a week , no yogurt CT abd 2019 no kidney stones DEXA scan 04/21/2024 showed normal bone density of the lumbar spine, with T-score of 0.3, normal bone density of the left total hip a T-score of 0.1, borderline osteopenic left femoral neck with T-score of -1, normal bone density of the distal radius with T-score of-0.7. Overall this is consistent with normal bone density. Labs from 03/13/2024 showed normal kidney function, total calcium 10.3, albumin of 4.3, ionized calcium 5.8, phosphorus low at 2.5, PTH of 81.1, vitamin-D of 24.8 Repeat labs 04/21/2024 showed calcium elevated to 11, with albumin of 4.3, corrected calcium would be 10.7, ionized calcium of 6, phosphorus of 3.1, PTH of 126.7, She has started taking more calcium in her diet with more yogurt during the week. Interval history 08/06/2024 Lab work repeated in July 2024 showed calcium of 10.7 with albumin of 4.2, corrected calcium would be 10.5, ionized calcium also elevated at 5.9, vitamin-D now improved at 41.3, normal kidney function, 24 hour urine calcium elevated at 373 with a calcium to creatinine ratio of 300. PTH elevated at 99.6. Currently on vitamin D 1000 units daily. Physical exam General: sitting comfortably in no acute distress HEENT: normocephalic/atraumatic, Neck: supple, symmetrical Cardiac: normal heart sounds Pulm: normal breath sounds B/L, no added breath sounds Abd: not distended, no tenderness Extremities: no edema, no signs of myxedema Neuro: AAO x3, Speech: normal, no facial droop, moving all 4 extremities Skin: no rash Foot exam: : checked Jan 2024: intact sensation to monofilament, intact pulses, intact vibration Laboratory Tests 10/31/23 02/13/24 16:13 13:40 Calcium 10.6 H Ionized Calcium 5.8 H Phosphorus 2.5 L Magnesium 1.6 25-OH Vitamin D Total 31.8 PTH Intact 108.6 H PTH Intact Intraop 76.3 Laboratory Tests 09/05/21 07/25/22 08/30/23 14:50 09:00 14:16 Est GFR (Cystatin C) Hgb A1c (Clinic) > 14.0 H 11.5 H 9.2 H 02/13/24 02/20/24 Unknown 10:45 Est GFR (Cystatin C) 56 (L) Hgb A1c (Clinic) 8.5 H Laboratory Tests 02/13/24 13:40 Creatinine 0.79 Estimated GFR > 60 Laboratory Tests 01/03/23 10/12/23 10/31/23 05:25 09:01 16:11 Creatinine Estimated GFR Glucose (Clinic) Calcium Ionized Calcium Phosphorus Magnesium Albumin Triglycerides 159 H Cholesterol 142 LDL Cholesterol, Calc 73 HDL Cholesterol 38 L 25-OH Vitamin D Total PTH Intact Ur 24 Hour Volume 2750 Urine Creatinine Ur Creatinine mg/dL 36.59 Ur Creatinine 24 Hour 1.07 Urine Microalbumin 94.0 Microalb/Creat Ratio 90.3 H Ur Sodium 24 Hour 236.5 H Ur Calcium 24 Hr 432 H Calcium/Creat 24 Hr 403 H 11/28/23 02/13/24 03/13/24 08:33 13:31 11:32 Creatinine Estimated GFR Glucose (Clinic) Calcium Ionized Calcium Phosphorus Magnesium Albumin Triglycerides 151 H Cholesterol 149 LDL Cholesterol, Calc 80 HDL Cholesterol 39 L 25-OH Vitamin D Total PTH Intact Ur 24 Hour Volume Urine Creatinine 18.87 Ur Creatinine mg/dL Ur Creatinine 24 Hour Urine Microalbumin 38.0 29.0 Microalb/Creat Ratio 243.1 H 153.6 H Ur Sodium 24 Hour Ur Calcium 24 Hr Calcium/Creat 24 Hr 03/13/24 04/21/24 04/28/24 11:37 10:47 10:02 Creatinine 0.84 Estimated GFR > 60 Glucose (Clinic) 106 Calcium 10.3 H 11.0 H D Ionized Calcium 5.8 H 6.0 H Phosphorus 2.5 L 3.1 Magnesium 1.6 1.8 Albumin 4.3 Triglycerides Cholesterol LDL Cholesterol, Calc HDL Cholesterol 25-OH Vitamin D Total 24.8 L PTH Intact 81.1 H 126.7 H Ur 24 Hour Volume Urine Creatinine Ur Creatinine mg/dL Ur Creatinine 24 Hour Urine Microalbumin Microalb/Creat Ratio Ur Sodium 24 Hour Ur Calcium 24 Hr Calcium/Creat 24 Hr Laboratory Tests 03/13/24 07/28/24 07/28/24 11:37 06:30 09:25 RBC 4.33 Hgb 13.0 Plt Count 260 Sodium 136 Potassium 4.5 Creatinine 0.81 Estimated GFR > 60 Random Glucose 134 H Hemoglobin A1c % 7.0 H Calcium 10.7 H Ionized Calcium 5.9 H Albumin 4.2 Triglycerides 128 Cholesterol 129 LDL Cholesterol, Calc 64 HDL Cholesterol 40 L Vitamin B12 291 25-OH Vitamin D Total 41.3 PTH Intact 99.6 H Ur 24 Hour Volume 2700 Urine Creatinine Ur Creatinine mg/dL 44.60 Ur Creatinine 24 Hour 1.2 Urine Microalbumin Microalb/Creat Ratio Ur Calcium 24 Hr 373 H Calcium/Creat 24 Hr 300 H 07/28/24 09:30 RBC Hgb Plt Count Sodium Potassium Creatinine Estimated GFR Random Glucose Hemoglobin A1c % Calcium Ionized Calcium Albumin Triglycerides Cholesterol LDL Cholesterol, Calc HDL Cholesterol Vitamin B12 25-OH Vitamin D Total PTH Intact Ur 24 Hour Volume Urine Creatinine 31.34 Ur Creatinine mg/dL Ur Creatinine 24 Hour Urine Microalbumin 40.0 Microalb/Creat Ratio 127.6 H Ur Calcium 24 Hr Calcium/Creat 24 Hr EXAMINATION: Dual-Energy X-ray Absorptiometry - Bone Density Study 04/21/24 HISTORY: Estrogen deficiency TECHNIQUE: Nemedia Dual energy absorptiometry (DEXA) of the lumbar spine, total left hip, and femoral neck was performed. COMPARISON: Comparison is made with the prior examination dated 10/19/2008. FINDINGS: The bone mineral density of the lumbar spine is 1.214 with a T-score of 0.3, and a Z-score of 0.9. This represents a BMD change of 8.9% compared to the prior exam. This is statistically significant. The bone mineral density of the left total hip is 1.022 with a T-score of 0.1, and a Z-score of 0.7. This represents BMD change of -12.8% compared to the prior exam. This is statistically significant. The bone mineral density of the left femoral neck is 0.899 with a T-score of -1.0, and a Z-score of -0.1. This represents BMD change of -9.4% compared to the prior exam. The bone mineral density of the distal radius is 0.816 with a T score of -0.7 and a Z score of 0.9. FRACTURE RISK: The FRAX index suggests a ten year probability of major osteoporotic fracture of 7.7%, and of hip fracture 0.6%. MM/XR DEXA appendicular skeleton IMPRESSION: Based on bone mineral density, and according to World Health Organization (WHO) criteria, the diagnosis is consistent with normal bone mineral density. [facility] Medical History (Updated 04/28/24 @ 11:16 by Ngoc Conklin MD) Hyperparathyroidism Hypercalcemia Hypertension Obesity Type 2 diabetes mellitus with obesity Diabetes mellitus Diabetes Hyperlipidemia Hypertension Surgical History History of cholecystectomy History of tonsillectomy Family History Mother No problems noted. Father No problems noted. 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 Cognitive needs: No Hearing needs: No Vision needs: Yes (glasses) Office Procedures Glucose Monitoring Details Details: see [facility] [id number] - Glucose monitoring, continuous-physician I&R Procedure code (CPT) selection complete Assessment & Plan Assessment & Plan (1) Type 2 diabetes mellitus with obesity: Code(s): E11.69 - Type 2 diabetes mellitus with other specified complication; E66.9 - Obesity, unspecified Category: Medical Plan: 69-year-old with type 2 diabetes mellitus with long-term insulin use with complication of microalbuminuria, retinopathy with most recent A1c of 7.6% from May 2024 down from 8.5% in Mar 01 currently on basal bolus insulin metformin and started on Mounjaro 2.5 mg weekly in March 2024 which has been 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 CGM data reviewed shows much improved control and she is in target range most of the time, recently also noted to have a few low episodes, but also some postprandial hyperglycemia after dinner. Plan: Continue Farxiga 5 mg daily Continue Metformin 1000 mg twice daily Increase Mounjaro to 7.5 mg weekly (she has had 10 injections of the 5 mg dose) Reduce Lantus to 28 units daily Decrease Humalog to 4 units daily, to target 2 hours post meal sugar to <140 mg/dl , if you start having any hypoglycemic episodes let us know but you can also stopped taking Humalog Follow up in 3 months We will also have arranged a follow up with the tobacco prevention health educator, she needs a sensor upgrade. (2) Hyperlipidemia: Code(s): E78.5 - Hyperlipidemia, unspecified Category: Medical Qualifiers: Hyperlipidemia type: mixed hyperlipidemia Qualified Code(s): E78.2 - Mixed hyperlipidemia Plan: Has HLD, on statin. Last LDL July 2024 was 64. Continue simvastatin 20 mg (3) Hypertension: Code(s): I10 - Essential (primary) hypertension Category: Medical Qualifiers: Hypertension type: primary hypertension Qualified Code(s): I10 - Essential (primary) hypertension Plan: Blood pressure within goal, continue lisinopril 10 mg daily (4) Obesity: Code(s): E66.9 - Obesity, unspecified Category: Medical Qualifiers: Obesity type: due to excess calories Obesity classification: adult class 2 (BMI 35 - 39.9) Serious obesity comorbidity presence: with serious comorbidity Body mass index: BMI 36.0-36.9 Qualified Code(s): E66.812 - Obesity, class 2; E66.01 - Morbid (severe) obesity due to excess calories; Z68.36 - Body mass index [BMI] 36.0-36.9, adult Plan: Current BMI 36.1 kg per m2 Increase Mounjaro to 7. 5 mg weekly (5) Hypercalcemia: Code(s): E83.52 - Hypercalcemia Category: Medical Plan: During chart review also noted that she has had elevated calcium levels at least since 2021. Intermittently elevated and then resolved. blood work from October and February 2024 showed calcium elevated range. Back in December 2022 your calcium was has a high as 11.1 mg/dL phosphorus level also noted to be low in February 2024 at 2.5. Her kidney function with EGFR has been greater than 60. Vitamin-D level at 31.8 from February 2024, she is not on any vitamin-D supplements. No history of kidney stones, remote history of wrist fracture , DEXA scan 04/21/2024 showed normal bone density of the lumbar spine, with T-score of 0.3, normal bone density of the left total hip a T-score of 0.1, borderline osteopenic left femoral neck with T-score of -1, normal bone density of the distal radius with T-score of-0.7. Overall this is consistent with normal bone density. Labs from 03/13/2024 showed normal kidney function, total calcium 10.3, albumin of 4.3, ionized calcium 5.8, phosphorus low at 2.5, PTH of 81.1, vitamin-D of 24.8 Repeat labs 04/21/2024 showed calcium elevated to 11, with albumin of 4.3, corrected calcium would be 10.7, ionized calcium of 6, phosphorus of 3.1, PTH of 126.7, Lab work repeated in July 2024 showed calcium of 10.7 with albumin of 4.2, corrected calcium would be 10.5, ionized calcium also elevated at 5.9, vitamin-D now improved at 41.3, normal kidney function, 24 hour urine calcium elevated at 373 with a calcium to creatinine ratio of 300. PTH elevated at 99.6. Now even with the improved vitamin-D, continues to have high calcium and high PTH levels. she does not have osteoporosis, kidney function is normal, she is greater than age 50, no history of kidney stones, s but given the hypercalciuria she does meet surgical criteria. We will obtain sestamibi scan and consider for surgical evaluation. Plan: -continue vitamin-D 1000 units daily -incorporate 1000 mg of calcium in diet by taking 2-3 servings of calcium rich foods daily -ordered nuclear medicine parathyroid SPECT CT, and then consider referral for surgical evaluation (6) Hyperparathyroidism: Code(s): E21.3 - Hyperparathyroidism, unspecified Category: Medical Plan: see above Plan I spent 30 minutes in reviewing the record, seeing the patient and documenting in the medical record. Orders: Orders 2 Albumin Level 6 Weeks E21.3 - Hyperparathyroidism, unspecified, E83.52 - Hypercalcemia Calcium, Ionized 6 Weeks E21.3 - Hyperparathyroidism, unspecified, E83.52 - Hypercalcemia Creatinine 6 Weeks E21.3 - Hyperparathyroidism, unspecified, E83.52 - Hypercalcemia Parathyroid Hormone Intact 6 Weeks E21.3 - Hyperparathyroidism, unspecified, E83.52 - Hypercalcemia NM parathyroid SPECT w CT Today E21.3 - Hyperparathyroidism, unspecified, E83.52 - Hypercalcemia Calcium 6 Weeks E21.3 - Hyperparathyroidism, unspecified, E83.52 - Hypercalcemia Phosphorus 6 Weeks E21.3 - Hyperparathyroidism, unspecified, E83.52 - Hypercalcemia AMB Glucose Monitoring Today E11.69 - Type 2 diabetes mellitus with other specified complication, E66.9 - Obesity, unspecified Medications: New 2 insulin lispro (Humalog KwikPen (U-100) Insulin) 6 units (0.06 mL) subcut TID 15 mL 1RF cyanocobalamin (vitamin B-12) 500 mcg PO DAILY 30 tabs 6RF tirzepatide (Mounjaro) 7.5 mg (0.5 mL) subcut QWEEK 2 mL 3RF Changed 2 From insulin glargine (Lantus Solostar U-100 Insulin) 30 units (0.3 mL) subcut QPM 15 mL 4RF To insulin glargine (Lantus Solostar U-100 Insulin) 28 units (0.28 mL) subcut QPM 15 mL 4RF Discontinued 2 tirzepatide (Mounjaro) Discontinued Reason: Doctor's Order 5 mg (0.5 mL) subcut QWEEK 6 mL 6RF Patient Instructions: Continue metformin and farxiga as it is Decrease lantus to 28 units daily Decrease humalog to 4 units thrice daily before meals when you increase Mounjaro to 7.5 mg weekly, if you start having lows during the day, you can also stop the humalog and inform us as well. Do parathyroid scan Maintain good hydration Continue vitamin D 1000 units daily Follow up in 3 months Do blood work at [facility] [address] [place] [address] in [place], make sure they fax the results to me Coding Level of Care Code Est Pt Level 4 (30211) Diagnoses Type 2 diabetes mellitus with obesity E11.69; E66.9 Mixed hyperlipidemia E78.2 Hyperlipidemia type: mixed hyperlipidemia Primary hypertension I10 Hypertension type: primary hypertension Class 2 severe obesity due to excess calories with serious comorbidity and body mass index (BMI) of 36.0 to 36.9 in adult E66.812; E66.01; Z68.36 Obesity type: due to excess calories Obesity classification: adult class 2 (BMI 35 - 39.9) Serious obesity comorbidity presence: with serious comorbidity Body mass index: BMI 36.0-36.9 Hypercalcemia E83.52 Hyperparathyroidism E21.3 CPT Codes Details - CPT: 20844 - Glucose monitoring, continuous-physician I&R ([id number]) Time Spent (min) 30
[2024-08-06 11:20] LABS: Glucose, Whole Blood 112 mg/dL (60-115)
--- OUTSIDE RECORDS SUMMARY | 2024-08-06 12:47 | XMS_ITS ---
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 Generated for Salvatorei yenny/Hellen/eTransmitting on:?08/06/2024 12:47 PM EDT
--- OUTSIDE RECORDS SUMMARY | 2024-08-06 12:47 | XMS_ITS | Patient Health Record ---
[facility] Address [address] [place] [address] Care Team Providers Care Business Services Assistant Name Role Phone Ileana PERSAUD, Navid Primary Care Provider Seema Thomas Unavailable [phone] Allergies Allergen (clinical drug ingredient) Drug/Non Drug [...] Problem Acquired hammer toe of right foot (42637257784456 05) Other hammer toe(s) (acquired), right foot (M20.41) Active confirmed Problem Acquired hammer toe of left foot ([id number] 03) Other hammer toe(s) (acquired), left foot (M20.42) Active confirmed Problem [id number] Type 2 diabetes mellitus without complication, without long-term current use of insulin (E11.9) Active confirmed Vital Signs Blood pressure diastolic 75 mm Hg 09/04/2023 Height 5ft3in in 09/04/2023 Blood pressure systolic 128 mm Hg 09/04/2023 Weight 206 lbs 09/04/2023 BMI 36.49 kg/m2 09/04/2023 Encounters Encounter Location Date Provider Diagnosis [facility] [address] [place] [address] 09/04/2023 Seema Escobedo Other hammer toe(s) (acquired), [...] Provider Name:Seema love, 09/02/2024 01:00:00 PM, [address] [place], [address], Insurance Providers Payer Name Payer Address Payer Phone Subscriber Number Group Number Insured Name Patient Relationship to Insured Coverage Start Date Coverage End Date Medicare National [employer] [address] [facility] [place] [address] [id number] Tatiana Umanzor Self - patient is the insured Medical (General) History Medical History History ICD Code Broken bones Cholesterol covid-19 Diabetic Gall bladder problems High blood pressure Psoriasis/eczema Reflux ( GERD) sinusitis Measles Mumps Chicken pox Surgical History Surgery Date(Month/Year) tonsillectomy 1974 Gall bladder removal 1997 Hospitalization History Reason Date(Month/Year) [facility] [place] 05/06/23
--- OUTSIDE RECORDS SUMMARY | 2024-08-06 12:47 | XMS_ITS | Clinical Summary ---
Author Organization [facility] Address [address] [address] Phone Care Team Providers Care Electronic Commerce Specialist Name Role Phone Navid Tejeda MD Primary Care Provider [phone] Allergies Active Allergy Reactions Criticality Noted Date [...] Encounters Date Type Department Care Team Description 07/31/2024 Orders Only [facility] [address] [place] [address] Kip Kwok MD Type 2 diabetes mellitus without complication (HCC) 07/03/2024 Orders Only [facility] [address] [place] [address] Kip Kwok MD Type 2 diabetes mellitus without complication (HCC) 06/05/2024 Orders Only [facility] [address] [place] [address] Kip Kwok MD Type 2 diabetes mellitus [...] Visit [facility] [address] [facility] [place] [address] Kip Kwok MD [address] [address] Health Maintenance Due Date Last [...] Relevant to Health Maintenance Insurance [place] Care Teams Electronic Commerce Specialist Relationship Specialty Start Date End Date Navid Tejeda MD [address] [place] [address] PCP - General Internal Medicine 09/18/22
--- OUTSIDE RECORDS SUMMARY | 2024-08-06 12:48 | XMS_ITS ---
Author Organization [facility] Address [address] [place] [address] Care Team Providers Care Parcel Wrapper Name Role Phone Navid Tejeda MD Primary Care Provider Seema Thomas Unavailable [phone] Allergies Allergen (clinical drug ingredient) Drug/Non Drug [...] Problem Acquired hammer toe of right foot (44148348326059 05) Other hammer toe(s) (acquired), right foot (M20.41) Active confirmed Problem Acquired hammer toe of left foot (76331448073386 03) Other hammer toe(s) (acquired), left foot (M20.42) Active confirmed Problem 085458969 Type 2 diabetes mellitus without complication, without long-term current use of insulin (E11.9) Active confirmed Vital Signs Height 5ft3in in 09/04/2023 Weight 206 lbs 09/04/2023 BMI 36.49 kg/m2 09/04/2023 Blood pressure systolic 128 mm Hg 09/04/19 24 Blood pressure diastolic 75 mm Hg 024 Encounters Encounter Location Date Provider Diagnosis [facility] [address] 09/04/2023 Seema Escobedo Other hammer toe(s) (acquired), [...] Reason: Provider Name:Seema love, 09/02/2024 01:00:00 PM, [address] [place] [address], [address], Progress Notes * Tatiana UMANZOR TDOB:[birth year] (68 yo F)Acc No.[id number]:09/04/2023 Progress Notes Patient:?Tatiana Umanzor Provider:?Seema Escobedo DPM :1955???Age:68 Y???Sex:Female D ate:09/04/2023 Address:[address] [place] [address], [facility], [facility] Pcp:Navid Tejeda MD Subjective: * Chief Complaints: [...] 7.5 * Examination: ???Ophthalmology Referral: ?DIABETES EYE EXAM?Diabetic Retinopathy Screening:?Yes ?Findings of Diabetic Eye Exam:?no retinopathy bleeding behind eye?General Examination: ?GENERAL APPEARANCE:?Reveals a pleasant, alert, well-nourished, well- developed, well hydrated individual, who demonstrates proper attention to hygiene/body habitus, and is in no acute distress, Pt serves as own?historian for office visit today.?ORIENTED:?person, place, and time.?FOOT EXAM:?Lower Extremity Neurological Exam performed:?Yes ?Footwear Evaluation?Footwear Evaluation performed:?Yes?Neurological: ?SENSORY:?Neurological exam reveals intact sensorium, pain sensation [...] Sign off status: Completed true * Provider:?Seema Escobedo, DPM Date:? Generated for [place]/Hellen/Tawanda on:?08/06/2024 12:47 PM EDT History and Physical Notes * HPI (History [...] no masses. The interspaces are clear Orthopedic FOOTWEAR EVALUATION: worn, non-s upportive, shoe gear properties exacerbate patient's foot/toe deformity [...]
--- OUTSIDE RECORDS SUMMARY | 2024-08-06 12:48 | XMS_ITS | Encounter Summary ---
Author Organization [facility] Address [address] [facility] [address] [place] [address] Phone Care Team Providers Care Firearms Sales Associate Name Role Phone Navid Tejeda MD Primary Care Provider [phone] Encounter Details Date Type Department Care Team (Late Contact Info) Description 07/31/2024 Orders Only [facility] [address] [place] [address] Kip Kwok MD [address] [address] Type 2 diabetes mellitus without [...] Office Visit [facility] [address] [place] [address] Kip Kwok MD [address] [address] documented as of this encounter Visit Diagnoses Diagnosis Type 2 diabetes mellitus without complication (HCC) documented in this encounter Care Teams Firearms Sales Associate Relationship Specialty Start Date End Date Navid Tejead MD [address] [place], [place] PCP - General Internal Medicine 09/18/22 documented as of this encounter
== END 2024-08-06 11:56 | disposition home or self-care (01) ==
LOC: HO.ENCR 11:02
PROVIDERS: PCP Internal Medicine; Visit Provider Student in an Organized Health Care Education/Training Program
DX: E11.69 Type 2 diabetes mellitus with other specified complication (principal); E66.9 Obesity, unspecified; E78.2 Mixed hyperlipidemia; I10 Essential (primary) hypertension
CPT/HCPCS: 95251; 99214

== ENCOUNTER → 2024-08-06 11:01 | Outpatient (BNVA) | payer MEDICARE, MEDICAID, SELFPAY | PROVIDERS: PCP Internal Medicine; Visit Provider Student in an Organized Health Care Education/Training Program | DX: E11.69 Type 2 diabetes mellitus with other specified complication (principal); E78.2 Mixed hyperlipidemia; I10 Essential (primary) hypertension; E66.812 Obesity, class 2; E66.01 Morbid (severe) obesity due to excess calories; E83.52 Hypercalcemia; E21.3 Hyperparathyroidism, unspecified; Z68.36 Body mass index [BMI] 36.0-36.9, adult | CPT/HCPCS: 82947; 99212 ==

== ENCOUNTER 2024-08-25 07:52 | Outpatient (AMB) | payer MEDICARE, MEDICAID, SELFPAY ==
--- OUTSIDE RECORDS SUMMARY | 2024-08-25 07:55 | XMS_ITS ---
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 Generated for Printi yenny/Hellen/eTransmitting on:?08/25/2024 07:55 AM EDT
--- OUTSIDE RECORDS SUMMARY | 2024-08-25 07:55 | XMS_ITS | Patient Health Record ---
Author Organization [facility] Address [address] [place] [address] Care Team Providers Care Index Clerk Name Role Phone Maty PERSAUD, Kike Primary Care Provider Unavailab Bry Fletcher Unavailable [phone] Reason For Referral No Information Medications Medication [...] NAUSEA AND VOMITING Oral for 4 Active Immunizations Vaccine Route Administration Date Status Comme nts Influenza Unknown 04/26/2020 Refused Social History Tobacco Use: Social History Observation Description Date Details (start date - stop date) Former Smoker NA - NA Tobacco Use/Smoking Question Answer Notes Patient is [...] Never (0 point) Points 0 Interpretation Negative Section Notes: Nonsmoker; occ. alcohol Problems Problem Type SNOMED Code ICD Code Onset Dates Problem Status W/U Status Risk Notes Problem History of adenomatous polyp of colon (930573634) History of adenomatous polyp of colon (Z86.010) Active confirmed Problem Nausea (466866703) Nausea (R11.0) Active confirmed Problem Vomiting (737452589) Vomiting (R11.10) Active confirmed Problem Diarrhea of presumed infectious origin (61663553) Diarrhea of presumed infectious origin (R19.7) Active confirmed Plan Of Treatment No Information Insurance Providers Payer Name Payer Address Payer Phone Subscriber Number Group Number Insured Name Patient Relationship to Insured Coverage Start Date Coverage End Date [facility] [address] [place] [address] [phone] [id number] LUIS LANG Self - patient is the insured Medical (General) History Medical History History ICD Code NIDDM Hypertension Denies MS,CVA,Lung disease,renal disease Hyperlipidemia COVID in 01/2019--not hospitalized [...]
--- OUTSIDE RECORDS SUMMARY | 2024-08-25 07:55 | XMS_ITS | Clinical Summary ---
Author Organization [facility] Address [address] [address] Phone Care Team Providers Care Special Loan Officer Name Role Phone Navid Tejeda MD Primary Care Provider [phone] Allergies Active Allergy Reactions Criticality Noted Date [...] Orders Only [facility] [address] [place] [address] Kip Kwok MD Type 2 diabetes mellitus without complication (HCC) 07/03/2024 Orders Only [facility] [address] [place] [address] Kip Kwok MD Type 2 diabetes mellitus without complication (HCC) 06/05/2024 Orders Only [facility] [address] [place] [address] Kip Kwok MD Type 2 diabetes mellitus [...] Team (Late st Contact Info) Description 09/24/2024 Orders Only [facility] [address] [place] [address] Kip Kwok MD [address] [address] Hypomagnesemia 09/24/2024 1:30 PM EDT Office Visit [facility] [address] [place] [address] Kip Kwok MD [address] [address] Health Maintenance Due Date Last [...] 149 HDL 39 mg/dL LDL-Calculated 80 11/28/2023 Historical Provider LAB BLOOD ORDERABLES Smitha l Result from Last 3 Months or Most Recently Relevant to Health Maintenance Insurance [place] Care Teams Special Loan Officer Relationship Specialty Start Date End Date Navid Tejeda MD [address] [place], [place] PCP - General Internal Medicine 09/18/22
--- OUTSIDE RECORDS SUMMARY | 2024-08-25 07:55 | XMS_ITS | Patient Health Record ---
Author [facility] Address [address] [place] [address] Care Team Providers Care Licensed Optical Dispenser Name Role Phone Ileana PERSAUD, Navid Primary Care Provider Seema Thomas Unavailable [phone] Allergies Allergen (clinical drug ingredient) Drug/Non Drug [...] Problem Acquired hammer toe of right foot (90598785510513 05) Other hammer toe(s) (acquired), right foot (M20.41) Active confirmed Problem Acquired hammer toe of left foot (07343355886178 03) Other hammer toe(s) (acquired), left foot (M20.42) Active confirmed Problem 345891623 Type 2 diabetes mellitus without complication, without long-term current use of insulin (E11.9) Active confirmed Vital Signs Blood pressure diastolic 75 mm Hg 09/04/2023 Height 5ft3in in 09/04/2023 Blood pressure systolic 128 mm Hg 09/04/2023 Weight 206 lbs 09/04/2023 BMI 36.49 kg/m2 09/04/2023 Encounters Encounter Location Date Provider Diagnosis [facility] [address] [place] [address] 09/04/2023 Seema Escobedo Other hammer toe(s) (acquired), [...] Provider Name:Seema love, 09/02/2024 01:00:00 PM, [address] [place], [address], Insurance Providers Payer Name Payer Address Payer Phone Subscriber Number Group Number Insured Name Patient Relationship to Insured Coverage Start Date Coverage End Date Medicare [employer] [address] [place] [address] [phone] [id number] Tatiana Umanzor Self - patient is the insured Medical (General) History Medical History History ICD Code Broken bones Cholesterol covid-19 Diabetic Gall bladder problems High blood pressure Psoriasis/eczema Reflux ( GERD) sinusitis Measles Mumps Chicken pox Surgical History Surgery Date(Month/Year) tonsillectomy 1974 Gall bladder removal 1997 Hospitalization History Reason Date(Month/Year) [facility]- UTI 05/06/23
--- OUTSIDE RECORDS SUMMARY | 2024-08-25 07:55 | XMS_ITS ---
[facility] Address [address] [place] [address] Care Team Providers Care Desk Monitor Name Role Phone Navid Tejeda MD Primary Care Provider Seema Thomas Unavailable [phone] Allergies Allergen (clinical drug ingredient) Drug/Non Drug [...] Problem Acquired hammer toe of right foot (68678744238879 05) Other hammer toe(s) (acquired), right foot (M20.41) Active confirmed Problem Acquired hammer toe of left foot (27338833560516 03) Other hammer toe(s) (acquired), left foot (M20.42) Active confirmed Problem 584432459 Type 2 diabetes mellitus without complication, without long-term current use of insulin (E11.9) Active confirmed Vital Signs Height 5ft3in in 09/04/2023 Weight 206 lbs 09/04/2023 BMI 36.49 kg/m2 09/04/2023 Blood pressure systolic 128 mm Hg 09/04/19 24 Blood pressure diastolic 75 mm Hg 024 Encounters Encounter Location Date Provider Diagnosis [facility] [address] 09/04/2023 Seema Escobedo Other hammer toe(s) (acquired), [...] Reason: Provider Name:Seema love, 09/02/2024 01:00:00 PM, [address] [place] [address], [address], Progress Notes * Tatiana UMANZOR TDOB:[birth year] (68 yo F)Acc No.[id number]:09/04/2023 Progress Notes Patient:?Tatiana Umanzor Provider:?Seema Escobedo DPM :1955???Age:68 Y???Sex:Female D ate:09/04/2023 Address:[address] [place] [address], [facility] [address], [facility] Pcp:Navid Tejeda MD Subjective: * Chief Complaints: [...] Escobedo, DPM Date:? Generated for [place] ram[place]/Hellen/Tawanda on:?08/25/2024 02:10 AM EDT History and Physical Notes * HPI [...]
--- NOTE | 2024-08-25 08:16 | A.OFFVIS_ITS ---
Intake Intake Visit Reasons: T2DM Glass Cutter Helper Required: No Accompanied by: Daughter Allergies acetaminophen [From PERCOCET] Allergy (Intermediate, Verified 08/06/24 11:14) UNKNOWN oxycodone [From PERCOCET] Allergy (Intermediate, Verified 08/06/24 11:14) UNKNOWN HPI Comprehensive Diabetes Asmnt Most Recent Diabetes Results: Hemoglobin A1c 10.2 % 06/06/19 Microalb/Creat Ratio 127.6 ug/mg cr (<30) H 07/28/24 Cholesterol 129 mg/dL (<200) 07/28/24 HDL Cholesterol 40 mg/dL (>40) L 07/28/24 Triglycerides 128 mg/dL (<150) 07/28/24 Creatinine 0.81 mg/dL (0.5-1.4) 07/28/24 Blood Urea Nitrogen 18 mg/dL (9-16) H 07/28/24 Sodium 136 mmol/L (135-145) 07/28/24 Potassium 4.5 mmol/L (3.3-5.1) 07/28/24 Chloride 104 mmol/L (96-108) 07/28/24 Carbon Dioxide 22 mmol/L (22-29) 07/28/24 Calcium 10.7 mg/dL (8.4-10.2) H 07/28/24 AST 15 U/L (5-31) 10/12/23 ALT 20 U/L (0-31) 10/12/23 Total Protein 7.4 g/dL (6.5-8.0) 10/12/23 Albumin 4.2 g/dL (3.5-5.0) 07/28/24 [facility] Medical History (Updated 04/28/24 @ 11:16 by Ngoc Conklin MD) Hyperparathyroidism Hypercalcemia Hypertension Obesity Type 2 diabetes mellitus with obesity Diabetes mellitus Diabetes Hyperlipidemia Hypertension Surgical History History of cholecystectomy History of tonsillectomy Family History Mother No problems noted. Father No problems noted. 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 Cognitive needs: No Hearing needs: No Vision needs: Yes (glasses) Assessment & Plan Assessment & Plan (1) Type 2 diabetes mellitus with obesity: Code(s): E11.69 - Type 2 diabetes mellitus with other specified complication; E66.9 - Obesity, unspecified Plan: Patient at visit to set up an insert Emmanuel 3+ with reader Instructed patient sensors water proof you can shower, or swim do not submerge sensor in water for over 30 minutes Is sensor falls off cannot put back in you need to replace sensor, customer service number given to patient for sensor replacement Sensor placed on the back of R arm Patient left visit with sensor in warmup Reviewed how to interpret trend arrows Discussed lag time between finger stick and sensor data.? Instructed patient the importance of having blood glucometer for backup testing if needed Reviewed delay of CGM from fingersticks Reminded Pt that if symptoms do not match sensor still needs to check fingersticks. Portions of this note were created using voice recognition software, please excuse any words or phrases that may have been misinterpreted. Patient Instructions: Patient instruction: CGM provides information on blood glucose control throughout the day, including hyperglycemia and hypoglycemia. ? Continue to monitor blood glucose as instructed. Follow nutrition guidelines provided. Report any discomfort promptly to health care provider. ?Stay well-hydrated. You can bathe ,shower, swim and exercise while wearing the glucose sensor. Do not submerge glucose sensor in water for more than 30 minutes. Coding Level of Care Code Est Pt Level 1 (96408) Diagnoses Type 2 diabetes mellitus with obesity E11.69; E66.9
== END 2024-08-25 08:21 | disposition home or self-care (01) ==
LOC: HO.ENCR 07:53
PROVIDERS: PCP Internal Medicine; Visit Provider Registered Nurse Diabetes Educator
DX: E11.69 Type 2 diabetes mellitus with other specified complication (principal); E66.9 Obesity, unspecified

== ENCOUNTER → 2024-08-25 07:52 | Outpatient (BNVA) | payer MEDICARE, MEDICAID, SELFPAY | PROVIDERS: PCP Internal Medicine; Visit Provider Registered Nurse Diabetes Educator | DX: E11.69 Type 2 diabetes mellitus with other specified complication (principal); E66.9 Obesity, unspecified | CPT/HCPCS: 99211 ==

== ENCOUNTER 2024-08-26 16:20 | Outpatient (AMB) | payer MEDICARE, MEDICAID, SELFPAY ==
--- NOTE | 2024-08-26 16:22 | MHC.PC.OV ---
Vital Signs 08/26/24 16:25 Height 5 ft 4 in Weight 206 lb BMI 35.4 BP 140/72 H Blood Pressure Location Lt brachial Position Sitting Intake Visit Reasons: Transfer from [facility]- 3 month follow up Car Audio Installer Required: No Accompanied by: Self / Same As Patient Allergies acetaminophen [From PERCOCET] Allergy (Intermediate, Verified 08/26/24 16:51) UNKNOWN oxycodone [From PERCOCET] Allergy (Intermediate, Verified 08/26/24 16:51) UNKNOWN Medication List - Last Reconciled 08/26/24 by Zita Butler MD albuterol sulfate 90 mcg/actuation 1 inh inhalation QID PRN blood sugar diagnostic (FreeStyle Lite Strips) As directed blood-glucose meter (FreeStyle Lite Meter kit) As directed cholecalciferol (vitamin D3) 25 mcg PO DAILY 3 months cyanocobalamin (vitamin B-12) 500 mcg PO DAILY dapagliflozin propanediol (Farxiga) 5 mg PO DAILY flash glucose scanning reader (FreeStyle Emmanuel 2 [place]) As directed flash glucose sensor (FreeStyle Emmanuel 2 Sensor kit) DIRECTED CHANGE EVERY 14 DAYS insulin aspart U-100 (Novolog FlexPen U-100 Insulin aspart) 6 units (0.06 mL) subcut TID insulin glargine (Lantus Solostar U-100 Insulin) 28 units (0.28 mL) subcut QPM lisinopril 10 mg PO BEDTIME magnesium oxide 500 mg PO BID meclizine 12.5 mg PO Q8H PRN metformin 1,000 mg PO BID pen needle, diabetic (Comfort EZ Pen [place]) As directed injects once a day pen needle, diabetic (BD Tessie 2nd Gen Pen Needle) use once a day As directed simvastatin 20 mg PO BEDTIME tirzepatide (Mounjaro) 7.5 mg (0.5 mL) subcut QWEEK Tobacco use date assessed: 05/25/24 Fall risk assessment: No Falls in past year Last assessed Fall Risk: 08/26/24 Dental Screening Dental Screen Date: 05/25/24 HPI HPI Comments History of Present Illness Details The patient is a 69-year-old female presenting with follow-up for her Type 2 Diabetes Mellitus and hyperparathyroidism. She experiences frequent urination and is on a complex regimen of medications aimed at controlling her diabetes. Her management involves both injectable and oral medications, reflecting a comprehensive therapeutic approach. Recent adjustments include a decrease in Nobola dosage and an increase in Mounjaro. Significant lab results feature an A1c of 7 with controlled LDL levels. The hyperparathyroidism has resulted in elevated calcium, prompting upcoming diagnostic testing to address concerns regarding potential swelling in related glands. [facility] Medical History Hyperparathyroidism Hypercalcemia Hypertension Obesity Type 2 diabetes mellitus with obesity Diabetes mellitus Diabetes Hyperlipidemia Hypertension Surgical History History of cholecystectomy History of tonsillectomy Family History (Updated 08/26/24 @ 16:57 by Zita Butler MD) Mother Diabetes mellitus Father Angina at rest Social History Household Members: Family Housing: Apartment Do you presently have visiting nurse or other home services: Yes Alcohol intake: current Alcohol intake frequency: holidays/special occasions only Comment: no c/o dizziness Patient Tobacco Use Status: Former Tobacco user Tobacco use type: Cigarette e-Cigarette/Vaping Use: Never Used Second Hand Smoke Exposure: Yes Advance Directives Date on File: 04/06/20 service: No Current occupational status: employed 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 1. Little interest or pleasure in doing things: not at all 2. Feeling down, depressed, or hopeless: not at all 3. Trouble falling or staying asleep, or sleeping too much: not at all 4. Feeling tired or having little energy: not at all 5. Poor appetite or overeating: not at all 6. Feeling bad about yourself - or that you are a failure or have let yourself or your family down: not at all 7. Trouble concentrating on things, such as reading the newspaper or watching television: not at all 8. Moving or speaking so slowly that other people could have noticed. Or the opposite - being so fidgety or restless that you have been moving around a lot more than usual: not at all 9. Thoughts that you would be better off or of hurting yourself in some way: not at all Total score: 0 Depression Screening Interpretation: Negative Depression Screening Done: Yes 97010 - PHQ-9 Billing: Yes Source: Developed by Drs. Bry Fagan, Salina Sinclair, Иван Diaz and colleagues, with an educational renea from [employer]. Thrive Questionnaire Date Thrive assessed: 08/19/24 I am a: Patient What is your living situation today?: I have a steady place to live Within the past 12 months, did the food you bought not last and you didn't have the money to get more?: I choose not to answer this question Within the past 12 months, did you worry whether your food would run out before you got money to buy more?: I choose not to answer this question Do you have trouble paying for medicines?: No Do you have trouble getting transportation to medical appointments?: No Do you have trouble paying your heating and electricity bill?: I choose not to answer this question Do you have trouble taking care of your child, family member or friend?: No Do you have trouble with day-to-day activities such as bathing, preparing meals, shopping, managing finances, etc.?: No Are you currently unemployed and looking for a job?: No Are you interested in more education?: No Please select the resources that you would like help with: Utilities Currently or been in a relationship where the following occur: No concerns reported THRIVE Score: 0 AUDIT C Alcohol Use Questionnaire (AUDIT-C) 1. How often do you have a drink containing alcohol?: Never Total Score: 0 Score Reviewed/Action Taken: No LEIGH-7 AMB Questionnaire LEIGH-7 Date LEIGH - 7 assessed: 05/25/24 Feeling nervous, anxious, or on edge: 0 = Not at all Not being able to stop or control worryin = Not at all Worrying too much about different things: 1 = Several days Trouble relaxin = Not at all Being so restless that it is hard to sit still: 0 = Not at all Becoming easily annoyed or irritable: 1 = Several days Feeling afraid as if something awful might happen: 0 = Not at all Total LEIGH-7 score (0-4 normal; 5-9 mild; 10-14 moderate; 15-21 severe): 2 Source: Developed by Drs. Bry Fagan, Salina Sinclair, Иван Diaz and colleagues, with an educational renea from [employer]. LEIGH-7 Assessment Billing LEIGH-7 Assessment Tool: LEIGH-7 Assessment 60091 Review of Systems Const All systems reviewed & are unremarkable except as noted in HPI and below Card Denies chest pain at rest, Denies chest pain with activity, Denies edema, Denies irregular heart rhythm, Denies claudication, Denies dyspnea, Denies dyspnea on exertion, Denies orthopnea, Denies paroxysmal nocturnal dyspnea and Denies slow heart rate Resp Denies cough, Denies dyspnea and Denies dyspnea on exertion GI Denies abdominal pain, Denies change in bowel habits, Denies excessive flatus, Denies nausea and Denies vomiting Physical exam (Primary Care) Vital Signs: Last Vital Signs BP 140/72 H 08/26/24 16:25 BMI result Body Mass Index 35.4 BMI Assessment/Plan discussion: High BMI High, discussed plan: lifestyle, weight reduction, dietary and physical activity Tobacco/Smoking Status: Tobacco use Status Tobacco use date assessed 05/25/24 08/26/24 16:25 Patient Tobacco Use Status Former Tobacco user 08/26/24 16:25 Tobacco use type Cigarette 08/26/24 16:25 e-Cigarette/Vaping Use Never Used 08/26/24 16:25 PHQ-9: PHQ-9 Score PHQ-9: Total score 0 08/26/24 16:58 Depression Screening Interpretation: Negative Thrive Assessment: Date of Thrive Assessment Date Thrive assessed 08/19/24 08/26/24 16:25 Currently or been in a relationship where the following occur: No concerns reported Resp Effort & Inspection: normal respiratory effort Auscultation: clear to auscultation bilaterally Cardio Jugular venous distension: no JVD Rate: regular rate Rhythm: regular rhythm Heart sounds: S1 normal heart sound present and S2 normal heart sound present Skin General skin exam: no rashes or lesions noted Extrem General: Yes full ROM Coding Level of Care Code Est Pt Level 4 (20847) Complex EM visit Add On G2211 Diagnoses Hyperparathyroidism E21.3 Primary hypertension I10 Hypertension type: primary hypertension Mixed hyperlipidemia E78.2 Hyperlipidemia type: mixed hyperlipidemia Diabetes mellitus E11.9 Additional Codes LEIGH-7 Assessment Billing - LEIGH-7 Assessment Tool: LEIGH-7 Assessment 56021 ([id number]) PHQ-9 - 95770 - PHQ-9 Billing: Yes ([id number]) Time Spent (min) 24 Assessment & Plan Assessment & Plan (1) Hyperparathyroidism: Code(s): E21.3 - Hyperparathyroidism, unspecified Category: Medical (2) Hypertension: Code(s): I10 - Essential (primary) hypertension Category: Medical Qualifiers: Hypertension type: primary hypertension Qualified Code(s): I10 - Essential (primary) hypertension (3) Hyperlipidemia: Code(s): E78.5 - Hyperlipidemia, unspecified Category: Medical Qualifiers: Hyperlipidemia type: mixed hyperlipidemia Qualified Code(s): E78.2 - Mixed hyperlipidemia (4) Diabetes mellitus: Comment: cont same meds; do labs; 40 min reviewing chart evaluating parient and documenting Code(s): E11.9 - Type 2 diabetes mellitus without complications Category: Medical Plan Management of Type 2 Diabetes Mellitus includes maintaining current medication regimens, focusing on the reduction of insulin use while adjusting Jaro injections. For hyperparathyroidism, further diagnostics are warranted addressing recent findings of swelling and elevated calcium, with tests scheduled. Continuation of regular lab work to monitor blood glucose, parathyroid function, and cholesterol levels remains integral. Patient was informed and verbally consented to the use of an ambient scribe for clinic note documentation during this visit. During the visit, I reviewed the importance of maintaining the current diabetic treatment plan, emphasizing the advantages of reducing insulin dependency while keeping a stable control on blood glucose levels. I clarified the nature and necessity of upcoming parathyroid-related tests in response to patient's concerns about hyperparathyroidism symptoms and associated lab results. The multifaceted approach to diabetic management was discussed, reiterating the rationale behind adjustments for patient-centered care. Emphasis on wellness checkups, including regular ophthalmology and podiatry visits, was reinforced. Orders: Orders Lipid Panel 4 Months E78.5 - Hyperlipidemia, unspecified Microalbumin, Random (w Creat) 4 Months R80.9 - Proteinuria, unspecified Comprehensive [place]. Panel Fast 4 Months E11.9 - Type 2 diabetes mellitus without complications Patient Instructions: - Continue all prescribed medications as directed. - Monitor blood sugar levels regularly and report any significant changes. - Follow up on scheduled parathyroid tests and report new symptoms. - Maintain your current healthy lifestyle and attend all routine check-ups. - Contact our office if you experience any new or worsening symptoms.
[2024-08-26 16:25] VITALS: BP 140/72; BMI 35.4
== END 2024-08-26 17:03 | disposition home or self-care (01) ==
LOC: HO.HMCH 16:20
PROVIDERS: PCP Internal Medicine; Visit Provider Internal Medicine
DX: E21.3 Hyperparathyroidism, unspecified (principal); I10 Essential (primary) hypertension; E78.2 Mixed hyperlipidemia; E11.9 Type 2 diabetes mellitus without complications

== ENCOUNTER → 2024-08-26 16:20 | Outpatient (BNVA) | payer MEDICARE, MEDICAID, SELFPAY | PROVIDERS: PCP Internal Medicine; Visit Provider Internal Medicine | DX: E21.3 Hyperparathyroidism, unspecified (principal); I10 Essential (primary) hypertension; E78.2 Mixed hyperlipidemia; E11.9 Type 2 diabetes mellitus without complications | CPT/HCPCS: 96127; 99212 ==

== ENCOUNTER → 2024-09-03 10:39 | Outpatient (REF) | payer MEDICARE, MEDICAID, SELFPAY ==
--- NOTE | ~2024-09-03 | NM_ITS ---
EXAMINATION: Nuclear medicine parathyroid SPECT with CT. CLINICAL INDICATION: Hyperparathyroidism graft comparison: None TECHNIQUE: Following intravenous administration of 25 mCi of technetium 99m Cardiolite in left hand, immediate and delayed 2 hour planar images of the anterior neck were obtained. SPECT study was obtained at 2 hours through the anterior neck. Images were displayed in valleculae to and color. FINDINGS: On immediate of the neck is symmetrical activity seen in bilateral thyroid lobes. No focal increased activity seen in the thyroid gland to suggest avascular nodule or along the edges of the thyroid gland or the anterior chest to suspect any parathyroid adenoma. On delayed 2 hour planar images there is significant washout of the thyroid gland with no focal activity seen in the thyroid gland or the periphery to suspect a parathyroid adenoma. No abnormal activity seen in the chest either. On delayed SPECT images there is normal symmetrical activity seen in bilateral thyroid lobes. No abnormal activity seen in the upper chest or the anterior neck to suspect any parathyroid adenoma. NM/NM parathyroid SPECT w CT IMPRESSION: No abnormal technetium sestamibi activity on immediate imaging. No abnormal retained activity on delayed scan within the neck or the chest to suspect parathyroid adenoma. Electronically signed by: Dawit Martinez MD 09/03/2024 04:37 PM EDT
--- OUTSIDE RECORDS SUMMARY | 2024-09-03 11:10 | XMS_ITS | Clinical Summary ---
Author Organization [facility] Address [address] [address] Phone Care Team Providers Care Gis Technician Name Role Phone Navid Tejeda MD Primary Care Provider [phone] Allergies Active Allergy Reactions Criticality Noted Date [...] Encounters Date Type Department Care Team Description 08/28/2024 Orders Only [facility] [address] [place] [address] Kip Kwok MD Type 2 diabetes mellitus without complication (HCC) 07/31/2024 Orders Only [facility] [address] [place] [address] Kip Kwok MD Type 2 diabetes mellitus without complication (HCC) 07/03/2024 Orders Only [facility] [address] [place] [address] Kip Kwok MD Type 2 diabetes mellitus without complication (HCC) 06/05/2024 Orders Only [facility] [address] [place] [address] Kip Kwok MD Type 2 diabetes mellitus [...] Orders Only [facility] [address] [place] [address] Kip Kwok MD [address] [address] Hypomagnesemia 09/24/2024 1:30 PM EDT Office Visit [facility] [address] [place] [address] Kip Kwok MD [address] [address] Health Maintenance Due Date Last [...] Medicaid [place] Care Teams Gis Technician Relationship Specialty Start Date End Date Navid Tejeda MD [address] [place] [address] PCP - General Internal Medicine 09/18/22
== END ==
LOC: HO.NUCMED 10:39
PROVIDERS: PCP Internal Medicine; Visit Provider Student in an Organized Health Care Education/Training Program
DX: E21.3 Hyperparathyroidism, unspecified (principal)
CPT/HCPCS: 78072; A9500

== ENCOUNTER → 2024-09-03 10:41 | Outpatient (BNV) | payer MEDICARE, MEDICAID, SELFPAY | PROVIDERS: PCP Internal Medicine; Visit Provider Radiology Diagnostic Radiology | DX: E21.3 Hyperparathyroidism, unspecified (principal) | CPT/HCPCS: 78072 ==

== ENCOUNTER 2024-09-16 10:06 | Outpatient (REF) | payer MEDICARE, MEDICAID, SELFPAY ==
[2024-09-16 11:09] LABS: Magnesium 1.5 mg/dL (1.6-2.6)
--- OUTSIDE RECORDS SUMMARY | 2024-09-16 11:26 | XMS_ITS | Patient Health Record ---
[facility] Organization [facility] Address [address] [place] [address] Care Team Providers Care Manager Transfusion Name Role Phone Ileana PERSAUD, Navid Primary Care Provider Seema Thomas Unavailable [phone] Allergies Allergen (clinical drug ingredient) Drug/Non Drug Allergy documented on EMR Reaction Allergy Type Onset Date Status codeine Codeine dizziness Drug Allergy Active Reason For Referral No Information Medications Medication SIG (Take, Route, Frequency, Duration) Notes Start Date End Date Status Blood Glucose Meter Active Meclizine HCl 12.5 MG 1 tablet as needed Orally every 12 hrs Active Insulin Lispro Humalog Activ e Sulfamethoxazole Not -Taking metFORMIN HCl 1000 MG 1 tablet with a meal Orally twice a day Active Simvastatin 20 MG 1 tablet in the evening Orally Once a day Active Albuterol Sulfate No t-Taking Magnesium Active Lisinopril 10 MG 1 tablet Orally twice a day Active Glucose Monitoring Sensor Active Freestyle Test Strips Active Tirzepatide Mounjaro Active Insulin Glargine Lantus Act cecily Immunizations Vaccine Route Administration Date Status Comme [...] Problem Acquired hammer toe of right foot (15556325019308 05) Other hammer toe(s) (acquired), right foot (M20.41) Active confirmed Problem Acquired hammer toe of left foot (31725852384025 03) Other hammer toe(s) (acquired), left foot (M20.42) Active confirmed Problem [id number] Type 2 diabetes mellitus without complication, without long-term current use of insulin (E11.9) Active confirmed Encounters Encounter Location Date Provider Diagnosis [facility] [place] [address] [place] [address] 09/02/2024 Seema Escobedo Plan Of Treatment Next Appt Details Provider Name:Seema love, 11/10/2024 10:00:00 AM, [address] [place] [address], [id number], Insurance Providers Payer Name Payer Address Payer Phone Subscriber Number Group Number Insured Name Patient Relationship to Insured Coverage Start Date Coverage End Date Medicare National [employer] [address] [place] [address] [id number] Tatiana Umanzor Self - patient is the insured Medical (General) History Medical History History ICD Code Broken bones Cholesterol covid-19 Diabetic Gall bladder problems High blood pressure Psoriasis/eczema Reflux ( GERD) sinusitis Measles Mumps Chicken pox Surgical History Surgery Date(Month/Year) tonsillectomy 1975 Gall bladder removal 1997 Hospitalization History Reason Date(Month/Year) [facility] [place]06/23
== END 2024-09-16 10:07 | disposition home or self-care (01) ==
LOC: HO.LAB 10:06
PROVIDERS: PCP Internal Medicine; Visit Provider Internal Medicine
DX: E21.3 Hyperparathyroidism, unspecified (principal)
CPT/HCPCS: 36415; 83735; 99212

== ENCOUNTER 2024-09-16 13:25 | Outpatient (AMB) | payer MEDICARE, MEDICAID, SELFPAY ==
--- NOTE | 2024-09-16 13:27 | A.OFFVIS_ITS ---
Vital Signs 3 09/16/24 13:28 Height 5 ft 4 in Weight 203 lb 0.732 oz BMI 34.8 BP 104/66 Blood Pressure Location Lt brachial Position Sitting Pulse 87 Pulse Source Pulse Oximeter Pulse Oximetry (%) 94 Oxygen Delivery Method Room Air Intake Visit Reasons: Discuss Parathyroid scan results Intake Note: Patient present today to discuss Parathyroid scan results. Per Diem Interpreter Required: No Accompanied by: Daughter Allergies acetaminophen [From PERCOCET] Allergy (Intermediate, Verified 09/16/24 13:33) UNKNOWN oxycodone [From PERCOCET] Allergy (Intermediate, Verified 09/16/24 13:33) UNKNOWN Medication List - Last Reconciled 09/16/24 by Ngoc Conklin MD albuterol sulfate 90 mcg/actuation 1 inh inhalation QID PRN blood sugar diagnostic (FreeStyle Lite Strips) As directed blood-glucose meter (FreeStyle Lite Meter kit) As directed cholecalciferol (vitamin D3) 25 mcg PO DAILY 3 months cyanocobalamin (vitamin B-12) 500 mcg PO DAILY dapagliflozin propanediol (Farxiga) 5 mg PO DAILY flash glucose scanning reader (FreeStyle Emmanuel 2 [place]) As directed flash glucose sensor (FreeStyle Emmanuel 2 Sensor kit) DIRECTED CHANGE EVERY 14 DAYS insulin aspart U-100 (Novolog FlexPen U-100 Insulin aspart) 6 units (0.06 mL) subcut TID insulin glargine (Lantus Solostar U-100 Insulin) 28 units (0.28 mL) subcut QPM lisinopril 10 mg PO BEDTIME magnesium oxide 500 mg PO BID meclizine 12.5 mg PO Q8H PRN metformin 1,000 mg PO BID pen needle, diabetic (Comfort EZ Pen Scott) As directed injects once a day pen needle, diabetic (BD Tessie 2nd Gen Pen Needle) use once a day As directed simvastatin 20 mg PO BEDTIME tirzepatide (Mounjaro) 7.5 mg (0.5 mL) subcut QWEEK HPI Comments Details: 69 YO F who is seen in f/u for hypercalcemia. She also follows with me for type 2 diabetes mellitus, not addressed today. Hypercalcemia Noted in the chart to have high Ca and PTH levels since 2021 Wrist fracture at least 20-30 years ago No recent fractures No kidney stones No vitamin D supplemts Milk 1-2 a week, Cheese 3-4 times a week , no yogurt CT abd 2019 no kidney stones DEXA scan 04/21/2024 showed normal bone density of the lumbar spine, with T-score of 0.3, normal bone density of the left total hip a T-score of 0.1, borderline osteopenic left femoral neck with T-score of -1, normal bone density of the distal radius with T-score of-0.7. Overall this is consistent with normal bone density. Labs from 03/13/2024 showed normal kidney function, total calcium 10.3, albumin of 4.3, ionized calcium 5.8, phosphorus low at 2.5, PTH of 81.1, vitamin-D of 24.8 Repeat labs 04/21/2024 showed calcium elevated to 11, with albumin of 4.3, corrected calcium would be 10.7, ionized calcium of 6, phosphorus of 3.1, PTH of 126.7, She has started taking more calcium in her diet with more yogurt during the week. Interval history 08/06/2024 Lab work repeated in July 2024 showed calcium of 10.7 with albumin of 4.2, corrected calcium would be 10.5, ionized calcium also elevated at 5.9, vitamin-D now improved at 41.3, normal kidney function, 24 hour urine calcium elevated at 373 with a calcium to creatinine ratio of 300. PTH elevated at 99.6. Currently on vitamin D 1000 units daily. Interval history 09/16/2024 Parathyroid nuclear scan SPECT CT scan did not identify any parathyroid adenoma. She is here today to discuss these results. Type 2 diabetes mellitus: Not addressed today Prior HPI Initially diagnosed with T2DM approx 2017 Was initially started on treatment with metformin. She failed Bydureon Prior meds Bydureon discontinued when Mounjaro started Mar 2024 Current regimen meformin 1000 mg BID Lantus 30 units at bedtime Humalog 6 units TID Mounjaro 5 mg weekly (started Mar 2024, increased to 5mg weekly end of Apr 2023) Farxiga 5 mg daily started Apr 2024 Freestyle Emmanuel 2 report downloaded from July 24 to August 06, 2024 Time CGM active 90% Average glucose 138 mg/dL G TN 6.6% Glucose variability 21.4% Within target range 91% High 9% Very high 0% Low 0% Very low 0% Interpretation overall excellent control with some postprandial highs noted mostly after dinner. On July 29 she had hypoglycemia around 16:00 with blood sugar of 66. Last Diabetic Eye exam: 09/2023, Last Podiatry Visit: 09/2023 Random Glucose: 112 mg/dl HgA1C: 7.6% 05/25/24 HgA1C: 8.5% 02/20/24 3 soft mints for a low carries at all times also has glucose tablets Family history of T2DM in mother and sisters. +retinopathy: last eye exam 2023 Opthamologist Has seen retinal specialist: minimal retinopathy, f/u in one year No neuropathy: denies numbness, tingling or cramping in the lower extremities saw podiatry earlier this year + nephropathy, on MATTHEW eGFR >60 microalbumin 127 on 07/28/24 improved a bit , follows with nephrology Has HLD, on statin. Last LDL 07/31 64 She has 2 children, 4 granchildren, 4 sisters one Denies CAD. No stroke Physical exam General: sitting comfortably in no acute distress HEENT: normocephalic/atraumatic, Neck: supple, symmetrical Cardiac: normal heart sounds Pulm: normal breath sounds B/L, no added breath sounds Abd: not distended, no tenderness Extremities: no edema, no signs of myxedema Neuro: AAO x3, Speech: normal, no facial droop, moving all 4 extremities Skin: no rash Foot exam: : checked Jan 2024: intact sensation to monofilament, intact pulses, intact vibration Laboratory Tests 10/31/23 02/13/24 16:13 13:40 Calcium 10.6 H Ionized Calcium 5.8 H Phosphorus 2.5 L Magnesium 1.6 25-OH Vitamin D Total 31.8 PTH Intact 108.6 H PTH Intact Intraop 76.3 Laboratory Tests 09/05/21 07/25/22 08/30/23 14:50 09:00 14:16 Est GFR (Cystatin C) Hgb A1c (Clinic) > 14.0 H 11.5 H 9.2 H 02/13/24 02/20/24 Unknown 10:45 Est GFR (Cystatin C) 56 (L) Hgb A1c (Clinic) 8.5 H Laboratory Tests 02/13/24 13:40 Creatinine 0.79 Estimated GFR > 60 Laboratory Tests 01/03/23 10/12/23 10/31/23 05:25 09:01 16:11 Creatinine Estimated GFR Glucose (Clinic) Calcium Ionized Calcium Phosphorus Magnesium Albumin Triglycerides 159 H Cholesterol 142 LDL Cholesterol, Calc 73 HDL Cholesterol 38 L 25-OH Vitamin D Total PTH Intact Ur 24 Hour Volume 2750 Urine Creatinine Ur Creatinine mg/dL 36.59 Ur Creatinine 24 Hour 1.07 Urine Microalbumin 94.0 Microalb/Creat Ratio 90.3 H Ur Sodium 24 Hour 236.5 H Ur Calcium 24 Hr 432 H Calcium/Creat 24 Hr 403 H 11/28/23 02/13/24 03/13/24 08:33 13:31 11:32 Creatinine Estimated GFR Glucose (Clinic) Calcium Ionized Calcium Phosphorus Magnesium Albumin Triglycerides 151 H Cholesterol 149 LDL Cholesterol, Calc 80 HDL Cholesterol 39 L 25-OH Vitamin D Total PTH Intact Ur 24 Hour Volume Urine Creatinine 18.87 Ur Creatinine mg/dL Ur Creatinine 24 Hour Urine Microalbumin 38.0 29.0 Microalb/Creat Ratio 243.1 H 153.6 H Ur Sodium 24 Hour Ur Calcium 24 Hr Calcium/Creat 24 Hr 03/13/24 04/21/24 04/28/24 11:37 10:47 10:02 Creatinine 0.84 Estimated GFR > 60 Glucose (Clinic) 106 Calcium 10.3 H 11.0 H D Ionized Calcium 5.8 H 6.0 H Phosphorus 2.5 L 3.1 Magnesium 1.6 1.8 Albumin 4.3 Triglycerides Cholesterol LDL Cholesterol, Calc HDL Cholesterol 25-OH Vitamin D Total 24.8 L PTH Intact 81.1 H 126.7 H Ur 24 Hour Volume Urine Creatinine Ur Creatinine mg/dL Ur Creatinine 24 Hour Urine Microalbumin Microalb/Creat Ratio Ur Sodium 24 Hour Ur Calcium 24 Hr Calcium/Creat 24 Hr Laboratory Tests 03/13/24 07/28/24 07/28/24 11:37 06:30 09:25 RBC 4.33 Hgb 13.0 Plt Count 260 Sodium 136 Potassium 4.5 Creatinine 0.81 Estimated GFR > 60 Random Glucose 134 H Hemoglobin A1c % 7.0 H Calcium 10.7 H Ionized Calcium 5.9 H Albumin 4.2 Triglycerides 128 Cholesterol 129 LDL Cholesterol, Calc 64 HDL Cholesterol 40 L Vitamin B12 291 25-OH Vitamin D Total 41.3 PTH Intact 99.6 H Ur 24 Hour Volume 2700 Urine Creatinine Ur Creatinine mg/dL 44.60 Ur Creatinine 24 Hour 1.2 Urine Microalbumin Microalb/Creat Ratio Ur Calcium 24 Hr 373 H Calcium/Creat 24 Hr 300 H 07/28/24 09:30 RBC Hgb Plt Count Sodium Potassium Creatinine Estimated GFR Random Glucose Hemoglobin A1c % Calcium Ionized Calcium Albumin Triglycerides Cholesterol LDL Cholesterol, Calc HDL Cholesterol Vitamin B12 25-OH Vitamin D Total PTH Intact Ur 24 Hour Volume Urine Creatinine 31.34 Ur Creatinine mg/dL Ur Creatinine 24 Hour Urine Microalbumin 40.0 Microalb/Creat Ratio 127.6 H Ur Calcium 24 Hr Calcium/Creat 24 Hr EXAMINATION: Dual-Energy X-ray Absorptiometry - Bone Density Study 04/21/24 HISTORY: Estrogen deficiency TECHNIQUE: [employer] Dual energy absorptiometry (DEXA) of the lumbar spine, total left hip, and femoral neck was performed. COMPARISON: Comparison is made with the prior examination dated 10/19/2008. FINDINGS: The bone mineral density of the lumbar spine is 1.214 with a T-score of 0.3, and a Z-score of 0.9. This represents a BMD change of 8.9% compared to the prior exam. This is statistically significant. The bone mineral density of the left total hip is 1.022 with a T-score of 0.1, and a Z-score of 0.7. This represents BMD change of -12.8% compared to the prior exam. This is statistically significant. The bone mineral density of the left femoral neck is 0.899 with a T-score of -1.0, and a Z-score of -0.1. This represents BMD change of -9.4% compared to the prior exam. The bone mineral density of the distal radius is 0.816 with a T score of -0.7 and a Z score of 0.9. FRACTURE RISK: The FRAX index suggests a ten year probability of major osteoporotic fracture of 7.7%, and of hip fracture 0.6%. MM/XR DEXA appendicular skeleton IMPRESSION: Based on bone mineral density, and according to World Health Organization (WHO) criteria, the diagnosis is consistent with normal bone mineral density. [facility] Medical History Hyperparathyroidism Hypercalcemia Hypertension Obesity Type 2 diabetes mellitus with obesity Diabetes mellitus Diabetes Hyperlipidemia Hypertension Surgical History History of cholecystectomy History of tonsillectomy Family History (Updated 08/26/24 @ 16:57 by Zita Butler MD) Mother Diabetes mellitus Father Angina at rest Social History Household Members: Family Housing: Apartment Do you presently have visiting nurse or other home services: Yes Alcohol intake: current Alcohol intake frequency: holidays/special occasions only Comment: no c/o dizziness Patient Tobacco Use Status: Former Tobacco user Tobacco use type: Cigarette e-Cigarette/Vaping Use: Never Used Second Hand Smoke Exposure: Yes Advance Directives Date on File: 04/06/20 service: No Current occupational status: employed 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 Intermittently elevated and then resolved. blood work from October and February 2024 showed calcium elevated range. Back in December 2022 your calcium was has a high as 11.1 mg/dL phosphorus level also noted to be low in February 2024 at 2.5. Her kidney function with EGFR has been greater than 60. Vitamin-D level at 31.8 from February 2024, she is not on any vitamin-D supplements. No history of kidney stones, remote history of wrist fracture , DEXA scan 04/21/2024 showed normal bone density of the lumbar spine, with T-score of 0.3, normal bone density of the left total hip a T-score of 0.1, borderline osteopenic left femoral neck with T-score of -1, normal bone density of the distal radius with T-score of-0.7. Overall this is consistent with normal bone density. Labs from 03/13/2024 showed normal kidney function, total calcium 10.3, albumin of 4.3, ionized calcium 5.8, phosphorus low at 2.5, PTH of 81.1, vitamin-D of 24.8 Repeat labs 04/21/2024 showed calcium elevated to 11, with albumin of 4.3, corrected calcium would be 10.7, ionized calcium of 6, phosphorus of 3.1, PTH of 126.7, Lab work repeated in July 2024 showed calcium of 10.7 with albumin of 4.2, corrected calcium would be 10.5, ionized calcium also elevated at 5.9, vitamin-D now improved at 41.3, normal kidney function, 24 hour urine calcium elevated at 373 with a calcium to creatinine ratio of 300. PTH elevated at 99.6. Now even with the improved vitamin-D, continues to have high calcium and high PTH levels. she does not have osteoporosis, kidney function is normal, she is greater than age 52, no history of kidney stones, s but given the hypercalciuria she does meet surgical criteria. Parathyroid scan nuclear SPECT CT did not identify a parathyroid adenoma. I discussed with the patient that she has primary hyperparathyroidism with hypercalciuria and over time that could put her at risk of nephrocalcinosis, kidney, reduced kidney function, osteoporosis. I discussed with her that we could send her for surgical evaluation to Dr. Tan English at [facility] where he can for from his in her office ultrasound/order a 40 CT scan to evaluate her for surgery. Discussed with her that surgical risks involve risk of bleeding, infection, risks of injury to recurrent laryngeal nerves, risks of hypoparathyroidism. Plan: -continue vitamin-D 1000 units daily -incorporate 1000 mg of calcium in diet by taking 2-3 servings of calcium rich foods daily , no calcium supplements -referral placed for Dr. Tan English at [facility] -repeat a set of blood work done at [facility] prior to next follow up (2) Hyperparathyroidism: Code(s): E21.3 - Hyperparathyroidism, unspecified Category: Medical Plan: see above Plan See above Orders: Orders 2 Phosphorus Today E21.3 - Hyperparathyroidism, unspecified, E83.52 - Hypercalcemia Creatinine Today E21.3 - Hyperparathyroidism, unspecified, E83.52 - Hypercalcemia Albumin Level Today E21.3 - Hyperparathyroidism, unspecified, E83.52 - Hypercalcemia Calcium Today E21.3 - Hyperparathyroidism, unspecified, E83.52 - Hypercalcemia Calcium, Ionized Today E21.3 - Hyperparathyroidism, unspecified, E83.52 - Hypercalcemia Parathyroid Hormone Intact Today E21.3 - Hyperparathyroidism, unspecified, E83.52 - Hypercalcemia Referrals 2 General Surgery Referral E21.3 - Hyperparathyroidism, unspecified, E83.52 - Hypercalcemia Coding Level of Care Code Est Pt Level 3 (76350) Diagnoses Hypercalcemia E83.52 Hyperparathyroidism E21.3
[2024-09-16 13:28] VITALS: BP 104/66; PULSE 87; O2SAT 94; BMI 34.8
== END 2024-09-16 14:01 | disposition home or self-care (01) ==
LOC: HO.ENCR 13:26
PROVIDERS: PCP Internal Medicine; Visit Provider Student in an Organized Health Care Education/Training Program
DX: E83.52 Hypercalcemia (principal)
CPT/HCPCS: 99214

== ENCOUNTER 2024-11-16 09:04 | Outpatient (REF) | payer MEDICARE, MEDICAID, SELFPAY ==
--- OUTSIDE RECORDS SUMMARY | 2024-11-16 09:31 | XMS_ITS | Clinical Summary ---
Author Organization [facility] Address [address] [facility] [address] [place] [address] Phone Care Team Providers Care Nursing Teacher Name Role Phone Navid Tejeda MD Primary Care Provider [phone] Allergies Active Allergy Reactions Criticality Noted Date [...] Encounters Date Type Department Care Team Description 09/24/2024 1:30 PM EDT Office Visit [facility] [address] [place] [address] Kip Kwok MD Hypomagnesemia (Primary Dx); Type 2 diabetes mellitus without complication (HCC) 09/24/2024 Orders Only [facility] [address] [place] [address] Kip Kwok MD Hypomagnesemia 08/28/2024 Orders Only [facility] [address] [place] [address] Kip Kwok MD Type 2 diabetes mellitus [...] Sign Reading Time Taken Comments Blood Pressure 120/74 09/24/2024 1:22 PM EDT Pulse 94 09/24/2024 1:22 PM EDT Temperature - - Respiratory Rate - - Oxygen Saturation 96% 09/24/2024 1:22 PM EDT Inhaled Oxygen Concentration - - Weight 92 kg (202 lb 12.8 oz) 09/24/2024 1:22 PM EDT Height - - Body Mass Index - - Plan of Treatment Upcoming Encounters Date Type Department Care Team (Late st Contact Info) Description 03/25/2025 1:15 PM EST Office Visit [facility] [address] [place] [address] Kip Kwok MD [address] [facility] [address] [place] [address] Health Maintenance Due Date Last Done [...] Hemoglobin A1C 02/28/2024 024, 12/01/2022 Influenza Vaccine (#1) 2024 Hepatitis B Vaccine Aged Out No [...] Most Recently Relevant to Health Maintenance Insurance [place] [id number] [place] Care Teams Nursing Teacher Relationship Specialty Start Date End Date Navid Tejeda MD [address] [place], [place] PCP - General Internal Medicine 09/18/22
--- OUTSIDE RECORDS SUMMARY | 2024-11-16 09:31 | XMS_ITS | Patient Health Record ---
Author Organization [facility] Address [address] [place] [address] Care Team Providers Care Insurance Instructor Name Role Phone Maty PERSAUD, Kike Primary Care Provider Unavailab Bry Fletcher Unavailable [phone] Reason For Referral No Information Medications Medication [...] Problem History of adenomatous polyp of colon (989132593) History of adenomatous polyp of colon (Z86.010) Active confirmed Problem Nausea (R11.0) Active confirmed Problem Vomiting (490426831) Vomiting (R11.10) Active confirmed Problem Diarrhea of presumed infectious origin (35507246) Diarrhea of presumed infectious origin (R19.7) Active confirmed Plan Of Treatment No Information Insurance Providers Payer Name Payer Address Payer Phone Subscriber Number Group Number Insured Name Patient Relationship to Insured Coverage Start Date Coverage End Date [facility] [address] [place] [address] [phone] [id number] LUIS LANG Self - patient is the insured Medical (General) History Medical History History ICD Code NIDDM Hypertension Denies SC,CVA,Lung disease,renal disease Hyperlipidemia COVID in 01/2019--not hospitalized [...]
--- OUTSIDE RECORDS SUMMARY | 2024-11-16 09:31 | XMS_ITS | Patient Health Record ---
[facility] Address [address] [place] [address] Care Team Providers Care Mechanical Design Engineer Products Name Role Phone Wendi PERSAUD, Zita Primary Care Provider Unavail able AbdirizakivanSeema Unavailable [phone] Allergies Allergen (clinical drug ingredient) Drug/Non Drug Allergy documented on EMR Reaction Allergy Type Onset Date Status codeine Codeine dizziness Drug Allergy Active Results Component Value Reference Range Notes HEMOGLOBIN A1C (GLYCOHEMOGLO BIN) Reviewed date:11/10/2024 10:06:47 AM Interpretation: Performing Lab: Notes/Report: HEMOGLOBIN A1C % (HH) 7.1 Reason For Referral No Information Medications Medication SIG (Take, Route, Frequency, Duration) Notes Start Date End Date Status Famotidine Active metFORMIN HCl 1000 MG 1 tablet with a meal Orally twice a day Active Freestyle Test Strips Active Sulfamethoxazole Not -Taking Blood Glucose Meter Active Albuterol Sulfate No t-Taking Meclizine HCl 12.5 MG 1 tablet as needed Orally every 12 hrs Active Tirzepatide Mounjaro Active Farxiga Active Insulin Glargine Lantus Act cecily Vitamin D Active Glucose Monitoring Sensor Active Vitamin B12 Active Insulin Lispro Humalog Activ e Magnesium Active Lisinopril 10 MG 1 tablet Orally twice a day Active Simvastatin 20 MG 1 tablet in the evening Orally Once a day Active Immunizations Vaccine Route Administration Date Status Comme nts Influenza Unknown 09/04/2023 Refused Social History Tobacco Use: Social History Observation Description Date Details (start date - stop date) Never Smoker NA - NA Alcohol Screen Question Answer Notes Did you have a drink contain ing alcohol in the past year? Yes How often did you have a dri nk containing alcohol in the past year? Monthly or less (1 point) Points 1 Interpretation Negative Tobacco use other than smoking: Question Answer Notes Are you an other tobacco user? No Tobacco Control (Standard) Question Answer Notes Tobacco use: Nonsmoker AUDIT-C (Standard) Question Answer Notes Did you have a drink containing alcohol in the p ast year? No Points 0 Interpretation Negative Problems Problem Type SNOMED Code ICD Code Onset Dates Problem Status W/U Status Risk Notes Problem Acquired hammer toe of right foot (7726120571760 105) Other hammer toe(s) (acquired), right foot (M20.41) Active confirmed Problem Acquired hammer toe of left foot (7963903155255 103) Other hammer toe(s) (acquired), left foot (M20.42) Active confirmed Problem Diabetes mellitus (21577311) Type 2 diabetes mellitus without complication, without long-term current use of insulin (E11.9) Active confirmed Vital Signs Blood pressure diastolic 75 mm Hg 11/10/2024 Height 5ft3in in 11/10/2024 Blood pressure systolic 126 mm Hg 11/10/2024 Weight 197 lbs 11/10/2024 BMI 34.89 kg/m2 11/10/2024 Encounters Encounter [facility] Date [facility] [address] [facility]/10/[facility]24 Seema Escobedo Other hammer toe(s) (acquired), right foot M20.41 ; Type 2 diabetes mellitus without complication, without long-term current use of insulin E11.9 and Other hammer toe(s) (acquired), left foot M20.42 [facility] [address] 09/02/2024 Seema Escobedo Assessments Encounter Date Diagnosis (ICD Code) Assessment Notes Treatment Notes Treatment Clinical Notes Section Notes 11/10/2024 Other hammer toe(s) (acquired), right foot (ICD-10 - M20.41) 11/10/2024 Type 2 diabetes mellitus without complication, without long-term current use of insulin (ICD-10 - E11.9) 11/10/2024 Other hammer toe(s) (acquired), left foot (ICD-10 - M20.42) Plan Of Treatment Next Appt Details Provider Name:Seema love, 11/16/2025 10:00:00 AM, [address] [facility], [place], [address], Insurance Providers Payer Name Payer Address Payer Phone Subscriber Number Group Number Insured Name Patient Relationship to Insured Coverage Start Date Coverage End Date [employer] [address] [place] [address] [id number] Tatiana Umanzor Self - patient is the insured Medical (General) History Medical History History ICD Code Broken bones Cholesterol covid-19 Diabetic Gall bladder problems High blood pressure Psoriasis/eczema Reflux ( GERD) sinusitis Measles Mumps Chicken pox Surgical History Surgery Date(Month/Year) tonsillectomy 1974 Gall bladder removal 1997 [place] History Reason Date[place]Month/[place] [facility] [place]
[2024-11-16 11:01] LABS: Albumin Level 4.5 g/dL (3.5-5.0); Calcium 11.2 mg/dL (8.4-10.2); Estimated Glomerular Filt Rate 52
[2024-11-16 12:39] LABS: Parathyroid Hormone Intact 94.9 pg/mL (8.7-77.1)
[2024-11-18 16:37] LABS: Calcium, Ionized 5.9 mg/dL (4.7-5.5)
== END 2024-11-16 09:05 | disposition home or self-care (01) ==
LOC: HO.LAB 09:04
PROVIDERS: PCP Internal Medicine; Visit Provider Student in an Organized Health Care Education/Training Program
DX: E83.52 Hypercalcemia (principal)
CPT/HCPCS: 36415; 82040; 82310; 82330; 82565; 83970; 84100

== ENCOUNTER 2024-11-24 09:46 | Outpatient (AMB) | payer MEDICARE, MEDICAID, SELFPAY ==
[2024-11-24 09:49] VITALS: BP 124/68; PULSE 101; O2SAT 93; BMI 33.7
--- NOTE | 2024-11-24 09:49 | A.OFFVIS_ITS ---
Vital Signs 3 11/24/24 09:49 Height 5 ft 4 in Weight 196 lb 6.91 oz BMI 33.7 BP 124/68 Blood Pressure Location Lt brachial Position Sitting Pulse 101 H Pulse Source Pulse Oximeter Pulse Oximetry (%) 93 Oxygen Delivery Method Room Air Intake Visit Reasons: T2DM Intake Note: Patient present today for Type 2 Diabetes Mellitus Last Diabetic eye exam: 10/2023 she will be calling to schedule an appt for this year. Last Podiatry Visit: 11/10/2024 Random Glucose: 125 mg/dl HgA1C: 7.0% Quantitative Associate Required: No Accompanied by: Self / Same As Patient Allergies acetaminophen (From PERCOCET) Allergy (Intermediate, Verified 11/24/24 09:56) UNKNOWN oxycodone (From PERCOCET) Allergy (Intermediate, Verified 11/24/24 09:56) UNKNOWN Medication List - Last Reconciled 11/24/24 by Ngoc Conklin MD albuterol sulfate 90 mcg/actuation 1 inh inhalation QID PRN blood sugar diagnostic (FreeStyle Lite Strips) As directed blood-glucose meter (FreeStyle Lite Meter kit) As directed cholecalciferol (vitamin D3) 25 mcg PO DAILY 3 months cyanocobalamin (vitamin B-12) 500 mcg PO DAILY dapagliflozin propanediol (Farxiga) 5 mg PO DAILY flash glucose scanning reader (FreeStyle Emmanuel 2 [place]) As directed flash glucose sensor (FreeStyle Emmanuel 2 Sensor kit) DIRECTED CHANGE EVERY 14 DAYS insulin aspart U-100 (Novolog FlexPen U-100 Insulin aspart) 6 units (0.06 mL) subcut TID insulin glargine (Lantus Solostar U-100 Insulin) 28 units (0.28 mL) subcut QPM lisinopril 10 mg PO BEDTIME magnesium oxide 500 mg PO BID meclizine 12.5 mg PO Q8H PRN metformin 1,000 mg PO BID pen needle, diabetic (Comfort EZ Pen Sullivan) As directed injects once a day pen needle, diabetic (BD Tessie 2nd Gen Pen Needle) use once a day As directed simvastatin 20 mg PO BEDTIME tirzepatide (Mounjaro) 7.5 mg (0.5 mL) subcut QWEEK HPI Comments Details: 69 YO F who is seen in f/u for type 2 diabetes mellitus and hypercalcemia. Hypercalcemia Noted in the chart to have high Ca and PTH levels since 2021 Wrist fracture at least 20-30 years ago No recent fractures No kidney stones No vitamin D supplemts Milk 1-2 a week, Cheese 3-4 times a week , no yogurt CT abd 2019 no kidney stones DEXA scan 04/21/2024 showed normal bone density of the lumbar spine, with T-score of 0.3, normal bone density of the left total hip a T-score of 0.1, borderline osteopenic left femoral neck with T-score of -1, normal bone density of the distal radius with T-score of-0.7. Overall this is consistent with normal bone density. Labs from 03/13/2024 showed normal kidney function, total calcium 10.3, albumin of 4.3, ionized calcium 5.8, phosphorus low at 2.5, PTH of 81.1, vitamin-D of 24.8 Repeat labs 04/21/2024 showed calcium elevated to 11, with albumin of 4.3, corrected calcium would be 10.7, ionized calcium of 6, phosphorus of 3.1, PTH of 126.7, She has started taking more calcium in her diet with more yogurt during the week. Lab work repeated in July 2024 showed calcium of 10.7 with albumin of 4.2, corrected calcium would be 10.5, ionized calcium also elevated at 5.9, vitamin-D now improved at 41.3, normal kidney function, 24 hour urine calcium elevated at 373 with a calcium to creatinine ratio of 300. PTH elevated at 99.6. Currently on vitamin D 1000 units daily. 09/03/24 Parathyroid nuclear scan SPECT CT scan did not identify any parathyroid adenoma. She is here today to discuss these results. 09/22/2024 labs showed PTH of 31, ionized calcium elevated at 5.7, calcium of 10.4, albumin of 4.2, corrected calcium would be 10.2, phosphorus 2.7, EGFR 78, normal creatinine Pending appointment with Dr. Tan English at [facility] scheduled for 12/04/2024 Type 2 diabetes mellitus: Prior HPI Initially diagnosed with T2DM approx 2017 Was initially started on treatment with metformin. She failed Bydureon Prior meds Bydureon discontinued when James started Mar 2024 Current regimen meformin 1000 mg BID Lantus 24 units at bedtime Humalog 4 units TID Mounjaro 7.5 mg weekly (started Mar 2024, increased to 5mg weekly end of Apr 2023, increased to 7.5 weekly 09/16/24) Farxiga 5 mg daily started Apr 2024 Freestyle Emmanuel 3+ download from November 11 to 11/24/2024 Time CGM active 95% Average glucose 133 mg/dL G IN 6.5% Glucose variability 21.5% Within target range 96% Low 0% Very low 0% High 4% Very high 0% Interpretation: Excellent glycemic control, no more hypoglycemia Last Diabetic Eye exam: 09/2023, Last Podiatry Visit: 11/2024 Random Glucose: 125 mg/dl POC a1c 11/24/24 7.0% HgA1C: 7.6% 05/25/24 HgA1C: 8.5% 02/20/24 3 soft mints for a low carries at all times also has glucose tablets Family history of T2DM in mother and sisters. +retinopathy: last eye exam 2023 Opthamologist Has seen retinal specialist: minimal retinopathy, f/u in one year No neuropathy: denies numbness, tingling or cramping in the lower extremities saw podiatry earlier this year + nephropathy, on MATTHEW eGFR >60 microalbumin 127 on 07/28/24 improved a bit , follows with nephrology Has HLD, on statin. Last LDL 07/31 64 She has 2 children, 4 granchildren, 4 sisters one Denies CAD. No stroke Physical exam General: sitting comfortably in no acute distress HEENT: normocephalic/atraumatic, Neck: supple, symmetrical Cardiac: normal heart sounds Pulm: normal breath sounds B/L, no added breath sounds Abd: not distended, no tenderness Extremities: no edema, no signs of myxedema Neuro: AAO x3, Speech: normal, no facial droop, moving all 4 extremities Skin: no rash Foot exam: : checked Jan 2024: intact sensation to monofilament, intact pulses, intact vibration Laboratory Tests 10/31/23 02/13/24 16:13 13:40 Calcium 10.6 H Ionized Calcium 5.8 H Phosphorus 2.5 L Magnesium 1.6 25-OH Vitamin D Total 31.8 PTH Intact 108.6 H PTH Intact Intraop 76.3 Laboratory Tests 09/05/21 07/25/22 08/30/23 14:50 09:00 14:16 Est GFR (Cystatin C) Hgb A1c (Clinic) > 14.0 H 11.5 H 9.2 H 02/13/24 02/20/24 Unknown 10:45 Est GFR (Cystatin C) 56 (L) Hgb A1c (Clinic) 8.5 H Laboratory Tests 02/13/24 13:40 Creatinine 0.79 Estimated GFR > 60 Laboratory Tests 01/03/23 10/12/23 10/31/23 05:25 09:01 16:11 Creatinine Estimated GFR Glucose (Clinic) Calcium Ionized Calcium Phosphorus Magnesium Albumin Triglycerides 159 H Cholesterol 142 LDL Cholesterol, Calc 73 HDL Cholesterol 38 L 25-OH Vitamin D Total PTH Intact Ur 24 Hour Volume 2750 Urine Creatinine Ur Creatinine mg/dL 36.59 Ur Creatinine 24 Hour 1.07 Urine Microalbumin 94.0 Microalb/Creat Ratio 90.3 H Ur Sodium 24 Hour 236.5 H Ur Calcium 24 Hr 432 H Calcium/Creat 24 Hr 403 H 11/28/23 02/13/24 03/13/24 08:33 13:31 11:32 Creatinine Estimated GFR Glucose (Clinic) Calcium Ionized Calcium Phosphorus Magnesium Albumin Triglycerides 151 H Cholesterol 149 LDL Cholesterol, Calc 80 HDL Cholesterol 39 L 25-OH Vitamin D Total PTH Intact Ur 24 Hour Volume Urine Creatinine 18.87 Ur Creatinine mg/dL Ur Creatinine 24 Hour Urine Microalbumin 38.0 29.0 Microalb/Creat Ratio 243.1 H 153.6 H Ur Sodium 24 Hour Ur Calcium 24 Hr Calcium/Creat 24 Hr 03/13/24 04/21/24 04/28/24 11:37 10:47 10:02 Creatinine 0.84 Estimated GFR > 60 Glucose (Clinic) 106 Calcium 10.3 H 11.0 H D Ionized Calcium 5.8 H 6.0 H Phosphorus 2.5 L 3.1 Magnesium 1.6 1.8 Albumin 4.3 Triglycerides Cholesterol LDL Cholesterol, Calc HDL Cholesterol 25-OH Vitamin D Total 24.8 L PTH Intact 81.1 H 126.7 H Ur 24 Hour Volume Urine Creatinine Ur Creatinine mg/dL Ur Creatinine 24 Hour Urine Microalbumin Microalb/Creat Ratio Ur Sodium 24 Hour Ur Calcium 24 Hr Calcium/Creat 24 Hr Laboratory Tests 03/13/24 07/28/24 07/28/24 11:37 06:30 09:25 RBC 4.33 Hgb 13.0 Plt Count 260 Sodium 136 Potassium 4.5 Creatinine 0.81 Estimated GFR > 60 Random Glucose 134 H Hemoglobin A1c % 7.0 H Calcium 10.7 H Ionized Calcium 5.9 H Albumin 4.2 Triglycerides 128 Cholesterol 129 LDL Cholesterol, Calc 64 HDL Cholesterol 40 L Vitamin B12 291 25-OH Vitamin D Total 41.3 PTH Intact 99.6 H Ur 24 Hour Volume 2700 Urine Creatinine Ur Creatinine mg/dL 44.60 Ur Creatinine 24 Hour 1.2 Urine Microalbumin Microalb/Creat Ratio Ur Calcium 24 Hr 373 H Calcium/Creat 24 Hr 300 H 07/28/24 09:30 RBC Hgb Plt Count Sodium Potassium Creatinine Estimated GFR Random Glucose Hemoglobin A1c % Calcium Ionized Calcium Albumin Triglycerides Cholesterol LDL Cholesterol, Calc HDL Cholesterol Vitamin B12 25-OH Vitamin D Total PTH Intact Ur 24 Hour Volume Urine Creatinine 31.34 Ur Creatinine mg/dL Ur Creatinine 24 Hour Urine Microalbumin 40.0 Microalb/Creat Ratio 127.6 H Ur Calcium 24 Hr Calcium/Creat 24 Hr EXAMINATION: Nuclear medicine parathyroid SPECT with CT. 09/03/24 CLINICAL INDICATION: Hyperparathyroidism graft comparison: None TECHNIQUE: Following intravenous administration of 25 mCi of technetium 99m Cardiolite in left hand, immediate and delayed 2 hour planar images of the anterior neck were obtained. SPECT study was obtained at 2 hours through the anterior neck. Images were displayed in valleculae to and color. FINDINGS: On immediate of the neck is symmetrical activity seen in bilateral thyroid lobes. No focal increased activity seen in the thyroid gland to suggest avascular nodule or along the edges of the thyroid gland or the anterior chest to suspect any parathyroid adenoma. On delayed 2 hour planar images there is significant washout of the thyroid gland with no focal activity seen in the thyroid gland or the periphery to suspect a parathyroid adenoma. No abnormal activity seen in the chest either. On delayed SPECT images there is normal symmetrical activity seen in bilateral thyroid lobes. No abnormal activity seen in the upper chest or the anterior neck to suspect any parathyroid adenoma. NM/NM parathyroid SPECT w CT IMPRESSION: No abnormal technetium sestamibi activity on immediate imaging. No abnormal retained activity on delayed scan within the neck or the chest to suspect parathyroid adenoma. Electronically signed by: Dawit Martinez MD 09/03/2024 04:37 PM EDT EXAMINATION: Dual-Energy X-ray Absorptiometry - Bone Density Study 04/21/24 HISTORY: Estrogen deficiency TECHNIQUE: [place] Free Classifieds Dual energy absorptiometry (DEXA) of the lumbar spine, total left hip, and femoral neck was performed. COMPARISON: Comparison is made with the prior examination dated 10/19/2008. FINDINGS: The bone mineral density of the lumbar spine is 1.214 with a T-score of 0.3, and a Z-score of 0.9. This represents a BMD change of 8.9% compared to the prior exam. This is statistically significant. The bone mineral density of the left total hip is 1.022 with a T-score of 0.1, and a Z-score of 0.7. This represents BMD change of -12.8% compared to the prior exam. This is statistically significant. The bone mineral density of the left femoral neck is 0.899 with a T-score of -1.0, and a Z-score of -0.1. This represents BMD change of -9.4% compared to the prior exam. The bone mineral density of the distal radius is 0.816 with a T score of -0.7 and a Z score of 0.9. FRACTURE RISK: The FRAX index suggests a ten year probability of major osteoporotic fracture of 7.7%, and of hip fracture 0.6%. MM/XR DEXA appendicular skeleton IMPRESSION: Based on bone mineral density, and according to World Health Organization (WHO) criteria, the diagnosis is consistent with normal bone mineral density. [facility] Medical History Hyperparathyroidism Hypercalcemia Hypertension Obesity Type 2 diabetes mellitus with obesity Diabetes mellitus Diabetes Hyperlipidemia Hypertension Surgical History History of cholecystectomy History of tonsillectomy Family History Mother Diabetes mellitus Father Angina at rest Social History Household Members: Family Housing: Apartment Do you presently have visiting nurse or other home services: Yes Alcohol intake: current Alcohol intake frequency: holidays/special occasions only Comment: no c/o dizziness Patient Tobacco Use Status: Former Tobacco user Tobacco use type: Cigarette e-Cigarette/Vaping Use: Never Used Second Hand Smoke Exposure: Yes Advance Directives Date on File: 04/06/20 service: No Current occupational status: employed 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 Cognitive needs: No Hearing needs: No Vision needs: Yes (glasses) Physical Exam Vital Signs: Last Vital Signs Pulse 101 H 11/24/24 09:49 BP 124/68 11/24/24 09:49 Pulse Ox 93 11/24/24 09:49 Oxygen Delivery Method Room Air 11/24/24 09:49 BMI result Body Mass Index 33.7 Office Procedures Glucose Monitoring Details Details: See [facility] [address] - Glucose monitoring, continuous-physician I&R Procedure code (CPT) selection complete Results AMB Hemoglobin A1c 2 AMB Hemoglobin A1c 7.0 % Last Edit by WILMA Lamb on 11/24/24 10:08 Assessment & Plan Assessment & Plan (1) Hypercalcemia: Code(s): E83.52 - Hypercalcemia Category: Medical Plan: During chart review also noted that she has had elevated calcium levels at least since 2021. Intermittently elevated and then resolved. blood work from October and February 2024 showed calcium elevated range. Back in December 2022 your calcium was has a high as 11.1 mg/dL phosphorus level also noted to be low in February 2024 at 2.5. Her kidney function with EGFR has been greater than 60. Vitamin-D level at 31.8 from February 2024, she is not on any vitamin-D supplements. No history of kidney stones, remote history of wrist fracture , DEXA scan 04/21/2024 showed normal bone density of the lumbar spine, with T-score of 0.3, normal bone density of the left total hip a T-score of 0.1, borderline osteopenic left femoral neck with T-score of -1, normal bone density of the distal radius with T-score of-0.7. Overall this is consistent with normal bone density. Labs from 03/13/2024 showed normal kidney function, total calcium 10.3, albumin of 4.3, ionized calcium 5.8, phosphorus low at 2.5, PTH of 81.1, vitamin-D of 24.8 Repeat labs 04/21/2024 showed calcium elevated to 11, with albumin of 4.3, corrected calcium would be 10.7, ionized calcium of 6, phosphorus of 3.1, PTH of 126.7, Lab work repeated in July 2024 showed calcium of 10.7 with albumin of 4.2, corrected calcium would be 10.5, ionized calcium also elevated at 5.9, vitamin-D now improved at 41.3, normal kidney function, 24 hour urine calcium elevated at 373 with a calcium to creatinine ratio of 300. PTH elevated at 99.6. Now even with the improved vitamin-D, continues to have high calcium and high PTH levels. she does not have osteoporosis, kidney function is normal, she is greater than age 52, no history of kidney stones, s but given the hypercalciuria she does meet surgical criteria. 09/03/24 Parathyroid scan nuclear SPECT CT did not identify a parathyroid adenoma. 09/22/2024 labs showed PTH of 31, ionized calcium elevated at 5.7, calcium of 10.4, albumin of 4.2, corrected calcium would be 10.2, phosphorus 2.7, EGFR 78, normal creatinine we discussed with the patient that she has primary hyperparathyroidism with hypercalciuria and over time that could put her at risk of nephrocalcinosis, kidney, reduced kidney function, osteoporosis. Referral sent to Dr. Tan English at [facility] where he can for from his in her office ultrasound/order a 40 CT scan to evaluate her for surgery. Discussed with her that surgical risks involve risk of bleeding, infection, risks of injury to recurrent laryngeal nerves, risks of hypoparathyroidism. Pending appointment with Dr. Tan English at [facility] 12/04/2024 Plan: -pending appointment with Dr. Tan English at [facility] for surgical evaluation, scheduled for 12/04/2024 -continue vitamin-D 1000 units daily -incorporate 1000 mg of calcium in diet by taking 2-3 servings of calcium rich foods daily , no calcium supplements (2) Hyperparathyroidism: Code(s): E21.3 - Hyperparathyroidism, unspecified Category: Medical Plan: see above (3) Type 2 diabetes mellitus with obesity: Code(s): E11.69 - Type 2 diabetes mellitus with other specified complication; E66.9 - Obesity, unspecified Category: Medical Plan: 69-year-old with type 2 diabetes mellitus with long-term insulin use with complication of microalbuminuria, retinopathy with most recent A1c POC 11/24/2024 at 7% down from of 7.6% from May 2024 down from 8.5% in Mar 01 currently on basal bolus insulin metformin and started on Mounjaro 2.5 mg weekly in March 2024 which 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 CGM data reviewed shows she is now in excellent glycemic control. Plan: Continue Farxiga 5 mg daily Continue Metformin 1000 mg twice daily Continue Mounjaro to 7.5 mg weekly continue Lantus to 24 units daily, if you start having any hypoglycemia fasting in the morning you can reduce this to 22 units Decrease Humalog to 4 units daily, to target 2 hours post meal sugar to <140 mg/dl , if you start having any hypoglycemic episodes let us know but you can also stopped taking Humalog Follow up in 3 months (4) Hyperlipidemia: Code(s): E78.5 - Hyperlipidemia, unspecified Category: Medical Qualifiers: Hyperlipidemia type: mixed hyperlipidemia Qualified Code(s): E78.2 - Mixed hyperlipidemia Plan: Has HLD, on statin. Last LDL July 2024 was 64. Continue simvastatin 20 mg (5) Hypertension: Code(s): I10 - Essential (primary) hypertension Category: Medical Qualifiers: Hypertension type: primary hypertension Qualified Code(s): I10 - Essential (primary) hypertension Plan: Blood pressure within goal, continue lisinopril 10 mg daily (6) Obesity: Code(s): E66.9 - Obesity, unspecified Category: Medical Qualifiers: Obesity type: due to excess calories Obesity classification: adult class 2 (BMI 35 - 39.9) Serious obesity comorbidity presence: with serious comorbidity Body mass index: BMI 36.0-36.9 Qualified Code(s): E66.812 - Obesity, class 2; E66.01 - Morbid (severe) obesity due to excess calories; Z68.36 - Body mass index [BMI] 36.0-36.9, adult Plan: Current BMI 33.7 kg per m2 Continue Mounjaro to 7. 5 mg weekly (7) Long-term insulin use: Code(s): Z79.4 - longterm (current) use of insulin Category: Medical Plan: See above Plan See above Orders: Orders 2 AMB Glucose Monitoring Today E11.69 - Type 2 diabetes mellitus with other specified complication, E66.9 - Obesity, unspecified, Z79.4 - longterm (current) use of insulin AMB Hemoglobin A1c Today E11.69 - Type 2 diabetes mellitus with other specified complication, E66.9 - Obesity, unspecified, Z13.9 - Encounter for screening, unspecified Medications: Changed 2 From insulin aspart U-100 (Novolog FlexPen U-100 Insulin aspart) 6 units (0.06 mL) subcut TID 15 mL 3RF To insulin aspart U-100 (Novolog FlexPen U-100 Insulin aspart) Take 4 units with heaviest meal of the day once a day 4 units (0.04 mL) subcut DAILY 3 mL 3RF From insulin glargine (Lantus Solostar U-100 Insulin) 28 units (0.28 mL) subcut QPM 15 mL 4RF To insulin glargine (Lantus Solostar U-100 Insulin) 24 units (0.24 mL) subcut QPM 15 mL 4RF Refilled 2 metformin 1,000 mg PO BID 180 tabs 7RF Patient Instructions: Continue Farxiga 5 mg daily Continue Metformin 1000 mg twice daily Continue Mounjaro to 7.5 mg weekly continue Lantus to 24 units daily, if you start having any hypoglycemia fasting in the morning you can reduce this to 22 units Decrease Humalog to 4 units daily, to target 2 hours post meal sugar to <140 mg/dl , if you start having any hypoglycemic episodes let us know but you can also stopped taking Humalog Coding Level of Care Code Est Pt Level 4 (84439) Diagnoses Hypercalcemia E83.52 Hyperparathyroidism E21.3 Type 2 diabetes mellitus with obesity E11.69; E66.9 Mixed hyperlipidemia E78.2 Hyperlipidemia type: mixed hyperlipidemia Primary hypertension I10 Hypertension type: primary hypertension Class 2 severe obesity due to excess calories with serious comorbidity and body mass index (BMI) of 36.0 to 36.9 in adult E66.812; E66.01; Z68.36 Obesity type: due to excess calories Obesity classification: adult class 2 (BMI 35 - 39.9) Serious obesity comorbidity presence: with serious comorbidity Body mass index: BMI 36.0-36.9 Long-term insulin use Z79.4 CPT Codes Details - CPT: 65628 - Glucose monitoring, continuous-physician I&R ([id number]) Time Spent (min) 30
[2024-11-24 10:03] LABS: Glucose, Whole Blood 125 mg/dL (60-115)
--- OUTSIDE RECORDS SUMMARY | 2024-11-24 10:53 | XMS_ITS | Patient Health Record ---
Author Organization [facility] Address [address] [place] [address] Care Team Providers Care Compensation And Benefits Analyst Name Role Phone Maty PERSAUD, Kike Primary Care Provider Unavailab Bry Fletcher Unavailable [phone] Reason For Referral No Information Medications Medication [...] Problem History of adenomatous polyp of colon (675711600) History of adenomatous polyp of colon (Z86.010) Active confirmed Problem Nausea (251885399) Nausea (R11.0) Active confirmed Problem Vomiting (315861435) Vomiting (R11.10) Active confirmed Problem Diarrhea of presumed infectious origin (76475046) Diarrhea of presumed infectious origin (R19.7) Active confirmed Plan Of Treatment No Information Insurance Providers Payer Name Payer Address Payer Phone Subscriber Number Group Number Insured Name Patient Relationship to Insured Coverage Start Date Coverage End Date [facility] [address] [place] [phone] [id number] LUIS LANG Self - patient is the insured Medical (General) History Medical History History ICD Code NIDDM Hypertension Denies [place],CVA,Lung disease,renal disease Hyperlipidemia COVID in 01/2019--not hospitalized [...]
--- OUTSIDE RECORDS SUMMARY | 2024-11-24 10:53 | XMS_ITS | Patient Health Record ---
Author Organization [facility] Address [address] [place] [address] Care Team Providers Care Perfume And Toilet Water Maker Name Role Phone Wendi PERSAUD, Zita Primary Care Provider Unavail able AbdirizakivanSeema Unavailable [phone] Allergies Allergen (clinical drug ingredient) Drug/Non Drug [...] Problem Acquired hammer toe of right foot (5416470684728 105) Other hammer toe(s) (acquired), right foot (M20.41) Active confirmed Problem Acquired hammer toe of left foot (4338491251934 103) Other hammer toe(s) (acquired), left foot (M20.42) Active confirmed Problem Diabetes mellitus (92970675) Type 2 diabetes mellitus without complication, without long-term current use of insulin (E11.9) Active confirmed Vital Signs Blood pressure diastolic 75 mm Hg 11/10/2024 Height 5ft3in in 11/10/2024 Blood pressure systolic 126 mm Hg 11/10/2024 Weight 197 lbs 11/10/2024 BMI 34.89 kg/m2 11/10/2024 Encounters Encounter Location Date Provider Diagnosis [facility] [address] 11/10/2024 Seema Escobedo Other hammer toe(s) (acquired), right foot M20.41 ; Type 2 diabetes mellitus without complication, without long-term current use of insulin E11.9 and Other hammer toe(s) (acquired), left foot M20.42 [facility] [address] 09/02/2024 Seema Escobedo Assessments Encounter Date Diagnosis [...] Provider Name:Seema love, 11/16/2025 10:00:00 AM, [address] [facility], [place], [address], Insurance Providers Payer Name Payer Address Payer Phone Subscriber Number Group Number Insured Name Patient Relationship to Insured Coverage Start Date Coverage End Date [employer] [address] [facility] [place] [address] [id number] Tatiana Umanzor Self - patient is the insured Medical (General) History Medical History History ICD Code Broken bones Cholesterol covid-19 Diabetic Gall bladder problems High blood pressure Psoriasis/eczema Reflux ( GERD) sinusitis Measles Mumps Chicken pox Surgical History Surgery Date(Month/Year) tonsillectomy 1974 Gall bladder removal 1997 Hospitalization History Reason Date(Month/Year) [facility] [place]- UTI 05/06/23
--- OUTSIDE RECORDS SUMMARY | 2024-11-24 10:53 | XMS_ITS | Clinical Summary ---
Author Organization [facility] Address [address] [facility] [address] [place] [address] Phone Care Team Providers Care Portable Grinding Machine Operator Name Role Phone Navid Tejeda MD Primary Care Provider [phone] Allergies Active Allergy Reactions Criticality Noted Date [...] Office Visit [facility] [address] [place] [address] Kip Kwok MD Hypomagnesemia (Primary Dx); Type 2 diabetes mellitus without complication (HCC) 09/24/2024 Orders Only [facility] [address] [place] [address] Kip Kwok MD Hypomagnesemia 08/28/2024 Orders Only [facility] [address] [place] [address] Kip Kwok MD Type 2 diabetes mellitus [...] Visit [facility] [address] [place] [address] Kip Kwok MD [address] [facility] [address] [place] [address] Health Maintenance Due Date Last [...] Relevant to Health Maintenance Insurance [place] [id number] Medicare Medicaid [place] Medicare Medicaid [place] Care Teams Portable Grinding Machine Operator Relationship Specialty Start Date End Date Navid Tejeda MD [address] [place], [place] PCP - General Internal Medicine 09/18/22
== END 2024-11-24 10:26 | disposition home or self-care (01) ==
LOC: HO.ENCR 09:47
PROVIDERS: PCP Internal Medicine; Visit Provider Student in an Organized Health Care Education/Training Program
DX: E11.69 Type 2 diabetes mellitus with other specified complication (principal); E66.01 Morbid (severe) obesity due to excess calories; E83.52 Hypercalcemia; E66.9 Obesity, unspecified; E78.2 Mixed hyperlipidemia; I10 Essential (primary) hypertension; Z68.36 Body mass index [BMI] 36.0-36.9, adult; Z79.4 Long term (current) use of insulin; Z13.9 Encounter for screening, unspecified
CPT/HCPCS: 95251; 99214

== ENCOUNTER → 2024-11-24 09:46 | Outpatient (BNVA) | payer MEDICARE, MEDICAID, SELFPAY | PROVIDERS: PCP Internal Medicine; Visit Provider Student in an Organized Health Care Education/Training Program | DX: E83.52 Hypercalcemia (principal); E21.3 Hyperparathyroidism, unspecified; E11.69 Type 2 diabetes mellitus with other specified complication; E78.2 Mixed hyperlipidemia; E66.812 Obesity, class 2; E66.01 Morbid (severe) obesity due to excess calories; Z68.33 Body mass index [BMI] 33.0-33.9, adult; Z79.84 Long term (current) use of oral hypoglycemic drugs; Z79.4 Long term (current) use of insulin | CPT/HCPCS: 82947; 83036; 99212 ==

== ENCOUNTER 2024-12-06 13:12 | Emergency (ER) | payer MEDICARE, MEDICAID, SELFPAY ==
--- OUTSIDE RECORDS SUMMARY | 2024-09-02 09:00 | XMS_ITS ---
Author Organization [facility] Address [address] [place] [address] Care Team Providers Care Credit Review Manager Name Role Phone Zita Adame MD Primary Care Provider Unavail able Seema Escobedo Unavailable [phone] Medications Medication SIG (Take, Route, Frequency, Duration) [...] Active Encounters Encounter Location Date Provider Diagnosis [facility] [address] [place] [address] 09/02/2024 Seema Escobedo Plan Of Treatment Next Appt Details Provider Name:Seema love, 11/16/2025 10:00:00 AM, [address] [place] [address], [phone], Progress Notes * Tatiana UMANZOR TDOB:[birth year] (69 yo F)Acc No.[id number]:09/02/2024 Progress Note Patient: Tatiana BOURGEOIS Provider: Zainab Escobedo DPM :1955 A ge:69 Y S ex:Female Date:09/02/2024 Address:[address] [place], [place] [phone] Pcp:Zita Adame MD Subjective: * Chief Complaints: [...] Date: 09/02/2024 Generated for [place]/Hellen/Tawanda on: 12/06/2024 03:05 PM EDT
[2024-12-06 13:14] VITALS: BP 155/68; PULSE 88; RESP 18; TEMP 36.3; O2SAT 98; BMI 33.7
--- NOTE | 2024-12-06 13:39 | ED.FEMALEGU ---
HPI - Female Genitourinary General Chief complaint: Urogenital-Female Stated complaint: ?UTI Time Seen by Provider: 12/06/24 16:35 Source: patient Mode of arrival: ambulatory Limitations: no limitations History of Present Illness ED Provider: Dr. Figueroa HPI Narrative: 71-year-old female presented hospital today for bilateral flank pain more so on the left side that radiates down to her left suprapubic area. Patient is complaining of dysuria as well. Patient is worried that she may have a UTI. Patient stated in the past she had became sick with a UTI and require admission to the hospital. Denies any vaginal discharge denies any chest pain shortness of breath or coughing denies any fever. Related Data Home Medications ?Medication ?Instructions ?Recorded ?Confirmed blood sugar diagnostic (FreeStyle 07/25/22 11/24/24 Lite Strips) magnesium oxide 500 mg PO BID 05/06/23 11/24/24 dapagliflozin propanediol 5 mg 5 mg PO DAILY 04/28/24 11/24/24 tablet (Farxiga) Previous Rx's ?Medication ?Instructions ?Recorded blood-glucose meter (FreeStyle #1 ea 05/11/22 Lite Meter kit) meclizine 12.5 mg tablet 12.5 mg PO Q8H PRN dizzyness #20 05/11/22 tabs pen needle, diabetic 32 gauge x #50 ea 07/25/2208/21 (Comfort EZ Pen [place]) flash glucose scanning reader #1 ea 08/01/22 (FreeStyle Emmanuel 2 [place]) albuterol sulfate 90 mcg/actuation 1 inh inhalation QID PRN wheezing 08/22/22 aerosol inhaler #8.5 grams flash glucose sensor (FreeStyle #2 kits 05/21/23 Emmanuel 2 Sensor kit) cholecalciferol (vitamin D3) 25 25 mcg PO DAILY 3 months #90 caps 04/28/24 mcg (1,000 unit) capsule pen needle, diabetic 32 gauge x #50 ea 06/08/24 (BD Tessie 2nd Gen Pen Needle) cyanocobalamin (vitamin B-12) 500 500 mcg PO DAILY #30 tabs 08/06/24 mcg chewable tablet simvastatin 20 mg tablet 20 mg PO BEDTIME #90 tabs 10/05/24 lisinopril 10 mg tablet 10 mg PO BEDTIME #240 tabs 11/19/24 tirzepatide 7.5 mg/0.5 mL 7.5 mg (0.5 mL) subcut QWEEK #2 mL 11/19/24 subcutaneous pen injector (Mounjaro) insulin aspart U-100 100 unit/mL 4 unit (0.04 mL) subcut DAILY #3 mL 11/24/24 (3 mL) subcutaneous pen (Novolog FlexPen U-100 Insulin aspart) insulin glargine 100 unit/mL (3 24 unit (0.24 mL) subcut QPM #15 mL 11/24/24 mL) subcutaneous pen (Lantus Solostar U-100 Insulin) metformin 1,000 mg tablet 1,000 mg PO BID #180 tabs 11/24/24 cephalexin 500 mg capsule 500 mg PO Q8H 7 days #21 caps 12/06/24 Allergies Allergy/AdvReac Type Severity Reaction Status Date / Time oxycodone (From PERCOCET) Allergy Intermediate UNKNOWN Verified 12/06/24 13:17 Review of Systems Review of Systems: Pertinent review of systems as mentioned in HPI. All other system otherwise negative. [facility] Past Medical History [facility] Narrative: Medical history as mentioned in HPI Medical History (Updated 12/06/24 @ 16:54 by Sabrina Figueroa DO) Long-term insulin use Hyperparathyroidism Hypercalcemia Hypertension Obesity Type 2 diabetes mellitus with obesity Diabetes mellitus Diabetes Hyperlipidemia Hypertension Surgical History History of cholecystectomy History of tonsillectomy Family History Family History Mother Diabetes mellitus Father Angina at rest Social History Social History Household Members: Family Housing: Apartment Do you presently have visiting nurse or other home services: Yes Alcohol intake: current Alcohol intake frequency: holidays/special occasions only Comment: no c/o dizziness Patient Tobacco Use Status: Former Tobacco user Tobacco use type: Cigarette e-Cigarette/Vaping Use: Never Used Second Hand Smoke Exposure: Yes Advance Directives: Yes Advance Directives on File: Yes Advance Directives Date on File: 04/06/20 service: No Current occupational status: employed 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 Psychiatric: Appropriate mood and thoughts Vital Signs: Vital Signs: Last Vital Signs Temp 97.4 F 12/06/24 17:02 Pulse 88 12/06/24 17:02 Resp 18 12/06/24 17:02 BP 155/68 H 12/06/24 17:02 Pulse Ox 98 12/06/24 17:02 O2 Del Method Room Air 12/06/24 17:02 BMI result Body Mass Index 33.7 Course Course Course Narrative: This is a Rapid Medical Examination (RME) performed by Devang Stephen PA-C in triage. Full HPI, ROS, assessment and treatment plan per primary provider in the Main ED. Hx: 69 yo F here w/ lower back pain, dysuria, urinary freq since yesterday. assoc chills. Plan: labs, UA Medical Decision Making Medical Decision Making [facility] Narrative: This is a 69-year-old female presenting to ER today for evaluation of dysuria and possible UTI. Patient CBC did not show any signs of leukocytosis, chemistry did show some signs of dehydration elevated BUN creatinine ratio, patient also has elevated calcium level likely secondary dehydration. Patient's UA did show small leuk esterase. However no bacteria was seen on the UA Given patient's clinical picture of dysuria and flank pain and small leuk esterase we will plan to treat her for UTI. We will start patient on Keflex. Return precautions discussed with the patient. Patient will be discharged with a course of Keflex to take for UTI . I do not think patient has sepsis She is agreement with this plan all questions were addressed. Differential Diagnosis Differential Diagnoses: The differential diagnosis associated with the presentation includes UTI, pyelonephritis, low back pain Lab Data [facility] Lab Attestation statement: I reviewed the patient's lab results. 12/06/24 14:57 08/31/25 14:57 Labs: Lab Results 12/06/24 12/06/24 Range/Units 14:28 14:57 WBC 9.9 (4.8-10.8) X10*3/uL RBC 4.56 (4.20-5.50) X10*6/uL Hgb 13.8 (12.0-16.0) g/dl Hct 41.1 (37.0-47.0) % MCV 90.1 (80.0-98.0) fL MCH 30.3 (27.0-33.0) pg MCHC 33.6 (31.0-35.0) g/dl RDW 12.7 (11.0-16.0) % Plt Count 255 (160-400) X10*3/uL MPV 10.3 (9.4-12.3) fL Immature Gran % (Auto) 0.4 (0.0-0.4) % Neut % (Auto) 62.5 (45-73) % Lymph % (Auto) 24.9 (20-40) % [place] % (Auto) 7.9 (2-11) % Eos % (Auto) 3.7 (0-4) % Baso % (Auto) 0.6 (0-2) % Lymph # (Auto) 2.5 (1.2-4.9) X10*3/uL [place] # (Auto) 0.8 (0.1-1.2) X10*3/uL Eos # (Auto) 0.4 (0.0-0.4) X10*3/uL Baso # (Auto) 0.1 (0.0-0.2) X10*3/uL Abs Immat Gran (auto) 0.04 H (0.00-0.03) X10*3/uL Absolute Neuts (auto) 6.2 (2.0-8.3) x10*3/uL Absolute Nucleated RBC 0.000 (0.0-0.012) X10*3/uL Nucleated RBC % (auto) 0.0 (0.0-0.2) /100WBC Sodium 142 (135-145) mmol/L Potassium 4.2 (3.3-5.1) mmol/L Chloride 110 H (96-108) mmol/L Carbon Dioxide 20 L (22-29) mmol/L Anion Gap 16 (12-20) BUN 18 H (9-16) mg/dL Creatinine 0.87 (0.5-1.4) mg/dL Estim Creat Clear Calc 67.7 Estimated GFR > 60 Random Glucose 99 (60-115) mg/dL Calcium 10.3 H D (8.4-10.2) mg/dL Total Bilirubin 0.2 (0.0-1.0) mg/dL AST 18 (5-31) U/L ALT 21 (0-31) U/L Alkaline Phosphatase 67 (39-117) U/L Total Protein 7.3 (6.5-8.0) g/dL Albumin 4.4 (3.5-5.0) g/dL Urine Color Yellow Urine Appearance Clear Urine pH 5.5 (5.0-9.0) Ur Specific [place] 1.010 (1.005-1.025) Urine Protein Negative (Neg-Trace) mg/dL Urine Glucose (UA) >=1000 H (Negative) mg/dL Urine Ketones Negative (Negative) mg/dL Urine Blood Negative (Negative) Urine Nitrite Negative (Negative) Ur Leukocyte Esterase Small (1+) H (Negative) Urine RBC 0-2 (0-2) /HPF Urine WBC 0-5 (0-5) /HPF Ur Squamous Epith Cells 0-2 (0-2) /HPF Urine Bacteria None Seen (None Seen) Hyaline Casts 0-2 (0-2) /LPF Prescription Management I considered prescription management with: Antibiotic Discharge Plan Discharge Clinical Impression: Acute UTI Patient Disposition: Home, Self-Care Instructions: Urinary Tract Infection in Women (ED) Prescriptions: New cephalexin 500 mg capsule 500 mg PO Q8H 7 Days Qty: 21 0RF No Action (DME) FreeStyle Emmanuel 2 [place] Misc See Rx Instructions .Route Qty: 1 0RF Rx Instructions: As directed (DME) FreeStyle Emmanuel 2 Sensor Kit See Rx Instructions .ROUTE .COMPLEX Qty: 2 4RF Dose Instruction: DIRECTED CHANGE EVERY 14 DAYS Rx Instructions: DIRECTED CHANGE EVERY 14 DAYS (DME) pen needle, diabetic [BD Tessie 2nd Gen Pen Needle] 32 gauge x 5/32 needle See Rx Instructions .ROUTE DAILY Qty: 50 6RF Rx Instructions: use once a day As directed simvastatin 20 mg tablet 20 mg PO BEDTIME Qty: 90 1RF lisinopril 10 mg tablet 10 mg PO BEDTIME Qty: 240 5RF Rx Instructions: take 20 mg in AM and 10 mg in PM Mounjaro 7.5 mg/0.5 mL pen injector 7.5 mg subcut QWEEK Qty: 2 5RF albuterol sulfate 90 mcg/actuation HFA aerosol inhaler 1 inh inhalation QID PRN (Reason: wheezing) Qty: 8.5 0RF magnesium oxide 250 mg magnesium tablet 500 mg PO BID meclizine 12.5 mg tablet 12.5 mg PO Q8H PRN (Reason: dizzyness) Qty: 20 0RF (DME) blood-glucose meter [FreeStyle Lite Meter] Kit See Rx Instructions .Route Qty: 1 0RF Rx Instructions: As directed (DME) FreeStyle Lite Strips Strip See Rx Instructions .Route Rx Instructions: As directed (DME) pen needle, diabetic [Comfort EZ Pen [place]] 32 gauge x 5/16 needle See Rx Instructions .Route Qty: 50 5RF Rx Instructions: As directed injects once a day dapagliflozin propanediol [Farxiga] 5 mg tablet 5 mg PO DAILY cholecalciferol (vitamin D3) 25 mcg (1,000 unit) capsule 25 mcg PO DAILY 90 Days Qty: 90 4RF insulin glargine [Lantus Solostar U-100 Insulin] 100 unit/mL (3 mL) insulin pen 24 unit subcut QPM Qty: 15 4RF insulin aspart U-100 [Novolog FlexPen U-100 Insulin] 100 unit/mL (3 mL) insulin pen 4 unit subcut DAILY Qty: 3 3RF Rx Instructions: Take 4 units with heaviest meal of the day once a day metformin 1,000 mg tablet 1,000 mg PO BID Qty: 180 7RF cyanocobalamin (vitamin B-12) 500 mcg tablet,chewable 500 mcg PO DAILY Qty: 30 6RF Referrals: Sabrina Figueroa DO [Emergency Provider, Emergency Medicine] Interventions: ED Discharge Assessment Last Done: 12/06/24 17:02 Discharge Date/Time: 12/06/24 17:02 Print Language: Chinese
[2024-12-06 14:34] LABS: Appearance Urine Clear; Glucose Urine UA >=1000 mg/dL (Negative); PH 5.5 (5.0-9.0); Specific Gravity - Urine 1.010 (1.005-1.025); UMIC TRIGGER UACC YES
[2024-12-06 14:46] LABS: UACC Culture Trigger YES
--- OUTSIDE RECORDS SUMMARY | 2024-12-06 15:05 | XMS_ITS | Clinical Summary ---
Author Organization [facility] Address [address] [facility] [address] [place] [address] Phone Care Team Providers Care Dance Hall Hostess Name Role Phone Navid Tejeda MD Primary Care Provider [phone] Allergies Active Allergy Reactions Criticality Noted Date [...] Visit [facility] [address] [place] [address] Kip Kwok MD Hypomagnesemia (Primary Dx); Type 2 diabetes mellitus without complication (HCC) 09/24/2024 Orders Only [facility] [address] [place] [id number] Kip Kwok MD Hypomagnesemia from Last 3 Months Family History Relation [...] Visit [facility] [address] [place] [address] Kip Kwok MD [address] [address] Health Maintenance Due Date Last [...] Relevant to Health Maintenance Insurance Medicare [place] Medicare [place] Care Teams Dance Hall Hostess Relationship Specialty Start Date End Date Navid Tejeda MD [address] [place], [place] PCP - General Internal Medicine 09/18/22
--- OUTSIDE RECORDS SUMMARY | 2024-12-06 15:05 | XMS_ITS | Patient Health Record ---
[facility] Address [address] [place] [address] Care Team Providers Care Gage Designer Name Role Phone Wendi PERSAUD, Zita Primary Care Provider Unavail able Seema Escobedo Unavailable [phone] Allergies Allergen (clinical drug ingredient) Drug/Non Drug Allergy documented on EMR Reaction Allergy Type Onset Date Status Information temporarily unavailable Codeine dizziness Drug Allergy Active Results Component [...] Problem Status W/U Status Risk Notes Problem Information temporarily unavailable Other hammer toe(s) (acquired), right foot (M20.41) Active confirmed Problem Information temporarily unavailable Other hammer toe(s) (acquired), left foot (M20.42) Active confirmed Problem Information temporarily unavailable Type 2 diabetes mellitus without complication, without long-term current use of insulin (E11.9) Active confirmed Vital Signs Blood pressure diastolic 75 mm Hg 11/10/2024 Height 5ft3in in 11/10/2024 Blood pressure systolic 126 mm Hg 11/10/2024 Weight 197 lbs 11/10/2024 BMI 34.89 kg/m2 11/10/2024 Encounters Encounter Location Date [facility] [address] 11/10/2024 Seema Escobedo Other hammer toe(s) (acquired), right foot M20.41 ; Type 2 diabetes mellitus without complication, without long-term current use of insulin E11.9 and Other hammer toe(s) (acquired), left foot M20.[address] [address] 09/02/2024 Seema Escobedo Assessments Encounter Date Diagnosis [...] Details Provider Name:Seema love, 11/16/2025 10:00:00 AM, [address] [place] [address], [id number], Insurance Providers Payer Name Payer Address Payer Phone Subscriber Number Group Number Insured Name Patient Relationship to Insured Coverage Start Date Coverage End Date Medicare [employer] [address] [place] [address] [id number] Tatiana Umanzor Self - patient is the insured Medical (General) History Medical History History ICD Code Broken bones Cholesterol covid-19 Diabetic Gall bladder problems High blood pressure Psoriasis/eczema Reflux ( GERD) sinusitis Measles Mumps Chicken pox Surgical History Surgery Date(Month/Year) tonsillectomy 1974 Gall bladder removal 1997 Hospitalization History Reason Date(Month/Year) C- UTI 05/06/23
[2024-12-06 15:06] LABS: MANUAL DIFF FLAG NO
--- OUTSIDE RECORDS SUMMARY | 2024-12-06 15:06 | XMS_ITS | Patient Health Record ---
Author Organization [facility] Address [address] [place] [address] Care Team Providers Care Pattern Duplicator Name Role Phone Maty PERSAUD, Kike Primary Care Provider Unavailab Bry Fletcher Unavailable [phone] Reason For Referral No Information Medications Medication [...] Status Risk Notes Problem Information temporarily unavailable History of adenomatous polyp of colon (Z86.010) Active confirmed Problem Information temporarily unavailable Nausea (R11.0) Active confirmed Problem Information temporarily unavailable Vomiting (R11.10) Active confirmed Problem Information temporarily unavailable Diarrhea of presumed infectious origin (R19.7) Active confirmed Plan Of Treatment No Information Insurance Providers Payer Name Payer Address Payer Phone Subscriber Number Group Number Insured Name Patient Relationship to Insured Coverage Start Date Coverage End Date [facility] [address] [place] [phone] [id number] LUIS LANG Self - patient is the insured Medical (General) History Medical History History ICD Code NIDDM Hypertension Denies CA,CVA,Lung disease,renal disease Hyperlipidemia COVID in 01/2019--not hospitalized [...]
[2024-12-06 15:08] LABS: Hematocrit 41.1 % (37.0-47.0); Hemoglobin 13.8 g/dl (12.0-16.0); Imm Gran Abs Auto 0.04 X10*3/uL (0.00-0.03); Imm Gran Pct Auto 0.4 % (0.0-0.4); Lymphocytes Absolute Auto 2.5 X10*3/uL (1.2-4.9); Mean Corpuscular HGB Conc 33.6 g/dl (31.0-35.0); Mean Corpuscular Hemoglobin 30.3 pg (27.0-33.0); Mean Corpuscular Volume 90.1 fL (80.0-98.0); NRBC Abs Auto 0.000 X10*3/uL (0.0-0.012); NRBC Pct Auto 0.0 /100WBC (0.0-0.2); Platelet Count 255 X10*3/uL (160-400); Red Blood Count 4.56 X10*6/uL (4.20-5.50); White Blood Count 9.9 X10*3/uL (4.8-10.8)
[2024-12-06 15:25] LABS: Alanine Aminotransferase 21 U/L (0-31); Albumin Level 4.4 g/dL (3.5-5.0); Alkaline Phosphatase 67 U/L (39-117); Anion Gap 16 (12-20); Aspartate Amino Transferase 18 U/L (5-31); Blood Urea Nitrogen 18 mg/dL (9-16); Calcium 10.3 mg/dL (8.4-10.2); Carbon Dioxide 20 mmol/L (22-29); Chloride 110 mmol/L (96-108); Creatinine Clr Calc Pharmacy 67.7; Estimated Glomerular Filt Rate > 60; Potassium 4.2 mmol/L (3.3-5.1); Sodium 142 mmol/L (135-145); Total Protein 7.3 g/dL (6.5-8.0)
--- NOTE | 2024-12-06 17:01 | PC.NURSE ---
this pt was brought into room while this nurse was triaging another patient, provider went into the room, discharged the patient before this nurse could see the patient. no updated vitals were obtained, per provider pt was going to sampler pickup medication at pharmacy and cancelled ED po medication.
[2024-12-06 17:02] VITALS: BP 155/68; PULSE 88; RESP 18; TEMP 36.3; O2SAT 98
== END 2024-12-06 17:02 | disposition home or self-care (01) ==
PROVIDERS: Physician Assistant Medical; Emergency Provider Student in an Organized Health Care Education/Training Program; PCP Internal Medicine
DX: N39.0 Urinary tract infection, site not specified (principal)
CPT/HCPCS: 36415; 80053; 81001; 85025; 87086; 99282; 99283

== ENCOUNTER 2024-12-10 13:43 | Outpatient (AMB) | payer MEDICARE, MEDICAID, SELFPAY ==
--- OUTSIDE RECORDS SUMMARY | 2024-09-02 09:00 | XMS_ITS ---
[facility] Organization [facility] Address [address] [place] [phone] Care Team Providers Care Cargo Inspector Name Role Phone Zita Adame MD Primary Care Provider Unavail able Seema Escobedo Unavailable [phone] Medications Medication SIG (Take, Route, Frequency, Duration) [...] Active Encounters Encounter Location Date Provider Diagnosis [facility] [address] [place] [address] 09/02/2024 Seema Escobedo Plan Of Treatment Next Appt Details Provider Name:Seema love, 11/16/2025 10:00:00 AM, [address] [place] [address], [phone], Progress Notes * Tatiana UMANZOR TDOB:[birth year] (69 yo F)Acc No.[id number]:09/02/2024 Progress Note Patient: Tatiana BOURGEOIS Provider: Zainab Escobedo DPM :1955 A ge:69 Y S ex:Female Date:09/02/2024 Address:[address] [place], [place] [phone] Pcp:Zita Adame MD Subjective: * Chief Complaints: [...] Pending * Provider: Zainab Escobedo DPM Date: 09/02/2024 Generated for [place]/Hellen/Tawanda on: 0 12/10/2024 02:59 PM EDT
[2024-12-10 13:48] VITALS: BP 114/64; PULSE 93; O2SAT 96; BMI 33.6
--- NOTE | 2024-12-10 13:48 | A.OFFVIS_ITS ---
Vital Signs 3 12/10/24 13:48 Height 5 ft 4 in Weight 195 lb 12.328 oz BMI 33.6 BP 114/64 Blood Pressure Location Lt brachial Position Sitting Pulse 93 Pulse Source Pulse Oximeter Pulse Oximetry (%) 96 Oxygen Delivery Method Room Air Intake Visit Reasons: Discuss Thyroid Nodules Intake Note: Patient present today to discuss Thyroid Nodules. Carpentry Specialist Required: No Accompanied by: Self / Same As Patient Allergies oxycodone (From PERCOCET) Allergy (Intermediate, Verified 12/10/24 13:51) UNKNOWN Medication List - Last Reconciled 12/10/24 by Ngoc Conklin MD albuterol sulfate 90 mcg/actuation 1 inh inhalation QID PRN blood sugar diagnostic (FreeStyle Lite Strips) As directed blood-glucose meter (FreeStyle Lite Meter kit) As directed cephalexin 500 mg PO Q8H 7 days cholecalciferol (vitamin D3) 25 mcg PO DAILY 3 months cyanocobalamin (vitamin B-12) 500 mcg PO DAILY dapagliflozin propanediol (Farxiga) 5 mg PO DAILY flash glucose scanning reader (FreeStyle Emmanuel 2 [place]) As directed flash glucose sensor (FreeStyle Emmanuel 2 Sensor kit) DIRECTED CHANGE EVERY 14 DAYS insulin aspart U-100 (Novolog FlexPen U-100 Insulin aspart) 4 units (0.04 mL) subcut DAILY insulin glargine (Lantus Solostar U-100 Insulin) 24 units (0.24 mL) subcut QPM lisinopril 10 mg PO BEDTIME magnesium oxide 500 mg PO BID meclizine 12.5 mg PO Q8H PRN metformin 1,000 mg PO BID pen needle, diabetic (Comfort EZ Pen [place]) As directed injects once a day pen needle, diabetic (BD Tessie 2nd Gen Pen Needle) use once a day As directed simvastatin 20 mg PO BEDTIME tirzepatide (Mounjaro) 7.5 mg (0.5 mL) subcut QWEEK HPI Comments Details: 69 YO F who is here today for evaluation of thyrodi nodules. She also sees me for type 2 diabetes mellitus and hypercalcemia. not addressed today Thyroid nodules HAs never known about these before Went for surgucal evaluation for hypercalcemia 12/04/24, found to have thyroid nodules on bedside ultrasound. Bilateral nodules per Dr. Bonds with a dominant rt 2.8 cm likley TIRADS 3 nodule. ? Patient denies any difficulty swallowing, pain on swallowing or voice changes or difficulty breathing. Patient denies any history of childhood neck radiation. Denies having ever used lithium, amiodarone or biotin supplements. Patient denies any family history of thyroid cancer. Sister has thyroid nodules. Hypercalcemia : not addressed today Noted in the chart to have high Ca and PTH levels since 2021 Wrist fracture at least 20-30 years ago No recent fractures No kidney stones No vitamin D supplemts Milk 1-2 a week, Cheese 3-4 times a week , no yogurt CT abd 2019 no kidney stones DEXA scan 04/21/2024 showed normal bone density of the lumbar spine, with T-score of 0.3, normal bone density of the left total hip a T-score of 0.1, borderline osteopenic left femoral neck with T-score of -1, normal bone density of the distal radius with T-score of-0.7. Overall this is consistent with normal bone density. Labs from 03/13/2024 showed normal kidney function, total calcium 10.3, albumin of 4.3, ionized calcium 5.8, phosphorus low at 2.5, PTH of 81.1, vitamin-D of 24.8 Repeat labs 04/21/2024 showed calcium elevated to 11, with albumin of 4.3, corrected calcium would be 10.7, ionized calcium of 6, phosphorus of 3.1, PTH of 126.7, She has started taking more calcium in her diet with more yogurt during the week. Lab work repeated in July 2024 showed calcium of 10.7 with albumin of 4.2, corrected calcium would be 10.5, ionized calcium also elevated at 5.9, vitamin-D now improved at 41.3, normal kidney function, 24 hour urine calcium elevated at 373 with a calcium to creatinine ratio of 300. PTH elevated at 99.6. Currently on vitamin D 1000 units daily. 09/03/24 Parathyroid nuclear scan SPECT CT scan did not identify any parathyroid adenoma. She is here today to discuss these results. 09/22/2024 labs showed PTH of 31, ionized calcium elevated at 5.7, calcium of 10.4, albumin of 4.2, corrected calcium would be 10.2, phosphorus 2.7, EGFR 78, normal creatinine Had appointment with Dr. Tan Bonds at [facility] scheduled for 12/04/2024 Type 2 diabetes mellitus: not addressed today Prior HPI Initially diagnosed with T2DM approx 2018 Was initially started on treatment with metformin. She failed Bydureon Prior meds Bydureon discontinued when Mounjaro started Mar 2024 Current regimen meformin 1000 mg BID Lantus 24 units at bedtime Humalog 4 units TID Mounjaro 7.5 mg weekly (started Mar 2024, increased to 5mg weekly end of Apr 2023, increased to 7.5 weekly 09/16/24) Farxiga 5 mg daily started Apr 2024 Freestyle Emmanuel 3+ download from November 11 to 11/24/2024 Time CGM active 95% Average glucose 133 mg/dL G MN 6.5% Glucose variability 21.5% Within target range 96% Low 0% Very low 0% High 4% Very high 0% Interpretation: Excellent glycemic control, no more hypoglycemia Last Diabetic Eye exam: 09/2023, Last Podiatry Visit: 11/2024 Random Glucose: 125 mg/dl POC a1c 11/24/24 7.0% HgA1C: 7.6% 05/25/24 HgA1C: 8.5% 02/20/24 3 soft mints for a low carries at all times also has glucose tablets Family history of T2DM in mother and sisters. +retinopathy: last eye exam 2023 Opthamologist Has seen retinal specialist: minimal retinopathy, f/u in one year No neuropathy: denies numbness, tingling or cramping in the lower extremities saw podiatry earlier this year + nephropathy, on MATTHEW eGFR >60 microalbumin 127 on 07/28/24 improved a bit , follows with nephrology Has HLD, on statin. Last LDL 07/31 64 She has 2 children, 4 granchildren, 4 sisters one Denies CAD. No stroke Physical exam General: sitting comfortably in no acute distress HEENT: normocephalic/atraumatic, Neck: supple, palpable 1 cm right-sided nodule Cardiac: normal heart sounds Pulm: normal breath sounds B/L, no added breath sounds Abd: not distended, no tenderness Extremities: no edema, no signs of myxedema Neuro: AAO x3, Speech: normal, no facial droop, moving all 4 extremities Skin: no rash Foot exam: : checked Jan 2024: intact sensation to monofilament, intact pulses, intact vibration Laboratory Tests 10/31/23 02/13/24 16:13 13:40 Calcium 10.6 H Ionized Calcium 5.8 H Phosphorus 2.5 L Magnesium 1.6 25-OH Vitamin D Total 31.8 PTH Intact 108.6 H PTH Intact Intraop 76.3 Laboratory Tests 09/05/21 07/25/22 08/30/23 14:50 09:00 14:16 Est GFR (Cystatin C) Hgb A1c (Clinic) > 14.0 H 11.5 H 9.2 H 02/13/24 02/20/24 Unknown 10:45 Est GFR (Cystatin C) 56 (L) Hgb A1c (Clinic) 8.5 H Laboratory Tests 02/13/24 13:40 Creatinine 0.79 Estimated GFR > 60 Laboratory Tests 01/03/23 10/12/23 10/31/23 05:25 09:01 16:11 Creatinine Estimated GFR Glucose (Clinic) Calcium Ionized Calcium Phosphorus Magnesium Albumin Triglycerides 159 H Cholesterol 142 LDL Cholesterol, Calc 73 HDL Cholesterol 38 L 25-OH Vitamin D Total PTH Intact Ur 24 Hour Volume 2750 Urine Creatinine Ur Creatinine mg/dL 36.59 Ur Creatinine 24 Hour 1.07 Urine Microalbumin 94.0 Microalb/Creat Ratio 90.3 H Ur Sodium 24 Hour 236.5 H Ur Calcium 24 Hr 432 H Calcium/Creat 24 Hr 403 H 11/28/23 02/13/24 03/13/24 08:33 13:31 11:32 Creatinine Estimated GFR Glucose (Clinic) Calcium Ionized Calcium Phosphorus Magnesium Albumin Triglycerides 151 H Cholesterol 149 LDL Cholesterol, Calc 80 HDL Cholesterol 39 L 25-OH Vitamin D Total PTH Intact Ur 24 Hour Volume Urine Creatinine 18.87 Ur Creatinine mg/dL Ur Creatinine 24 Hour Urine Microalbumin 38.0 29.0 Microalb/Creat Ratio 243.1 H 153.6 H Ur Sodium 24 Hour Ur Calcium 24 Hr Calcium/Creat 24 Hr 03/13/24 04/21/24 04/28/24 11:37 10:47 10:02 Creatinine 0.84 Estimated GFR > 60 Glucose (Clinic) 106 Calcium 10.3 H 11.0 H D Ionized Calcium 5.8 H 6.0 H Phosphorus 2.5 L 3.1 Magnesium 1.6 1.8 Albumin 4.3 Triglycerides Cholesterol LDL Cholesterol, Calc HDL Cholesterol 25-OH Vitamin D Total 24.8 L PTH Intact 81.1 H 126.7 H Ur 24 Hour Volume Urine Creatinine Ur Creatinine mg/dL Ur Creatinine 24 Hour Urine Microalbumin Microalb/Creat Ratio Ur Sodium 24 Hour Ur Calcium 24 Hr Calcium/Creat 24 Hr Laboratory Tests 03/13/24 07/28/24 07/28/24 11:37 06:30 09:25 RBC 4.33 Hgb 13.0 Plt Count 260 Sodium 136 Potassium 4.5 Creatinine 0.81 Estimated GFR > 60 Random Glucose 134 H Hemoglobin A1c % 7.0 H Calcium 10.7 H Ionized Calcium 5.9 H Albumin 4.2 Triglycerides 128 Cholesterol 129 LDL Cholesterol, Calc 64 HDL Cholesterol 40 L Vitamin B12 291 25-OH Vitamin D Total 41.3 PTH Intact 99.6 H Ur 24 Hour Volume 2700 Urine Creatinine Ur Creatinine mg/dL 44.60 Ur Creatinine 24 Hour 1.2 Urine Microalbumin Microalb/Creat Ratio Ur Calcium 24 Hr 373 H Calcium/Creat 24 Hr 300 H 07/28/24 09:30 RBC Hgb Plt Count Sodium Potassium Creatinine Estimated GFR Random Glucose Hemoglobin A1c % Calcium Ionized Calcium Albumin Triglycerides Cholesterol LDL Cholesterol, Calc HDL Cholesterol Vitamin B12 25-OH Vitamin D Total PTH Intact Ur 24 Hour Volume Urine Creatinine 31.34 Ur Creatinine mg/dL Ur Creatinine 24 Hour Urine Microalbumin 40.0 Microalb/Creat Ratio 127.6 H Ur Calcium 24 Hr Calcium/Creat 24 Hr EXAMINATION: Nuclear medicine parathyroid SPECT with CT. 09/03/24 CLINICAL INDICATION: Hyperparathyroidism graft comparison: None TECHNIQUE: Following intravenous administration of 25 mCi of technetium 99m Cardiolite in left hand, immediate and delayed 2 hour planar images of the anterior neck were obtained. SPECT study was obtained at 2 hours through the anterior neck. Images were displayed in valleculae to and color. FINDINGS: On immediate of the neck is symmetrical activity seen in bilateral thyroid lobes. No focal increased activity seen in the thyroid gland to suggest avascular nodule or along the edges of the thyroid gland or the anterior chest to suspect any parathyroid adenoma. On delayed 2 hour planar images there is significant washout of the thyroid gland with no focal activity seen in the thyroid gland or the periphery to suspect a parathyroid adenoma. No abnormal activity seen in the chest either. On delayed SPECT images there is normal symmetrical activity seen in bilateral thyroid lobes. No abnormal activity seen in the upper chest or the anterior neck to suspect any parathyroid adenoma. NM/NM parathyroid SPECT w CT IMPRESSION: No abnormal technetium sestamibi activity on immediate imaging. No abnormal retained activity on delayed scan within the neck or the chest to suspect parathyroid adenoma. Electronically signed by: Dawit Martinez MD 09/03/2024 04:37 PM EDT RP EXAMINATION: Dual-Energy X-ray Absorptiometry - Bone Density Study 04/21/24 HISTORY: Estrogen deficiency TECHNIQUE: Intralign Dual energy absorptiometry (DEXA) of the lumbar spine, total left hip, and femoral neck was performed. COMPARISON: Comparison is made with the prior examination dated 10/19/2008. FINDINGS: The bone mineral density of the lumbar spine is 1.214 with a T-score of 0.3, and a Z-score of 0.9. This represents a BMD change of 8.9% compared to the prior exam. This is statistically significant. The bone mineral density of the left total hip is 1.022 with a T-score of 0.1, and a Z-score of 0.7. This represents BMD change of -12.8% compared to the prior exam. This is statistically significant. The bone mineral density of the left femoral neck is 0.899 with a T-score of -1.0, and a Z-score of -0.1. This represents BMD change of -9.4% compared to the prior exam. The bone mineral density of the distal radius is 0.816 with a T score of -0.7 and a Z score of 0.9. FRACTURE RISK: The FRAX index suggests a ten year probability of major osteoporotic fracture of 7.7%, and of hip fracture 0.6%. MM/XR DEXA appendicular skeleton IMPRESSION: Based on bone mineral density, and according to World Health Organization (WHO) criteria, the diagnosis is consistent with normal bone mineral density. [facility] Medical History (Updated 12/10/24 @ 14:03 by Ngoc Conlkin MD) Multinodular goiter (nontoxic) Long-term insulin use Hyperparathyroidism Hypercalcemia Hypertension Obesity Type 2 diabetes mellitus with obesity Diabetes mellitus Diabetes Hyperlipidemia Hypertension Surgical History History of cholecystectomy History of tonsillectomy Family History Mother Diabetes mellitus Father Angina at rest Social History Household Members: Family Housing: Apartment Do you presently have visiting nurse or other home services: Yes Alcohol intake: current Alcohol intake frequency: holidays/special occasions only Comment: no c/o dizziness Patient Tobacco Use Status: Former Tobacco user Tobacco use type: Cigarette e-Cigarette/Vaping Use: Never Used Second Hand Smoke Exposure: Yes Advance Directives Date on File: 04/06/20 service: No Current occupational status: employed 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 She was seen by the endocrine surgeon at [facility] Dr. Tan Bonds for evaluation for surgery for hypercalcemia, an incidentally found to have thyroid nodules. No official thyroid ultrasound in the chart. We will obtain 1. Findings conveyed that she has bilateral nodules with a right 2.8 cm thyroid nodule likely TR 3. I explained that it is common to have thyroid nodules. About 95% of the time these nodules are benign. However if the nodule is > 1 cm in size or suspicious on ultrasound then a fine need aspiration biopsy is recommended. We discussed that a FNAB involves 4-5 passes with a small gauge needle and material obtained is sent off for cytology.If the cytopathology is benign then the nodule will be followed annually with repeat ultrasounds. However if it is suspicious or malignant, we will need to discuss further management. Indeterminate cytology can be further investigated with repeat FNA, genetic testing or empiric lobectomy. Malignant cytology is managed with either lobectomy or total thyroidectomy. We discussed briefly that thyroid cancer is, in most patients, an indolent disease that does not affect mortality. We will arrange for FNA of the right 2.8 cm thyroid nodule at next available opening and patient will follow up with me in clinic thereafter for results and further decision making. No recent TFTs in the chart. She does not have any compressive symptoms. Plan: -ordered ultrasound of the thyroid -ordered TSH and free T4 -scheduled for FNA biopsy of the right 2.8 cm thyroid nodule and a follow up 2 weeks after to discuss results Plan I spent 45 minutes in reviewing the record, seeing the patient and documenting in the medical record. Orders: Orders 2 US thyroid Today E04.2 - Nontoxic multinodular goiter Thyroid Stimulating Hormone Today E04.2 - Nontoxic multinodular goiter Free T4 (Free Thyroxine) Today E04.2 - Nontoxic multinodular goiter US biopsy thyroid Today E04.2 - Nontoxic multinodular goiter Patient Instructions: Do blood work Do thyroid ultrasound We altagracia schedule you for a biopsy and follow up of it results Coding Level of Care Code Est Pt Level 5 (95687) Diagnoses Multinodular goiter (nontoxic) E04.2 Time Spent (min) 45
--- OUTSIDE RECORDS SUMMARY | 2024-12-10 15:00 | XMS_ITS | Patient Health Record ---
Author Organization [facility] Address [address] [place] [address] Care Team Providers Care Bounty Trapper Name Role Phone Maty PERSAUD, Kike Primary Care Provider Unavailab Bry Fletcher Unavailable [phone] Reason For Referral No Information Medications Medication [...] Problem History of adenomatous polyp of colon (623386249) History of adenomatous polyp of colon (Z86.010) Active confirmed Problem Nausea (864329176) Nausea (R11.0) Active confirmed Problem Vomiting (156874080) Vomiting (R11.10) Active confirmed Problem Diarrhea of presumed infectious origin (96834739) Diarrhea of presumed infectious origin (R19.7) Active confirmed Plan Of Treatment No Information Insurance Providers Payer Name Payer Address Payer Phone Subscriber Number Group Number Insured Name Patient Relationship to Insured Coverage Start Date Coverage End Date [facility] [address] [place] [phone] [id number] LUIS LANG Self - patient is the insured Medical (General) History Medical History History ICD Code NIDDM Hypertension Denies AR,CVA,Lung disease,renal disease Hyperlipidemia COVID in 01/2019--not hospitalized [...]
--- OUTSIDE RECORDS SUMMARY | 2024-12-10 15:00 | XMS_ITS | Patient Health Record ---
Author Organization [facility] Address [address] [place] [address] Care Team Providers Care Fabric Sourcer Name Role Phone Wendi PERSAUD, Zita Primary Care Provider Unavail able AbdirizakivanSeema Unavailable [phone] Allergies Allergen (clinical drug ingredient) Drug/Non Drug [...] Problem Acquired hammer toe of right foot (2329059245119 105) Other hammer toe(s) (acquired), right foot (M20.41) Active confirmed Problem Acquired hammer toe of left foot (7084030501716 103) Other hammer toe(s) (acquired), left foot (M20.42) Active confirmed Problem Diabetes mellitus (95299795) Type 2 diabetes mellitus without complication, without long-term current use of insulin (E11.9) Active confirmed Vital Signs Blood pressure diastolic 75 mm Hg 11/10/2024 Height 5ft3in in 11/10/2024 Blood pressure systolic 126 mm Hg 11/10/2024 Weight 197 lbs 11/10/2024 BMI 34.89 kg/m2 11/10/2024 Encounters Encounter Location Date Provider Diagnosis [facility] [address] 11/10/2024 Seema Escobedo Other hammer toe(s) (acquired), right foot M20.41 ; Type 2 diabetes mellitus without complication, without long-term current use of insulin E11.9 and Other hammer toe(s) (acquired), left foot M20.42 [facility] [address] 09/02/2024 Seema Escobedo Assessments Encounter Date Diagnosis [...] Provider Name:Seema love, 11/16/2025 10:00:00 AM, [address] [facility], [place], [address], Insurance Providers Payer Name Payer Address Payer Phone Subscriber Number Group Number Insured Name Patient Relationship to Insured Coverage Start Date Coverage End Date [employer] [address] [place] [address] [id number] Tatiana Umanzor Self - patient is the [...]
--- OUTSIDE RECORDS SUMMARY | 2024-12-10 15:00 | XMS_ITS | Clinical Summary ---
Author Organization [facility] Address [address] [facility] [address] [place] [address] Phone Care Team Providers Care Toll Repairer Central Office Name Role Phone Navid Tejeda MD Primary Care Provider [phone] Allergies Active Allergy Reactions Criticality Noted Date [...] Visit [facility] [address] [place] [address] Kip Kwok MD Hypomagnesemia (Primary Dx); Type 2 diabetes mellitus without complication (HCC) 09/24/2024 Orders Only [facility] [address] [place] [id number] Kip Kwok MD Hypomagnesemia from Last 3 [...] Visit [facility] [address] [place] [address] Kip Kwok MD [address] [address] Health Maintenance Due Date Last [...] Relevant to Health Maintenance Insurance Medicare Medicaid MD Medicare Medicaid MD Care Teams Toll Repairer Central Office Relationship Specialty Start Date End Date Navid Tejeda MD [address] [place], [place] PCP - General Internal Medicine 09/18/22
== END 2024-12-10 14:16 | disposition home or self-care (01) ==
LOC: HO.ENCR 13:43
PROVIDERS: PCP Internal Medicine; Visit Provider Student in an Organized Health Care Education/Training Program
DX: E04.2 Nontoxic multinodular goiter (principal)
CPT/HCPCS: 99215

== ENCOUNTER 2024-12-10 13:43 | Outpatient (REF) | payer MEDICARE, MEDICAID, SELFPAY ==
[2024-12-10 16:14] LABS: Free T4 (Free Thyroxine) 1.16 ng/dL (0.71-1.85); Thyroid Stimulating Hormone 0.71 uIU/mL (0.32-4.0)
== END 2024-12-10 13:44 | disposition home or self-care (01) ==
LOC: HO.LAB 13:43
PROVIDERS: PCP Internal Medicine; Visit Provider Student in an Organized Health Care Education/Training Program
DX: E04.2 Nontoxic multinodular goiter (principal); Z79.899 Other long term (current) drug therapy
CPT/HCPCS: 36415; 84439; 84443; 99212

== ENCOUNTER 2024-12-14 10:26 | Outpatient (REF) | payer MEDICARE, MEDICAID, SELFPAY ==
--- OUTSIDE RECORDS SUMMARY | 2024-12-11 23:59 | XMS_ITS | Continuity of Care Document ---
Author Organization [facility] As [facility] Address [address] [place] [address]- Care Team Providers Care Trust Operations Assistant Name Role Phone Favian Butler MD, Zita Huynh Primary Care Physician [id number] Date(s): 12/04/24 - 12/11/[address] [place], [place] [address] Attending Physician: Tan English MD Referring Physician: Briseyda Gan MD Encounter Type: Office Visit Medications B-12 500 mcg sublingual tablet TAKE 1 TABLET BY MOUTH EVERY DAY Start Date: 12/04/24 Status: Ordered Medication Dispense Status: Completed Total Allowed Fills: 1 Fills Dispensed: 0 BD CRYSTAL 2 GEN PEN NDL 32G 4MM BD CRYSTAL 2 GEN PEN NDL 32G 4MM, USE ONCE A DAY DIRECTED Start Date: 12/04/24 Status: Ordered Medication Dispense Status: Completed Total Allowed Fills: 1 Fills Dispensed: 0 famotidine 40 mg oral tablet TAKE 1 TABLET BY MOUTH 1 TIME EACH DAY. Start Date: 12/04/24 Status: Ordered Medication Dispense Status: Completed Total Allowed Fills: 1 Fills Dispensed: 0 Farxiga 5 mg oral tablet 0 Refills, Maintenance, 12/04/24 10:34:00 AM EDT, Partial fill upon patient request if the prescription is for a schedule II opioid drug. Start Date: 12/04/24 Status: Ordered Medication Dispense Status: Completed Total Allowed Fills: 1 Fills Dispensed: 0 Farxiga 5 mg oral tablet TAKE 1 TABLET BY MOUTH EVERY DAY IN THE MORNING Start Date: 12/04/24 Status: Ordered Medication Dispense Status: Completed Total Allowed Fills: 1 Fills Dispensed: 0 Insulin Aspart FlexPen 100 units/mL injectable solution INJECT 4 UNITS (0.04 ML) SUBCUTANEOUSLY DAILY WITH HEAVIEST MEAL OF THE DAY ONCE A DAY Start Date: 12/04/24 Status: Ordered Medication Dispense Status: Completed Total Allowed Fills: 1 Fills Dispensed: 0 Insulin Glargine Prefilled Pen 100 units/mL subcutaneous solution 0 Refills, Maintenance, 12/04/24 10:34:00 AM EDT, Partial fill upon patient request if the prescription is for a schedule II opioid drug. Start Date: 12/04/24 Status: Ordered Medication Dispense Status: Completed Total Allowed Fills: 1 Fills Dispensed: 0 Insulin Glargine Prefilled Pen 100 units/mL subcutaneous solution 0 Refills, Maintenance, 12/04/24 10:34:00 AM EDT, Partial fill upon patient request if the prescription is for a schedule II opioid drug. Start Date: 12/04/24 Status: Ordered Medication Dispense Status: Completed Total Allowed Fills: 1 Fills Dispensed: 0 lisinopril 10 mg oral tablet TAKE 2 TABLETS (20MG) IN THE MORNING AND 1 TABLET (10MG) IN THE EVENING Start Date: 12/04/24 Status: Ordered Medication Dispense Status: Completed Total Allowed Fills: 1 Fills Dispensed: 0 metFORMIN 1000 mg oral tablet TAKE 1 TABLET BY MOUTH TWICE A DAY Start Date: 12/04/24 Status: Ordered Medication Dispense Status: Completed Total Allowed Fills: 1 Fills Dispensed: 0 Mounjaro 7.5 mg/0.5 mL subcutaneous solution = 7.5 mg, Subcutaneous Injection, Every week, rotate injection sites, # 2 mL, 0 Refills, Maintenance, 12/04/24 10:34:00 AM EDT, Solution, Partial fill upon patient request if the prescription is for aschedule II opioid drug. Start Date: 12/04/24 Status: Ordered Medication Dispense Status: Completed Quantity: 2.0 Unit: mL Total Allowed Fills: 1 Fills Dispensed: 0 simvastatin 20 mg oral tablet TAKE 1 TABLET BY MOUTH AT BEDTIME Start Date: 12/04/24 Status: Ordered Medication Dispense Status: Completed Total Allowed Fills: 1 Fills Dispensed: 0 VITAMIN D3 1,000 UNIT SOFTGEL VITAMIN D3 1,000 UNIT SOFTGEL, TAKE 1 CAPSULE BY MOUTH EVERY DAY FOR 3 MONTHS Start Date: 12/04/24 Status: Ordered Medication Dispense Status: Completed Total Allowed Fills: 1 Fills Dispensed: 0 Vital Signs Most recent to oldest [Reference Range]: 1 Weight 89.0 kg (12/04/24 10:37 AM) Pulse Rate [55-90 bpm] 94 bpm *H* (12/04/24 10:37 AM) Blood Pressure [90-138/55-84 mm Hg] 145/ 84mm Hg *H* (12/04/24 10:37 AM) Temperature [96.8-100.4 DegF] 97.5 DegF (12/04/24 10:37 AM) Blood pressure sites Arm, left (12/04/24 10:37 AM) Temperature Route Temporal (12/04/24 10:37 AM) Weight Obtained Via Standing scale (12/04/24 10:37 AM) Social History Social History Type Response Smoking Status Never (less than 100 in lifetime) entered on: 12/04/24 Sexual Orientation Self described orien tation: ; Straight or heterosexual Gender Identity Gender identity: Sex Sex Representation Female (finding) Imaging * Event Display: Endocrine Surgery Office Authored Date: [id number] Note * Scar Dougherty: PERFORM Event Display: Patient Education/Instruction Authored Date: [id number] Ambulatory Adult Visit Summary [facility] General Surgery [address] [place] [address] [address] [place] [address] Name: LUIS LANG : 1955?? Visit: 12/04/2024 09:58?? Ambulatory Visit Instructions ?? Your Care Team Primary Care Provider Favian Butler MD , Zita Huynh? This Visit Provider Tameka PERSAUD, Tan Your Diagnosis Primary hyperparathyroidism Vitals Signs Temperature: 97.5 DegF Weight: 89 kg Pulse Rate:??94 bpm??High ?? Systolic Blood Pressure:??145 mm Hg??High ?? Diastolic Blood Pressure: 84 mm Hg ?? What to do next Future Orders CT Soft Tissue Neck W+W/O Contrast, Routine, Reason for Exam: Other:, Hyperparathyroidism, C/Q: Other:, Parathyroid adenoma, IV Contrast Only, Once, *Est. 12/04/24 due within 4 week(s), Single or Recurring Future Order Medications The list below reflects the information in our records and provided by you today along with any changes made during this visit. Please continue your medications until treatment is completed or stopped by your provider. If this is different from the information you have or there are other questions,please contact the prescribing provider. What How Much When Instructions Unchanged Cyanocobalamin (B-12 500 mcg sublingual tablet) Special Instructions: TAKE 1 TABLET BY MOUTH EVERY DAY ?? Unchanged dapagliflozin (Farxiga 5 mg oral tablet) Unchanged dapagliflozin (Farxiga 5 mg oral tablet) Special Instructions: TAKE 1 TABLET BY MOUTH EVERY DAY IN THE MORNING ?? Unchanged Famotidine (famotidine 40 mg oral tablet) Special Instructions: TAKE 1 TABLET BY MOUTH 1 TIME EACH DAY. ?? Unchanged Insulin Aspart (Insulin Aspart FlexPen 100 units/ mL injectable solution) Special Instructions: INJECT 4 UNITS (0.04 ML) SUBCUTANEOUSLY DAILY WITH HEAVIEST MEAL OF THE DAY ONCE A DAY ?? Unchanged Insulin Glargine (Insulin Glargine Prefilled Pen 100 units/ mL subcutaneous solution) Unchanged Insulin Glargine (Insulin Glargine Prefilled Pen 100 units/ mL subcutaneous solution) Unchanged Lisinopril (lisinopril 10 mg oral tablet) Special Instructions: TAKE 2 TABLETS (20MG) IN THE MORNING AND 1 TABLET (10MG) IN THE EVENING ?? Unchanged Metformin (metFORMIN 1000 mg oral tablet) Special Instructions: TAKE 1 TABLET BY MOUTH TWICE A DAY ?? Unchanged Miscellaneous Rx (BD CRYSTAL 2 GEN PEN NDL 32G 4MM) Special Instructions: USE ONCE A DAY DIRECTED ?? Unchanged Miscellaneous Rx (VITAMIN D3 1,000 UNIT SOFTGEL) Special Instructions: TAKE 1 CAPSULE BY MOUTH EVERY DAY FOR 3 MONTHS ?? Unchanged Simvastatin (simvastatin 20 mg oral tablet) Special Instructions: TAKE 1 TABLET BY MOUTH AT BEDTIME ?? Unchanged tirzepatide (Mounjaro 7.5 mg/ 0.5 mL subcutaneous solution) 7.5 Milligram Subcutaneous Injection Every week Special Instructions: rotate injection sites ?? Medications and Immunizations Administered Medications Given During Visit No medications given during this visit.?? Allergies (NKA means No Known Allergies) Common Emergency Awareness Tips IS IT A STROKE? Act FAST and Check for these signs: FACE Does the face look uneven? ARM Does one arm drift down? SPEECH Does their speech sound strange? TIME Call at any sign of stroke ?? Heart Attack Signs Chest discomfort: Most heart attacks involve discomfort in the center of the chest and lasts more than a few minutes, or goes away and comes back. It can feel like uncomfortable pressure, squeezing, fullness or pain. Discomfort in upper body: Symptoms can include pain or discomfort in one or both arms, back, neck, jaw or stomach. Shortness of breath: With or without discomfort. Other signs: Breaking out in a cold sweat, nausea, or lightheaded. Remember, MINUTES DO MATTER. If you experience any of these heart attack warning signs, call to get immediate medical attention! ?? Smoking can increase your chances of developing chronic health problems and can cause harmful effects to other family members in your house. If you smoke, you are strongly encouraged to quit. Please call [facility] Link at [phone] or [phone] Kinney Locksmith ([phone]) or log in to [email or web address] for referrals to smoking cessation programs. ?? The National Suicide Prevention Hotline is available 29/10 if you or someone you know needs to find a reason to keep living. By calling 8-368-609-[facility] (7151) you'll be connected to a skilled, trained counselor at a crisis center in your area. [facility] Portal You can view and manage your care through the patient portal or by using a health care ambrose of your choosing. [facility] is a website that allows you to securely view your medical information including your hospital discharge summary, office visit summaries, medications and follow-up visits. You can also request appointments, renew medications, and request access to your medical information using a health care ambrose of your choosing, or just ask a question. You can enroll at [email or web address] or register during your next office visit. [facility], in keeping with [facility] guidance, no longer requires face masks for staff, patientsor visitors in most situations. Similiar to time spent indoors at other locations, there is the chance that you were exposed to repiratory viruses during your time with us (such as flu or COVID-19). If you develop symptoms concerning for a viral respiratory infection, please seek testing (and treatment if indicated) from your medical provider or home test kit. ?? Disclaimer: The information provided is of a general nature and is intended to be used in conjunction with the recommendations and advice of your health care practitioner. Every effort has been made to ensure that the information provided is accurate and complete at the time it is provided to you however, as your needs change, or, as new information becomes available, different or additional instructions may be required. ?? If you have questions, please consult with your primary care provider or pharmacist, as appropriate. This information is not intended to serve as substitution for assessment and evaluation by a qualified health care provider. If you do not have a primary care provider, you may find a [facility] provider by calling [facility] at [phone]. Patient Care team information Care Team Personnel Name: Zita Polo MD Position: Reference Physician Member Role: PCP Address: [address] [place] [address] [place] [address] Telecom: Care Team Related Persons Name: YOBANI TURK Name: TRAVIS TURK Insurance Providers Guarantor name: LUIS LANG [facility] Information #: 1 Payer: MEDICARE B Payer Identifier: Member Number: [id number] Group Number: Subscriber Identifier: [id number] Relationship to Subscriber: self Coverage Type: NA Coverage Verification Date: NA Telecom: NA Address: [facility] Information #: 2 [facility] [employer] Payer Identifier: Member Number: [id number] Group Number: Subscriber Identifier: [id number] Relationship to Subscriber: self Coverage Type: MEDICAID Coverage Verification Date: NA Telecom: NA Address:
--- NOTE | ~2024-12-14 | US_ITS ---
EXAMINATION: US THYROID HISTORY: E04.2 - Nontoxic multinodular goiter TECHNIQUE: Real-time grayscale ultrasound imaging was performed and images were reviewed. COMPARISON: There are no prior studies available for comparison. FINDINGS: SIZE: The right thyroid lobe measures 5.4 x 2.0 x 2.3 cm. The left thyroid lobe measures 5.2 x 1.7 x 2.5 cm. The isthmus measures 5 mm. FLOW: Flow to the gland is normal. ECHOGENICITY: The echotexture of the gland is homogeneous. NODULES: Multiple bilateral thyroid nodules are identified as described below: Nodule #: 1 Location: Right upper pole measuring 1.0 x 0.8 x 1.0 cm. Shape: Wider than tall (0 points) Margins: Smooth (0 points) Echotexture: Hypoechoic (2 points) Composition: Solid (2 points) Calcifications: None (0 points) Total points: 4 TIRADS: TR4: Moderately suspicious. Nodule #: 2 Location: Upper pole of the right thyroid lobe measuring 1.1 x 1.0 x 1.0 cm. Shape: Wider than tall (0 points) Margins: Smooth (0 points) Echotexture: Isoechoic (1 point) Composition: Solid (2 points) Calcifications: None (0 points) Total points: 3 TIRADS: TR3: Mildly suspicious. Nodule #: 3 Location: Midportion of the right thyroid lobe measuring 2.4 x 1.2 x 1.2 cm. Shape: Wider than tall (0 points) Margins: Smooth (0 points) Echotexture: Indeterminate (1 point) Composition: Solid (2 points) Calcifications: None (0 points) Total points: 3 TIRADS: TR3: Mildly suspicious. Nodule #: 4 Location: Midportion of the left thyroid lobe measuring 1.3 x 0.9 x 0.9 cm. Shape: Wider than tall (0 points) Margins: Smooth (0 points) Echotexture: Isoechoic (1 point) Composition: Solid (2 points) Calcifications: None (0 points) Total points: 3 TIRADS: TR3: Mildly suspicious. US/US thyroid IMPRESSION: Multinodular thyroid gland as described above. According to ACR TI-RADS guidelines, follow-up is recommended. ACR TI-RADS Guidelines TR1 (0 points): Benign. No follow-up or biopsy required TR2 (2 points): Not Suspicious. No biopsy or follow up indicated TR3 (3 points): Mildly Suspicious. FNA if >= 2.5 cm, Follow if >= 1.5 cm TR4 (4-6 points): Moderately Suspicious. FNA if >= 1.5 cm, Follow if >= 1.0 cm TR5 (>=7 points): Highly Suspicious. FNA if >= 1.0 cm, Follow if >= 0.5 cm Electronically signed by: Bry Brady MD 12/14/2024 12:09 PM EDT
--- OUTSIDE RECORDS SUMMARY | 2024-12-14 12:25 | XMS_ITS | Clinical Summary ---
Author Organization [facility] Address [address] [place] [address] Phone Care Team Providers Care Ham Trimmer Name Role Phone Navid Tejeda MD Primary Care Provider [phone] Allergies Active Allergy Reactions Criticality Noted Date [...] Visit [facility] [address] [place] [address] Kip Kwok MD Hypomagnesemia (Primary Dx); Type 2 diabetes mellitus without complication (HCC) 09/24/2024 Orders Only [facility] [address] [place] [id number] Kip Kwok MD Hypomagnesemia from Last 3 [...] Visit [facility] [address] [place] [address] Kip Kwok MD [address] [address] Health Maintenance Due Date Last [...] Relevant to Health Maintenance Insurance [place] Care Teams Ham Trimmer Relationship Specialty Start Date End Date Navid Tejeda MD [address] [place], [place] PCP - General Internal Medicine 09/18/22
[2024-12-14 12:37] LABS: Anion Gap 15 (12-20); Blood Urea Nitrogen 30 mg/dL (9-16); Calcium 12.0 mg/dL (8.4-10.2); Carbon Dioxide 23 mmol/L (22-29); Chloride 106 mmol/L (96-108); Estimated Glomerular Filt Rate 57; Magnesium 1.8 mg/dL (1.6-2.6); Potassium 4.6 mmol/L (3.3-5.1); Sodium 139 mmol/L (135-145)
== END 2024-12-14 10:27 | disposition home or self-care (01) ==
LOC: HO.US 10:26
PROVIDERS: Absent Provider Internal Medicine; PCP Internal Medicine; Visit Provider Student in an Organized Health Care Education/Training Program
DX: E04.2 Nontoxic multinodular goiter (principal); E83.42 Hypomagnesemia; E11.9 Type 2 diabetes mellitus without complications
CPT/HCPCS: 36415; 76536; 80048; 83735; 84100

== ENCOUNTER → 2024-12-14 10:28 | Outpatient (BNV) | payer MEDICARE, MEDICAID, SELFPAY | PROVIDERS: Absent Provider Internal Medicine; PCP Internal Medicine; Visit Provider Radiology Diagnostic Radiology | DX: E04.2 Nontoxic multinodular goiter (principal) | CPT/HCPCS: 76536 ==

== ENCOUNTER 2024-12-23 09:41 | Outpatient (REF) | payer MEDICARE, MEDICAID, SELFPAY ==
--- OUTSIDE RECORDS SUMMARY | 2024-09-02 09:00 | XMS_ITS ---
Author Organization [facility] Address [address] [place] [phone] Care Team Providers Care Cytopathologist Name Role Phone Zita Adame MD Primary Care Provider Unavail able Seema Escobedo Unavailable [phone] Medications Medication SIG (Take, Route, Frequency, Duration) [...] Active Encounters Encounter Location Date Provider Diagnosis [facility] [address] [place] [address] 09/02/2024 Seema Escobedo Plan Of Treatment Next Appt Details Provider Name:Seema love, 11/16/2025 10:00:00 AM, [address] [place] [address], [phone], Progress Notes * Tatiana UMANZOR TDOB:[birth year] (69 yo F)Acc No.[id number]:09/02/2024 Progress Note Patient: Tatiana BOURGEOIS Provider: Zainab Escobedo DPM :1955 A ge:69 Y S ex:Female Date:09/02/2024 Address:[address] [place], [place] [phone] Pcp:Zita Adame MD Subjective: * Chief Complaints: [...] 09/02/2024 Generated for [place]/Hellen/Tawanda on: 0 12/23/2024 11:30 AM EDT
--- NOTE | 2024-12-23 10:14 | PM.PROC ---
Brief Operative Note Date of procedure: 12/23/24 Pre-op diagnosis: right mid pole 2.4 cm thyroid nodule FNA biopsy Post-op diagnosis: same Procedure: THYROID FINE NEEDLE ASPIRATION PROCEDURE NOTE ? PROCEDURE PERFORMED: Ultrasound-guided FNA of thyroid nodule ? OPERATORS: Dr. Ngoc Conklin ? INDICATION: right mid pole 2.4 cm thyroid nodule; FNA performed to assess for malignancy ? DESCRIPTION OF PROCEDURE: The indications for FNA (to assess for malignancy) were reviewed with the patient in detail. Potential complications (e.g., bleeding, infection, damage to local structures, absence of clear diagnosis after FNA) were reviewed. Alternatives to FNA including conservative observation or surgery were described. The patient understood and agreed to proceed. This was documented by the signing of the written informed consent form. A time-out was performed to confirm the patient's identity and the site of planned FNA. The nodule of interest was identified using ultrasound (14 MHz linear array probe). The site of FNA was then draped in the usual fashion and carefully cleaned and prepared using alcohol swabs. The skin at the previously-identified site of needle insertion was iced and sprayed with numbing spray. Under ultrasound guidance, _5_ passes were performed using a 1.5-inch, 25-gauge needle, and sample was obtained via capillary action. The needle tip was clearly visualized to be within the nodule at the time of sampling for 5__ of _5_ passes [Insert image recorded as part of the procedure] The patient tolerated the procedure well. There were no immediate complications. A small adhesive bandage was applied, and the patient was advised to take acetaminophen (rather than NSAIDs) for any discomfort and to report any signs of inflammation/infection or marked swelling. IMPRESSION: Technically successful ultrasound-guided fine needle aspiration of right mid pole 2.4 cm thyroid nodule . PLAN: The patient was advised that I will provide follow-up regarding the cytology result and any subsequent plans. Ngoc Conklin MD Endocrinology Attending Condition: stable Disposition: same day
--- OUTSIDE RECORDS SUMMARY | 2024-12-23 11:30 | XMS_ITS | Patient Health Record ---
[facility] Address [address] [place] [address] Care Team Providers Care Analytical Data Scientist Name Role Phone Wendi PERSAUD, Zita Primary Care Provider Unavail able Abdirizakivan Seema Unavailable [phone] Allergies Allergen (clinical drug ingredient) Drug/Non Drug [...] Problem Acquired hammer toe of right foot (1215333215843 105) Other hammer toe(s) (acquired), right foot (M20.41) Active confirmed Problem Acquired hammer toe of left foot (6324916922370 103) Other hammer toe(s) (acquired), left foot (M20.42) Active confirmed Problem Diabetes mellitus (30559799) Type 2 diabetes mellitus without complication, without long-term current use of insulin (E11.9) Active confirmed Vital Signs Blood pressure diastolic 75 mm Hg 11/10/2024 Height 5ft3in in 11/10/2024 Blood pressure systolic 126 mm Hg 11/10/2024 Weight 197 lbs 11/10/2024 BMI 34.89 kg/m2 11/10/2024 Encounters Encounter [facility] Date [facility] [address] 11/10/2024 Seema Escobedo Other hammer toe(s) (acquired), right foot M20.41 ; Type 2 diabetes mellitus without complication, without long-term current use of insulin E11.9 and Other hammer toe(s) (acquired), left foot M20.[address] [facility] [address] 09/02/2024 Seema Escobedo Assessments Encounter Date Diagnosis [...] Provider Name:Seema love, 11/16/2025 10:00:00 AM, [address] [facility], [place], [address], Insurance Providers Payer Name Payer Address Payer Phone Subscriber Number Group Number Insured Name Patient Relationship to Insured Coverage Start Date Coverage End Date Medicare National [employer]t [employer] [address] [facility] [place] [address] [id number] Tatiana Umanzor Self - patient is the insured Medical (General) History Medical History History ICD Code Broken bones Cholesterol covid-19 Diabetic Gall bladder problems High blood pressure Psoriasis/eczema Reflux ( GERD) sinusitis Measles Mumps Chicken pox Surgical History Surgery Date(Month/Year) tonsillectomy 1974 Gall bladder removal 1997 Hospitalization History Reason Date(Month/Year) [facility] [place]- UTI 05/06/23
--- OUTSIDE RECORDS SUMMARY | 2024-12-23 11:30 | XMS_ITS | Clinical Summary ---
Author Organization [facility] Address [address] [facility] [address] [place] [address] Phone Care Team Providers Care Order Tracer Name Role Phone Navid Tejeda MD Primary Care Provider [phone] Allergies Active Allergy Reactions Criticality Noted Date [...] Visit [facility] [address] [place] [address] Kip Kwok MD Hypomagnesemia (Primary Dx); Type 2 diabetes mellitus without complication (HCC) 09/24/2024 Orders Only [facility] [address] [place] [phone] Kip Kwok MD Hypomagnesemia from Last 3 [...] Visit [facility] [address] [place] [address] Kip Kwok MD [address] [address] Health Maintenance Due Date Last [...] Procedure Name Priority Date/Time Associated Diagnosis Comments PHOSPHATE ( PHOSPHORUS) Routine 12/14/2024 11:45 AM EDT Hypomagnesemia MAGNESIUM Routine 12/14/2024 11:45 AM EDT Hypomagnesemia BASIC METABOLIC PANEL Routine 12/14/2024 11:45 AM EDT Hypomagnesemia EXT RESULT ENTRY Routine 11/28/2023 from Last 3 Months or Most Recently Relevant to Health Maintenance Results * (ABNORMAL) Phosphorus (12/14/2024 11:45 AM EDT) Phosphorus, Serum 2.1(L) 2.7 - 4.5 mg/dL See order comments Blood specimen (specimen) Venous blood / Unknown 12/14/2024 11:45 AM EDT 12/14/2024 11:45 AM EDT us Kip Kwok MD LAB BLOOD ORDERABLES Final Result MATT See order comments [place] [address] * Magnesium (12/14/2024 11:45 AM EDT) Pathologist [facility] Magnesium 1.8 1.6 - 2.6 mg/dL See order comments Blood specimen (specimen) Venous blood / Unknown 12/14/2024 11:45 AM EDT 12/14/2024 11:45 AM EDT us Kip Kwok MD LAB BLOOD ORDERABLES Final Result Performing Organization Address [facility] Co de Phone Number [place] See order comments [place] [address] * (ABNORMAL) Basic Metabolic Panel (12/14/2024 11:45 AM EDT) Pathologist [facility] Sodium 139 135 - 145 mmol/L See order comments Potassium 4.6 3.3 - 5.1 mmol/L See order comments Chloride 106 96 - 108 mmol/L See order comments Bicarbonate (CO2) 23 22 - 29 mmol/L See order comments Anion Gap 15 12 - 20 See order comments BUN 30(H) 9 - 16 mg/dL See order comments Creatinine Serum 0.98 0.5 - 1.4 mg/dL See order comments eGFR (Calc) 57 See orde r comments Comment: Chronic Kidney Disease: Estimated GFR < 60 mL/min/1.73m2 Severe Kidney Disease: Estimated GFR < 15 mL/min/1.73m2 Glucose 138(H) 60 - 115 mg/dL See order comments Calcium 12.0(H) 8.4 - 10.2 mg/dL See order comments Blood specimen (specimen) Venous blood / Unknown 12/14/2024 11:45 AM EDT 12/14/2024 11:45 AM EDT us Kip Kwok MD LAB BLOOD ORDERABLES Final Result Performing Organization Address City/[facility]/ZIP Co de Phone Number [facility] See order comments [place] [address] * (ABNORMAL) EXT RESULT ENTRY (11/28/2023) Pathologist [facility] ([facility]) Thyroid Stimulating Hormone 0.96 Hemoglobin A1C 8.5(A) 4.0 - 6.0 Triglycerides 151 Cholesterol, Total 149 HDL 39 mg/dL LDL-Calculated 80 11/28/2023 Historical Provider LAB BLOOD ORDERABLES Smitha abreu Result from Last 3 Months or Most Recently Relevant to Health Maintenance Insurance Medicare Medicaid [place] Medicaid [place] Care Teams Order Tracer Relationship Specialty Start Date End Date Navid Tejeda MD [address] [place], [place] PCP - General Internal Medicine 09/18/22
--- OUTSIDE RECORDS SUMMARY | 2024-12-23 11:31 | XMS_ITS | Patient Health Record ---
Author Organization [facility] Address [address] [place] [address] Care Team Providers Care Party Planner Name Role Phone Maty PERSAUD, Kike Primary Care Provider Unavailab Bry Fletcher Unavailable [phone] Reason For Referral No Information Medications Medication [...] Problem History of adenomatous polyp of colon (274224870) History of adenomatous polyp of colon (Z86.010) Active confirmed Problem Nausea (880076709) Nausea (R11.0) Active confirmed Problem Vomiting (240835232) Vomiting (R11.10) Active confirmed Problem Diarrhea of presumed infectious origin (92037159) Diarrhea of presumed infectious origin (R19.7) Active confirmed Plan Of Treatment No Information Insurance Providers Payer Name Payer Address Payer Phone Subscriber Number Group Number Insured Name Patient Relationship to Insured Coverage Start Date Coverage End Date [facility] [address] [place] [phone] [id number] LUIS LANG Self - patient is the insured Medical (General) History Medical History History ICD Code NIDDM Hypertension Denies [place],CVA,Lung disease,renal disease Hyperlipidemia COVID in 01/2019--not hospitalized [...]
== END 2024-12-23 09:42 | disposition home or self-care (01) ==
LOC: HO.US 09:41
PROVIDERS: PCP Internal Medicine; Visit Provider Student in an Organized Health Care Education/Training Program
DX: E04.2 Nontoxic multinodular goiter (principal)
CPT/HCPCS: 10005; 88173; 88305

== ENCOUNTER → 2024-12-23 09:41 | Outpatient (BNV) | payer MEDICARE, MEDICAID, SELFPAY | PROVIDERS: PCP Internal Medicine; Visit Provider Student in an Organized Health Care Education/Training Program | DX: E04.1 Nontoxic single thyroid nodule (principal) | CPT/HCPCS: 10005 ==

== ENCOUNTER 2025-01-05 09:44 | Outpatient (AMB) | payer MEDICARE, MEDICAID, SELFPAY ==
--- OUTSIDE RECORDS SUMMARY | 2024-09-02 09:00 | XMS_ITS ---
Author Organization [facility] Address [address] [place] [phone] Care Team Providers Care Brazer [employer] Name Role Phone Zita Adame MD Primary Care Provider Unavail able Seema Escobedo Unavailable [phone] Medications Medication SIG (Take, Route, Frequency, Duration) [...] Active Encounters Encounter Location Date Provider Diagnosis [facility] [address] [place] [address] 09/02/2024 Seema Escobedo Plan Of Treatment Next Appt Details Provider Name:Seema love, 11/16/2025 10:00:00 AM, [address] [place] [address], [phone], Progress Notes * Tatiana UMANZOR TDOB:[birth year] (70 yo F)Acc No.[id number]:09/02/2024 Progress Note Patient: Tatiana BOURGEOIS Provider: Zainab Escobedo DPM :1955 A ge:69 Y S ex:Female Date:09/02/2024 Address:[address] [place], [place] [phone] Pcp:Zita Adame MD Subjective: * Chief Complaints: [...] 09/02/2024 Generated for [place]/Hellen/Tawanda on: 0 01/05/2025 10:35 AM EDT
[2025-01-05 09:55] VITALS: BP 110/64; PULSE 92; O2SAT 99; BMI 32.5
--- NOTE | 2025-01-05 09:55 | MHC.PC.OV ---
Vital Signs 01/05/25 09:55 Height 5 ft 4 in Weight 189 lb 8 oz BMI 32.5 BP 110/64 Blood Pressure Location Lt brachial Position Sitting Pulse 92 Pulse Source Pulse Oximeter Pulse Oximetry (%) 99 Oxygen Delivery Method Room Air Intake Visit Reasons: follow up 4 months - see comments Nuclear Medicine Supervisor Required: No Accompanied by: Self / Same As Patient Allergies oxycodone (From PERCOCET) Allergy (Intermediate, Verified 01/05/25 10:45) UNKNOWN Medication List - Last Reconciled 01/05/25 by Zita Butler MD albuterol sulfate 90 mcg/actuation 1 inh inhalation QID PRN blood sugar diagnostic (FreeStyle Lite Strips) As directed blood-glucose meter (FreeStyle Lite Meter kit) As directed cephalexin 500 mg PO Q8H 7 days cholecalciferol (vitamin D3) 25 mcg PO DAILY 3 months cyanocobalamin (vitamin B-12) 500 mcg PO DAILY dapagliflozin propanediol (Farxiga) 5 mg PO DAILY flash glucose scanning reader ([employer] Emmanuel 2 [place]) As directed flash glucose sensor (FreeStyle Emmanuel 2 Sensor kit) DIRECTED CHANGE EVERY 14 DAYS insulin aspart U-100 (Novolog FlexPen U-100 Insulin aspart) 4 units (0.04 mL) subcut DAILY insulin glargine (Lantus Solostar U-100 Insulin) 24 units (0.24 mL) subcut QPM lisinopril 10 mg PO BEDTIME magnesium oxide 500 mg PO BID meclizine 12.5 mg PO Q8H PRN metformin 1,000 mg PO BID pen needle, diabetic (Comfort EZ Pen [place]) As directed injects once a day pen needle, diabetic (BD Tessie 2nd Gen Pen Needle) use once a day As directed simvastatin 20 mg PO BEDTIME tirzepatide (Mounjaro) 7.5 mg (0.5 mL) subcut QWEEK Tobacco use date assessed: 01/05/25 Fall risk assessment: 1 Fall in past year Last assessed Fall Risk: 01/05/25 Dental Screening Dental Screen Date: 01/05/25 Did you have a dental visit in the last 12 months?: No Did you have a dental problem in the last 6 months where you did not have access to dental care?: No Was dental information given to patient?: Patient has dentist HPI HPI Comments History of Present Illness Details The patient is a 70-year-old female presenting with management of thyroid nodule, hypercalcemia, and eczema. She also has diabetes mellitus with an A1c within goal being less than 7%, hypertension with blood pressure within goal being less than 130/80 and hyperlipidemia on statins. The thyroid nodule was recently biopsied and found to be benign. The patient is scheduled for surgery in May to address a parathyroid adenoma, which may involve removal of the thyroid nodule if necessary. The patient has a history of hypercalcemia, which has been attributed to the parathyroid adenoma. The elevated calcium levels were noted in recent lab results. The patient reports a long-standing history of eczema, primarily affecting her hands during the winter months. Recently, the eczema has spread to her arms and abdomen, causing significant itching. The patient denies any recent changes in detergents, soaps, or diet that could have triggered the flare-up. [facility] Medical History (Updated 01/05/25 @ 10:57 by Zita Butler MD) Multinodular goiter (nontoxic) Long-term insulin use Hyperparathyroidism Hypercalcemia Hypertension Obesity Type 2 diabetes mellitus with obesity Diabetes mellitus Diabetes Hyperlipidemia Hypertension Surgical History History of cholecystectomy History of tonsillectomy Family History Mother Diabetes mellitus Father Angina at rest Social History Household Members: Family Housing: Apartment Do you presently have visiting nurse or other home services: Yes Alcohol intake: current Alcohol intake frequency: holidays/special occasions only Comment: no c/o dizziness Patient Tobacco Use Status: Former Tobacco user Tobacco use type: Cigarette e-Cigarette/Vaping Use: Never Used Second Hand Smoke Exposure: Yes Advance Directives Date on File: 04/06/20 service: No Current occupational status: employed 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 Cognitive needs: No Hearing needs: No Vision needs: Yes (glasses) Questionnaire Thrive Questionnaire Date Thrive assessed: 08/19/24 I am a: Patient What is your living situation today?: I have a steady place to live Within the past 12 months, did the food you bought not last and you didn't have the money to get more?: I choose not to answer this question Within the past 12 months, did you worry whether your food would run out before you got money to buy more?: I choose not to answer this question Do you have trouble paying for medicines?: No Do you have trouble getting transportation to medical appointments?: No Do you have trouble paying your heating and electricity bill?: I choose not to answer this question Do you have trouble taking care of your child, family member or friend?: No Do you have trouble with day-to-day activities such as bathing, preparing meals, shopping, managing finances, etc.?: No Are you currently unemployed and looking for a job?: No Are you interested in more education?: No Please select the resources that you would like help with: Utilities Currently or been in a relationship where the following occur: No concerns reported THRIVE Score: 0 AUDIT C Alcohol Use Questionnaire (AUDIT-C) 1. How often do you have a drink containing alcohol?: Never 3. How often do you have six or more drinks on one occasion?: Never Total Score: 0 Score Reviewed/Action Taken: No LEIGH-7 AMB Questionnaire LEIGH-7 Date LEIGH - 7 assessed: 05/25/24 Source: Developed by Drs. Bry Fagan, Salina Sinclair, Иван Diaz and colleagues, with an educational renea from [employer]. Review of Systems Const All systems reviewed & are unremarkable except as noted in HPI and below Card Denies chest pain at rest, Denies chest pain with activity, Denies edema, Denies irregular heart rhythm, Denies claudication, Denies dyspnea, Denies dyspnea on exertion, Denies orthopnea, Denies paroxysmal nocturnal dyspnea and Denies slow heart rate Resp Denies cough, Denies dyspnea and Denies dyspnea on exertion Physical exam (Primary Care) Vital Signs: Last Vital Signs Pulse 92 01/05/25 09:55 BP 110/64 01/05/25 09:55 Pulse Ox 99 01/05/25 09:55 Oxygen Delivery Method Room Air 01/05/25 09:55 BMI result Body Mass Index 32.5 BMI Assessment/Plan discussion: High BMI High, discussed plan: lifestyle, weight reduction, dietary and physical activity Tobacco/Smoking Status: Tobacco use Status Tobacco use date assessed 01/05/25 01/05/25 09:57 Patient Tobacco Use Status Former Tobacco user 01/05/25 09:57 Tobacco use type Cigarette 01/05/25 09:57 e-Cigarette/Vaping Use Never Used 01/05/25 09:57 Thrive Assessment: Date of Thrive Assessment Date Thrive assessed 08/19/24 01/05/25 09:57 Currently or been in a relationship where the following occur: No concerns reported Resp Effort & Inspection: normal respiratory effort Auscultation: clear to auscultation bilaterally Cardio Jugular venous distension: no JVD Rate: regular rate Rhythm: regular rhythm Heart sounds: S1 normal heart sound present and S2 normal heart sound present Extrem General: Yes full ROM Coding Level of Care Code Est Pt Level 4 (68573) Complex EM visit Add On G2211 Diagnoses Diabetes mellitus E11.9 Primary hypertension I10 Hypertension type: primary hypertension Mixed hyperlipidemia E78.2 Hyperlipidemia type: mixed hyperlipidemia Hyperparathyroidism E21.3 Allergic reaction T78.40XA Multinodular goiter (nontoxic) E04.2 Time Spent (min) 21 Assessment & Plan Assessment & Plan (1) Diabetes mellitus: Comment: cont same meds; do labs; 40 min reviewing chart evaluating parient and documenting Code(s): E11.9 - Type 2 diabetes mellitus without complications Category: Medical (2) Hypertension: Code(s): I10 - Essential (primary) hypertension Category: Medical Qualifiers: Hypertension type: primary hypertension Qualified Code(s): I10 - Essential (primary) hypertension (3) Hyperlipidemia: Code(s): E78.5 - Hyperlipidemia, unspecified Category: Medical Qualifiers: Hyperlipidemia type: mixed hyperlipidemia Qualified Code(s): E78.2 - Mixed hyperlipidemia (4) Hyperparathyroidism: Code(s): E21.3 - Hyperparathyroidism, unspecified Category: Medical (5) Allergic reaction: Code(s): T78.40XA - Allergy, unspecified, initial encounter Category: Medical (6) Multinodular goiter (nontoxic): Code(s): E04.2 - Nontoxic multinodular goiter Category: Medical Plan Plan 1. Thyroid Nodule The thyroid nodule was biopsied and found to be benign. Surgical intervention is planned in May, potentially involving removal of the nodule if it obstructs the parathyroid surgery. 2. Hypercalcemia The hypercalcemia is attributed to a parathyroid adenoma. Surgical intervention is planned to address the adenoma, which is expected to resolve the hypercalcemia. 3. Eczema The patient reports widespread eczema with significant itching. Oral prednisone has been prescribed due to the extensive nature of the eczema, as topical treatments are insufficient. Benadryl is recommended for nighttime use to alleviate itching and improve sleep. Orders: Orders Lipid Panel 4 Months E78.5 - Hyperlipidemia, unspecified Microalbumin, Random (w Creat) 4 Months R80.9 - Proteinuria, unspecified Comprehensive [place]. Panel Fast 4 Months E11.9 - Type 2 diabetes mellitus without complications Medications: New prednisone Take 4 tabs for 2 days, then 3 tabs for 2 days, then 2 tabs for 2 days, then 1 tab for 2 days 10 mg PO DIRECTED 20 tabs 0RF 8 days T78.40XA - Allergy, unspecified, initial encounter hydroxyzine HCl 25 mg PO BEDTIME 10 tabs 0RF 10 days
--- OUTSIDE RECORDS SUMMARY | 2025-01-05 10:35 | XMS_ITS | Patient Health Record ---
Author Organization [facility] Address [address] [place] [address] Care Team Providers Care Patient'S Librarian Name Role Phone Maty PERSAUD, Kike Primary Care Provider Unavailab Bry Fletcher Unavailable [phone] Reason For Referral No Information Medications Medication [...] Problem History of adenomatous polyp of colon (309778919) History of adenomatous polyp of colon (Z86.010) Active confirmed Problem Nausea (056924316) Nausea (R11.0) Active confirmed Problem Vomiting (932013279) Vomiting (R11.10) Active confirmed Problem Diarrhea of presumed infectious origin (49275322) Diarrhea of presumed infectious origin (R19.7) Active confirmed Plan Of Treatment No Information Insurance Providers Payer Name Payer Address Payer Phone Subscriber Number Group Number Insured Name Patient Relationship to Insured Coverage Start Date Coverage End Date [facility] [address] [place] [phone] [id number] LUIS LANG Self - patient is the insured Medical (General) History Medical History History ICD Code NIDDM Hypertension Denies [place],CVA,Lung disease,renal disease Hyperlipidemia COVID in 01/2019--not hospitalized [...]
--- OUTSIDE RECORDS SUMMARY | 2025-01-05 10:35 | XMS_ITS | Patient Health Record ---
[facility] Address [address] [place] [address] Care Team Providers Care Feeder Driver Name Role Phone Wendi PERSAUD, Zita Primary Care Provider Unavail able AbdirizakivanSeema Unavailable [phone] Allergies Allergen (clinical drug ingredient) Drug/Non Drug [...] Problem Acquired hammer toe of right foot (0566323059087 105) Other hammer toe(s) (acquired), right foot (M20.41) Active confirmed Problem Acquired hammer toe of left foot (5115688066237 103) Other hammer toe(s) (acquired), left foot (M20.42) Active confirmed Problem Diabetes mellitus (10023777) Type 2 diabetes mellitus without complication, without long-term current use of insulin (E11.9) Active confirmed Vital Signs Blood pressure diastolic 75 mm Hg 11/10/2024 Height 5ft3in in 11/10/2024 Blood pressure systolic 126 mm Hg 11/10/2024 Weight 197 lbs 11/10/2024 BMI 34.89 kg/m2 11/10/2024 Encounters Encounter [facility] Date [facility] [address] [facility]/10/2024 Seema Escobedo Other hammer toe(s) (acquired), right foot M20.41 ; Type 2 diabetes mellitus without complication, without long-term current use of insulin E11.9 and Other hammer toe(s) (acquired), left foot M20.42 [facility] [address] 09/02/2024 Seema Escobedo Assessments Encounter Date Diagnosis [...] Provider Name:Seema love, 11/16/2025 10:00:00 AM, [address] [facility], [place], [address], Insurance Providers Payer Name Payer Address Payer Phone Subscriber Number Group Number Insured Name Patient Relationship to Insured Coverage Start Date Coverage End Date [employer] [address] [place] [address] [id number] Tatiana Umanzor Self - patient is the insured Medical (General) History Medical History History ICD Code Broken bones Cholesterol covid-19 Diabetic Gall bladder problems High blood pressure Psoriasis/eczema Reflux ( GERD) sinusitis Measles Mumps Chicken pox Surgical History Surgery Date(Month/Year) tonsillectomy 1974 Gall bladder removal 1997 Hospitalization History Reason Date(Month/Year) [facility] [place]- UTI 05/06/23
--- OUTSIDE RECORDS SUMMARY | 2025-01-05 10:35 | XMS_ITS | Clinical Summary ---
Author Organization [facility] Address [address] [place] [address] Phone Care Team Providers Care Roll Icer Name Role Phone Navid Tejeda MD Primary Care Provider [phone] Allergies Active Allergy Reactions Criticality Noted Date [...] 12/31/2022 Diarrhea of presumed infectious origin 12/31/2022 Family History Relation Status Comments Father Mother [...] Visit [facility] [address] [place] [address] Kip Kwok MD [address] [facility] [place] [id number] Health Maintenance Due Date Last Done Comments [...] BLOOD ORDERABLES Final Result Performing Organization Address City/[facility]/ZIP Co de Phone Number [place] See order comments [place] [address] * Magnesium (12/14/2024 11:45 AM EDT) Magnesium 1.8 1.6 - 2.6 mg/dL See order comments Blood specimen (specimen) Venous blood / Unknown 12/14/2024 11:45 AM EDT 12/14/2024 11:45 AM EDT us Kip Kwok MD LAB BLOOD ORDERABLES Final Result [facility] See order comments [place] [address] * (ABNORMAL) Basic Metabolic Panel (12/14/2024 11:45 AM EDT) Sodium 139 135 - 145 mmol/L See [...] order comments [place] [address] * (ABNORMAL) EXT RESULT ENTRY (11/28/2023) (TSH) Thyroid Stimulating Hormone 0.96 Hemoglobin A1C 8.5(A) 4.0 - 6.0 Triglycerides 151 Cholesterol, Total 149 HDL 39 mg/dL LDL-Calculated 80 11/28/2023 us Historical Provider LAB BLOOD ORDERABLES Smith[place] l Result from Last 3 Months or Most Recently Relevant to Health Maintenance Insurance [place] Care Teams Roll Icer Relationship Specialty Start Date End Date Navid Tejeda MD [address] [place], [place] PCP - General Internal Medicine 09/18/22
== END 2025-01-05 10:57 | disposition home or self-care (01) ==
LOC: HO.HMCH 09:44
PROVIDERS: PCP Internal Medicine; Visit Provider Internal Medicine
DX: E11.9 Type 2 diabetes mellitus without complications (principal); I10 Essential (primary) hypertension; E78.2 Mixed hyperlipidemia; E21.3 Hyperparathyroidism, unspecified; T78.40XA Allergy, unspecified, initial encounter; E04.2 Nontoxic multinodular goiter

== ENCOUNTER → 2025-01-05 09:44 | Outpatient (BNVA) | payer MEDICARE, MEDICAID, SELFPAY | PROVIDERS: PCP Internal Medicine; Visit Provider Internal Medicine | DX: E04.1 Nontoxic single thyroid nodule (principal); L30.9 Dermatitis, unspecified; E21.3 Hyperparathyroidism, unspecified; E11.9 Type 2 diabetes mellitus without complications; I10 Essential (primary) hypertension; E78.5 Hyperlipidemia, unspecified; E78.2 Mixed hyperlipidemia; E04.2 Nontoxic multinodular goiter; Z91.09 Other allergy status, other than to drugs and biological substances; Z79.899 Other long term (current) drug therapy | CPT/HCPCS: 99212 ==

== ENCOUNTER 2025-01-06 12:55 | Outpatient (AMB) | payer MEDICARE, MEDICAID, SELFPAY ==
--- OUTSIDE RECORDS SUMMARY | 2024-09-02 09:00 | XMS_ITS ---
Author Organization [facility] Address [address] [place] [address] Care Team Providers Care Ruby On Rails Engineer Name Role Phone Zita Adame MD Primary Care Provider Unavail able Seema Escobedo Unavailable [phone] Medications Medication SIG (Take, Route, Frequency, Duration) [...] Active Encounters Encounter Location Date [facility] [address] [place] [address] 09/02/2024 Seema Escobedo Plan Of Treatment Next Appt Details Provider Name:Seema love, 11/16/2025 10:00:00 AM, [address] [place] [address], [phone], Progress Notes * Tatiana UMANZOR TDOB:[birth year] (70 yo F)Acc No.[id number]:09/02/2024 Progress Note Patient: Tatiana BOURGEOIS Provider: Zainab Escobedo DPM :1955 A ge:69 Y S ex:Female Date:09/02/2024 Address:[address] [place], [place] [phone] Pcp:Zita Adame MD Subjective: * Chief Complaints: [...] 0 09/02/2024 Generated for [place] ram[place]/Hellen/Tawanda on: 02:11 PM EDT
[2025-01-06 12:57] VITALS: BP 128/72; PULSE 102; O2SAT 97; BMI 33.2
--- NOTE | 2025-01-06 12:57 | MHC.OFFVIS ---
Vital Signs 01/06/25 12:57 Height 5 ft 4 in Weight 193 lb 9.054 oz BMI 33.2 BP 128/72 Blood Pressure Location Lt brachial Position Sitting Pulse 102 H Pulse Source Pulse Oximeter Pulse Oximetry (%) 97 Oxygen Delivery Method Room Air Intake Visit Reasons: Biopsy f/u Intake Note: Patient present today for biopsy results. Adhesive Primer Required: No Accompanied by: Self / Same As Patient Allergies oxycodone (From PERCOCET) Allergy (Intermediate, Verified 01/06/25 13:01) UNKNOWN Medication List - Last Reconciled 01/06/25 by Ngoc Conklin MD albuterol sulfate 90 mcg/actuation 1 inh inhalation QID PRN blood sugar diagnostic (FreeStyle Lite Strips) As directed blood-glucose meter (FreeStyle Lite Meter kit) As directed cephalexin 500 mg PO Q8H 7 days cholecalciferol (vitamin D3) 25 mcg PO DAILY 3 months cyanocobalamin (vitamin B-12) 500 mcg PO DAILY dapagliflozin propanediol (Farxiga) 5 mg PO DAILY flash glucose scanning reader (FreeStyle Emmanuel 2 [place]) As directed flash glucose sensor (FreeStyle Emmanuel 2 Sensor kit) DIRECTED CHANGE EVERY 14 DAYS hydroxyzine HCl 25 mg PO BEDTIME 10 days insulin aspart U-100 (Novolog FlexPen U-100 Insulin aspart) 4 units (0.04 mL) subcut DAILY insulin glargine (Lantus Solostar U-100 Insulin) 24 units (0.24 mL) subcut QPM lisinopril 10 mg PO BEDTIME magnesium oxide 500 mg PO BID meclizine 12.5 mg PO Q8H PRN metformin 1,000 mg PO BID pen needle, diabetic (Comfort EZ Pen Romulus) As directed injects once a day pen needle, diabetic (BD Tessie 2nd Gen Pen Needle) use once a day As directed prednisone 10 mg PO DIRECTED 8 days simvastatin 20 mg PO BEDTIME tirzepatide (Mounjaro) 7.5 mg (0.5 mL) subcut QWEEK HPI Comments Details: 70 YO F who is here today for follow up of thyroid nodules. She also sees me for type 2 diabetes mellitus and hypercalcemia. not addressed today Thyroid nodules HAs never known about these before Went for surgucal evaluation for hypercalcemia 12/04/24, found to have thyroid nodules on bedside ultrasound. Bilateral nodules per Dr. Bonds with a dominant rt 2.8 cm likley TIRADS 3 nodule. ? Patient denies any difficulty swallowing, pain on swallowing or voice changes or difficulty breathing. Patient denies any history of childhood neck radiation. Denies having ever used lithium, amiodarone or biotin supplements. Patient denies any family history of thyroid cancer. Sister has thyroid nodules. Interval history Ultrasound thyroid 12/14/2024: Showed homogeneous gland with multiple bilateral nodules with a right upper pole 1 cm solid hypoechoic TR 4 nodule, a right superior pole 1.1 cm solid isoechoic TR 3 nodule, a right mid lobe 2.4 cm solid isoechoic TR 3 nodule, a left mid lobe 1.3 cm solid isoechoic TR 3 nodule. 12/23/2024 status post FNA of the right midpole 2.4 cm nodule which came back as benign, [place] category 2. Hypercalcemia : not addressed today Noted in the chart to have high Ca and PTH levels since 2021 Wrist fracture at least 20-30 years ago No recent fractures No kidney stones No vitamin D supplemts Milk 1-2 a week, Cheese 3-4 times a week , no yogurt CT abd 2019 no kidney stones DEXA scan 04/21/2024 showed normal bone density of the lumbar spine, with T-score of 0.3, normal bone density of the left total hip a T-score of 0.1, borderline osteopenic left femoral neck with T-score of -1, normal bone density of the distal radius with T-score of-0.7. Overall this is consistent with normal bone density. Labs from 03/13/2024 showed normal kidney function, total calcium 10.3, albumin of 4.3, ionized calcium 5.8, phosphorus low at 2.5, PTH of 81.1, vitamin-D of 24.8 Repeat labs 04/21/2024 showed calcium elevated to 11, with albumin of 4.3, corrected calcium would be 10.7, ionized calcium of 6, phosphorus of 3.1, PTH of 126.7, She has started taking more calcium in her diet with more yogurt during the week. Lab work repeated in July 2024 showed calcium of 10.7 with albumin of 4.2, corrected calcium would be 10.5, ionized calcium also elevated at 5.9, vitamin-D now improved at 41.3, normal kidney function, 24 hour urine calcium elevated at 373 with a calcium to creatinine ratio of 300. PTH elevated at 99.6. Currently on vitamin D 1000 units daily. 09/03/24 Parathyroid nuclear scan SPECT CT scan did not identify any parathyroid adenoma. 09/22/2024 labs showed PTH of 31, ionized calcium elevated at 5.7, calcium of 10.4, albumin of 4.2, corrected calcium would be 10.2, phosphorus 2.7, EGFR 78, normal creatinine She is seeing Dr. Tan Bonds at [facility], had 1st evaluation in November 2024, scheduled for surgery on 06/02/24 10 AM Type 2 diabetes mellitus: not addressed today Prior HPI Initially diagnosed with T2DM approx 2017 Was initially started on treatment with metformin. She failed Bydureon Prior meds Bydureon discontinued when Mounjaro started Mar 2024 Current regimen meformin 1000 mg BID Lantus 24 units at bedtime Humalog 4 units TID Mounjaro 7.5 mg weekly (started Mar 2024, increased to 5mg weekly end of Apr 2023, increased to 7.5 weekly 09/16/24) Farxiga 5 mg daily started Apr 2024 Freestyle Emmanuel 3+ download from November 11 to 11/24/2024 Time CGM active 95% Average glucose 133 mg/dL G OR 6.5% Glucose variability 21.5% Within target range 96% Low 0% Very low 0% High 4% Very high 0% Interpretation: Excellent glycemic control, no more hypoglycemia Last Diabetic Eye exam: 09/2023, Last Podiatry Visit: 11/2024 Random Glucose: 125 mg/dl POC a1c 11/24/24 7.0% HgA1C: 7.6% 05/25/24 HgA1C: 8.5% 02/20/24 3 soft mints for a low carries at all times also has glucose tablets Family history of T2DM in mother and sisters. +retinopathy: last eye exam 2023 Opthamologist Has seen retinal specialist: minimal retinopathy, f/u in one year No neuropathy: denies numbness, tingling or cramping in the lower extremities saw podiatry earlier this year + nephropathy, on MATTHEW eGFR >60 microalbumin 127 on 07/28/24 improved a bit , follows with nephrology Has HLD, on statin. Last LDL 07/31 64 She has 2 children, 4 granchildren, 4 sisters one Denies CAD. No stroke Physical exam General: sitting comfortably in no acute distress HEENT: normocephalic/atraumatic, Neck: supple, palpable 1 cm right-sided nodule Cardiac: normal heart sounds Pulm: normal breath sounds B/L, no added breath sounds Abd: not distended, no tenderness Extremities: no edema, no signs of myxedema Neuro: AAO x3, Speech: normal, no facial droop, moving all 4 extremities Skin: no rash Foot exam: : checked Jan 2024: intact sensation to monofilament, intact pulses, intact vibration Laboratory Tests 10/31/23 02/13/24 16:13 13:40 Calcium 10.6 H Ionized Calcium 5.8 H Phosphorus 2.5 L Magnesium 1.6 25-OH Vitamin D Total 31.8 PTH Intact 108.6 H PTH Intact Intraop 76.3 Laboratory Tests 09/05/21 07/25/22 08/30/23 14:50 09:00 14:16 Est GFR (Cystatin C) Hgb A1c (Clinic) > 14.0 H 11.5 H 9.2 H 02/13/24 02/20/24 Unknown 10:45 Est GFR (Cystatin C) 56 (L) Hgb A1c (Clinic) 8.5 H Laboratory Tests 02/13/24 13:40 Creatinine 0.79 Estimated GFR > 60 Laboratory Tests 01/03/23 10/12/23 10/31/23 05:25 09:01 16:11 Creatinine Estimated GFR Glucose (Clinic) Calcium Ionized Calcium Phosphorus Magnesium Albumin Triglycerides 159 H Cholesterol 142 LDL Cholesterol, Calc 73 HDL Cholesterol 38 L 25-OH Vitamin D Total PTH Intact Ur 24 Hour Volume 2750 Urine Creatinine Ur Creatinine mg/dL 36.59 Ur Creatinine 24 Hour 1.07 Urine Microalbumin 94.0 Microalb/Creat Ratio 90.3 H Ur Sodium 24 Hour 236.5 H Ur Calcium 24 Hr 432 H Calcium/Creat 24 Hr 403 H 11/28/23 02/13/24 03/13/24 08:33 13:31 11:32 Creatinine Estimated GFR Glucose (Clinic) Calcium Ionized Calcium Phosphorus Magnesium Albumin Triglycerides 151 H Cholesterol 149 LDL Cholesterol, Calc 80 HDL Cholesterol 39 L 25-OH Vitamin D Total PTH Intact Ur 24 Hour Volume Urine Creatinine 18.87 Ur Creatinine mg/dL Ur Creatinine 24 Hour Urine Microalbumin 38.0 29.0 Microalb/Creat Ratio 243.1 H 153.6 H Ur Sodium 24 Hour Ur Calcium 24 Hr Calcium/Creat 24 Hr 03/13/24 04/21/24 04/28/24 11:37 10:47 10:02 Creatinine 0.84 Estimated GFR > 60 Glucose (Clinic) 106 Calcium 10.3 H 11.0 H D Ionized Calcium 5.8 H 6.0 H Phosphorus 2.5 L 3.1 Magnesium 1.6 1.8 Albumin 4.3 Triglycerides Cholesterol LDL Cholesterol, Calc HDL Cholesterol 25-OH Vitamin D Total 24.8 L PTH Intact 81.1 H 126.7 H Ur 24 Hour Volume Urine Creatinine Ur Creatinine mg/dL Ur Creatinine 24 Hour Urine Microalbumin Microalb/Creat Ratio Ur Sodium 24 Hour Ur Calcium 24 Hr Calcium/Creat 24 Hr Laboratory Tests 03/13/24 07/28/24 07/28/24 11:37 06:30 09:25 RBC 4.33 Hgb 13.0 Plt Count 260 Sodium 136 Potassium 4.5 Creatinine 0.81 Estimated GFR > 60 Random Glucose 134 H Hemoglobin A1c % 7.0 H Calcium 10.7 H Ionized Calcium 5.9 H Albumin 4.2 Triglycerides 128 Cholesterol 129 LDL Cholesterol, Calc 64 HDL Cholesterol 40 L Vitamin B12 291 25-OH Vitamin D Total 41.3 PTH Intact 99.6 H Ur 24 Hour Volume 2700 Urine Creatinine Ur Creatinine mg/dL 44.60 Ur Creatinine 24 Hour 1.2 Urine Microalbumin Microalb/Creat Ratio Ur Calcium 24 Hr 373 H Calcium/Creat 24 Hr 300 H 07/28/24 09:30 RBC Hgb Plt Count Sodium Potassium Creatinine Estimated GFR Random Glucose Hemoglobin A1c % Calcium Ionized Calcium Albumin Triglycerides Cholesterol LDL Cholesterol, Calc HDL Cholesterol Vitamin B12 25-OH Vitamin D Total PTH Intact Ur 24 Hour Volume Urine Creatinine 31.34 Ur Creatinine mg/dL Ur Creatinine 24 Hour Urine Microalbumin 40.0 Microalb/Creat Ratio 127.6 H Ur Calcium 24 Hr Calcium/Creat 24 Hr Laboratory Tests 12/10/24 14:39 TSH 0.71 Free T4 1.16 EXAMINATION: US THYROID 12/14/24 HISTORY: E04.2 - Nontoxic multinodular goiter TECHNIQUE: Real-time grayscale ultrasound imaging was performed and images were reviewed. COMPARISON: There are no prior studies available for comparison. FINDINGS: SIZE: The right thyroid lobe measures 5.4 x 2.0 x 2.3 cm. The left thyroid lobe measures 5.2 x 1.7 x 2.5 cm. The isthmus measures 5 mm. FLOW: Flow to the gland is normal. ECHOGENICITY: The echotexture of the gland is homogeneous. NODULES: Multiple bilateral thyroid nodules are identified as described below: Nodule #: 1 Location: Right upper pole measuring 1.0 x 0.8 x 1.0 cm. Shape: Wider than tall (0 points) Margins: Smooth (0 points) Echotexture: Hypoechoic (2 points) Composition: Solid (2 points) Calcifications: None (0 points) Total points: 4 TIRADS: TR4: Moderately suspicious. Nodule #: 2 Location: Upper pole of the right thyroid lobe measuring 1.1 x 1.0 x 1.0 cm. Shape: Wider than tall (0 points) Margins: Smooth (0 points) Echotexture: Isoechoic (1 point) Composition: Solid (2 points) Calcifications: None (0 points) Total points: 3 TIRADS: TR3: Mildly suspicious. Nodule #: 3 Location: Midportion of the right thyroid lobe measuring 2.4 x 1.2 x 1.2 cm. Shape: Wider than tall (0 points) Margins: Smooth (0 points) Echotexture: Indeterminate (1 point) Composition: Solid (2 points) Calcifications: None (0 points) Total points: 3 TIRADS: TR3: Mildly suspicious. Nodule #: 4 Location: Midportion of the left thyroid lobe measuring 1.3 x 0.9 x 0.9 cm. Shape: Wider than tall (0 points) Margins: Smooth (0 points) Echotexture: Isoechoic (1 point) Composition: Solid (2 points) Calcifications: None (0 points) Total points: 3 TIRADS: TR3: Mildly suspicious. US/US thyroid IMPRESSION: Multinodular thyroid gland as described above. According to ACR TI-RADS guidelines, follow-up is recommended EXAMINATION: Nuclear medicine parathyroid SPECT with CT. 09/03/24 CLINICAL INDICATION: Hyperparathyroidism graft comparison: None TECHNIQUE: Following intravenous administration of 25 mCi of technetium 99m Cardiolite in left hand, immediate and delayed 2 hour planar images of the anterior neck were obtained. SPECT study was obtained at 2 hours through the anterior neck. Images were displayed in valleculae to and color. FINDINGS: On immediate of the neck is symmetrical activity seen in bilateral thyroid lobes. No focal increased activity seen in the thyroid gland to suggest avascular nodule or along the edges of the thyroid gland or the anterior chest to suspect any parathyroid adenoma. On delayed 2 hour planar images there is significant washout of the thyroid gland with no focal activity seen in the thyroid gland or the periphery to suspect a parathyroid adenoma. No abnormal activity seen in the chest either. On delayed SPECT images there is normal symmetrical activity seen in bilateral thyroid lobes. No abnormal activity seen in the upper chest or the anterior neck to suspect any parathyroid adenoma. NM/NM parathyroid SPECT w CT IMPRESSION: No abnormal technetium sestamibi activity on immediate imaging. No abnormal retained activity on delayed scan within the neck or the chest to suspect parathyroid adenoma. Electronically signed by: Dawit Martinez MD 09/03/2024 04:37 PM EDT RP EXAMINATION: Dual-Energy X-ray Absorptiometry - Bone Density Study 04/21/24 HISTORY: Estrogen deficiency TECHNIQUE: [facility] Dual energy absorptiometry (DEXA) of the lumbar spine, total left hip, and femoral neck was performed. COMPARISON: Comparison is made with the prior examination dated 10/19/2008. FINDINGS: The bone mineral density of the lumbar spine is 1.214 with a T-score of 0.3, and a Z-score of 0.9. This represents a BMD change of 8.9% compared to the prior exam. This is statistically significant. The bone mineral density of the left total hip is 1.022 with a T-score of 0.1, and a Z-score of 0.7. This represents BMD change of -12.8% compared to the prior exam. This is statistically significant. The bone mineral density of the left femoral neck is 0.899 with a T-score of -1.0, and a Z-score of -0.1. This represents BMD change of -9.4% compared to the prior exam. The bone mineral density of the distal radius is 0.816 with a T score of -0.7 and a Z score of 0.9. FRACTURE RISK: The FRAX index suggests a ten year probability of major osteoporotic fracture of 7.7%, and of hip fracture 0.6%. MM/XR DEXA appendicular skeleton IMPRESSION: Based on bone mineral density, and according to World Health Organization (WHO) criteria, the diagnosis is consistent with normal bone mineral density. [facility] Medical History Multinodular goiter (nontoxic) Long-term insulin use Hyperparathyroidism Hypercalcemia Hypertension Obesity Type 2 diabetes mellitus with obesity Diabetes mellitus Diabetes Hyperlipidemia Hypertension Surgical History History of cholecystectomy History of tonsillectomy Family History Mother Diabetes mellitus Father Angina at rest Social History Household Members: Family Housing: Apartment Do you presently have visiting nurse or other home services: Yes Alcohol intake: current Alcohol intake frequency: holidays/special occasions only Comment: no c/o dizziness Patient Tobacco Use Status: Former Tobacco user Tobacco use type: Cigarette e-Cigarette/Vaping Use: Never Used Second Hand Smoke Exposure: Yes Advance Directives Date on File: 04/06/20 service: No Current occupational status: employed 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 She was seen by the endocrine surgeon at [facility] Dr. Tan Bonds for evaluation for surgery for hypercalcemia, an incidentally found to have thyroid nodules. Ultrasound thyroid 12/14/2024: Showed homogeneous gland with multiple bilateral nodules with a right upper pole 1 cm solid hypoechoic TR 4 nodule, a right superior pole 1.1 cm solid isoechoic TR 3 nodule, a right mid lobe 2.4 cm solid isoechoic TR 3 nodule, a left mid lobe 1.3 cm solid isoechoic TR 3 nodule. 12/23/2024 status post FNA of the right midpole 2.4 cm nodule which came back as benign, [place] category 2. She is seeing Dr. Tan Bonds at [facility], had 1st evaluation in November 2024, scheduled for surgery on 06/02/24 10 AM exploratory parathyroidectomy for hyper para with hypercalciuria Given thyroid nodule is benign, do not anticipate need for thyroidectomy. We will continue to monitor these nodules. Plan: -ordered ultrasound of the thyroid to be repeated in December 2025. -will plan to repeat tsh and free t4 in Dec 2025 Plan See above Orders: Orders US thyroid 12/20/25 E04.2 - Nontoxic multinodular goiter, E04.9 - Nontoxic goiter, unspecified Coding Level of Care Code Est Pt Level 3 (06077) Diagnoses Multinodular goiter (nontoxic) E04.2
--- OUTSIDE RECORDS SUMMARY | 2025-01-06 14:11 | XMS_ITS | Clinical Summary ---
Author Organization [facility] Address [address] [place] [address] Phone Care Team Providers Care Director Of Communications Name Role Phone Navid Tejeda MD Primary Care Provider [phone] Allergies Active Allergy Reactions Criticality Noted Date [...] Visit [facility] [address] [place] [address] Kip Kwok MD [address] [place] [id number] Health Maintenance Due Date Last Done Comments [...] BLOOD ORDERABLES Final Result Performing Organization Address City/[facility]/ZIP Co de Phone Number KREM[place]ING See order comments [place] [address] * Magnesium (12/14/2024 11:45 AM EDT) Magnesium 1.8 1.6 - 2.6 mg/dL See order comments Blood specimen (specimen) Venous blood / Unknown 12/14/2024 11:45 AM EDT 12/14/2024 11:45 AM EDT us Kip Kwok MD LAB BLOOD ORDERABLES Final Result MATT See order comments [place] [address] * (ABNORMAL) Basic Metabolic Panel (12/14/2024 11:45 [...] order comments [place] [address] * (ABNORMAL) EXT RESULT ENTRY (11/28/2023) (TSH) Thyroid Stimulating Hormone 0.96 Hemoglobin A1C 8.5(A) 4.0 - 6.0 Triglycerides 151 Cholesterol, Total 149 HDL 39 mg/dL LDL-Calculated 80 11/28/2023 us Historical Provider LAB BLOOD ORDERABLES Smitha l Result from Last 3 Months or Most Recently Relevant to Health Maintenance Insurance [place] Care Teams Director Of Communications Relationship Specialty Start Date End Date Navid Tejeda MD [address] [place], [place] PCP - General Internal Medicine 09/18/22
--- OUTSIDE RECORDS SUMMARY | 2025-01-06 14:11 | XMS_ITS | Patient Health Record ---
[facility] Address [address] [place] [address] Care Team Providers Care Preparation Supervisor Canning Name Role Phone Wendi PERSAUD, Zita Primary Care Provider Unavail able AbdirizakivanSeema Unavailable [phone] Allergies Allergen (clinical drug ingredient) Drug/Non Drug [...] Problem Acquired hammer toe of right foot (0987312950713 105) Other hammer toe(s) (acquired), right foot (M20.41) Active confirmed Problem Acquired hammer toe of left foot (9550013905280 103) Other hammer toe(s) (acquired), left foot (M20.42) Active confirmed Problem Diabetes mellitus (41068204) Type 2 diabetes mellitus without complication, without long-term current use of insulin (E11.9) Active confirmed Vital Signs Blood pressure diastolic 75 mm Hg 11/10/2024 Height 5ft3in in 11/10/2024 Blood pressure systolic 126 mm Hg 11/10/2024 Weight 197 lbs 11/10/2024 BMI 34.89 kg/m2 11/10/2024 Encounters Encounter [facility] Date [facility] [address] 11/10/2024 Seema Escobedo Other hammer toe(s) (acquired), right foot M20.41 ; Type 2 diabetes mellitus without complication, without long-term current use of insulin E11.9 and Other hammer toe(s) (acquired), left foot M20.42 [facility] [address] 09/02/2024 Seema Escobedo Assessments Encounter Date Diagnosis [...] Provider Name:Seema love, 11/16/2025 10:00:00 AM, [address] [facility], [place], [address], Insurance Providers Payer Name Payer Address Payer Phone Subscriber Number Group Number Insured Name Patient Relationship to Insured Coverage Start Date Coverage End Date Medicare National [employer]t [employer] [address] [facility] [place] [address] [id number] Tatiana Umanzor Self - patient is the insured Medical (General) History Medical History History ICD Code Broken bones Cholesterol covid-19 Diabetic Gall bladder problems High blood pressure Psoriasis/eczema Reflux ( GERD) sinusitis Measles Mumps Chicken pox Surgical History Surgery Date(Month/Year) tonsillectomy 1974 Gall bladder removal 1997 [place] History Reason Date[place] [facility] [place] [facility] [place]
--- OUTSIDE RECORDS SUMMARY | 2025-01-06 14:11 | XMS_ITS | Patient Health Record ---
Author Organization [facility] Address [address] [place] [address] Care Team Providers Care Casting House Laborer Name Role Phone Maty PERSAUD, Kike Primary Care Provider Unavailab Bry Fletcher Unavailable [phone] Reason For Referral No Information Medications Medication [...] Problem History of adenomatous polyp of colon (189538969) History of adenomatous polyp of colon (Z86.010) Active confirmed Problem Nausea (914604735) Nausea (R11.0) Active confirmed Problem Vomiting (462432082) Vomiting (R11.10) Active confirmed Problem Diarrhea of presumed infectious origin (58886907) Diarrhea of presumed infectious origin (R19.7) Active confirmed Plan Of Treatment No Information Insurance Providers Payer Name Payer Address Payer Phone Subscriber Number Group Number Insured Name Patient Relationship to Insured Coverage Start Date Coverage End Date [facility] [address] [place] [phone] [id number] LUIS LANG Self - patient is the [...]
== END 2025-01-06 13:28 | disposition home or self-care (01) ==
LOC: HO.ENCR 12:56
PROVIDERS: PCP Internal Medicine; Visit Provider Student in an Organized Health Care Education/Training Program
DX: E04.2 Nontoxic multinodular goiter (principal)
CPT/HCPCS: 99213

== ENCOUNTER → 2025-01-06 12:55 | Outpatient (BNVA) | payer MEDICARE, MEDICAID, SELFPAY | PROVIDERS: PCP Internal Medicine; Visit Provider Student in an Organized Health Care Education/Training Program | DX: Z71.2 Person consulting for explanation of examination or test findings (principal); E04.2 Nontoxic multinodular goiter | CPT/HCPCS: 99212 ==

== ENCOUNTER 2025-02-02 13:52 | Outpatient (AMB) | payer MEDICARE, MEDICAID, SELFPAY ==
--- OUTSIDE RECORDS SUMMARY | 2024-09-02 09:00 | XMS_ITS ---
Author Organization [facility] Address [address] [place] [phone] Care Team Providers Care Instrument Maintenance Supervisor Name Role Phone Zita Adame MD Primary Care Provider Unavail able Seema Escobedo Unavailable [phone] Medications Medication SIG (Take, Route, Frequency, Duration) [...] Active Encounters Encounter Location Date Provider Diagnosis [facility] [address] [place] [address] 09/02/2024 Seema Escobedo Plan Of Treatment Next Appt Details Provider Name:Seema love, 11/16/2025 10:00:00 AM, [address] [place] [address], [phone], Progress Notes * Tatiana UMANZOR TDOB:[birth year] (70 yo F)Acc No.[id number]:09/02/2024 Progress Note Patient: Tatiana BOURGEOIS Provider: Zainab Escobedo DPM :1955 A ge:69 Y S ex:Female Date:09/02/2024 Address:[address] [place], [place] [phone] Pcp:Zita Adame MD Subjective: * Chief Complaints: [...] 0 09/02/2024 Generated for [place] ram[place]/Hellen/Tawanda on: 06:08 PM EDT
--- OUTSIDE RECORDS SUMMARY | 2025-01-27 23:59 | XMS_ITS | Continuity of Care Document ---
Author Organization [facility] Address [address] [place] [address]- Care Team Providers Care Commercial Pilot Name Role Phone Favian Butler MD, Zita Huynh Primary Care Physician [id number] Date(s): 12/28/24 - 01/27/25 [facility] [address] [place] [address]- Encounter Type: Triage Medications B-12 500 mcg sublingual tablet TAKE [...] Total Allowed Fills: 1 Fills Dispensed: 0 Social History Social History Type Response Smoking Status Never (less than 100 in lifetime) entered on: 12/04/24 Sexual Orientation Self described orien tation: ; Straight or heterosexual Sex Sex Representation Female (finding) Patient Care team information Care Team Personnel Name: Zita Polo MD Position: Reference Physician Member Role: PCP Address: [address] [place] [address] Telecom: Care Team Related Persons Name: YOBANI TURK Name: TRAVIS TURK Insurance Providers Guarantor name: LUIS LANG Health Plan Information #: 1 Payer: MEDICARE B Payer Identifier: NA Member Number: [id number] Group Number: NA Subscriber Identifier: NA Relationship to Subscriber: self Coverage Type: NA Coverage Verification Date: NA Telecom: NA Address: NA Health Plan Information #: 2 Payer: [employer] Payer Identifier: NA Member Number: [id number] Group Number: NA Subscriber Identifier: NA Relationship to Subscriber: self Coverage Type: MEDICAID Coverage Verification Date: NA Telecom: NA Address:
[2025-02-02 13:54] VITALS: BP 128/62; PULSE 85; O2SAT 97; BMI 33.1
--- NOTE | 2025-02-02 13:54 | A.OFFVIS_ITS ---
Vital Signs 02/02/25 13:54 Height 5 ft 4 in Weight 192 lb 10.944 oz BMI 33.1 BP 128/62 Blood Pressure Location Lt brachial Position Sitting Pulse 85 Pulse Source Pulse Oximeter Pulse Oximetry (%) 97 Oxygen Delivery Method Room Air Intake Visit Reasons: [id number] pt Intake Note: Patient present today to follow up on Type 2 Diabetes Mellitus. Last Diabetic Eye exam: Last exam was on 2023 and has appt scheduled for June 2025 Last Podiatry Visit: Last visit was early summer Random Glucose: 112 mg/dl Hgb A1C: 7.0% 11/24/2024 Pickle Sorter Required: No Accompanied by: Self / Same As Patient Allergies oxycodone (From PERCOCET) Allergy (Intermediate, Verified 02/02/25 13:58) UNKNOWN HPI Comments Details: 70-year-old female with type 2 diabetes presents for diabetic management. Followed by Dr. Conklin for hypercalcemia and thyroid nodules. Hemoglobin A1c 7% 11/24/2024. Current regimen Metformin 1000 mg twice daily Lantus 24 units at bedtime Humalog 4 units before largest meal of the day Mounjaro 7.5 mg weekly Farxiga 5 mg daily Patient notes weight loss has plateaued on current dose of Mounjaro. There was only 33% of active CGM data because she recently changed the sensor. 90% of readings were in target range and 10% were high. She had a few instances of hypoglycemia on her CGM, but she says her fingerstick blood sugar is always normal. Denies episodes of hypoglycemia. Patient is on lisinopril for hypertension. She is on simvastatin for hyperlipidemia. Endorses urinary frequency and urgency for a week. No recent UTI or antibiotics. Denies fevers, chills, flank pain, nausea or vomiting. ROS: Constitutional: No unexplained weight loss, fever, chills, fatigue or night sweats. Eyes: No vision changes Respiratory: No shortness of breath Cardiovascular: No chest pain Gastrointestinal: No anorexia, nausea, vomiting or diarrhea. No abdominal pain Genitourinary: No dysuria or hematuria Endocrine: No cold or heat intolerance. No polyuria or polydipsia. Physical exam: Constitutional: Alert, in no distress. Neck: Supple, Full range of motion. No lymphadenopathy. Respiratory: Clear to auscultation. Cardiovascular: S1 S2 regular. No murmurs. Gastrointestinal: Abdomen soft, non-tender, non-distended. Normal bowel sounds. No palpable masses. Genitourinary: No costovertebral angle tenderness. Extremities: Warm and well perfused. No clubbing, cyanosis or edema. Psychiatric: Normal mood and affect [facility] Medical History Multinodular goiter (nontoxic) Long-term insulin use Hyperparathyroidism Hypercalcemia Hypertension Obesity Type 2 diabetes mellitus with obesity Diabetes mellitus Diabetes Hyperlipidemia Hypertension Surgical History History of cholecystectomy History of tonsillectomy Family History Mother Diabetes mellitus Father Angina at rest Social History Household Members: Family Housing: Apartment Do you presently have visiting nurse or other home services: Yes Alcohol intake: current Alcohol intake frequency: holidays/special occasions only Comment: no c/o dizziness Patient Tobacco Use Status: Former Tobacco user Tobacco use type: Cigarette e-Cigarette/Vaping Use: Never Used Second Hand Smoke Exposure: Yes Advance Directives Date on File: 04/06/20 service: No Current occupational status: employed 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 Cognitive needs: No Hearing needs: No Vision needs: Yes (glasses) Physical Exam Vital Signs: Last Vital Signs Pulse 85 02/02/25 13:54 BP 128/62 02/02/25 13:54 Pulse Ox 97 02/02/25 13:54 Oxygen Delivery Method Room Air 02/02/25 13:54 BMI result Body Mass Index 33.1 Results Reviewed Results Reviewed: Laboratory Last Values Glucose (Clinic) 112 mg/dL (60-115) 02/02/25 14:00 Laboratory Tests 08/22/22 07/28/24 12/06/24 15:25 09:25 14:57 Creatinine Estimated GFR AST 18 ALT 21 B-Natriuretic Peptide 24 Triglycerides 128 Cholesterol 129 LDL Cholesterol, Calc 64 HDL Cholesterol 40 L Vitamin B12 291 TSH 12/10/24 12/14/24 14:39 11:45 Creatinine 0.98 Estimated GFR 57 AST ALT B-Natriuretic Peptide Triglycerides Cholesterol LDL Cholesterol, Calc HDL Cholesterol Vitamin B12 TSH 0.71 Assessment & Plan Assessment & Plan (1) Type 2 diabetes mellitus with obesity: Code(s): E11.69 - Type 2 diabetes mellitus with other specified complication; E66.9 - Obesity, unspecified Category: Medical Plan: 70-year-old female with type 2 diabetes. Limited CGM data to review today, but it appears the majority of readings are within target since placing a new sensor. Continue Metformin 1000 mg twice daily Continue Lantus 22 units for now Humalog 4 units before largest meal of the day Farxiga 5 mg daily Finish prescription for Mounjaro 7.5 mg over the next 3 weeks Then start Mounjaro 10 mg weekly When you do this, reduce dose of Lantus to 18 units at night and stop Humalog. Continue Metformin 1000 mg twice daily Continue Farxiga 5 mg daily Reviewed treatment of hypoglycemia. Dextrose gel sent to pharmacy. Diabetic diet reviewed. Reviewed complications of type 2 diabetes. (2) Hypertension: Code(s): I10 - Essential (primary) hypertension Category: Medical Qualifiers: Hypertension type: primary hypertension Qualified Code(s): I10 - Essential (primary) hypertension Plan: Controlled. Continue current regimen. (3) Hyperlipidemia: Code(s): E78.5 - Hyperlipidemia, unspecified Category: Medical Qualifiers: Hyperlipidemia type: mixed hyperlipidemia Qualified Code(s): E78.2 - Mixed hyperlipidemia Plan: LDL at goal. Recommended Mediterranean diet. Continue statin. (4) Urinary frequency: Code(s): R35.0 - Frequency of micturition Plan: Patient is concerned about a UTI because she has had them in the past. She will go to the lab for urinalysis and culture, and I will treat empirically at this time with Macrobid 100 mg twice daily for 7 days. Warning signs warranting ER evaluation reviewed. Plan Follow up in 6-8 weeks. Orders: Orders UA w Microscopic Today R39.9 - Unspecified symptoms and signs involving the genitourinary system Urine Culture Today R39.9 - Unspecified symptoms and signs involving the genitourinary system Medications: New tirzepatide (Mounjaro) 10 mg (0.5 mL) subcut QWEEK 2 mL 3RF dextrose (TRUEplus Glucose) until symptoms of low blood sugar are controlled 15 grams (32 mL) PO Q15M PRN 128 mL 3RF hypoglycemia nitrofurantoin monohyd/m-cryst 100 mg (Macrobid) must administer with a meal/food 100 mg PO Q12H 14 caps 0RF 7 days blood-glucose sensor (FreeStyle Emmanuel 3 Plus Sensor device) Apply 1 new sensor every 15 days as directed to monitor blood glucose continuously. 6 ea 1RF Discontinued cephalexin Discontinued Reason: Doctor's Order 500 mg PO Q8H 7 days 21 caps 0RF flash glucose sensor (FreeStyle Emmanuel 2 Sensor kit) Discontinued Reason: Doctor's Order DIRECTED CHANGE EVERY 14 DAYS 2 kits 4RF E11.69 - Type 2 diabetes mellitus with other specified complication, E66.9 - Obesity, unspecified tirzepatide (Mounjaro) Discontinued Reason: Doctor's Order 7.5 mg (0.5 mL) subcut QWEEK 2 mL 5RF prednisone Take 4 tabs for 2 days, then 3 tabs for 2 days, then 2 tabs for 2 days, then 1 tab for 2 days Discontinued Reason: Doctor's Order 10 mg PO DIRECTED 8 days 20 tabs 0RF T78.40XA - Allergy, unspecified, initial encounter flash glucose scanning reader (FreeStyle Emmanuel 2 [place]) Discontinued Reason: Doctor's Order As directed 1 ea 0RF Patient Instructions: Metformin 1000 mg twice daily Continue Lantus 22 units for now Humalog 4 units before largest meal of the day Farxiga 5 mg daily Finish prescription for Mounjaro 7.5 mg Then start Mounjaro 10 mg weekly When you do this, reduce dose of Lantus to 18 units at night and I would also try stopping the Humalog Continue Metformin 1000 mg twice daily Continue Farxiga 5 mg daily If you experience low blood sugar, treat this by eating a chewable fruit candy like skittles or jelly beans (about 8 pieces), 4 ounces (1/2 cup) of fruit juice (not diet), 1 tablespoon of honey or 4 glucose tablets or 1 pack of dextrose gel. If your blood sugar is under 50, take double the amount of one of the above. Recheck your blood sugar in 15 minutes. Coding Level of Care Code Est Pt Level 4 (82553) Complex EM visit Add On G2211 Diagnoses Type 2 diabetes mellitus with obesity E11.69; E66.9 Primary hypertension I10 Hypertension type: primary hypertension Mixed hyperlipidemia E78.2 Hyperlipidemia type: mixed hyperlipidemia Urinary frequency R35.0
[2025-02-02 14:05] LABS: Glucose, Whole Blood 112 mg/dL (60-115)
--- OUTSIDE RECORDS SUMMARY | 2025-02-02 18:08 | XMS_ITS | Patient Health Record ---
[facility] Address [address] [place] [address] Care Team Providers Care Help Desk Engineer Name Role Phone Wendi PERSAUD, Zita Primary Care Provider Unavail able Abdirizakivan Seema Unavailable [phone] Allergies Allergen (clinical drug ingredient) Drug/Non Drug [...] Problem Acquired hammer toe of right foot (2559526068953 105) Other hammer toe(s) (acquired), right foot (M20.41) Active confirmed Problem Acquired hammer toe of left foot (6463895344451 103) Other hammer toe(s) (acquired), left foot (M20.42) Active confirmed Problem Diabetes mellitus (71321398) Type 2 diabetes mellitus without complication, without long-term current use of insulin (E11.9) Active confirmed Vital Signs Blood pressure diastolic 75 mm Hg 11/10/2024 Height 5ft3in in 11/10/2024 Blood pressure systolic 126 mm Hg 11/10/2024 Weight 197 lbs 11/10/2024 BMI 34.89 kg/m2 11/10/2024 Encounters Encounter Location Date [facility] [address] 11/10/2024 Seema Escobedo Other hammer toe(s) (acquired), right foot M20.41 ; Type 2 diabetes mellitus without complication, without long-term current use of insulin E11.9 and Other hammer toe(s) (acquired), left foot M20.42 [facility] [address] 09/02/2024 Seema Escobedo Assessments Encounter Date Diagnosis [...] Provider Name:Seema love, 11/16/2025 10:00:00 AM, [address] [facility], [place], [address], Insurance Providers Payer Name Payer Address Payer Phone Subscriber Number Group Number Insured Name Patient Relationship to Insured Coverage Start Date Coverage End Date Medicare National Govt Sv[employer] [address] [facility] [place] [address] [id number] Tatiana Umanzor Self - patient is the insured Medical (General) History Medical History History ICD Code Broken bones Cholesterol covid-19 Diabetic Gall bladder problems High blood pressure Psoriasis/eczema Reflux ( GERD) sinusitis Measles Mumps Chicken pox Surgical History Surgery Date(Month/Year) tonsillectomy 1974 Gall bladder removal 1997 Hospitalization History Reason Date(Month/Year) [facility] [place] 05/06/23
--- OUTSIDE RECORDS SUMMARY | 2025-02-02 18:08 | XMS_ITS | Patient Health Record ---
Author Organization [facility] Address [address] [place] [address] Care Team Providers Care Wrapper Selector Name Role Phone Maty PERSAUD, Kike Primary Care Provider Unavailab Bry Fletcher Unavailable [phone] Reason For Referral No Information Medications Medication SIG (Take, Route, Frequency, Duration) Notes Start Date End Date Status Meclizine HCl 12.5 MG TAKE 1 TABLET BY M OUTH EVERY 8 HOURS NEEDED FOR DIZZYNESS Oral; Duration: 6 Active Magnesium Oxide -Mg Supplement 400 MG TAKE 1 TABLET BY MOUTH TWICE A DAY Oral; Duration: 30 Active metFORMIN HCl 500 MG TAKE 1 TABLET BY MO UTH TWICE A DAY Oral; Duration: 90 Active Pantoprazole Sodium 40 MG TAKE 1 TABLET BY MOUTH TWICE A DAY Oral; Duration: 90 Active Glimepiride 4 MG TAKE 1 TABLET BY SKYLER TH TWICE A DAY Oral; Duration: 90 Active Simvastatin 20 MG TAKE 1 TABLET BY SKYLER TH EVERY DAY Oral; Duration: 90 Active Fexofenadine HCl 180 MG TAKE 1 TABLET BY MOUTH EVERY DAY Oral; Duration: 15 Active Lisinopril 20 MG TAKE 1 TABLET EVERY DAY Oral; Duration: 90 Active Ondansetron HCl 4 MG TAKE 1 TABLET BY MO UTH EVERY 8 HOURS NEEDED FOR NAUSEA AND VOMITING Oral; Duration: 4 Active Immunizations Vaccine Route Administration Date [...] Problem History of adenomatous polyp of colon (212213483) History of adenomatous polyp of colon (Z86.010) Active confirmed Problem Nausea (741946095) Nausea (R11.0) Active confirmed Problem Vomiting (113721422) Vomiting (R11.10) Active confirmed Problem Diarrhea of presumed infectious origin (79563250) Diarrhea of presumed infectious origin (R19.7) Active confirmed Plan Of Treatment No Information Insurance Providers Payer Name Payer Address Payer Phone Subscriber Number Group Number Insured Name Patient Relationship to Insured Coverage Start Date Coverage End Date [facility] [address] [place] [phone] [id number] LUIS LANG Self - patient is the insured Medical (General) History Medical History History ICD Code NIDDM Hypertension Denies [place],CVA,Lung disease,renal disease Hyperlipidemia COVID in 01/2019--not hospitalized [...]
--- OUTSIDE RECORDS SUMMARY | 2025-02-02 18:08 | XMS_ITS | Clinical Summary ---
Author Organization [facility] Address [address] [facility] [address] [place] [address] Phone Care Team Providers Care Shaker Screen Operator Name Role Phone Navid Tejeda MD Primary Care Provider [phone] Allergies Active Allergy Reactions Criticality Noted Date [...] Visit [facility] [address] [place] [address] Kip Kwok MD [address] [facility] [address] [place] [id number] Health Maintenance Due Date Last Done Comments [...] BLOOD ORDERABLES Final Result Performing Organization Address City/[facility]/ZIP Co de Phone Number [place] See order comments [place] [address] * Magnesium (12/14/2024 11:45 AM EDT) Magnesium 1.8 1.6 - 2.6 mg/dL See order comments Blood specimen (specimen) Venous blood / Unknown 12/14/2024 11:45 AM EDT 12/14/2024 11:45 AM EDT us Kip Kwok MD LAB BLOOD ORDERABLES Final Result MATT See order comments [place] [address] * (ABNORMAL) Basic Metabolic Panel (12/14/2024 11:45 [...] order comments [place] [address] * (ABNORMAL) EXT RESULT ENTRY (11/28/2023) (TSH) Thyroid Stimulating Hormone 0.96 Hemoglobin A1C 8.5(A) 4.0 - 6.0 Triglycerides 151 Cholesterol, Total 149 HDL 39 mg/dL LDL-Calculated 80 11/28/2023 us Historical Provider LAB BLOOD ORDERABLES Smitha l Result from Last 3 Months or Most Recently Relevant to Health Maintenance Insurance [place] Care Teams Shaker Screen Operator Relationship Specialty Start Date End Date Navid Tejeda MD [address] [place], [place] PCP - General Internal Medicine 09/18/22
== END 2025-02-02 14:37 | disposition home or self-care (01) ==
LOC: HO.ENCR 13:53
PROVIDERS: PCP Internal Medicine; Visit Provider Physician Assistant Medical
DX: E11.69 Type 2 diabetes mellitus with other specified complication (principal); E66.9 Obesity, unspecified; I10 Essential (primary) hypertension; E78.2 Mixed hyperlipidemia; R35.0 Frequency of micturition

== ENCOUNTER 2025-02-02 13:52 | Outpatient (REF) | payer MEDICARE, MEDICAID, SELFPAY ==
[2025-02-02 15:27] LABS: Appearance Urine Cloudy; Glucose Urine UA >=1000 mg/dL (Negative); PH 8.5 (5.0-9.0); Specific Gravity - Urine 1.025 (1.005-1.025); UMIC TRIGGER UA YES
[2025-02-02 16:37] LABS: Microalbum/Creatinine Ratio Ur 231.5 ug/mg cr (<30)
== END 2025-02-02 13:53 | disposition home or self-care (01) ==
LOC: HO.LAB 13:52
PROVIDERS: Absent Provider Physician Assistant Medical; PCP Internal Medicine; Visit Provider Internal Medicine
DX: I10 Essential (primary) hypertension (principal); E11.69 Type 2 diabetes mellitus with other specified complication; E66.9 Obesity, unspecified; E78.2 Mixed hyperlipidemia; T78.40XA Allergy, unspecified, initial encounter; R35.0 Frequency of micturition; R80.9 Proteinuria, unspecified; Z79.899 Other long term (current) drug therapy; Z79.4 Long term (current) use of insulin; Z79.84 Long term (current) use of oral hypoglycemic drugs
CPT/HCPCS: 81001; 82043; 82570; 82947; 87086; 99212

== ENCOUNTER 2025-03-22 07:57 | Outpatient (REF) | payer MEDICARE, MEDICAID, SELFPAY ==
--- OUTSIDE RECORDS SUMMARY | 2024-09-02 08:00 | XMS_ITS ---
Author Organization [facility] Address [address] [place] [phone] Care Team Providers Care Stave Planer Tender Name Role Phone Zita Adame MD Primary Care Provider Unavail able Seema Escobedo Unavailable [phone] Medications Medication SIG (Take, Route, Frequency, Duration) Notes Start Date End Date Status Blood Glucose Meter Active Meclizine HCl 12.5 MG 1 tablet as needed Orally every 12 hrs Active Sulfamethoxazole Not -Taking Magnesium Active Freestyle Test Strips Active Insulin Lispro Humalog Activ e metFORMIN HCl 1000 MG 1 tablet with a meal Orally twice a day Active Glucose Monitoring Sensor Active Tirzepatide Mounjaro Active Insulin Glargine Lantus Act cecily Simvastatin 20 MG 1 tablet in the evening Orally Once a day Active Albuterol Sulfate No t-Taking Lisinopril 10 MG 1 tablet Orally twice a day Active Encounters Encounter Location Date Provider Diagnosis [facility] [address] [place] [address] 09/02/2024 Seema Escobedo Plan Of Treatment Next Appt Details Provider Name:Seema love, 11/16/2025 10:00:00 AM, [address] [place] [address], [phone], Progress Notes * Tatiana UMANZOR TDOB:[birth year] (70 yo F)Acc No.[id number]:09/02/2024 Progress Note Patient: Tatiana BOURGEOIS Provider: Zainab Escobedo DPM :1955 A ge:69 Y S ex:Female Date:09/02/2024 Address:[address] [place], [place] [phone] Pcp:Zita Adame MD Subjective: * Chief Complaints: * * Medical History: * Medications: T aking Freestyle Test Strips , Taking Blood Glucose Meter , Taking Meclizine HCl 12.5 MG Tablet 1 tablet as needed Orally every 12 hrs , Taking Magnesium , Taking Lisinopril 10 MG Tablet 1 tablet Orally twice a day , Taking Simvastatin 20 MG Tablet 1 tablet in the evening Orally Once a day , Taking Tirzepatide , Notes to Pharmacist: James, Taking Insulin Glargine , Notes to Pharmacist: Lantus, Taking Glucose Monitoring Sensor , Taking Insulin Lispro , Notes to Pharmacist: Humalog, Taking metFORMIN HCl 1000 MG Tablet 1 tablet with a meal Orally twice a day , Not- Taking/PRN Sulfamethoxazole , Not-Taking/PRN Albuterol Sulfate Objective: * Vitals: Assessment: Plan: * Treatment: * Images: * The named appointment provid er may or may not be the originator of this progress note, and it is not deemed complete until electronically signed by the appointment provider. Sign off status: Pending * Provider: Zainab Escobedo DPM Date: 0 09/02/2024 Generated for [place]/Hellen/Tawanda on: 1 05/23/2024 08:08 AM EST
--- OUTSIDE RECORDS SUMMARY | 2025-03-22 08:08 | XMS_ITS | Patient Health Record ---
Author Organization [facility] Address [address] [place] [address] Care Team Providers Care Distributor Publications Name Role Phone Maty PERSAUD, Kike Primary Care Provider Unavailab Bry Fletcher Unavailable [phone] Reason For Referral No Information Medications Medication SIG (Take, Route, Frequency, Duration) Notes Start Date End Date Status Meclizine HCl 12.5 MG Tablet TAKE 1 TABLET BY MOUTH EVERY 8 HOURS NEEDED FOR DIZZYNESS Oral; Duration: 6 Active Magnesium Oxide -Mg Supplement 400 MG Capsule TAKE 1 TABLET BY MOUTH TWICE A DAY Oral; Duration: 30 Active metFORMIN HCl 500 MG Tablet TAKE 1 TABLE T BY MOUTH TWICE A DAY Oral; Duration: 90 Active Pantoprazole Sodium 40 MG Tablet Delayed Release TAKE 1 TABLET BY MOUTH TWICE A DAY Oral; Duration: 90 Active Glimepiride 4 MG Tablet TAKE 1 TABLET BY MOUTH TWICE A DAY Oral; Duration: 90 Active Simvastatin 20 MG Tablet TAKE 1 TABLET B Y MOUTH EVERY DAY Oral; Duration: 90 Active Fexofenadine HCl 180 MG Tablet TAKE 1 TABLET BY MOUTH EVERY DAY Oral; Duration: 15 Active Lisinopril 20 MG Tablet TAKE 1 TABLET EV CORDELL DAY Oral; Duration: 90 Active Ondansetron HCl 4 MG Tablet TAKE 1 TABLE T BY MOUTH EVERY 8 HOURS NEEDED FOR NAUSEA AND VOMITING Oral; Duration: 4 Active Immunizations Vaccine Route Administration Date Status Comme nts Influenza Unknown 04/26/2020 Refused Social History Tobacco Use: Social History Observation Description Date Details (start date - stop date) Former Smoker NA - NA Social History Drugs/Alcohol: Social Info Question Answer Notes Alcohol Screen Did you have a drink containing alcohol in the past year? Yes How often did you have a drink containing alcohol in the past year? Never (0 point) How many drinks did you have on a typical day when you were drinking in the past year? 1 or 2 drinks (0 point) How often did you have 6 or more drinks on one occasion in the past year? Never (0 point) Points 0 Interpretation Negative Tobacco Use: Social Info Question Answer Notes Tobacco Use/Smoking Patient is a former smoker When did you stop smoking? 3 years ago How long has it been since you last smoked? 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 alcohol Problems Problem Type SNOMED Code ICD Code Onset Dates Problem Status W/U Status Risk Notes Problem History of adenomatous polyp of colon (009765462) History of adenomatous polyp of colon (Z86.010) Active confirmed Problem Nausea (388428586) Nausea (R11.0) Active confirmed Problem Vomiting (243534648) Vomiting (R11.10) Active confirmed Problem Diarrhea of presumed infectious origin (85577414) Diarrhea of presumed infectious origin (R19.7) Active confirmed Plan Of Treatment No Information Insurance Providers Payer Name Payer Address Payer Phone Subscriber Number Group Number Insured Name Patient Relationship to Insured Coverage Start Date Coverage End Date [facility] [address] [place] [address] [id number] LUIS LANG Self - patient is the insured Medical (General) History Medical History History ICD Code NIDDM Hypertension Denies [place],CVA,Lung disease,renal disease Hyperlipidemia COVID in 01/2019--not hospitalized and n o sequelae EGD in 03/2017-small hiatal hernia, duodenal last sees were normal and negative for celiac disease, benign gastric polyps Colonoscopy 03/2017- 1 1.5cm tubular adenoma removed; no inflammatory bowel disease; random colon biopsies were negative for microscopic colitis Hospitalizations in 03/2017 and 03/2020 for gastroenteritis and dehydration Surgical History Surgery Date(Month/Year) cholecystectomy 1999 tonsillectomy 1975
--- OUTSIDE RECORDS SUMMARY | 2025-03-22 08:08 | XMS_ITS | Patient Health Record ---
Author [facility] Address [address] [place] [address] Care Team Providers Care Telephone Answerer Name Role Phone Wendi PERSAUD, Zita Primary Care Provider Unavail able Abdirizakivan Seema Unavailable [phone] Allergies Allergen (clinical drug ingredient) Drug/Non Drug [...] Problem Acquired hammer toe of right foot (9899413366539 105) Other hammer toe(s) (acquired), right foot (M20.41) Active confirmed Problem Acquired hammer toe of left foot (7857855536095 103) Other hammer toe(s) (acquired), left foot (M20.42) Active confirmed Problem Diabetes mellitus (14076077) Type 2 diabetes mellitus without complication, without long-term current use of insulin (E11.9) Active confirmed Vital Signs Blood pressure diastolic 75 mm Hg 11/10/2024 Height 5ft3in in 11/10/2024 Blood pressure systolic 126 mm Hg 11/10/2024 Weight 197 lbs 11/10/2024 BMI 34.89 kg/m2 11/10/2024 Encounters Encounter Location Date [facility] [address] 11/10/2024 Seema Escobedo Other hammer toe(s) (acquired), right foot M20.41 ; Type 2 diabetes mellitus without complication, without long-term current use of insulin E11.9 and Other hammer toe(s) (acquired), left foot M20.42 [facility] [address] 09/02/2024 Seema Escobedo Assessments Encounter Date Diagnosis [...] Provider Name:Seema love, 11/16/2025 10:00:00 AM, [address] [facility], [place], [address], Insurance Providers Payer Name Payer Address Payer Phone Subscriber Number Group Number Insured Name Patient Relationship to Insured Coverage Start Date Coverage End Date Medicare National Govt Svcs Inc [address] [place] [address] [id number] Tatiana Umanzor Self - patient is the insured Medical (General) History Medical History History ICD Code Broken bones Cholesterol covid-19 Diabetic Gall bladder problems High blood pressure Psoriasis/eczema Reflux ( GERD) sinusitis Measles Mumps Chicken pox Surgical History Surgery Date(Month/Year) tonsillectomy 1974 Gall bladder removal 1997 Hospitalization History Reason Date(Month/Year) [facility] [place]
--- OUTSIDE RECORDS SUMMARY | 2025-03-22 08:08 | XMS_ITS | Clinical Summary ---
Author Organization [facility] Address [address] [facility] [address] [place] [address] Phone Care Team Providers Care Social Services Technician Name Role Phone Navid Tejeda MD Primary Care Provider [phone] Allergies Active Allergy Reactions Criticality Noted Date [...] Years Used Date Smoking Tobacco: Former Cigarettes 0 Q uit: 12/2016 Tobacco Cessation:Counseling Given: Not [...] Visit [facility] [address] [place] [address] Kip Kwok MD [address] [facility] [address] [place] [address] Health Maintenance Due Date Last [...] Medicaid [place] Care Teams Social Services Technician Relationship Specialty Start Date End Date Navid Tejeda MD [address] [place], [place] PCP - General Internal Medicine 09/18/22
[2025-03-22 09:16] LABS: Alanine Aminotransferase 20 U/L (0-31); Albumin Level 4.4 g/dL (3.5-5.0); Alkaline Phosphatase 68 U/L (39-117); Anion Gap 13 (12-20); Aspartate Amino Transferase 21 U/L (5-31); Blood Urea Nitrogen 18 mg/dL (9-16); Calcium 10.6 mg/dL (8.4-10.2); Carbon Dioxide 21 mmol/L (22-29); Chloride 108 mmol/L (96-108); Cholesterol 116 mg/dL (<200); Estimated Glomerular Filt Rate > 60; HDL Cholesterol 41 mg/dL (>40); Potassium 4.4 mmol/L (3.3-5.1); Sodium 138 mmol/L (135-145); Total Protein 7.3 g/dL (6.5-8.0); Triglycerides 116 mg/dL (<150)
== END 2025-03-22 07:58 | disposition home or self-care (01) ==
LOC: HO.LAB 07:57
PROVIDERS: PCP Internal Medicine; Visit Provider Internal Medicine
DX: E11.9 Type 2 diabetes mellitus without complications (principal); E78.5 Hyperlipidemia, unspecified
CPT/HCPCS: 36415; 80053; 80061

== ENCOUNTER 2025-03-23 13:10 | Outpatient (AMB) | payer MEDICARE, MEDICAID, SELFPAY ==
--- NOTE | 2025-03-23 13:12 | MHC.OFFVIS ---
Vital Signs 03/23/25 13:13 Height 5 ft 4 in Weight 183 lb 13.848 oz BMI 31.6 BP 124/62 Blood Pressure Location Lt brachial Position Sitting Pulse 80 Pulse Source Pulse Oximeter Pulse Oximetry (%) 100 Oxygen Delivery Method Room Air Intake Visit Reasons: Type II DM Intake Note: Patient present today to follow up on Type 2 Diabetes Mellitus. Last Diabetic Eye exam: Last exam was on 2023 and has appt scheduled for June 2025 Last Podiatry Visit: Last visit was early summer Random Glucose: 84 mg/dl Hgb A1C: 7.3% Crib Attendant Required: No Accompanied by: Self / Same As Patient Allergies oxycodone (From PERCOCET) Allergy (Intermediate, Verified 03/23/25 13:18) UNKNOWN Medication List - Last Reconciled 03/23/25 by MARCELA Vera albuterol sulfate 90 mcg/actuation 1 inh inhalation QID PRN blood sugar diagnostic (FreeStyle Lite Strips) As directed blood-glucose meter (FreeStyle Lite Meter kit) As directed blood-glucose sensor (FreeStyle Emmanuel 3 Plus Sensor device) Apply 1 new sensor every 15 days as directed to monitor blood glucose continuously. cholecalciferol (vitamin D3) 25 mcg PO DAILY 3 months cyanocobalamin (vitamin B-12) 500 mcg PO DAILY dapagliflozin propanediol (Farxiga) 5 mg PO DAILY dextrose (TRUEplus Glucose) 15 grams (32 mL) PO Q15M PRN hydroxyzine HCl 25 mg PO BEDTIME 10 days insulin glargine (Lantus Solostar U-100 Insulin) 16 units subcut QPM lisinopril 10 mg PO BEDTIME magnesium oxide 500 mg PO BID meclizine 12.5 mg PO Q8H PRN metformin 1,000 mg PO BID nitrofurantoin monohyd/m-cryst 100 mg (Macrobid) 100 mg PO Q12H 7 days pen needle, diabetic (Comfort EZ Pen [place]) As directed injects once a day pen needle, diabetic (BD Tessie 2nd Gen Pen Needle) use once a day As directed simvastatin 20 mg PO BEDTIME tirzepatide (Mounjaro) 10 mg (0.5 mL) subcut QWEEK HPI Comments Details: 70-year-old female with type 2 diabetes presents for diabetic management. Followed by Dr. Conklin for hypercalcemia and thyroid nodules. Hemoglobin A1c 7.3% up from 7%, but her CGM shows improvement since increasing Moujaro. Reviewed Emmanuel 3 data for the last 2 weeks CGM active 96% Average glucose 130 G OH 6.4% Glucose variability 19.9% Very high 0% High 4% Target range 96% 0% hypoglycemia My interpretation is the patient has excellent glycemic control throughout 24 hours. Current regimen Metformin 1000 mg twice daily Lantus 16 units at bedtime Mounjaro 10 mg weekly Farxiga 5 mg daily Past medication: Stopped Humalog due to hypoglycemia. Interval weight loss after increasing Mounjaro. She is very happy about this. She gets some nausea for 1-2 days after she takes it. Denies other side effects. Patient is on lisinopril for hypertension. She is on simvastatin for hyperlipidemia. She has a mild heart murmur on exam. Denies chest pain or shortness of breath. She endorses mild swelling in her lower legs when she does a lot of walking or standing. ROS: Constitutional: No unexplained weight loss, fever, chills, fatigue or night sweats. Eyes: No vision changes Respiratory: No shortness of breath Cardiovascular: No chest pain Gastrointestinal: No anorexia, nausea, vomiting or diarrhea. No abdominal pain Genitourinary: No dysuria or hematuria Endocrine: No cold or heat intolerance. No polyuria or polydipsia. Physical exam: Constitutional: Alert, in no distress. Neck: Supple, Full range of motion. No lymphadenopathy. Respiratory: Clear to auscultation. Cardiovascular: S1 S2 regular. 1-2/6 systolic murmur detected on exam. Extremities: Warm and well perfused. No clubbing, cyanosis or edema. Psychiatric: Normal mood and affect ON LICENSE OF [facility] Medical History Multinodular goiter (nontoxic) Long-term insulin use Hyperparathyroidism Hypercalcemia Hypertension Obesity Type 2 diabetes mellitus with obesity Diabetes mellitus Diabetes Hyperlipidemia Hypertension Surgical History History of cholecystectomy History of tonsillectomy Family History Mother Diabetes mellitus Father Angina at rest Social History Household Members: Family Housing: Apartment Do you presently have visiting nurse or other home services: Yes Alcohol intake: current Alcohol intake frequency: holidays/special occasions only Comment: no c/o dizziness Patient Tobacco Use Status: Former Tobacco user Tobacco use type: Cigarette e-Cigarette/Vaping Use: Never Used Second Hand Smoke Exposure: Yes Advance Directives Date on File: 04/06/20 service: No Current occupational status: employed 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 Cognitive needs: No Hearing needs: No Vision needs: Yes (glasses) Physical Exam Vital Signs: Last Vital Signs Pulse 80 03/23/25 13:13 BP 124/62 03/23/25 13:13 Pulse Ox 100 03/23/25 13:13 Oxygen Delivery Method Room Air 03/23/25 13:13 BMI result Body Mass Index 31.6 Office Procedures Glucose Monitoring Details Details: See [facility] [address] - Glucose monitoring, continuous-physician I&R Procedure code (CPT) selection complete Results AMB Hemoglobin A1c AMB Hemoglobin A1c 7.3 % Last Edit by WILMA Lamb on 03/23/25 13:30 Results Reviewed Results Reviewed: Laboratory Last Values Glucose (Clinic) 84 mg/dL (60-115) 03/23/25 13:21 Hgb A1c (Clinic) 7.3 % (4.0-6.0) H 03/23/25 13:23 Laboratory Tests 02/02/25 03/22/25 14:56 08:11 Creatinine 0.80 Estimated GFR > 60 AST 21 ALT 20 Triglycerides 116 Cholesterol 116 LDL Cholesterol, Calc 52 HDL Cholesterol 41 Urine Creatinine 67.80 Urine Microalbumin 157.0 Microalb/Creat Ratio 231.5 H Assessment & Plan Assessment & Plan (1) Type 2 diabetes mellitus with obesity: Code(s): E11.69 - Type 2 diabetes mellitus with other specified complication; E66.9 - Obesity, unspecified Category: Medical Plan: 70-year-old female with controlled type 2 diabetes per CGM data. Continue current regimen: Metformin 1000 mg twice daily Lantus 16 units daily Farxiga 5 mg daily Mounjaro 10 mg weekly Reviewed treatment of hypoglycemia. Diabetic diet reviewed. Reviewed complications of type 2 diabetes. Eye exam is scheduled in June. (2) Hypertension: Code(s): I10 - Essential (primary) hypertension Category: Medical Qualifiers: Hypertension type: primary hypertension Qualified Code(s): I10 - Essential (primary) hypertension Plan: Controlled. Continue current regimen. (3) Hyperlipidemia: Code(s): E78.5 - Hyperlipidemia, unspecified Category: Medical Qualifiers: Hyperlipidemia type: mixed hyperlipidemia Qualified Code(s): E78.2 - Mixed hyperlipidemia Plan: LDL at goal. Recommended Mediterranean diet. Continue statin. (4) Heart murmur: Code(s): R01.1 - Cardiac murmur, unspecified Category: Medical Plan: Echocardiogram ordered. Plan Patient's appointment in January with Dr. Conklin was canceled because she is out on leave. She is scheduled for surgery in May at [facility] for parathyroidectomy. Schedule follow up in June with endocrinology MD for type 2 diabetes, hyperparathyroidism and multinodular goiter. Orders: Orders CA echo transthoracic complete Today R01.1 - Cardiac murmur, unspecified AMB Glucose Monitoring Today E11.9 - Type 2 diabetes mellitus without complications AMB Hemoglobin A1c Today E11.69 - Type 2 diabetes mellitus with other specified complication, E66.9 - Obesity, unspecified, Z13.9 - Encounter for screening, unspecified Medications: Discontinued insulin aspart U-100 (Novolog FlexPen U-100 Insulin aspart) Take 4 units with heaviest meal of the day once a day Discontinued Reason: Doctor's Order 4 units (0.04 mL) subcut DAILY 3 mL 3RF Coding Level of Care Code Est Pt Level 4 (39350) Diagnoses Type 2 diabetes mellitus with obesity E11.69; E66.9 Primary hypertension I10 Hypertension type: primary hypertension Mixed hyperlipidemia E78.2 Hyperlipidemia type: mixed hyperlipidemia Heart murmur R01.1 CPT Codes Details - CPT: 60110 - Glucose monitoring, continuous-physician I&R ([id number])
[2025-03-23 13:13] VITALS: BP 124/62; PULSE 80; O2SAT 100; BMI 31.6
[2025-03-23 13:24] LABS: Glucose, Whole Blood 84 mg/dL (60-115)
== END 2025-03-23 14:00 | disposition home or self-care (01) ==
LOC: HO.ENCR 13:11
PROVIDERS: PCP Internal Medicine; Visit Provider Physician Assistant Medical
DX: E11.69 Type 2 diabetes mellitus with other specified complication (principal); E66.9 Obesity, unspecified; I10 Essential (primary) hypertension; E78.2 Mixed hyperlipidemia; R01.1 Cardiac murmur, unspecified; Z13.9 Encounter for screening, unspecified

== ENCOUNTER → 2025-03-23 13:10 | Outpatient (BNVA) | payer MEDICARE, MEDICAID, SELFPAY ==
--- NOTE | 2025-03-25 13:45 | PM.CNNEP ---
History of Present Illness Reason for Consult Consult date: 03/25/25 Chief Complaint Chief complaint: Type II DM History of Present Illness Narrative: patient seen in office today [facility] Past Medical History Medical History (Updated 03/23/25 @ 13:53 by MARCELA Vera) Heart murmur Multinodular goiter (nontoxic) Long-term insulin use Hyperparathyroidism Hypercalcemia Hypertension Obesity Type 2 diabetes mellitus with obesity Diabetes mellitus Diabetes Hyperlipidemia Hypertension Family History Family History Mother Diabetes mellitus Father Angina at rest Surgical History Surgical History History of cholecystectomy History of tonsillectomy Social History Social History Household Members: Family Housing: Apartment Do you presently have visiting nurse or other home services: Yes Alcohol intake: current Alcohol intake frequency: holidays/special occasions only Comment: no c/o dizziness Patient Tobacco Use Status: Former Tobacco user Tobacco use type: Cigarette e-Cigarette/Vaping Use: Never Used Second Hand Smoke Exposure: Yes Advance Directives Date on File: 04/06/20 service: No Current occupational status: employed 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 Cognitive needs: No Hearing needs: No Vision needs: Yes (glasses) Meds Allergies Allergy/AdvReac Type Severity Reaction Status Date / Time oxycodone (From PERCOCET) Allergy Intermediate UNKNOWN Verified 03/23/25 13:18 Home Medications ?Medication ?Instructions ?Recorded ?Confirmed ?Last Taken ?Type blood sugar diagnostic (FreeStyle 07/25/22 03/23/25 Unknown History Lite Strips) magnesium oxide 500 mg PO BID 05/06/23 03/23/25 05/06/23 History dapagliflozin propanediol 5 mg 5 mg PO DAILY 04/28/24 03/23/25 Unknown History tablet (Farxiga) insulin glargine 100 unit/mL (3 16 unit subcut QPM 03/23/25 03/23/25 Unknown History mL) subcutaneous pen (Lantus Solostar U-100 Insulin) Assessment and Plan (1) Hypomagnesemia: Status: Acute Plan 68/f with persistent hypomagnesemia in the setting of chronic ingestion of omeprazole and essentially normal renal function. off omeprazole- with improvement in mg- however with gerd symptoms- therefore she admitted to using prilosec 2 times / week - Primary hyperparathyroidism, indicated by elevated calcium levels, - Stable magnesium levels after stopping omeprazole - Proteinuria likely related to long-standing diabetes affecting kidney function. Dm - on GLP1 mounjaro , insulin and metformin - She has mild hypercalcemia with top normal pth- indicative of primary hyperparathyroidism . Some patients with primary hyperparathyroidism have hypomagnesemia due to a reversible defect in magnesium conservation by kidney- will cont to monitor Htn- on lisinopril 20mg well controlled Plan - Continue using Prilosec as needed to manage symptoms effectively - cont Farxiga 5 mg once daily to aid in diabetes management and kidney health. Be vigilant for potential side effects, such as urinary tract infections. If symptoms of infection occur, discontinue use immediately. Additionally, avoid taking Farxiga during periods of fasting or if experiencing nausea, vomiting, or inability to eat or drink. cont famotidine 20mg Continue current magnesium supplementation- last mag 1.8 ( - ) - ca is still ranging high 10-12 - pending surgery Procedures Date of Service Date of Service: 03/25/25
== END ==
PROVIDERS: PCP Internal Medicine; Visit Provider Physician Assistant Medical
DX: E11.69 Type 2 diabetes mellitus with other specified complication (principal); E66.9 Obesity, unspecified; I10 Essential (primary) hypertension; E78.2 Mixed hyperlipidemia; R01.1 Cardiac murmur, unspecified; Z79.4 Long term (current) use of insulin
CPT/HCPCS: 82947; 83036; 99212